=== PATIENT | male | born 1940 | race Caucasian/White ===

== ENCOUNTER → 2016-12-29 | Outpatient (CLI) | payer MEDICARE, OTHER ==
[2015-08-24 11:13] VITALS: BP 145/85
[~2016-12-29] MED LIST: AMLO5TAB2 PO; ATOR20TA58 PO; FOSI40TA PO; MAGN30TA2 PO; METO-269 PO; POTA20TA82 PO; TAMS0.4C97 PO; TRAZ50TA15 PO; WARF1TAB7 PO
== END | disposition home or self-care (01) ==
LOC: PMGWOUND 07:38
PROVIDERS: ATTEND Emergency Medicine Undersea and Hyperbaric Medicine
DX: I87.311 Chronic venous hypertension (idiopathic) with ulcer of right lower extremity (principal); L97.211 Non-pressure chronic ulcer of right calf limited to breakdown of skin; L89.891 Pressure ulcer of other site, stage 1; I48.91 Unspecified atrial fibrillation; F17.210 Nicotine dependence, cigarettes, uncomplicated
CPT/HCPCS: 29581

== ENCOUNTER → 2017-01-01 | Outpatient (CLI) | payer MEDICARE, OTHER ==
[2015-08-24 11:13] VITALS: BP 145/85
== END | disposition home or self-care (01) ==
LOC: PMGWOUND 12:49
PROVIDERS: ATTEND Emergency Medicine Undersea and Hyperbaric Medicine
DX: I87.311 Chronic venous hypertension (idiopathic) with ulcer of right lower extremity (principal); L97.211 Non-pressure chronic ulcer of right calf limited to breakdown of skin; I48.91 Unspecified atrial fibrillation; F17.210 Nicotine dependence, cigarettes, uncomplicated
CPT/HCPCS: 29581

== ENCOUNTER → 2017-01-07 | Outpatient (CLI) | payer MEDICARE, OTHER ==
[2015-08-24 11:13] VITALS: BP 145/85
--- NOTE | 2017-01-07 16:34 | RAD ---
Bilateral lower extremity venous Doppler ultrasound History: Venous insufficiency. Comparison: None. Procedure: Color Doppler, spectral Doppler, and grayscale images are obtained with and without compression in the area of the common femoral vein, superficial femoral vein - femoral vein junction, main femoral vein (superficial femoral vein) and popliteal vein. Veins of the proximal calf are also imaged. Findings: There is normal duplex flow, color flow and compressibility of all visualized vein segments. No evidence of deep venous thrombosis is present. Impression: No evidence of lower extremity deep venous thrombosis.
--- NOTE | 2017-01-07 16:39 | RAD ---
Bilateral lower extremity venous reflux study History: Venous insufficiency. Comparison: None. Technique: Grayscale, color Doppler, and spectral Doppler imaging was performed of the superficial veins of both lower extremities. Findings: The right greater saphenous vein demonstrates greater than 1 second of reflux. At the proximal thigh, reflux time is 1.9 seconds. At the proximal thigh, right greater saphenous vein has diameter of 4.7 mm. The left greater saphenous vein is without significant reflux. No incompetent calf veins are seen. The right lesser saphenous vein at the proximal calf has diameter of 6.7 mm. There is significant reflux with reflux time of 2.7 seconds. Left lesser saphenous vein is without significant reflux. Impression: Reflux is seen involving the right greater saphenous vein and right lesser saphenous vein.
== END | disposition home or self-care (01) ==
LOC: US 15:30
PROVIDERS: ATTEND Specialist
DX: I87.2 Venous insufficiency (chronic) (peripheral) (principal); R60.0 Localized edema
CPT/HCPCS: 93970

== ENCOUNTER → 2017-01-08 | Outpatient (CLI) | payer MEDICARE, OTHER ==
[2015-08-24 11:13] VITALS: BP 145/85
== END | disposition home or self-care (01) ==
LOC: PMGWOUND 10:59
PROVIDERS: ATTEND Emergency Medicine Undersea and Hyperbaric Medicine
DX: I87.311 Chronic venous hypertension (idiopathic) with ulcer of right lower extremity (principal); L97.211 Non-pressure chronic ulcer of right calf limited to breakdown of skin; I48.91 Unspecified atrial fibrillation; F17.210 Nicotine dependence, cigarettes, uncomplicated
CPT/HCPCS: 99214

== ENCOUNTER → 2017-01-15 | Outpatient (CLI) | payer MEDICARE, OTHER ==
[2015-08-24 11:13] VITALS: BP 145/85
== END | disposition home or self-care (01) ==
LOC: PMGWOUND 10:19
PROVIDERS: ATTEND Emergency Medicine Undersea and Hyperbaric Medicine
DX: I87.311 Chronic venous hypertension (idiopathic) with ulcer of right lower extremity (principal); L97.211 Non-pressure chronic ulcer of right calf limited to breakdown of skin; I48.91 Unspecified atrial fibrillation; F17.210 Nicotine dependence, cigarettes, uncomplicated; R60.0 Localized edema
CPT/HCPCS: 99213

== ENCOUNTER → 2018-01-06 | Outpatient (CLI) | payer MEDICARE, OTHER | END | disposition home or self-care (01) | LOC: PMGWOUND 08:21 | DX: I87.311 Chronic venous hypertension (idiopathic) with ulcer of right lower extremity (principal); L97.211 Non-pressure chronic ulcer of right calf limited to breakdown of skin; I48.91 Unspecified atrial fibrillation; F17.210 Nicotine dependence, cigarettes, uncomplicated | CPT/HCPCS: 29581 ==

== ENCOUNTER → 2018-01-08 | Outpatient (CLI) | payer MEDICARE, OTHER | END | disposition home or self-care (01) | LOC: PMGWOUND 12:30 | DX: I87.311 Chronic venous hypertension (idiopathic) with ulcer of right lower extremity (principal); L97.211 Non-pressure chronic ulcer of right calf limited to breakdown of skin; I48.91 Unspecified atrial fibrillation; F17.210 Nicotine dependence, cigarettes, uncomplicated | CPT/HCPCS: 29581 ==

== ENCOUNTER → 2018-01-15 | Outpatient (CLI) | payer MEDICARE, OTHER | END | disposition home or self-care (01) | LOC: PMGWOUND 10:28 | DX: I87.311 Chronic venous hypertension (idiopathic) with ulcer of right lower extremity (principal); L97.212 Non-pressure chronic ulcer of right calf with fat layer exposed; I48.91 Unspecified atrial fibrillation; F17.210 Nicotine dependence, cigarettes, uncomplicated | CPT/HCPCS: 29581; 97597 ==

== ENCOUNTER → 2018-01-22 | Outpatient (CLI) | payer MEDICARE, OTHER | END | disposition home or self-care (01) | LOC: PMGWOUND 07:55 | DX: I87.311 Chronic venous hypertension (idiopathic) with ulcer of right lower extremity (principal); I87.312 Chronic venous hypertension (idiopathic) with ulcer of left lower extremity (principal); L97.211 Non-pressure chronic ulcer of right calf limited to breakdown of skin; L97.821 Non-pressure chronic ulcer of other part of left lower leg limited to breakdown of skin; I48.91 Unspecified atrial fibrillation; F17.210 Nicotine dependence, cigarettes, uncomplicated | CPT/HCPCS: 99214 ==

== ENCOUNTER 2018-09-20 03:48 | Inpatient (IN) | payer MEDICARE, OTHER ==
[2018-09-20] VITALS (27 sets, daily range): BP systolic 72–139; BP diastolic 49–80
[~2018-09-20] VITALS: Ht 185.4 cm; Wt 91.8 kg
[~2018-09-20 03:48] MED LIST changes: +AMLO5TAB10 PO; -AMLO5TAB2 PO; -FOSI40TA PO; +FOSI40TA4 PO; +TRAZ-118 PO; -TRAZ50TA15 PO; +WARF1TAB69 PO; -WARF1TAB7 PO
[2018-09-20] MEDS ORDERED: cefTRIAXone IV Push 1 GM VIAL. IVP ONE ×3 (04:04→05:30)
[2018-09-20] MEDS ORDERED: dilTIAZem IV PUSH 25 MG/5 ML VIAL ONE (04:04)
[2018-09-20] MEDS: IV NORMAL SALINE 1000ML BAG 1,000 ML IV SCH ×4 (04:06→21:32)
[2018-09-20 04:13] LABS: BASO % 0 % (0-3); EOS % 0 % (0-3); HEMOGLOBIN 15.4 g/dL (13.0-17.5); LYMPH # 0.2 x10^3/uL (1.0-4.8); LYMPH % 7 % (24-48); MEAN CORPUSCULAR HEMOGLOBIN 33 pg (25-35); MEAN CORPUSCULAR HGB CONC 35 g/dL (31-37); MEAN CORPUSCULAR VOLUME 94 fL (79-100); MONO # 0.1 x10^3/uL (0.0-1.1); MONO % 2 % (0-9); NEUT % 90 % (31-73); PLATELET COUNT 131 x10^3/uL (140-400); RED BLOOD COUNT 4.67 x10^6/uL (4.30-5.70); RED CELL DISTRIBUTION WIDTH 14.5 % (11.5-14.5); WHITE BLOOD COUNT 3.3 x10^3/uL (4.0-11.0)
[2018-09-20] MEDS: dilTIAZem INJ 125 MG in IV DEXTROSE 5% 100ML 100 ML IV PRN ×3 (04:13→16:26)
[2018-09-20 04:22] LABS: BASE EXCESS ABG -6 mmol/L (-3-3); HCO3 ABG 18 mmol/L (21-28); PCO2 ABG 29 mmHg (35-46); PO2 ABG 83 mmHg (65-108); SAT O2 ABG 96 % (92-99)
--- NOTE | 2018-09-20 04:22 | PHYS DOC ---
Past Medical History Past Medical History: A-Fib, Diverticulosis, High Cholesterol, Hypertension Adult General Chief Complaint Chief Complaint: ALTERED MENTAL STATUS HPI HPI Patient is a 78 year old male who presents with altered mental status. He was last seen normal at approximately 2100 on 09/19/2017 as he went to bed. woke up found him with decreased mental status. She called EMS. EMS found that he was in A. fib with RVR and minimally responsive, he would answer yes no questions. had put him on her oxygen prior to EMS arrival. Per EMS his fingerstick glucose was 120. History is limited from the patient due to his decreased mental status [] Review of Systems Review of Systems Unable to obtain from patient due to his altered mental status All other systems were reviewed and found to be within normal limits, except as documented in this note. Current Medications Current Medications Current Medications Medications (Trade) Dose Ordered Sig/Sowmya Start Time Stop Time Status Last Admin Dose Admin Acetaminophen (Tylenol Supp) 650 mg 1X ONCE 09/20/18 04:30 09/20/18 04:31 DC 09/20/18 04:27 650 MG Albuterol/ Ipratropium (Duoneb) 3 ml 1X ONCE 09/20/18 05:30 09/20/18 05:31 DC 09/20/18 05:37 3 ML Ceftriaxone Sodium (Rocephin) 1 gm 1X ONCE 09/20/18 05:30 09/20/18 05:31 DC 09/20/18 05:23 1 GM Diltiazem HCl (Cardizem Iv Push) 25 mg STK-MED ONCE 09/20/18 04:04 09/20/18 04:06 DC Diltiazem HCl 125 mg/Dextrose 125 ml @ 5 mls/hr CONT PRN 09/20/18 04:00 09/20/18 04:13 5 MLS/HR Sodium Chloride 1,000 ml @ 1,000 mls/hr Q1H 09/20/18 04:00 09/20/18 06:10 09/20/18 04:06 1,000 MLS/HR Allergies Allergies Allergies Coded Allergies Type Severity Reaction Last Updated Verified No Known Drug Allergies 08/24/15 No Physical Exam Physical Exam Constitutional: Well developed, well nourished, moderate to severe distress, ill appearing[] HENT: Normocephalic, atraumatic, bilateral external ears normal, oropharynx moist, no oral exudates, nose normal. [] Eyes: PERRLA, EOMI, conjunctiva normal, no discharge. [] Neck: Normal range of motion, no tenderness, supple, no stridor. [] Cardiovascular:Heart rate is tachycardic with an irregularly irregular rhythm, no murmur [] Lungs & Thorax: Bilateral breath sounds clear to auscultation [] Abdomen: Bowel sounds normal, soft, no tenderness, no masses, no pulsatile masses. [] Skin: Hot, dry, no erythema, no rash. [] Back: No tenderness, no CVA tenderness. [] Extremities: No tenderness, no cyanosis, no clubbing, ROM intact, no edema. [] Neurologic: Alert, unable to assess orientation, GCS10. E4 V1 M5 [] Psychologic: Unable to assess[] Current Patient Data Vital Signs Vital Signs Date Time Temp Pulse Resp B/P (MAP) Pulse Ox O2 Delivery O2 Flow Rate FiO2 09/20/18 04:08 133 137/90 09/20/18 03:49 103.4 30 97 Simple Mask 5.0 103.4 Lab Values Laboratory Tests Test 09/20/18 03:57 09/20/18 04:08 09/20/18 04:09 09/20/18 04:15 White Blood Count 3.3 x10^3/uL (4.0-11.0) L Red Blood Count 4.67 x10^6/uL (4.30-5.70) Hemoglobin 15.4 g/dL (13.0-17.5) Hematocrit 44.0 % (39.0-53.0) Mean Corpuscular Volume 94 fL (79-100) Mean Corpuscular Hemoglobin 33 pg (25-35) Mean Corpuscular Hemoglobin Concent 35 g/dL (31-37) Red Cell Distribution Width 14.5 % (11.5-14.5) Platelet Count 131 x10^3/uL (140-400) L Neutrophils (%) (Auto) 90 % (31-73) H Lymphocytes (%) (Auto) 7 % (24-48) L Monocytes (%) (Auto) 2 % (0-9) Eosinophils (%) (Auto) 0 % (0-3) Basophils (%) (Auto) 0 % (0-3) Neutrophils # (Auto) 3.0 x10^3uL (1.8-7.7) Lymphocytes # (Auto) 0.2 x10^3/uL (1.0-4.8) L Monocytes # (Auto) 0.1 x10^3/uL (0.0-1.1) Eosinophils # (Auto) 0.0 x10^3/uL (0.0-0.7) Basophils # (Auto) 0.0 x10^3/uL (0.0-0.2) Platelet Estimate Pending Prothrombin Time 20.6 SEC (11.7-14.0) H Prothrombin Time INR 1.8 (0.8-1.1) H Sodium Level 135 mmol/L (136-145) L Potassium Level 3.6 mmol/L (3.5-5.1) Chloride Level 99 mmol/L (98-107) Carbon Dioxide Level 22 mmol/L (21-32) Anion Gap 14 (6-14) Blood Urea Nitrogen 24 mg/dL (8-26) Creatinine 0.9 mg/dL (0.7-1.3) Estimated GFR (Cockcroft-Gault) 81.8 BUN/Creatinine Ratio 27 (6-20) H Glucose Level 141 mg/dL (70-99) H Lactic Acid Level 3.5 mmol/L (0.4-2.0) H Calcium Level 8.8 mg/dL (8.5-10.1) Magnesium Level 1.5 mg/dL (1.8-2.4) L Total Bilirubin 2.3 mg/dL (0.2-1.0) H Aspartate Amino Transferase (AST) 71 U/L (15-37) H Alanine Aminotransferase (ALT) 45 U/L (16-63) Alkaline Phosphatase 210 U/L (46-116) H Ammonia 38 mcmol/L (11-34) H Creatine Kinase 52 U/L (39-308) Troponin I Quantitative 0.161 ng/mL (0.000-0.055) LW-Rrv-T-Type Natriuretic Peptide 2703 pg/mL (0-449) H Total Protein 7.0 g/dL (6.4-8.2) Albumin 3.2 g/dL (3.4-5.0) L Albumin/Globulin Ratio 0.8 (1.0-1.7) L Procalcitonin 0.43 ng/mL (0.00-0.10) H Urine Collection Type U cath Urine Color Yellow Urine Clarity Clear Urine pH 6.0 Urine Specific [place] 1.020 Urine Protein >=300 mg/dL (NEG-TRACE) Urine Glucose (UA) Negative mg/dL (NEG) Urine Ketones (Stick) Trace mg/dL (NEG) Urine Blood Large (NEG) Urine Nitrite Positive (NEG) Urine Bilirubin Negative (NEG) Urine Urobilinogen Dipstick 2.0 mg/dL (0.2 mg/dL) Urine Leukocyte Esterase Small (NEG) Urine RBC Occ /HPF (0-2) Urine WBC 5-10 /HPF (0-4) Urine Transitional Epithelial Cells Occ /LPF Urine Bacteria Moderate /HPF (0-FEW) Urine Hyaline Casts Occasional /HPF O2 Saturation 96 % (92-99) Arterial Blood pH 7.41 (7.35-7.45) Arterial Blood pCO2 at Patient Temp 29 mmHg (35-46) L Arterial Blood pO2 at Patient Temp 83 mmHg (65-108) Arterial Blood HCO3 18 mmol/L (21-28) L Arterial Blood Base Excess -6 mmol/L (-3-3) L FiO2 35 Influenza Type A Antigen Negative (NEGATIVE) Influenza Type B Antigen Negative (NEGATIVE) Laboratory Tests 09/20/18 03:57 Laboratory Tests 09/20/18 03:57 EKG EKG EKG shows atrial fibrillation at 150 bpm, an irregularly irregular pattern, left axis deviation, QTC of 435 ms, no old EKG is available for comparison, no ST elevations, nonspecific ST-T wave changes.[] Radiology/Procedures Radiology/Procedures AP chest. HISTORY: Fever, altered mental status AP view was taken of the chest. Heart is enlarged. There is mild vascular congestion. There are no confluent areas of infiltrate. There is no pleural effusion. IMPRESSION: 1. Cardiomegaly. 2. No confluent infiltrates. CT brain without contrast. HISTORY: Altered mental status, fever CT scan of brain was done without contrast. There is motion artifact. There is atrophy. There is no mass or shift of the midline. There is no intracranial hemorrhage. Visualized sinuses are clear. An acute CVA is not identified. IMPRESSION: 1. Atrophy. 2. No intracranial hemorrhage or acute finding noted.[] Course & Med Decision Making Course & Med Decision Making Pertinent Labs and Imaging studies reviewed. (See chart for details) Initial history from is that he has been sick for the past several days with a cough. He's had decreased appetite and not been eating much of anything for the past several days as well. He was last seen normal at 2130 as they went to bed. notes that he smokes 1 to 2 packs of cigarettes a day. ED course and medical decision making: Patient arrived, was placed in bed, in tolerated exam well. Patient was noted to feel warm to the touch and as soon as the temperature was obtained simultaneous sepsis, altered mental status, and A. fib with RVR pathways were initiated. Patient's heart rate didn't improve from the 150s to the 120s with IV Cardizem. Patient's mental status improved during his emergency department stay. Due to the coarse breath sounds breathing treatment was obtained. Patient did not appear to be acutely retaining CO2 and his pH was normal. Findings were discussed with patient and family. Consultation was made with the hospitalist service and patient was admitted in improved condition. Critical care time of 45 minutes for direct bedside care, discussion with consultants as well as family.[] Dragon Disclaimer Dragon Disclaimer This electronic medical record was generated, in whole or in part, using a voice recognition dictation system. Departure Departure Impression: Primary Impression: Sepsis due to urinary tract infection Additional Impressions: Metabolic encephalopathy Atrial fibrillation with rapid ventricular response Disposition: ADMITTED INPATIENT Admitting Physician: Kenny Garcia Condition: CRITICAL Referrals: BRADLEY MEDINA MD (PCP) Date and Time of Reassessment Date: Aug 24, 2015 Time: 05:14 Fluid Challenge Is the fluid challenge complet: No Blood Culture TIme: 04:06 Time Antibiotics Given: 04:08 Vital Signs Vital Signs: Vital Signs Date Time Temp Pulse Resp B/P (MAP) Pulse Ox O2 Delivery O2 Flow Rate FiO2 09/20/18 04:08 133 137/90 09/20/18 03:49 103.4 30 97 Simple Mask 5.0 103.4 Respirations Respiratory Pattern: Hyperpnea Cardiovascular Pulse Rhythm: Irregular Heart: Irreg irreg rhythm w rate Lung Sounds Breath Sounds: Wheezes Capillary Refil Capillary Refill: Lt Hand < 3 seconds Peripheral Pulse Pulse Location: Radial Pulse Strength: Normal (2+) Pulse Assessment Method: NIBP Integumentary Skin: Warm Skin Moisture: Dry Skin Turgor: Normal Skin Color: warm Fingernail Color: WNL Problem Qualifiers ANI GEIGER DO Sep 20, 2018 04:22
[2018-09-20 04:24] LABS: CALCIUM 8.8 mg/dL (8.5-10.1); CREATININE 0.9 mg/dL (0.7-1.3); GFR 81.8; POTASSIUM 3.6 mmol/L (3.5-5.1)
[2018-09-20] MEDS ORDERED: dilTIAZem IV PUSH 25 MG/5 ML VIAL IVP ONE (04:30)
[2018-09-20] MEDS ORDERED: ACETAMINOPHEN 650 MG SUPP.RECT. PR ONE (04:30)
[2018-09-20 04:31] LABS: ALBUMIN 3.2 g/dL (3.4-5.0); ALBUMIN/GLOBULIN RATIO 0.8 (1.0-1.7); MAGNESIUM 1.5 mg/dL (1.8-2.4); TOTAL BILIRUBIN 2.3 mg/dL (0.2-1.0)
[2018-09-20 04:32] LABS: PROTHROMBIN TIME PATIENT 20.6 SEC (11.7-14.0)
[2018-09-20 04:39] LABS: FIO2 ABG 35
[2018-09-20 04:42] LABS: BILIRUBIN,URINE NEGATIVE (NEG); CLARITY,URINE CLEAR; COLOR,URINE YELLOW; NITRITE,URINE POSITIVE (NEG); PROTEIN,URINE >=300 mg/dL (NEG-TRACE)
[2018-09-20 04:46] LABS: INFLUENZA A PATIENT NEGATIVE (NEGATIVE); INFLUENZA B PATIENT NEGATIVE (NEGATIVE)
--- NOTE | 2018-09-20 04:51 | RAD ---
AP chest. HISTORY: Fever, altered mental status AP view was taken of the chest. Heart is enlarged. There is mild vascular congestion. There are no confluent areas of infiltrate. There is no pleural effusion. IMPRESSION: 1. Cardiomegaly. 2. No confluent infiltrates. Electronically signed by: Ishaan Hernandez MD (09/20/2018 4:47 AM) [facility]
[2018-09-20 05:00] LABS: BACTERIA,URINE MODERATE /HPF (0-FEW); RBC,URINE OCC /HPF (0-2)
[2018-09-20 05:01] LABS: HYALINE CASTS, URINE OCCASIONAL /HPF
--- NOTE | 2018-09-20 05:20 | RAD ---
CT brain without contrast. HISTORY: Altered mental status, fever CT scan of brain was done without contrast. There is motion artifact. There is atrophy. There is no mass or shift of the midline. There is no intracranial hemorrhage. Visualized sinuses are clear. An acute CVA is not identified. IMPRESSION: 1. Atrophy. 2. No intracranial hemorrhage or acute finding noted. PQRS Compliance Statement: One or more of the following individualized dose reduction techniques were utilized for this examination: 1. Automated exposure control 2. Adjustment of the mA and/or kV according to patient size 3. Use of iterative reconstruction technique Electronically signed by: Ishaan Hernandez MD (09/20/2018 5:16 AM) [facility]
[2018-09-20] MEDS ORDERED: IPRATRPIUM/ALBUTEROL 0.5/2.5MG 3 ML NEBU. NEB ONE (05:30)
[2018-09-20] MEDS ORDERED: IV NORMAL SALINE 1000ML BAG 1,000 ML IV SCH (05:52)
[2018-09-20] MEDS ORDERED: ONDANSETRON PF 4 MG/2 ML VIAL. IV PRN (06:00)
[2018-09-20] MEDS ORDERED: ACETAMINOPHEN 325 MG TABLET. PO PRN (06:00)
--- NOTE | 2018-09-20 06:30 | NUR ---
Patient is being admitted to room 106 from the ED. Report received from from PREET Balderas. Arrived with 5mg cardizem infusing. Positive sepsis, IVFs infused HAND BOOKBINDER and rocephin given, blood cultures taken. Will continue to monitor.
--- NOTE | 2018-09-20 06:42 | EKG ---
[facility] [address] [place] [address] Test Date: 2018-09-20 Test Time: 03:58:54 Pat Name: BART HERNANDEZ Department: Room: 106 1 Gender: M Residential Treatment Specialist: : [id number] Requested By: ANI GEIGER Order Number: [id number] Reading MD: Pablito Kong Measurements Intervals [place] Rate: 150 P: GA: QRS: -35 QRSD: 88 T: 126 QT: 274 QTc: 435 Interpretive Statements ATRIAL FIBRILLATION RAPID RATE ABNORMAL LEFT AXIS DEVIATION LEFT ANTERIOR FASCICULAR BLOCK LVH WITH REPOLARIZATION ABNORMALITY ABNORMAL ECG RI6.01 No previous ECG available for comparison Electronically Signed On 09-27-2018 10:39:17 COMMUNITY OUTREACH SPECIALIST by Pablito Kong
[2018-09-20] MEDS ORDERED: IV NORMAL SALINE 1000ML BAG 1,000 ML IV ONE ×2 (08:00→11:45)
[2018-09-20] MEDS ORDERED: NOREPINEPHRIN 8MG/250ML PREMIX 250 ML IV PRN (08:45)
[2018-09-20] MEDS ORDERED: METF500T16 PO (08:49)
[2018-09-20] MEDS: IPRATRPIUM/ALBUTEROL 0.5/2.5MG 3 ML NEBU. NEB SCH ×4 (09:18→20:21)
--- NOTE | 2018-09-20 09:25 | NUR ---
Deborah COMMERCIAL DRAFTER for cardiology also notified of decreased urine output concentrated and that patient already had 1000 ml bolus. No orders received for UO
--- NOTE | 2018-09-20 09:25 | NUR ---
Deborah PEREZ for cardiology notified of troponin up to 4.851. Orders received.
[2018-09-20 09:29] LABS: % BANDS 4 % (0-9); % EOS 1 % (0-5); % LYMPHS 5 % (24-48); % SEGS 90 % (35-66); PLT ESTIMATE ADEQUATE (ADEQUATE)
--- NOTE | 2018-09-20 09:30 | NUR ---
Dr. To notified of troponin level elevated to 4.851. Order for Hep gtt received.
[2018-09-20] MEDS ORDERED: HEPARIN for IV BOLUS 10,000 UNIT/10 ML VIAL. IV ONE (09:45)
[2018-09-20] MEDS ORDERED: HEPARIN for IV BOLUS 10,000 UNIT/10 ML VIAL. IV PRN (09:45)
[2018-09-20] MEDS ORDERED: ASPIRIN 325 MG TABLET PO ONE (09:45)
[2018-09-20] MEDS: HEPARIN 25,000UTS/500ML PREMIX 500 ML IV PRN (09:51)
[2018-09-20] MEDS ORDERED: MAGNESIUM SULFATE 2GM 50 ML IV ONE (11:00)
--- NOTE | 2018-09-20 11:00 | PDOC2 ---
BISHNU MARTINEZ SECRETARY ADMINISTRATIVE ASSISTANT 09/20/18 1100: CARDIAC CONSULT DATE OF CONSULT Date of Consult DATE: 09/20/18 TIME: 10:48 REASON FOR CONSULT Reason for Consult: AFIB with RVR Elevated troponin REFERRING PHYSICIAN Referring Physician: SOURCE Source: Chart review, Patient HISTORY OF PRESENT ILLNESS HISTORY OF PRESENT ILLNESS This is a 78 yo male who presented with altered mental status. Was noted to be appropriate last night. Woke up early this am and noted with altered mentation. EMS was called. In AFIB with RVR upon arrival. Troponin elevated at 0.161. UA positive for UTI. Became hypotensive requiring pressor support. Patient's mentation has improved. Denies any recent chest pain, palpitations, dizziness, diaphoresis, PND, or LE edema. Does report remembering feeling short of breath last night. Denies any dyspnea currently. Has a history of chronic AFIB on warfarin therapy. Follows with Dr. Rubin. PAST MEDICAL HISTORY Cardiovascular: AFIB (on warfarin therapy ), HTN, Hyperlipidemia Pulmonary: No pertinent hx CENTRAL NERVOUS SYSTEM: Other (no pertinent hx) GI: Other (diverticulitis ) Heme/Onc: No pertinent hx Hepatobiliary: No pertinent hx Psych: Anxiety, Depression Musculoskeletal: Osteoarthritis Rheumatologic: No pertinent hx Infectious disease: No pertinent hx ENT: No pertinent hx Renal/: Benign prostatic enlarg. Endocrine: No pertinent hx Dermatology: No pertinent hx PAST SURGICAL HISTORY Past Surgical History: Tonsillectomy FAMILY HISTORY Family History: Hypertension SOCIAL HISTORY Smoke: <1 pack per day ALCOHOL: none Drugs: None Lives: with Family CURRENT MEDICATIONS CURRENT MEDICATIONS Current Medications Medications (Trade) Dose Ordered Sig/Sowmya Route PRN Reason Start Time Stop Time Status Last Admin Dose Admin Sodium Chloride 1,000 ml @ 1,000 mls/hr Q1H IV 09/20/18 04:00 09/20/18 06:10 DC 09/20/18 04:06 Diltiazem HCl (Cardizem Iv Push) 10 mg 1X ONCE IVP 09/20/18 04:30 09/20/18 04:31 DC 09/20/18 04:08 Diltiazem HCl 125 mg/Dextrose 125 ml @ 5 mls/hr CONT PRN IV SEE I/O RECORD 09/20/18 04:00 09/20/18 04:13 Ceftriaxone Sodium (Rocephin) 1 gm 1X ONCE IVP 09/20/18 04:30 09/20/18 04:31 DC 09/20/18 04:08 Acetaminophen (Tylenol Supp) 650 mg 1X ONCE IA 09/20/18 04:30 09/20/18 04:31 DC 09/20/18 04:27 Ceftriaxone Sodium (Rocephin) 1 gm 1X ONCE IVP 09/20/18 05:30 09/20/18 05:31 DC 09/20/18 05:23 Albuterol/ Ipratropium (Duoneb) 3 ml 1X ONCE NEB 09/20/18 05:30 09/20/18 05:31 DC 09/20/18 05:37 Sodium Chloride 1,000 ml @ 150 mls/hr Q6H40M IV 09/20/18 05:52 09/21/18 05:51 09/20/18 06:32 Albuterol/ Ipratropium (Duoneb) 3 ml RTQID NEB 09/20/18 08:00 09/21/18 07:59 09/20/18 09:18 Sodium Chloride 1,000 ml @ 1,000 mls/hr 1X ONCE IV 09/20/18 08:00 09/20/18 08:59 DC 09/20/18 08:40 Norepinephrine Bitartrate 250 ml @ 9.375 mls/ hr CONT PRN IV SEE I/O RECORD 09/20/18 08:45 09/20/18 08:51 Heparin Sodium (Porcine) (Heparin Sodium) 3,950 unit 1X ONCE IV 09/20/18 09:45 09/20/18 09:46 DC 09/20/18 09:51 Heparin Sodium/ Dextrose 500 ml @ 20 mls/hr CONT PRN IV SEE I/O RECORD 09/20/18 09:45 09/20/18 09:51 Aspirin (Luci Aspirin) 325 mg 1X ONCE PO 09/20/18 09:45 09/20/18 09:46 DC 09/20/18 10:00 ALLERGIES ALLERGIES: Coded Allergies: No Known Drug Allergies (Unverified , 08/24/15) ROS Review of System 14 point ROS conducted with pertinent positives noted above in HPI. PHYSICAL EXAM General: Alert, Oriented X3, Cooperative, No acute distress HEENT: Atraumatic, Mucous membr. moist/pink Lungs: Clear to auscultation, Normal air movement Heart: Other (IRRR; tele AFIB with controlled rate) Abdomen: Soft, No tenderness Extremities: No edema, Normal pulses Skin: No significant lesion Neuro: Normal speech, Sensation intact Psych/Mental Status: Mental status NL, Mood NL MUSCULOSKELETAL: Osteoarthritic changes both hands VITALS VITALS Vital Signs Date Time Temp Pulse Resp B/P (MAP) Pulse Ox O2 Delivery O2 Flow Rate FiO2 09/20/18 10:15 100 24 93/63 (73) 97 Nasal Cannula 2.0 09/20/18 07:00 99.4 99.4 LABS Lab: Laboratory Tests Test 09/20/18 03:57 09/20/18 04:08 09/20/18 04:09 09/20/18 04:15 White Blood Count 3.3 x10^3/uL (4.0-11.0) Red Blood Count 4.67 x10^6/uL (4.30-5.70) Hemoglobin 15.4 g/dL (13.0-17.5) Hematocrit 44.0 % (39.0-53.0) Mean Corpuscular Volume 94 fL (79-100) Mean Corpuscular Hemoglobin 33 pg (25-35) Mean Corpuscular Hemoglobin Concent 35 g/dL (31-37) Red Cell Distribution Width 14.5 % (11.5-14.5) Platelet Count 131 x10^3/uL (140-400) Neutrophils (%) (Auto) 90 % (31-73) Lymphocytes (%) (Auto) 7 % (24-48) Monocytes (%) (Auto) 2 % (0-9) Eosinophils (%) (Auto) 0 % (0-3) Basophils (%) (Auto) 0 % (0-3) Neutrophils # (Auto) 3.0 x10^3uL (1.8-7.7) Lymphocytes # (Auto) 0.2 x10^3/uL (1.0-4.8) Monocytes # (Auto) 0.1 x10^3/uL (0.0-1.1) Eosinophils # (Auto) 0.0 x10^3/uL (0.0-0.7) Basophils # (Auto) 0.0 x10^3/uL (0.0-0.2) Segmented Neutrophils % 90 % (35-66) Band Neutrophils % 4 % (0-9) Lymphocytes % 5 % (24-48) Eosinophils % 1 % (0-5) Platelet Estimate Adequate (ADEQUATE) Prothrombin Time 20.6 SEC (11.7-14.0) Prothromb Time International Ratio 1.8 (0.8-1.1) Sodium Level 135 mmol/L (136-145) Potassium Level 3.6 mmol/L (3.5-5.1) Chloride Level 99 mmol/L (98-107) Carbon Dioxide Level 22 mmol/L (21-32) Anion Gap 14 (6-14) Blood Urea Nitrogen 24 mg/dL (8-26) Creatinine 0.9 mg/dL (0.7-1.3) Estimated GFR (Cockcroft-Gault) 81.8 BUN/Creatinine Ratio 27 (6-20) Glucose Level 141 mg/dL (70-99) Lactic Acid Level 3.5 mmol/L (0.4-2.0) Calcium Level 8.8 mg/dL (8.5-10.1) Magnesium Level 1.5 mg/dL (1.8-2.4) Total Bilirubin 2.3 mg/dL (0.2-1.0) Aspartate Amino Transf (AST/SGOT) 71 U/L (15-37) Alanine Aminotransferase (ALT/SGPT) 45 U/L (16-63) Alkaline Phosphatase 210 U/L (46-116) Ammonia 38 mcmol/L (11-34) Creatine Kinase 52 U/L (39-308) Troponin I Quantitative 0.161 ng/mL (0.000-0.055) AP-Wfj-Y-Type Natriuretic Peptide 2703 pg/mL (0-449) Total Protein 7.0 g/dL (6.4-8.2) Albumin 3.2 g/dL (3.4-5.0) Albumin/Globulin Ratio 0.8 (1.0-1.7) Procalcitonin 0.43 ng/mL (0.00-0.10) Urine Collection Type U cath Urine Color Yellow Urine Clarity Clear Urine pH 6.0 Urine Specific [place] 1.020 Urine Protein >=300 mg/dL (NEG-TRACE) Urine Glucose (UA) Negative mg/dL (NEG) Urine Ketones (Stick) Trace mg/dL (NEG) Urine Blood Large (NEG) Urine Nitrite Positive (NEG) Urine Bilirubin Negative (NEG) Urine Urobilinogen Dipstick 2.0 mg/dL (0.2 mg/dL) Urine Leukocyte Esterase Small (NEG) Urine RBC Occ /HPF (0-2) Urine WBC 5-10 /HPF (0-4) Urine Transitional Epithelial Cells Occ /LPF Urine Bacteria Moderate /HPF (0-FEW) Urine Hyaline Casts Occasional /HPF O2 Saturation 96 % (92-99) Arterial Blood pH 7.41 (7.35-7.45) Arterial Blood pCO2 at Patient Temp 29 mmHg (35-46) Arterial Blood pO2 at Patient Temp 83 mmHg (65-108) Arterial Blood HCO3 18 mmol/L (21-28) Arterial Blood Base Excess -6 mmol/L (-3-3) FiO2 35 Influenza Type A Antigen Negative (NEGATIVE) Influenza Type B Antigen Negative (NEGATIVE) Test 09/20/18 08:25 Lactic Acid Level 2.7 mmol/L (0.4-2.0) Troponin I Quantitative 4.851 ng/mL (0.000-0.055) STRESS TEST STRESS TEST Conclusion 1. No significant perfusion defects to suggest myocardial ischemia or sca 2. rNormal wall motion and wall thickening 3. Since he is in atrial fib, EF cannot be accurate as measured with an MPI. 4. Scanindicates low risk for future dardiav events DATE: 02/15/16 1042 ASSESSMENT/PLAN ASSESSMENT/PLAN . Metabolic encephalopathy 2. NSTEMI; highest trop 4.8 3. Chronic AFIB; with RVR, POA. on warfarin therapy- INR 1.8 4. UTI; treatment as per PCP 5. Lactic acidosis, ? sepsis 6. Hypertension with present hypotension; requiring pressor support 7. Hypomagnesemia Recommendations ASA start heparin gtt per CV protocol Obtain echo to assess LV systolic function Check lipids, trend troponin Use Dig PRN for rate control given hypotension Replace Mg, monitor lytes Plan for further ischemic workup, in the form of a cardiac catheterization when able to titrate off pressor therapy. R/b/a discussed with patient and is agreeable. Keep NPO p MN. Hold warfarin for now. Resume BB when BP consistently adequate. DELIA MCDONALD MD 09/20/18 1423: CARDIAC CONSULT ASSESSMENT/PLAN ASSESSMENT/PLAN Patient seen and examined. Agree with PATIENT FINANCIAL REP's assessment and plan. Permanent atrial fibrillation rate better controlled Agree with heparin infusion for patient's non-STEMI Plan for cardiac catheterization once off pressors Check 2-D echo to assess LV systolic function Continue current treatment for UTI per IM Thank you for your consultation BISHNU MARTINEZ APRN Sep 20, 2018 11:00 DELIA MCDONALD MD Sep 20, 2018 14:23
[2018-09-20 11:13] LABS: CHOLESTEROL/HDL RATIO 2.3
[2018-09-20] MEDS: ASPIRIN ENTERIC COATED 81 MG TABLET.DR. PO SCH (15:00)
[2018-09-20] MEDS ORDERED: ALBUMIN HUMAN 25% 100 ML IV ONE (15:15)
--- NOTE | 2018-09-20 15:15 | NUR ---
Wound Care Wound care consult for buttock wounds. 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 Cleansed area and applied barrier cream, recommend to reapply at least BID. WC cushion ordered from [facility]. Pt educated on PU prevention, turned to right side with heels floated. No other wounds found on full skin inspection. WC will continue to follow for possible changes.
--- NOTE | 2018-09-20 15:19 | PDOC1 ---
History and Physical Date of Admission Date of Admission 09/20/2017 Identification/Chief Complaint Chief Complaint i got sick Problems: (1) NSTEMI (non-ST elevated myocardial infarction) (2) Sepsis due to urinary tract infection (3) Atrial fibrillation with rapid ventricular response Source Source: Chart review, Patient History of Present Illness History of Present Illness Patient is a 78 year old male who presents with altered mental status. He was last seen normal at approximately 2100 on 09/19/2017 as he went to bed. woke up found him with decreased mental status. She called EMS. EMS found that he was in A. fib with RVR and minimally responsive, he would answer yes no questions. had put him on her oxygen prior to EMS arrival. Per EMS his fingerstick glucose was 120. History is limited from the patient due to his decreased mental status (copied from ER record) Patient with my evaluation is sitting in bed in no apparent distress. The patient's mentation has improved since admission fluid resuscitation and Rocephin administered in the emergency department. The patient denied headache blurred vision prior to his episode he denied chest discomfort no palpitations no chest pressure no sensation of impending doom no nausea vomiting ordered diaphoresis was reported. The patient and was found to have an elevated troponin as well reason why cardiology has been consulted. His atrial fibrillation with rapid ventricular response has been controlled with calcium channel blockers. His blood pressure did come down throughout the evening and is requiring of the present time Levophed and noted to maintain an MEP of greater than 65. Patient has received proper fluid resuscitation he is not exhibiting signs of pulmonary congestion. Patient's blood cultures have been reported positive for gram-negative rods awaiting for organism identification Plan of care has been explained in detail no concerns addressed the best of my abilities Past Medical History Cardiovascular: AFIB (on warfarin therapy ), HTN, Hyperlipidemia Pulmonary: No pertinent hx CENTRAL NERVOUS SYSTEM: Other (no pertinent hx) GI: Other (diverticulitis ) Heme/Onc: No pertinent hx Hepatobiliary: No pertinent hx Psych: Anxiety, Depression Rheumatologic: No pertinent hx Infectious disease: No pertinent hx ENT: No pertinent hx Renal/: Benign prostatic enlarg. Endocrine: No pertinent hx Dermatology: No pertinent hx Past Surgical History Past Surgical History: Tonsillectomy Family History Family History: Hypertension Social History Smoke: <1 pack per day ALCOHOL: none Drugs: None Current Problem List Problem List Problems Medical Problems: (1) Atrial fibrillation with rapid ventricular response Status: Acute (2) Metabolic encephalopathy Status: Acute (3) Sepsis due to urinary tract infection Status: Acute Current Medications Current Medications Current Medications Medications (Trade) Dose Ordered Sig/Sowmya Start Time Stop Time Status Last Admin Dose Admin Acetaminophen (Tylenol Supp) 650 mg 1X ONCE 09/20/18 04:30 09/20/18 04:31 DC 09/20/18 04:27 650 MG Acetaminophen (Tylenol) 650 mg PRN Q4HRS PRN 09/20/18 06:00 09/21/18 05:59 Albuterol/ Ipratropium (Duoneb) 3 ml RTQID 09/20/18 08:00 09/21/18 07:59 09/20/18 13:01 3 ML Aspirin (Luic Aspirin) 325 mg 1X ONCE 09/20/18 09:45 09/20/18 09:46 DC 09/20/18 10:00 325 MG Aspirin (Ecotrin) 81 mg [id number] 09/20/18 15:00 Ceftriaxone Sodium (Rocephin) 1 gm 1X ONCE 09/20/18 05:30 09/20/18 05:31 DC 09/20/18 05:23 1 GM Diltiazem HCl (Cardizem Iv Push) 25 mg STK-MED ONCE 09/20/18 04:04 09/20/18 04:06 DC Diltiazem HCl 125 mg/Dextrose 125 ml @ 5 mls/hr CONT PRN 09/20/18 04:00 09/20/18 04:13 5 MLS/HR Heparin Sodium (Porcine) (Heparin Sodium) 2,350 unit PRN Q6HRS PRN 09/20/18 09:45 Heparin Sodium/ Dextrose 500 ml @ 20 mls/hr CONT PRN 09/20/18 09:45 09/20/18 09:51 20 MLS/HR Info (Anti-Coagulation Monitoring By Pharmacy) 1 each PRN DAILY PRN 09/20/18 11:00 Magnesium Sulfate 50 ml @ 25 mls/hr 1X ONCE 09/20/18 11:00 09/20/18 12:59 DC Norepinephrine Bitartrate 250 ml @ 9.375 mls/ hr CONT PRN 09/20/18 08:45 09/20/18 08:51 9.375 MLS/HR Ondansetron HCl (Zofran) 4 mg PRN Q8HRS PRN 09/20/18 06:00 09/21/18 05:59 Sodium Chloride 1,000 ml @ 1,000 mls/hr 1X ONCE 09/20/18 11:45 09/20/18 12:44 DC 09/20/18 12:17 1,000 MLS/HR Allergies Allergies Allergies Coded Allergies Type Severity Reaction Last Updated Verified No Known Drug Allergies 08/24/15 No ROS Review of System CONSTITUTIONAL: No fever or chills EYES: No recent changes SKIN: No rash or itching CARDIOVASCULAR: No chest pain, syncope, palpitations, or edema RESPIRATORY: No SOB or cough GASTROINTESTINAL: No nausea, vomiting or abdominal pain NEUROLOGICAL: No headaches or weakness ENDOCRINE: No cold or heat intolerance GENITOURINARY: No urgency or frequency of urination MUSCULOSKELETAL: No back pain or joint pain LYMPHATICS: No enlarged lymph nodes PSYCHIATRIC: No anxiety or depression Physical Exam Physical Exam GEN.: No apparent distress. Alert and oriented. HEENT: Head is normocephalic, atraumatic NECK: Supple. LUNGS: Clear to auscultation. Good inspiratory effort HEART: RRR, S1, S2 present. No murmurs gallops or rubs Peripheral pulses intact ABDOMEN: Soft, nontender. Positive bowel sounds. EXTREMITIES: Without any cyanosis. NEUROLOGIC: Normal speech, normal tone PSYCHIATRIC: Normal affect, normal mood. SKIN: No ulcerations Vitals Vitals Vital Signs Date Time Temp Pulse Resp B/P (MAP) Pulse Ox O2 Delivery O2 Flow Rate FiO2 09/20/18 13:01 97 Nasal Cannula 4.0 09/20/18 13:00 92 24 107/68 (81) 09/20/18 07:00 99.4 99.4 Labs Labs Laboratory Tests Test 09/20/18 03:57 09/20/18 04:08 09/20/18 04:09 09/20/18 04:15 White Blood Count 3.3 x10^3/uL (4.0-11.0) Red Blood Count 4.67 x10^6/uL (4.30-5.70) Hemoglobin 15.4 g/dL (13.0-17.5) Hematocrit 44.0 % (39.0-53.0) Mean Corpuscular Volume 94 fL (79-100) Mean Corpuscular Hemoglobin 33 pg (25-35) Mean Corpuscular Hemoglobin Concent 35 g/dL (31-37) Red Cell Distribution Width 14.5 % (11.5-14.5) Platelet Count 131 x10^3/uL (140-400) Neutrophils (%) (Auto) 90 % (31-73) Lymphocytes (%) (Auto) 7 % (24-48) Monocytes (%) (Auto) 2 % (0-9) Eosinophils (%) (Auto) 0 % (0-3) Basophils (%) (Auto) 0 % (0-3) Neutrophils # (Auto) 3.0 x10^3uL (1.8-7.7) Lymphocytes # (Auto) 0.2 x10^3/uL (1.0-4.8) Monocytes # (Auto) 0.1 x10^3/uL (0.0-1.1) Eosinophils # (Auto) 0.0 x10^3/uL (0.0-0.7) Basophils # (Auto) 0.0 x10^3/uL (0.0-0.2) Segmented Neutrophils % 90 % (35-66) Band Neutrophils % 4 % (0-9) Lymphocytes % 5 % (24-48) Eosinophils % 1 % (0-5) Platelet Estimate Adequate (ADEQUATE) Prothrombin Time 20.6 SEC (11.7-14.0) Prothromb Time International Ratio 1.8 (0.8-1.1) Sodium Level 135 mmol/L (136-145) Potassium Level 3.6 mmol/L (3.5-5.1) Chloride Level 99 mmol/L (98-107) Carbon Dioxide Level 22 mmol/L (21-32) Anion Gap 14 (6-14) Blood Urea Nitrogen 24 mg/dL (8-26) Creatinine 0.9 mg/dL (0.7-1.3) Estimated GFR (Cockcroft-Gault) 81.8 BUN/Creatinine Ratio 27 (6-20) Glucose Level 141 mg/dL (70-99) Lactic Acid Level 3.5 mmol/L (0.4-2.0) Calcium Level 8.8 mg/dL (8.5-10.1) Magnesium Level 1.5 mg/dL (1.8-2.4) Total Bilirubin 2.3 mg/dL (0.2-1.0) Aspartate Amino Transf (AST/SGOT) 71 U/L (15-37) Alanine Aminotransferase (ALT/SGPT) 45 U/L (16-63) Alkaline Phosphatase 210 U/L (46-116) Ammonia 38 mcmol/L (11-34) Creatine Kinase 52 U/L (39-308) Troponin I Quantitative 0.161 ng/mL (0.000-0.055) KC-Pui-X-Type Natriuretic Peptide 2703 pg/mL (0-449) Total Protein 7.0 g/dL (6.4-8.2) Albumin 3.2 g/dL (3.4-5.0) Albumin/Globulin Ratio 0.8 (1.0-1.7) Procalcitonin 0.43 ng/mL (0.00-0.10) Urine Collection Type U cath Urine Color Yellow Urine Clarity Clear Urine pH 6.0 Urine Specific [place] 1.020 Urine Protein >=300 mg/dL (NEG-TRACE) Urine Glucose (UA) Negative mg/dL (NEG) Urine Ketones (Stick) Trace mg/dL (NEG) Urine Blood Large (NEG) Urine Nitrite Positive (NEG) Urine Bilirubin Negative (NEG) Urine Urobilinogen Dipstick 2.0 mg/dL (0.2 mg/dL) Urine Leukocyte Esterase Small (NEG) Urine RBC Occ /HPF (0-2) Urine WBC 5-10 /HPF (0-4) Urine Transitional Epithelial Cells Occ /LPF Urine Bacteria Moderate /HPF (0-FEW) Urine Hyaline Casts Occasional /HPF O2 Saturation 96 % (92-99) Arterial Blood pH 7.41 (7.35-7.45) Arterial Blood pCO2 at Patient Temp 29 mmHg (35-46) Arterial Blood pO2 at Patient Temp 83 mmHg (65-108) Arterial Blood HCO3 18 mmol/L (21-28) Arterial Blood Base Excess -6 mmol/L (-3-3) FiO2 35 Influenza Type A Antigen Negative (NEGATIVE) Influenza Type B Antigen Negative (NEGATIVE) Test 09/20/18 07:00 09/20/18 08:25 09/20/18 11:55 Nasal Screen MRSA (PCR) Negative (Negative) Lactic Acid Level 2.7 mmol/L (0.4-2.0) Troponin I Quantitative 4.851 ng/mL (0.000-0.055) 7.185 ng/mL (0.000-0.055) Triglycerides Level 57 mg/dL (0-150) Cholesterol Level 76 mg/dL (0-200) LDL Cholesterol, Calculated 32 mg/dL (0-100) VLDL Cholesterol, Calculated 11 mg/dL (0-40) Non-HDL Cholesterol Calculated 43 mg/dL (0-129) HDL Cholesterol 33 mg/dL (40-60) Cholesterol/HDL Ratio 2.3 Laboratory Tests Test 09/20/18 03:57 09/20/18 04:08 09/20/18 04:09 09/20/18 04:15 White Blood Count 3.3 x10^3/uL (4.0-11.0) Red Blood Count 4.67 x10^6/uL (4.30-5.70) Hemoglobin 15.4 g/dL (13.0-17.5) Hematocrit 44.0 % (39.0-53.0) Mean Corpuscular Volume 94 fL (79-100) Mean Corpuscular Hemoglobin 33 pg (25-35) Mean Corpuscular Hemoglobin Concent 35 g/dL (31-37) Red Cell Distribution Width 14.5 % (11.5-14.5) Platelet Count 131 x10^3/uL (140-400) Neutrophils (%) (Auto) 90 % (31-73) Lymphocytes (%) (Auto) 7 % (24-48) Monocytes (%) (Auto) 2 % (0-9) Eosinophils (%) (Auto) 0 % (0-3) Basophils (%) (Auto) 0 % (0-3) Neutrophils # (Auto) 3.0 x10^3uL (1.8-7.7) Lymphocytes # (Auto) 0.2 x10^3/uL (1.0-4.8) Monocytes # (Auto) 0.1 x10^3/uL (0.0-1.1) Eosinophils # (Auto) 0.0 x10^3/uL (0.0-0.7) Basophils # (Auto) 0.0 x10^3/uL (0.0-0.2) Segmented Neutrophils % 90 % (35-66) Band Neutrophils % 4 % (0-9) Lymphocytes % 5 % (24-48) Eosinophils % 1 % (0-5) Platelet Estimate Adequate (ADEQUATE) Prothrombin Time 20.6 SEC (11.7-14.0) Prothromb Time International Ratio 1.8 (0.8-1.1) Sodium Level 135 mmol/L (136-145) Potassium Level 3.6 mmol/L (3.5-5.1) Chloride Level 99 mmol/L (98-107) Carbon Dioxide Level 22 mmol/L (21-32) Anion Gap 14 (6-14) Blood Urea Nitrogen 24 mg/dL (8-26) Creatinine 0.9 mg/dL (0.7-1.3) Estimated GFR (Cockcroft-Gault) 81.8 BUN/Creatinine Ratio 27 (6-20) Glucose Level 141 mg/dL (70-99) Lactic Acid Level 3.5 mmol/L (0.4-2.0) Calcium Level 8.8 mg/dL (8.5-10.1) Magnesium Level 1.5 mg/dL (1.8-2.4) Total Bilirubin 2.3 mg/dL (0.2-1.0) Aspartate Amino Transf (AST/SGOT) 71 U/L (15-37) Alanine Aminotransferase (ALT/SGPT) 45 U/L (16-63) Alkaline Phosphatase 210 U/L (46-116) Ammonia 38 mcmol/L (11-34) Creatine Kinase 52 U/L (39-308) Troponin I Quantitative 0.161 ng/mL (0.000-0.055) OZ-Xcs-X-Type Natriuretic Peptide 2703 pg/mL (0-449) Total Protein 7.0 g/dL (6.4-8.2) Albumin 3.2 g/dL (3.4-5.0) Albumin/Globulin Ratio 0.8 (1.0-1.7) Procalcitonin 0.43 ng/mL (0.00-0.10) Urine Collection Type U cath Urine Color Yellow Urine Clarity Clear Urine pH 6.0 Urine Specific [place] 1.020 Urine Protein >=300 mg/dL (NEG-TRACE) Urine Glucose (UA) Negative mg/dL (NEG) Urine Ketones (Stick) Trace mg/dL (NEG) Urine Blood Large (NEG) Urine Nitrite Positive (NEG) Urine Bilirubin Negative (NEG) Urine Urobilinogen Dipstick 2.0 mg/dL (0.2 mg/dL) Urine Leukocyte Esterase Small (NEG) Urine RBC Occ /HPF (0-2) Urine WBC 5-10 /HPF (0-4) Urine Transitional Epithelial Cells Occ /LPF Urine Bacteria Moderate /HPF (0-FEW) Urine Hyaline Casts Occasional /HPF O2 Saturation 96 % (92-99) Arterial Blood pH 7.41 (7.35-7.45) Arterial Blood pCO2 at Patient Temp 29 mmHg (35-46) Arterial Blood pO2 at Patient Temp 83 mmHg (65-108) Arterial Blood HCO3 18 mmol/L (21-28) Arterial Blood Base Excess -6 mmol/L (-3-3) FiO2 35 Influenza Type A Antigen Negative (NEGATIVE) Influenza Type B Antigen Negative (NEGATIVE) Test 09/20/18 07:00 09/20/18 08:25 09/20/18 11:55 Nasal Screen MRSA (PCR) Negative (Negative) Lactic Acid Level 2.7 mmol/L (0.4-2.0) Troponin I Quantitative 4.851 ng/mL (0.000-0.055) 7.185 ng/mL (0.000-0.055) Triglycerides Level 57 mg/dL (0-150) Cholesterol Level 76 mg/dL (0-200) LDL Cholesterol, Calculated 32 mg/dL (0-100) VLDL Cholesterol, Calculated 11 mg/dL (0-40) Non-HDL Cholesterol Calculated 43 mg/dL (0-129) HDL Cholesterol 33 mg/dL (40-60) Cholesterol/HDL Ratio 2.3 VTE Prophylaxis Ordered VTE Prophylaxis Devices: Yes VTE Pharmacological Prophylaxi: Yes (heparin) Assessment/Plan Assessment/Plan Altered mental status secondary to sepsis secondary to UTI Atrial fibrillation with rapid ventricular response Non ST segment elevation myocardial infarction Hypomagnesemia History of dyslipidemia Plan Continue with Levaquin and titrate as needed Patient has received aggressive fluid resuscitation in the nexus of 3 L We'll do a one-time dose of albumin Cardiology consultation done and planning to do cardiac catheterization in the next day or so Continue to monitor hemodynamics closely DVT prophylaxis with heparin Patient may have a diet today so no need for GI prophylaxis at this time Resume home MOSES Reynaga MD Sep 20, 2018 15:18
--- NOTE | 2018-09-20 18:15 | NUR ---
Dr. Grimes called to verify he is aware of the troponin elevated up to 7.185. No change in plan of care. Plan for cardiac cath tomorrow if off levophed.
[2018-09-20] MEDS: CEFEPIME HCL IV Push 1 GM VIAL. IVP SCH (21:22)
[2018-09-21] VITALS (25 sets, daily range): BP systolic 112–170; BP diastolic 72–98
[2018-09-21] MEDS ORDERED: traZODone 50 MG TABLET. PO ONE (00:30)
[2018-09-21] MEDS: HEPARIN 25,000UTS/500ML PREMIX 500 ML IV PRN ×2 (04:45→22:17)
[2018-09-21] MEDS: IV NORMAL SALINE 1000ML BAG 1,000 ML IV SCH ×2 (04:48→11:20)
[2018-09-21 05:48] LABS: BASO % 0 % (0-3); EOS % 0 % (0-3); HEMATOCRIT 37.6 % (39.0-53.0); HEMOGLOBIN 12.9 g/dL (13.0-17.5); LYMPH # 0.3 x10^3/uL (1.0-4.8); LYMPH % 3 % (24-48); MEAN CORPUSCULAR HEMOGLOBIN 32 pg (25-35); MEAN CORPUSCULAR HGB CONC 34 g/dL (31-37); MEAN CORPUSCULAR VOLUME 93 fL (79-100); MONO # 0.7 x10^3/uL (0.0-1.1); MONO % 7 % (0-9); NEUT # 10.2 x10^3uL (1.8-7.7); NEUT % 90 % (31-73); PLATELET COUNT 114 x10^3/uL (140-400); RED BLOOD COUNT 4.05 x10^6/uL (4.30-5.70); RED CELL DISTRIBUTION WIDTH 14.8 % (11.5-14.5); WHITE BLOOD COUNT 11.3 x10^3/uL (4.0-11.0)
[2018-09-21 06:18] LABS: ALBUMIN 2.6 g/dL (3.4-5.0); ALBUMIN/GLOBULIN RATIO 0.7 (1.0-1.7); CREATININE 1.1 mg/dL (0.7-1.3); GFR 64.9; POTASSIUM 3.1 mmol/L (3.5-5.1); TOTAL BILIRUBIN 2.2 mg/dL (0.2-1.0); TOTAL PROTEIN 6.2 g/dL (6.4-8.2)
--- NOTE | 2018-09-21 07:00 | NUR ---
Patient restless through the night and not much sleep and states he is unable to get comfortable. About 0500 h patient began complaining of SOA and with sao2<90% and increased to 4L O2. At shift change patient with increased rate and afib/rvr but not sustained and hypertensive. Dr. Grimes notified and orders received. Information passed onto PREET Salas.
--- NOTE | 2018-09-21 07:12 | EKG ---
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
[2018-09-21] MEDS ORDERED: LIDOCAINE 1% PF 2 ML VIAL. ONE (07:49)
[2018-09-21] MEDS ORDERED: IODIXANOL 320 MG/ML 100 ML VIAL. ONE ×2 (07:49→09:56)
[2018-09-21] MEDS: ASPIRIN ENTERIC COATED 81 MG TABLET.DR. PO SCH (07:54)
[2018-09-21] MEDS ORDERED: FUROSEMIDE 40 MG/4 ML VIAL. IVP ONE (08:00)
[2018-09-21] MEDS ORDERED: POTASSIUM CHLORIDE 20 MEQ TABLET.ER. PO ONE ×2 (08:00→10:00)
[2018-09-21] MEDS: POTASSIUM CHLORIDE 20 MEQ TABLET.ER. PO SCH ×3 (08:00→12:00)
--- NOTE | 2018-09-21 08:05 | RAD ---
Portable chest, 09/21/2017: HISTORY: Increasing shortness of breath Comparison is made to yesterday's study. The heart is enlarged. There is calcific plaquing and tortuosity of the thoracic aorta. There are mild to moderate interstitial opacities in the lungs, primarily in the periphery and lung bases. These appear to have worsened slightly since yesterday study. There is mild narrowing of the minor fissure on the right. No consolidating infiltrate is seen. There is no evidence of pleural fluid. IMPRESSION: 1. Cardiomegaly and aortic atherosclerosis. 2. Interstitial opacities in the lungs most likely representing interstitial edema. Atypical pneumonia is less likely. Electronically signed by: Raul Gorman MD (09/21/2018 8:01 AM) [facility]
--- NOTE | 2018-09-21 08:17 | CARD ---
MR#: [id number] Date of Study: 09/20/2018 Ordering Physician: BISHNU MARTINEZ, Referring Physician: IVANNA FOSTER, Tech: Maria Fernanda Rogers APPROVED REPORT EXAM: Two-dimensional and M-mode echocardiogram with Doppler and color Doppler. Other Information Quality : AverageHR: 84bpm INDICATION Non STEMI RISK FACTORS Hypertension Hyperlipidemia Smoking 2D DIMENSIONS RVDd4.5 (2.9-3.5cm)Left Atrium(2D)6.1 (1.6-4.0cm) IVSd1.7 (0.7-1.1cm)Aortic Root(2D)3.8 (2.0-3.7cm) LVDd5.9 (3.9-5.9cm)LVOT Diameter2.3 (1.8-2.4cm) PWd1.4 (0.7-1.1cm)LVDs4.4 (2.5-4.0cm) FS (%) 26.1 %SV86.8 ml LVEF(%)50.4 (>50%) Aortic Valve AoV Peak Hamzah.114.1cm/sAoV VTI18.6cm AO Peak GR.5.2mmHgLVOT VTI 8.25cm AO Mean GR.3mmHg TDI Lateral E' P. V8.37cm/sMedial E' P. V5.99cm/s Tricuspid Valve TR P. [id number] [id number] TR Peak Gr.[id number] LEFT VENTRICLE The left ventricle is normal size. There is moderate concentric left ventricular hypertrophy. The lef t ventricular systolic function is low normal. The Ejection Fraction is 50%. Diastology indeterminent . RIGHT VENTRICLE The right ventricle is normal size. There is normal right ventricular wall thickness. The right ventr icular systolic function is normal. ATRIA The left atrium is moderately dilated. The right atrium is moderately dilated. The interatrial septum is intact with no evidence for an atrial septal defect or patent foramen ovale as noted on 2-D or Do ppler imaging. AORTIC VALVE The aortic valve is thickened but opens well. Doppler and Color Flow revealed no significant aortic r egurgitation. There is no significant aortic valvular stenosis. MITRAL VALVE The mitral valve is thickened but opens well. There is no evidence of mitral valve prolapse. There is no mitral valve stenosis. Doppler and Color-flow revealed mild to moderate mitral regurgitation. TRICUSPID VALVE The tricuspid valve is normal in structure and function. Doppler and Color Flow revealed trace to mil d tricuspid regurgitation. There is no tricuspid valve stenosis. PULMONIC VALVE The pulmonic valve is not well visualized. Doppler and Color Flow revealed trace pulmonic valvular re gurgitation. GREAT VESSELS The aortic root is normal in size. The IVC is dilated and collapses <50% with inspiration. PERICARDIAL EFFUSION There is no evidence of significant pericardial effusion. Critical Notification Critical Value: No <Conclusion> The left ventricular systolic function is low normal. The Ejection Fraction is 50%. The left atrium is moderately dilated. Mild to moderate mitral regurgitation. Trace to mild tricuspid regurgitation. There is no evidence of significant pericardial effusion. Signed by : Jem Grimes, Electronically Approved : 09/21/2018 08:15:35
--- NOTE | 2018-09-21 08:25 | NUR ---
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
[2018-09-21] MEDS ORDERED: fentaNYL PF VIAL 100 MCG/2 ML VIAL ONE (08:40)
[2018-09-21] MEDS ORDERED: HEPARIN for IV BOLUS 10,000 UNIT/10 ML VIAL. ONE (08:40)
[2018-09-21] MEDS ORDERED: NITROGLYCERIN 200 MCG/2 ML SYRINGE FOR CATH/VASC LAB. ONE ×2 (08:40→10:18)
[2018-09-21] MEDS ORDERED: VERAPAMIL 5 MG/2 ML VIAL. ONE (08:40)
[2018-09-21] MEDS ORDERED: MIDAZOLAM HCL/PF 2 MG/2 ML VIAL. ONE (08:40)
[2018-09-21 08:49] LABS: % BANDS 38 % (0-9); % LYMPHS 4 % (24-48); % MONOS 5 % (0-10); % SEGS 53 % (35-66); PLT ESTIMATE DECREASED (ADEQUATE)
[2018-09-21 08:50] LABS: BURR CELLS PRESENT; OVALOCYTES FEW
[2018-09-21 08:51] LABS: POLYCHROMASIA SLIGHT
[2018-09-21] MEDS: traZODone 50 MG TABLET. PO SCH ×2 (09:00→21:56)
[2018-09-21] MEDS ORDERED: IODIXANOL 320 MG/ML 100 ML VIAL. IART ONE (09:15)
[2018-09-21] MEDS ORDERED: fentaNYL PF VIAL 100 MCG/2 ML VIAL IV ONE (09:15)
[2018-09-21] MEDS ORDERED: VERAPAMIL 5 MG/2 ML VIAL. IART ONE (09:15)
[2018-09-21] MEDS ORDERED: MIDAZOLAM HCL/PF 2 MG/2 ML VIAL. IV ONE (09:15)
[2018-09-21] MEDS ORDERED: LIDOCAINE 1% PF 2 ML VIAL. INJ ONE (09:15)
[2018-09-21] MEDS ORDERED: CONTRAST GIVEN. MC PRN (09:15)
[2018-09-21] MEDS ORDERED: NITROGLYCERIN 200 MCG/2 ML SYRINGE FOR CATH/VASC LAB. IART ONE (09:15)
[2018-09-21] MEDS ORDERED: HEPARIN for IV BOLUS 10,000 UNIT/10 ML VIAL. IART ONE (09:15)
[2018-09-21] MEDS ORDERED: BIVALIRUDIN 250 MG VIAL. IV ONE ×2 (09:16→09:30)
[2018-09-21] MEDS: ANTI-COAG MONITOR BY PHARMACY. MC PRN (09:26)
[2018-09-21] MEDS ORDERED: diphenhydrAMINE 50 MG/ML VIAL ONE (09:49)
[2018-09-21] MEDS ORDERED: diphenhydrAMINE 50 MG/ML VIAL IVP ONE (10:15)
--- NOTE | 2018-09-21 10:21 | PDOC ---
MODERATE SEDATION ASSESSMENT RISKS/ALTERNATIVES Risks/Alternatives Risks and alternatives of this type of sedation and procedure discussed with: RISK/ALTERNATIVES: Patient H & P ON CHART H & P H & P on chart and reviewed for co-morbid conditions and appropriate labs. H&P ON CHART: Yes STATUS PREG STATUS ASSESSED: N/A MEDS/ALLERGIES REVIEWED Meds/Allergies Reviewed Medications and Allergies including time and route of recently administered narcotics and sedatives. MEDS/ALLERGIES REVIEWED: Yes ASA RATING ASA RATING: II AIRWAY ASSESSMENT Airway Assessment Airway patency, oral function limitations, presence of caps, crowns, dentures, partials, and ability to extend neck assessed. AIRWAY ASSESSMENT: Yes MALLAMPATI SCORE MALLAMPATI SCORE: II PRE-SEDATION ASSESSMENT PRE-SEDATION ASSESSMENT: Yes DELIA MCDONALD MD Sep 21, 2018 10:21
[2018-09-21] MEDS ORDERED: NITROGLYCERIN SUBLINGUAL 0.4 MG BOTTLE OF 25. SL PRN (10:30)
[2018-09-21] MEDS ORDERED: ACETAMINOPHEN 325 MG TABLET. PO PRN (10:30)
[2018-09-21] MEDS ORDERED: CLOPIDOGREL BISULFATE 75 MG TABLET PO ONE ×2 (10:30→15:15)
--- NOTE | 2018-09-21 10:36 | NUR ---
SS following for discharge planning. SS reviewed pt chart. Pt is from home with spouse and currently on six liters of oxygen. No PT/OT ordered at this time. BPCI letter provided to pt. SS will continue to follow for pending discharge needs.
--- NOTE | 2018-09-21 10:38 | NUR ---
Patient back to room. Right arm restrained d/t patient forgetting about arm restriction and moving arm causing rebleed from cath insertion site. TR band applied in geoscience laboratory technician to right wrist. Bruising present at insertion site under TR band when patient brought back to unit. 1+ Edema present around TR band. Pulse oximetry applied to right thumb. Patient and educated on keeping arm/hand still.
[2018-09-21] MEDS: CEFEPIME HCL IV Push 1 GM VIAL. IVP SCH ×2 (11:07→21:55)
--- NOTE | 2018-09-21 11:16 | PDOC ---
PROGRESS NOTES Chief Complaint Chief Complaint Altered mental status secondary to sepsis secondary to UTI Atrial fibrillation with rapid ventricular response improved Non ST segment elevation myocardial infarction going to [facility] today Hypomagnesemiareplaced altered mentall status seocndary to UTI resolved. History of dyslipidemia Plan Continue with Leva[facility] Cardiology consultation done and planning to do cardiac catheterization today Continue to monitor hemodynamics closely DVT prophylaxis with heparin continue home meds History of Present Illness History of Present Illness Patient tired since he refers not being able to sleep the entire night. No complaints of chest discomfort no urinary symptoms no fever or chills were reported. Detail and discussed with at bedside as well. Vitals Vitals Vital Signs Date Time Temp Pulse Resp B/P (MAP) Pulse Ox O2 Delivery O2 Flow Rate FiO2 09/21/18 10:17 108 09/21/18 10:16 25 93 Nasal Cannula 6.0 09/21/18 08:00 170/89 (116) 09/21/18 07:00 98.5 98.5 Physical Exam General: Alert, Oriented X3, Cooperative, No acute distress Heart: Other (IRRR; tele AFIB with controlled rate) Abdomen: Soft, No tenderness Extremities: No edema, Normal pulses Skin: No significant lesion Labs LABS Laboratory Tests Test 09/20/18 11:55 09/20/18 15:50 09/20/18 22:25 09/21/18 05:25 Troponin I Quantitative 7.185 ng/mL (0.000-0.055) Heparin Anti-Xa Act, Unfractionated 0.29 IU/mL (0.30-0.70) 0.29 IU/mL (0.30-0.70) 0.38 IU/mL (0.30-0.70) White Blood Count 11.3 x10^3/uL (4.0-11.0) Red Blood Count 4.05 x10^6/uL (4.30-5.70) Hemoglobin 12.9 g/dL (13.0-17.5) Hematocrit 37.6 % (39.0-53.0) Mean Corpuscular Volume 93 fL (79-100) Mean Corpuscular Hemoglobin 32 pg (25-35) Mean Corpuscular Hemoglobin Concent 34 g/dL (31-37) Red Cell Distribution Width 14.8 % (11.5-14.5) Platelet Count 114 x10^3/uL (140-400) Neutrophils (%) (Auto) 90 % (31-73) Lymphocytes (%) (Auto) 3 % (24-48) Monocytes (%) (Auto) 7 % (0-9) Eosinophils (%) (Auto) 0 % (0-3) Basophils (%) (Auto) 0 % (0-3) Neutrophils # (Auto) 10.2 x10^3uL (1.8-7.7) Lymphocytes # (Auto) 0.3 x10^3/uL (1.0-4.8) Monocytes # (Auto) 0.7 x10^3/uL (0.0-1.1) Eosinophils # (Auto) 0.0 x10^3/uL (0.0-0.7) Basophils # (Auto) 0.0 x10^3/uL (0.0-0.2) Segmented Neutrophils % 53 % (35-66) Band Neutrophils % 38 % (0-9) Lymphocytes % 4 % (24-48) Monocytes % 5 % (0-10) Platelet Estimate Decreased (ADEQUATE) Polychromasia Slight Ovalocytes Few [place] Cells Present Sodium Level 140 mmol/L (136-145) Potassium Level 3.1 mmol/L (3.5-5.1) Chloride Level 106 mmol/L (98-107) Carbon Dioxide Level 22 mmol/L (21-32) Anion Gap 12 (6-14) Blood Urea Nitrogen 26 mg/dL (8-26) Creatinine 1.1 mg/dL (0.7-1.3) Estimated GFR (Cockcroft-Gault) 64.9 BUN/Creatinine Ratio 24 (6-20) Glucose Level 118 mg/dL (70-99) Calcium Level 8.0 mg/dL (8.5-10.1) Magnesium Level 1.8 mg/dL (1.8-2.4) Total Bilirubin 2.2 mg/dL (0.2-1.0) Aspartate Amino Transf (AST/SGOT) 90 U/L (15-37) Alanine Aminotransferase (ALT/SGPT) 55 U/L (16-63) Alkaline Phosphatase 146 U/L (46-116) Total Protein 6.2 g/dL (6.4-8.2) Albumin 2.6 g/dL (3.4-5.0) Albumin/Globulin Ratio 0.7 (1.0-1.7) Review of Systems Review of Systems Pertinent as per history of present illness otherwise 14 point review of system is negative Assessment and Plan Assessmemt and Plan Problems Medical Problems: (1) Atrial fibrillation with rapid ventricular response Status: Acute (2) Metabolic encephalopathy Status: Acute (3) Sepsis due to urinary tract infection Status: Acute Comment Review of Relevant I have reviewed the following items yolis (where applicable) has been applied. Labs Laboratory Tests Test 09/20/18 03:57 09/20/18 04:08 09/20/18 04:09 09/20/18 04:15 White Blood Count 3.3 x10^3/uL (4.0-11.0) Red Blood Count 4.67 x10^6/uL (4.30-5.70) Hemoglobin 15.4 g/dL (13.0-17.5) Hematocrit 44.0 % (39.0-53.0) Mean Corpuscular Volume 94 fL (79-100) Mean Corpuscular Hemoglobin 33 pg (25-35) Mean Corpuscular Hemoglobin Concent 35 g/dL (31-37) Red Cell Distribution Width 14.5 % (11.5-14.5) Platelet Count 131 x10^3/uL (140-400) Neutrophils (%) (Auto) 90 % (31-73) Lymphocytes (%) (Auto) 7 % (24-48) Monocytes (%) (Auto) 2 % (0-9) Eosinophils (%) (Auto) 0 % (0-3) Basophils (%) (Auto) 0 % (0-3) Neutrophils # (Auto) 3.0 x10^3uL (1.8-7.7) Lymphocytes # (Auto) 0.2 x10^3/uL (1.0-4.8) Monocytes # (Auto) 0.1 x10^3/uL (0.0-1.1) Eosinophils # (Auto) 0.0 x10^3/uL (0.0-0.7) Basophils # (Auto) 0.0 x10^3/uL (0.0-0.2) Segmented Neutrophils % 90 % (35-66) Band Neutrophils % 4 % (0-9) Lymphocytes % 5 % (24-48) Eosinophils % 1 % (0-5) Platelet Estimate Adequate (ADEQUATE) Prothrombin Time 20.6 SEC (11.7-14.0) Prothromb Time International Ratio 1.8 (0.8-1.1) Sodium Level 135 mmol/L (136-145) Potassium Level 3.6 mmol/L (3.5-5.1) Chloride Level 99 mmol/L (98-107) Carbon Dioxide Level 22 mmol/L (21-32) Anion Gap 14 (6-14) Blood Urea Nitrogen 24 mg/dL (8-26) Creatinine 0.9 mg/dL (0.7-1.3) Estimated GFR (Cockcroft-Gault) 81.8 BUN/Creatinine Ratio 27 (6-20) Glucose Level 141 mg/dL (70-99) Lactic Acid Level 3.5 mmol/L (0.4-2.0) Calcium Level 8.8 mg/dL (8.5-10.1) Magnesium Level 1.5 mg/dL (1.8-2.4) Total Bilirubin 2.3 mg/dL (0.2-1.0) Aspartate Amino Transf (AST/SGOT) 71 U/L (15-37) Alanine Aminotransferase (ALT/SGPT) 45 U/L (16-63) Alkaline Phosphatase 210 U/L (46-116) Ammonia 38 mcmol/L (11-34) Creatine Kinase 52 U/L (39-308) Troponin I Quantitative 0.161 ng/mL (0.000-0.055) [id number]-Type Natriuretic Peptide 2703 pg/mL (0-449) Total Protein 7.0 g/dL (6.4-8.2) Albumin 3.2 g/dL (3.4-5.0) Albumin/Globulin Ratio 0.8 (1.0-1.7) Procalcitonin 0.43 ng/mL (0.00-0.10) Urine Collection Type U cath Urine Color Yellow Urine Clarity Clear Urine pH 6.0 Urine Specific [place] 1.020 Urine Protein >=300 mg/dL (NEG-TRACE) Urine Glucose (UA) Negative mg/dL (NEG) Urine Ketones (Stick) Trace mg/dL (NEG) Urine Blood Large (NEG) Urine Nitrite Positive (NEG) Urine Bilirubin Negative (NEG) Urine Urobilinogen Dipstick 2.0 mg/dL (0.2 mg/dL) Urine Leukocyte Esterase Small (NEG) Urine RBC Occ /HPF (0-2) Urine WBC 5-10 /HPF (0-4) Urine Transitional Epithelial Cells Occ /LPF Urine Bacteria Moderate /HPF (0-FEW) Urine Hyaline Casts Occasional /HPF O2 Saturation 96 % (92-99) Arterial Blood pH 7.41 (7.35-7.45) Arterial Blood pCO2 at Patient Temp 29 mmHg (35-46) Arterial Blood pO2 at Patient Temp 83 mmHg (65-108) Arterial Blood HCO3 18 mmol/L (21-28) Arterial Blood Base Excess -6 mmol/L (-3-3) FiO2 35 Influenza Type A Antigen Negative (NEGATIVE) Influenza Type B Antigen Negative (NEGATIVE) Test 09/20/18 07:00 09/20/18 08:25 09/20/18 11:55 09/20/18 15:50 Nasal Screen MRSA (PCR) Negative (Negative) Lactic Acid Level 2.7 mmol/L (0.4-2.0) Troponin I Quantitative 4.851 ng/mL (0.000-0.055) 7.185 ng/mL (0.000-0.055) Triglycerides Level 57 mg/dL (0-150) Cholesterol Level 76 mg/dL (0-200) LDL Cholesterol, Calculated 32 mg/dL (0-100) VLDL Cholesterol, Calculated 11 mg/dL (0-40) Non-HDL Cholesterol Calculated 43 mg/dL (0-129) HDL Cholesterol 33 mg/dL (40-60) Cholesterol/HDL Ratio 2.3 Heparin Anti-Xa Act, Unfractionated 0.29 IU/mL (0.30-0.70) Test 09/20/18 22:25 09/21/18 05:25 Heparin Anti-Xa Act, Unfractionated 0.29 IU/mL (0.30-0.70) 0.38 IU/mL (0.30-0.70) White Blood Count 11.3 x10^3/uL (4.0-11.0) Red Blood Count 4.05 x10^6/uL (4.30-5.70) Hemoglobin 12.9 g/dL (13.0-17.5) Hematocrit 37.6 % (39.0-53.0) Mean Corpuscular Volume 93 fL (79-100) Mean Corpuscular Hemoglobin 32 pg (25-35) Mean Corpuscular Hemoglobin Concent 34 g/dL (31-37) Red Cell Distribution Width 14.8 % (11.5-14.5) Platelet Count 114 x10^3/uL (140-400) Neutrophils (%) (Auto) 90 % (31-73) Lymphocytes (%) (Auto) 3 % (24-48) Monocytes (%) (Auto) 7 % (0-9) Eosinophils (%) (Auto) 0 % (0-3) Basophils (%) (Auto) 0 % (0-3) Neutrophils # (Auto) 10.2 x10^3uL (1.8-7.7) Lymphocytes # (Auto) 0.3 x10^3/uL (1.0-4.8) Monocytes # (Auto) 0.7 x10^3/uL (0.0-1.1) Eosinophils # (Auto) 0.0 x10^3/uL (0.0-0.7) Basophils # (Auto) 0.0 x10^3/uL (0.0-0.2) Segmented Neutrophils % 53 % (35-66) Band Neutrophils % 38 % (0-9) Lymphocytes % 4 % (24-48) Monocytes % 5 % (0-10) Platelet Estimate Decreased (ADEQUATE) Polychromasia Slight Ovalocytes Few [place] Cells Present Sodium Level 140 mmol/L (136-145) Potassium Level 3.1 mmol/L (3.5-5.1) Chloride Level 106 mmol/L (98-107) Carbon Dioxide Level 22 mmol/L (21-32) Anion Gap 12 (6-14) Blood Urea Nitrogen 26 mg/dL (8-26) Creatinine 1.1 mg/dL (0.7-1.3) Estimated GFR (Cockcroft-Gault) 64.9 BUN/Creatinine Ratio 24 (6-20) Glucose Level 118 mg/dL (70-99) Calcium Level 8.0 mg/dL (8.5-10.1) Magnesium Level 1.8 mg/dL (1.8-2.4) Total Bilirubin 2.2 mg/dL (0.2-1.0) Aspartate Amino Transf (AST/SGOT) 90 U/L (15-37) Alanine Aminotransferase (ALT/SGPT) 55 U/L (16-63) Alkaline Phosphatase 146 U/L (46-116) Total Protein 6.2 g/dL (6.4-8.2) Albumin 2.6 g/dL (3.4-5.0) Albumin/Globulin Ratio 0.7 (1.0-1.7) Laboratory Tests Test 09/20/18 11:55 09/20/18 15:50 09/20/18 22:25 09/21/18 05:25 Troponin I Quantitative 7.185 ng/mL (0.000-0.055) Heparin Anti-Xa Act, Unfractionated 0.29 IU/mL (0.30-0.70) 0.29 IU/mL (0.30-0.70) 0.38 IU/mL (0.30-0.70) White Blood Count 11.3 x10^3/uL (4.0-11.0) Red Blood Count 4.05 x10^6/uL (4.30-5.70) Hemoglobin 12.9 g/dL (13.0-17.5) Hematocrit 37.6 % (39.0-53.0) Mean Corpuscular Volume 93 fL (79-100) Mean Corpuscular Hemoglobin 32 pg (25-35) Mean Corpuscular Hemoglobin Concent 34 g/dL (31-37) Red Cell Distribution Width 14.8 % (11.5-14.5) Platelet Count 114 x10^3/uL (140-400) Neutrophils (%) (Auto) 90 % (31-73) Lymphocytes (%) (Auto) 3 % (24-48) Monocytes (%) (Auto) 7 % (0-9) Eosinophils (%) (Auto) 0 % (0-3) Basophils (%) (Auto) 0 % (0-3) Neutrophils # (Auto) 10.2 x10^3uL (1.8-7.7) Lymphocytes # (Auto) 0.3 x10^3/uL (1.0-4.8) Monocytes # (Auto) 0.7 x10^3/uL (0.0-1.1) Eosinophils # (Auto) 0.0 x10^3/uL (0.0-0.7) Basophils # (Auto) 0.0 x10^3/uL (0.0-0.2) Segmented Neutrophils % 53 % (35-66) Band Neutrophils % 38 % (0-9) Lymphocytes % 4 % (24-48) Monocytes % 5 % (0-10) Platelet Estimate Decreased (ADEQUATE) Polychromasia Slight Ovalocytes Few [place] Cells Present Sodium Level 140 mmol/L (136-145) Potassium Level 3.1 mmol/L (3.5-5.1) Chloride Level 106 mmol/L (98-107) Carbon Dioxide Level 22 mmol/L (21-32) Anion Gap 12 (6-14) Blood Urea Nitrogen 26 mg/dL (8-26) Creatinine 1.1 mg/dL (0.7-1.3) Estimated GFR (Cockcroft-Gault) 64.9 BUN/Creatinine Ratio 24 (6-20) Glucose Level 118 mg/dL (70-99) Calcium Level 8.0 mg/dL (8.5-10.1) Magnesium Level 1.8 mg/dL (1.8-2.4) Total Bilirubin 2.2 mg/dL (0.2-1.0) Aspartate Amino Transf (AST/SGOT) 90 U/L (15-37) Alanine Aminotransferase (ALT/SGPT) 55 U/L (16-63) Alkaline Phosphatase 146 U/L (46-116) Total Protein 6.2 g/dL (6.4-8.2) Albumin 2.6 g/dL (3.4-5.0) Albumin/Globulin Ratio 0.7 (1.0-1.7) Microbiology 09/20/18 Blood Culture - Final, Complete Medications Current Medications Sodium Chloride 1,000 ml @ 1,000 mls/hr Q1H IV Last administered on 09/20/18at 15:23; Start 09/20/18 at 04:00; Stop 09/20/18 at 06:10; Status DC Diltiazem HCl (Cardizem Iv Push) 10 mg 1X ONCE IVP Last administered on at 04:08; Start 09/20/18 at 04:30; Stop 09/20/18 at 04:31; Status DC Diltiazem HCl 125 mg/Dextrose 125 ml @ 5 mls/hr CONT PRN IV SEE I/O RECORD Last administered on 09/20/18at 04:13; Start 09/20/18 at 04:00; Stop 09/20/18 at 16: 32; Status DC Ceftriaxone Sodium (Rocephin) 1 gm 1X ONCE IVP Last administered on 09/20/18at 04:08; Start 09/20/18 at 04:30; Stop 09/20/18 at 04:31; Status DC Ceftriaxone Sodium (Rocephin) 1 gm STK-MED ONCE IVP ; Start 09/20/18 at 04:04; Stop 09/20/18 at 04:06; Status DC Diltiazem HCl (Cardizem Iv Push) 25 mg STK-MED ONCE .ROUTE ; Start 09/20/18 at 04 :04; Stop 09/20/18 at 04:06; Status DC Acetaminophen (Tylenol Supp) 650 mg 1X ONCE NM Last administered on 09/20/18at 04:27; Start 09/20/18 at 04:30; Stop 09/20/18 at 04:31; Status DC Ceftriaxone Sodium (Rocephin) 1 gm 1X ONCE IVP Last administered on 09/20/18at 05:23; Start 09/20/18 at 05:30; Stop 09/20/18 at 05:31; Status DC Albuterol/ Ipratropium (Duoneb) 3 ml 1X ONCE NEB Last administered on at 05:37; Start 09/20/18 at 05:30; Stop 09/20/18 at 05:31; Status DC Ondansetron HCl (Zofran) 4 mg PRN Q8HRS PRN IV NAUSEA/VOMITING 1ST CHOICE; Start 09/20/18 at 06:00; Stop 09/21/18 at 05:59; Status DC Sodium Chloride 1,000 ml @ 150 mls/hr Q6H40M IV Last administered on 09/20/18at 06:32; Start 09/20/18 at 05:52; Stop 09/20/18 at 15:10; Status DC Acetaminophen (Tylenol) 650 mg PRN Q4HRS PRN PO FEVER; Start 09/20/18 at 06:00; Stop 09/21/18 at 05:59; Status DC Albuterol/ Ipratropium (Duoneb) 3 ml RTQID NEB Last administered on 09/20/18at 20 :21; Start 09/20/18 at 08:00; Stop 09/21/18 at 07:59; Status DC Sodium Chloride 1,000 ml @ 1,000 mls/hr 1X ONCE IV Last administered on at 08:40; Start 09/20/18 at 08:00; Stop 09/20/18 at 08:59; Status DC Norepinephrine Bitartrate 250 ml @ 9.375 mls/ hr CONT PRN IV SEE I/O RECORD Last administered on 09/20/18at 08:51; Start 09/20/18 at 08:45 Heparin Sodium (Porcine) (Heparin Sodium) 3,950 unit 1X ONCE IV Last administered on 09/20/18at 09:51; Start 09/20/18 at 09:45; Stop 09/20/18 at 09:46; Status DC Heparin Sodium/ Dextrose 500 ml @ 20 mls/hr CONT PRN IV SEE I/O RECORD Last administered on 09/21/18at 04:45; Start 09/20/18 at 09:45 Heparin Sodium (Porcine) (Heparin Sodium) 2,350 unit PRN Q6HRS PRN IV FOR UFH LEVEL LESS THAN 0.2; Start 09/20/18 at 09:45 Aspirin (Luci Aspirin) 325 mg 1X ONCE PO Last administered on 09/20/18at 10:00 ; Start 09/20/18 at 09:45; Stop 09/20/18 at 09:46; Status DC Magnesium Sulfate 50 ml @ 25 mls/hr 1X ONCE IV Last administered on 09/20/18at 15:23; Start 09/20/18 at 11:00; Stop 09/20/18 at 12:59; Status DC Info (Anti-Coagulation Monitoring By Pharmacy) 1 each PRN DAILY PRN MC SEE COMMENTS Last administered on 09/21/18at 09:26; Start 09/20/18 at 11:00 Sodium Chloride 1,000 ml @ 1,000 mls/hr 1X ONCE IV Last administered on at 12:17; Start 09/20/18 at 11:45; Stop 09/20/18 at 12:44; Status DC Aspirin (Ecotrin) 81 mg DAILYWBKFT PO Last administered on 09/21/18at 07:54; Start 09/20/18 at 15:00 Cefepime HCl (Maxipime) 1 gm Q12HR IVP Last administered on 09/21/18at 11:07; Start 09/20/18 at 21:00 Albumin Human 100 ml @ 100 mls/hr 1X ONCE IV Last administered on 09/20/18at 15 :23; Start 09/20/18 at 15:15; Stop 09/20/18 at 16:14; Status DC Sodium Chloride 1,000 ml @ 150 mls/hr Q6H40M IV Last administered on 09/21/18at 04:48; Start 09/20/18 at 22:00 Trazodone HCl (Desyrel) 50 mg DAILY PO ; Start 09/21/18 at 09:00 Trazodone HCl (Desyrel) 50 mg 1X ONCE PO Last administered on 09/21/18at 00:09; Start 09/21/18 at 00:30; Stop 09/21/18 at 00:31; Status DC Furosemide (Lasix) 40 mg 1X ONCE IVP Last administered on 09/21/18at 07:54; Start 09/21/18 at 08:00; Stop 09/21/18 at 08:01; Status DC Potassium Chloride (Klor-Con) 40 meq 1X ONCE PO Last administered on 09/21/18at 07:54; Start 09/21/18 at 08:00; Stop 09/21/18 at 08:01; Status DC Potassium Chloride (Klor-Con) 40 meq 1X ONCE PO ; Start 09/21/18 at 10:00; Stop 09/21/18 at 10:00; Status DC Iodixanol (Visipaque 320) 100 ml STK-MED ONCE .ROUTE ; Start 09/21/18 at 07:49; Stop 09/21/18 at 07:50; Status DC Lidocaine HCl (Xylocaine-Mpf 1% 2ml Vial) 2 ml STK-MED ONCE .ROUTE ; Start at 07:49; Stop 09/21/18 at 07:51; Status DC Heparin Sodium/ Sodium Chloride 1,000 ml @ As Directed STK-MED ONCE .ROUTE ; Start 09/21/18 at 07:49; Stop 09/21/18 at 07:51; Status DC Potassium Chloride (Klor-Con) 40 meq Q2H PO ; Start 09/21/18 at 08:00; Stop at 12:01 Fentanyl Citrate (Fentanyl 2ml Vial) 100 mcg STK-MED ONCE .ROUTE ; Start at 08:40; Stop 09/21/18 at 08:42; Status DC Midazolam HCl (Versed) 2 mg STK-MED ONCE .ROUTE ; Start 09/21/18 at 08:40; Stop 09/21/18 at 08:42; Status DC Heparin Sodium (Porcine) (Heparin Sodium) 10,000 unit STK-MED ONCE .ROUTE ; Start 09/21/18 at 08:40; Stop 09/21/18 at 08:42; Status DC Verapamil HCl (Verapamil) 5 mg STK-MED ONCE .ROUTE ; Start 09/21/18 at 08:40; Stop 09/21/18 at 08:42; Status DC Nitroglycerin (Nitroglycerin) 200 mcg STK-MED ONCE .ROUTE ; Start 09/21/18 at 08: 40; Stop 09/21/18 at 08:42; Status DC Nitroglycerin (Nitroglycerin) 200 mcg 1X ONCE IART Last administered on 10:16; Start 09/21/18 at 09:15; Stop 09/21/18 at 09:16; Status DC Verapamil HCl (Verapamil) 2.5 mg 1X ONCE IART Last administered on 09/21/18 10 :17; Start 09/21/18 at 09:15; Stop 09/21/18 at 09:16; Status DC Heparin Sodium (Porcine) (Heparin Sodium) 2,500 unit 1X ONCE IART Last administered on 09/21/18 10:18; Start 09/21/18 at 09:15; Stop 09/21/18 at 09:16; Status DC Heparin Sodium/ Sodium Chloride (HEPARIN for ARTERIAL LINE FLUSH) 1,000 unit 1X ONCE IART Last administered on 09/21/18 10:17; Start 09/21/18 at 09:15; Stop 09/21/18 at 09:16; Status DC Midazolam HCl (Versed) 2 mg 1X ONCE IV Last administered on 09/21/18 10:16; Start 09/21/18 at 09:15; Stop 09/21/18 at 09:16; Status DC Fentanyl Citrate (Fentanyl 2ml Vial) 100 mcg 1X ONCE IV Last administered on 10:16; Start 09/21/18 at 09:15; Stop 09/21/18 at 09:16; Status DC Iodixanol (Visipaque 320) 100 ml 1X ONCE IART Last administered on 09/21/18at 10 :15; Start 09/21/18 at 09:15; Stop 09/21/18 at 09:16; Status DC Lidocaine HCl (Xylocaine-Mpf 1% 2ml Vial) 2 ml 1X ONCE INJ Last administered on 09/21/18at 10:17; Start 09/21/18 at 09:15; Stop 09/21/18 at 09:16; Status DC Info (CONTRAST GIVEN -- Rx MONITORING) 1 each PRN DAILY PRN MC SEE COMMENTS; Start 09/21/18 at 09:15; Stop 09/23/18 at 09:14 Bivalirudin (Angiomax) 250 mg STK-MED ONCE IV ; Start 09/21/18 at 09:16; Stop 09/21/18 at 09:18; Status DC Heparin Sodium/ Sodium Chloride 500 ml @ As Directed STK-MED ONCE .ROUTE ; Start 09/21/18 at 09:20; Stop 09/21/18 at 09:22; Status DC Bivalirudin (Angiomax) 250 mg 1X ONCE IV Last administered on 09/21/18at 10:16; Start 09/21/18 at 09:30; Stop 09/21/18 at 09:32; Status DC Lactobacillus Rhamnosus (Culturelle) 1 cap BID PO ; Start 09/21/18 at 21:00 Diphenhydramine HCl (Benadryl) 50 mg STK-MED ONCE .ROUTE ; Start 09/21/18 at 09: 49; Stop 09/21/18 at 09:51; Status DC Iodixanol (Visipaque 320) 100 ml STK-MED ONCE .ROUTE ; Start 09/21/18 at 09:56; Stop 09/21/18 at 09:58; Status DC Diphenhydramine HCl (Benadryl) 25 mg 1X ONCE IVP Last administered on at 10:18; Start 09/21/18 at 10:15; Stop 09/21/18 at 10:16; Status DC Nitroglycerin (Nitroglycerin) 200 mcg STK-MED ONCE .ROUTE ; Start 09/21/18 at 10: 18; Stop 09/21/18 at 10:19; Status DC Clopidogrel Bisulfate (Plavix) 75 mg DAILYWBKFT PO ; Start 09/22/18 at 08:00 Acetaminophen (Tylenol) 650 mg PRN Q6HRS PRN PO MILD PAIN / TEMP; Start at 10:30 Nitroglycerin (Nitrostat) 0.4 mg PRN Q5MIN PRN SL CHEST PAIN; Start 09/21/18 at 10:30 Clopidogrel Bisulfate (Plavix) 600 mg 1X ONCE PO ; Start 09/21/18 at 10:30; Stop 09/21/18 at 10:31; Status DC Active Scripts Active Reported Metformin Hcl 500 Mg Tablet 250 Mg PO BIDWMEALS Flomax (Tamsulosin Hcl) 0.4 Mg Cap.er.24h 0.4 Mg PO DAILY Trazodone Hcl 50 Mg Tablet 50 Mg PO DAILY Amlodipine Besylate 5 Mg Tablet 5 Mg PO DAILY Toprol Xl (Metoprolol Succinate) 50 Mg Tab.er.24h 50 Mg PO DAILY Fosinopril Sodium 40 Mg Tablet 40 Mg PO DAILY Warfarin Sodium 1 Mg Tablet 1.75 Mg PO DAILY Atorvastatin Calcium 20 Mg Tablet 20 Mg PO DAILY Vitals/I & O Vital Sign - Last 24 Hours 09/20/18 09/20/18 09/20/18 09/20/18 12:00 12:00 13:00 13:01 Pulse 94 92 Resp 24 24 B/P (MAP) 105/70 (82) 107/68 (81) Pulse Ox 98 99 97 O2 Delivery Nasal Cannula Nasal Cannula Nasal Cannula O2 Flow Rate 2.0 2.0 2.0 4.0 09/20/18 09/20/18 09/20/18 09/20/18 14:00 15:00 16:00 16:00 Temp 97.8 97.8 Pulse 86 82 90 Resp 18 26 20 B/P (MAP) 114/69 (84) 131/79 (96) 137/79 (98) Pulse Ox 98 97 98 O2 Delivery Nasal Cannula Nasal Cannula Nasal Cannula O2 Flow Rate 2.0 2.0 2.0 2.0 09/20/18 09/20/18 09/20/18 09/20/18 17:00 17:05 18:00 19:00 Temp 97.8 97.8 Pulse 100 101 95 Resp 18 28 26 B/P (MAP) 139/73 (95) 119/80 (93) 107/68 (81) Pulse Ox 98 98 98 98 O2 Delivery Nasal Cannula Nasal Cannula Nasal Cannula Nasal Cannula O2 Flow Rate 2.0 4.0 2.0 2.0 09/20/18 09/20/18 09/20/18 09/20/18 20:00 20:00 20:21 21:00 Temp 98.9 98.9 Pulse 97 97 Resp B/P (MAP) 104/72 (83) 104/71 (82) Pulse Ox 98 96 99 O2 Delivery Nasal Cannula Nasal Cannula Nasal Cannula O2 Flow Rate 2.0 2.0 5.0 2.0 09/20/18 09/20/18 09/20/18 09/21/18 22:00 23:00 23:59 00:01 Temp 98.4 98.4 Pulse 110 93 107 Resp B/P (MAP) 110/67 (81) 122/71 (88) 119/78 (92) Pulse Ox 99 95 98 O2 Delivery Nasal Cannula Nasal Cannula Nasal Cannula O2 Flow Rate 2.0 2.0 2.0 2.0 09/21/18 09/21/18 09/21/18 09/21/18 01:00 02:00 03:00 04:00 Pulse 102 102 100 Resp B/P (MAP) 135/72 (93) 112/73 (86) 148/73 (98) Pulse Ox 97 97 96 O2 Delivery Nasal Cannula Nasal Cannula Nasal Cannula O2 Flow Rate 2.0 2.0 2.0 2.0 09/21/18 09/21/18 09/21/18 09/21/18 04:00 05:00 06:00 07:00 Temp 98.5 98.5 Pulse 102 108 128 130 Resp B/P (MAP) 135/72 (93) 152/88 (109) 160/85 (110) 164/86 (112) Pulse Ox 97 97 91 94 O2 Delivery Nasal Cannula Nasal Cannula Nasal Cannula Nasal Cannula O2 Flow Rate 2.0 2.0 4.0 6.0 09/21/18 09/21/18 09/21/18 09/21/18 08:00 08:00 10:10 10:16 Pulse 116 108 Resp B/P (MAP) 170/89 (116) Pulse Ox 95 95 93 O2 Delivery Nasal Cannula NonRebreather Mask Nasal Cannula O2 Flow Rate 6.0 6.0 6.0 09/21/18 10:17 Pulse 108 Intake and Output 09/20/18 09/20/18 09/21/18 15:01 23:01 07:01 Intake Total 1240 ml 1246.43 ml 2477.2 ml Output Total 140 ml 235 ml 430 ml Balance 1100 ml 1011.43 ml 2047.2 ml MOSES MONTOYA MD Sep 21, 2018 11:16
--- NOTE | 2018-09-21 11:33 | CARD ---
MR#: [id number] Date of Study: 09/21/2018 Ordering Physician: DELIA GRIMES, Referring Physician: IVANNA FOSTER Tech: RT Carl (R) APPROVED REPORT Technologist: RT Carl (R) Nurse: Dawn Cote Procedure(s) performed: 1. Left heart catheterization and selective coronary angiography via right t ransradial approach 2. PTCA to the left anterior descending artery INDICATION The indication(s) include : non-STEMI . PROCEDURE NARRATIVE After explaining the risks, benefits and alternative options, informed consent was obtained from pearl ent. Patient was brought to the cardiac Clinical Massage Therapist and right wrist was prepped and draped in the usual fashion after confirming a positive modified Diogo's test. Arterial access was obtained in the righ t radial artery and a 6 Bangladeshi sheath was inserted. 6 Bangladeshi Davey catheter was used to perform gavin ective angiography of the left and right coronary arteries. The following findings were noted. FINDINGS a. The left main coronary artery arose from the left sinus of Valsalva, gave rise to the left anteri or descending and left circumflex arteries and showed 30-40% ostial segment stenosis. b. The left anterior descending artery showed heavily calcified and long 90% stenosis involving the midsegment. c. The left circumflex artery showed heavily calcified 90% stenosis involving the proximal to midseg ment of the large obtuse marginal branch. d. The right coronary artery was a large and dominant vessel arising from the right sinus of Valsalv a that showed 30% stenosis involving the proximal to midsegment. The midsegment showed aneurysmal dil atation. The posterior descending branch showed 60% mid segment stenosis. INTERVENTION The left main coronary artery was engaged with a 6 Bangladeshi XB 3.5 guide catheter and the stenosis in t he midsegment of the left anterior descending artery was crossed with a 0.014 inch Responsive [employer] vignesh dewire. Initial attempts to advance balloon into the midsegment were unsuccessful due to heavy calcif ication. Subsequently, with the help of backup support using a 6 Bangladeshi guide liner inner catheter, a 3.0 x 15 mm trek balloon was advanced across the lesion and inflated at high pressures. Since balloo n did not dilate optimally due to the calcification, a decision was made to dilate this with a noncom pliant balloon. A 3.0 x 15 mm NC Euphora was advanced into the lesion with backup support from the gu marine liner catheter and several inflations were performed, again with suboptimal dilation from heavy c alcific edition. Follow-up angiography did not show any significant change in the lumen size. We deci ded to abandon further attempts with plan for Rotablator atherectomy and stent placement via groin ac cess in 2-3 days. Patient part of the procedure well. Hemostasis in the right wrist was achieved usin g TR band. There were no immediate complications. Conclusion 1. Three-vessel coronary artery disease with significant and heavily calcified lesions involving the left anterior descending and left circumflex arteries as described above 2. PTCA to the left anterior descending artery, suboptimal due to heavy calcification Recommendations Plan for Rotablator atherectomy and stent placement to LAD and LCx in 2-3 days via groin access Signed by : Delia Grimes, Electronically Approved : 09/21/2018 11:31:32
[2018-09-21] MEDS: METOPROLOL TARTRATE 5 MG/5 ML VIAL. IVP PRN ×2 (12:39→17:58)
[2018-09-21] MEDS: PANTOPRAZOLE IV PUSH 40 MG VIAL. IVP SCH (17:16)
[2018-09-21] MEDS ORDERED: METOPROLOL TARTRATE 5 MG/5 ML VIAL. IVP STA (17:50)
[2018-09-21] MEDS: METOPROLOL TART IMMED RELEASE 25 MG TABLET. PO SCH (19:15)
[2018-09-21] MEDS: ATORVASTATIN CALCIUM 20 MG TABLET PO SCH (21:57)
[2018-09-21] MEDS: MIRTAZAPINE 15 MG TAB.RAPDIS PO PRN (22:00)
[2018-09-21] MEDS: LACTOBACILLUS RHAMNOSUS GG 1 CAPSULE. PO SCH (22:02)
[2018-09-22] VITALS (23 sets, daily range): BP systolic 107–154; BP diastolic 61–103
[2018-09-22] MEDS: METOPROLOL TART IMMED RELEASE 25 MG TABLET. PO SCH ×3 (00:17→13:32)
[2018-09-22] MEDS ORDERED: POTASSIUM CHLORIDE 20 MEQ TABLET.ER. PO ONE ×4 (00:30→15:00)
[2018-09-22] MEDS: ANTI-COAG MONITOR BY PHARMACY. MC PRN (08:10)
[2018-09-22] MEDS: LACTOBACILLUS RHAMNOSUS GG 1 CAPSULE. PO SCH ×2 (08:54→21:01)
[2018-09-22] MEDS: ASPIRIN ENTERIC COATED 81 MG TABLET.DR. PO SCH (08:54)
[2018-09-22] MEDS: CLOPIDOGREL BISULFATE 75 MG TABLET PO SCH (08:54)
[2018-09-22 08:55] LABS: BASO % 0 % (0-3); EOS % 0 % (0-3); HEMATOCRIT 36.7 % (39.0-53.0); HEMOGLOBIN 12.9 g/dL (13.0-17.5); LYMPH # 0.6 x10^3/uL (1.0-4.8); LYMPH % 5 % (24-48); MEAN CORPUSCULAR HEMOGLOBIN 33 pg (25-35); MEAN CORPUSCULAR HGB CONC 35 g/dL (31-37); MEAN CORPUSCULAR VOLUME 93 fL (79-100); MONO # 0.8 x10^3/uL (0.0-1.1); MONO % 7 % (0-9); NEUT # 10.7 x10^3uL (1.8-7.7); NEUT % 88 % (31-73); PLATELET COUNT 113 x10^3/uL (140-400); RED BLOOD COUNT 3.94 x10^6/uL (4.30-5.70); WHITE BLOOD COUNT 12.1 x10^3/uL (4.0-11.0)
[2018-09-22] MEDS: TAMSULOSIN 0.4 MG CAP.ER.24H. PO SCH (08:55)
[2018-09-22] MEDS: PANTOPRAZOLE IV PUSH 40 MG VIAL. IVP SCH (08:55)
[2018-09-22] MEDS: CEFEPIME HCL IV Push 1 GM VIAL. IVP SCH ×2 (08:56→20:59)
[2018-09-22] MEDS ORDERED: amLODIPine BESYLATE 5 MG TABLET PO SCH (09:00)
[2018-09-22 09:02] LABS: CALCIUM 8.4 mg/dL (8.5-10.1); GFR 72.5; POTASSIUM 3.5 mmol/L (3.5-5.1)
[2018-09-22 11:18] LABS: MAGNESIUM 1.8 mg/dL (1.8-2.4); POTASSIUM 3.9 mmol/L (3.5-5.1)
--- NOTE | 2018-09-22 11:29 | PDOC ---
CARDIO Progress Notes Date and Time Date of Service 09/22/18 Time of Evaluation 1045 Subjective Subjective: No Chest Pain Vitals Vitals Vital Signs Date Time Temp Pulse Resp B/P (MAP) Pulse Ox O2 Delivery O2 Flow Rate FiO2 09/22/18 08:55 103 159/87 09/22/18 06:00 29 94 Nasal Cannula 4.0 09/22/18 04:00 97.3 97.3 Weight Weight [ ] Input and Output Intake and Output Intake and Output 09/22/18 07:01 Intake Total 1073 ml Output Total 3770 ml Balance -2697 ml Intake Oral 590 ml IV Total 483 ml Output Urine Total 3770 ml Laboratory Labs Laboratory Tests Test 09/21/18 16:35 09/21/18 22:55 09/22/18 04:55 09/22/18 10:45 Heparin Anti-Xa Act, Unfractionated 0.26 IU/mL (0.30-0.70) 0.28 IU/mL (0.30-0.70) 0.46 IU/mL (0.30-0.70) Potassium Level 3.2 mmol/L (3.5-5.1) 3.5 mmol/L (3.5-5.1) 3.9 mmol/L (3.5-5.1) White Blood Count 12.1 x10^3/uL (4.0-11.0) Red Blood Count 3.94 x10^6/uL (4.30-5.70) Hemoglobin 12.9 g/dL (13.0-17.5) Hematocrit 36.7 % (39.0-53.0) Mean Corpuscular Volume 93 fL (79-100) Mean Corpuscular Hemoglobin 33 pg (25-35) Mean Corpuscular Hemoglobin Concent 35 g/dL (31-37) Red Cell Distribution Width 15.0 % (11.5-14.5) Platelet Count 113 x10^3/uL (140-400) Neutrophils (%) (Auto) 88 % (31-73) Lymphocytes (%) (Auto) 5 % (24-48) Monocytes (%) (Auto) 7 % (0-9) Eosinophils (%) (Auto) 0 % (0-3) Basophils (%) (Auto) 0 % (0-3) Neutrophils # (Auto) 10.7 x10^3uL (1.8-7.7) Lymphocytes # (Auto) 0.6 x10^3/uL (1.0-4.8) Monocytes # (Auto) 0.8 x10^3/uL (0.0-1.1) Eosinophils # (Auto) 0.0 x10^3/uL (0.0-0.7) Basophils # (Auto) 0.0 x10^3/uL (0.0-0.2) Sodium Level 138 mmol/L (136-145) Chloride Level 102 mmol/L (98-107) Carbon Dioxide Level 26 mmol/L (21-32) Anion Gap 10 (6-14) Blood Urea Nitrogen 27 mg/dL (8-26) Creatinine 1.0 mg/dL (0.7-1.3) Estimated GFR (Cockcroft-Gault) 72.5 Glucose Level 156 mg/dL (70-99) Calcium Level 8.4 mg/dL (8.5-10.1) Magnesium Level 1.8 mg/dL (1.8-2.4) Microbiology Micro Microbiology 09/20/18 Blood Culture - Final, Complete Physical Exam HEENT: Neck Supple W Full Motion Chest: Symmetric LUNGS: Other (bibasilar crackles ) Heart: S1S2 Abdomen: Soft N/T Extremities: No Edema Neurology: alert, follow commands, confused, other (anxious ) Assessment Assessment 1. NSTEMI 2. 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 Mild acute on chronic diastolic HF; LVEF 50% 3. Chronic AFIB, with intermittent RVR; on metoprolol 25 q 6hrs 4. Metabolic encephalopathy secondary to UTI; treatment as per PCP 5. Lactic acidosis, sepsis, hypotension- off pressor support Recommendations Continue hep gtt Plavix, statin therapy. Give Lasix IV x1 now Replace K Stop Norvasc- start low-dose ACEi Will give dose of IV Dig x1 now for rate control. Plan for rotation arthro atherectomy and stent placement to LAD and LCx later this week. BISHNU MARTINEZ APRN Sep 22, 2018 11:29
[2018-09-22] MEDS: HEPARIN 25,000UTS/500ML PREMIX 500 ML IV PRN (12:58)
--- NOTE | 2018-09-22 14:08 | PDOC ---
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 . History of dyslipidemia Plan We'll consult ID for reassessment of antibiotic therapy Follow neurological status Cardiology consultation done and planning to do cardiac catheterization today Continue to monitor hemodynamics closely DVT prophylaxis with heparin continue home meds History of Present Illness History of Present Illness Patient tired since he refers not being able to sleep the entire night. No complaints of chest discomfort no urinary symptoms no fever or chills were reported. Detail and discussed with at bedside as well. Vitals Vitals Vital Signs Date Time Temp Pulse Resp B/P (MAP) Pulse Ox O2 Delivery O2 Flow Rate FiO2 09/22/18 13:32 110 142/91 09/22/18 13:00 30 97 Nasal Cannula 4.0 09/22/18 12:00 98.3 98.3 Physical Exam General: Alert, Oriented X3, Cooperative, No acute distress Heart: Other (IRRR; tele AFIB with controlled rate) Abdomen: Soft, No tenderness Extremities: No edema, Normal pulses Skin: No significant lesion Labs LABS Laboratory Tests Test 09/21/18 16:35 09/21/18 22:55 09/22/18 04:55 09/22/18 10:45 Heparin Anti-Xa Act, Unfractionated 0.26 IU/mL (0.30-0.70) 0.28 IU/mL (0.30-0.70) 0.46 IU/mL (0.30-0.70) 0.51 IU/mL (0.30-0.70) Potassium Level 3.2 mmol/L (3.5-5.1) 3.5 mmol/L (3.5-5.1) 3.9 mmol/L (3.5-5.1) White Blood Count 12.1 x10^3/uL (4.0-11.0) Red Blood Count 3.94 x10^6/uL (4.30-5.70) Hemoglobin 12.9 g/dL (13.0-17.5) Hematocrit 36.7 % (39.0-53.0) Mean Corpuscular Volume 93 fL (79-100) Mean Corpuscular Hemoglobin 33 pg (25-35) Mean Corpuscular Hemoglobin Concent 35 g/dL (31-37) Red Cell Distribution Width 15.0 % (11.5-14.5) Platelet Count 113 x10^3/uL (140-400) Neutrophils (%) (Auto) 88 % (31-73) Lymphocytes (%) (Auto) 5 % (24-48) Monocytes (%) (Auto) 7 % (0-9) Eosinophils (%) (Auto) 0 % (0-3) Basophils (%) (Auto) 0 % (0-3) Neutrophils # (Auto) 10.7 x10^3uL (1.8-7.7) Lymphocytes # (Auto) 0.6 x10^3/uL (1.0-4.8) Monocytes # (Auto) 0.8 x10^3/uL (0.0-1.1) Eosinophils # (Auto) 0.0 x10^3/uL (0.0-0.7) Basophils # (Auto) 0.0 x10^3/uL (0.0-0.2) Sodium Level 138 mmol/L (136-145) Chloride Level 102 mmol/L (98-107) Carbon Dioxide Level 26 mmol/L (21-32) Anion Gap 10 (6-14) Blood Urea Nitrogen 27 mg/dL (8-26) Creatinine 1.0 mg/dL (0.7-1.3) Estimated GFR (Cockcroft-Gault) 72.5 Glucose Level 156 mg/dL (70-99) Calcium Level 8.4 mg/dL (8.5-10.1) Magnesium Level 1.8 mg/dL (1.8-2.4) Assessment and Plan Assessmemt and Plan Problems Medical Problems: (1) Atrial fibrillation with rapid ventricular response Status: Acute (2) Metabolic encephalopathy Status: Acute (3) Sepsis due to urinary tract infection Status: Acute Comment Review of Relevant I have reviewed the following items yolis (where applicable) has been applied. Labs Laboratory Tests Test 09/20/18 15:50 09/20/18 22:25 09/21/18 05:25 09/21/18 16:35 Heparin Anti-Xa Act, Unfractionated 0.29 IU/mL (0.30-0.70) 0.29 IU/mL (0.30-0.70) 0.38 IU/mL (0.30-0.70) 0.26 IU/mL (0.30-0.70) White Blood Count 11.3 x10^3/uL (4.0-11.0) Red Blood Count 4.05 x10^6/uL (4.30-5.70) Hemoglobin 12.9 g/dL (13.0-17.5) Hematocrit 37.6 % (39.0-53.0) Mean Corpuscular Volume 93 fL (79-100) Mean Corpuscular Hemoglobin 32 pg (25-35) Mean Corpuscular Hemoglobin Concent 34 g/dL (31-37) Red Cell Distribution Width 14.8 % (11.5-14.5) Platelet Count 114 x10^3/uL (140-400) Neutrophils (%) (Auto) 90 % (31-73) Lymphocytes (%) (Auto) 3 % (24-48) Monocytes (%) (Auto) 7 % (0-9) Eosinophils (%) (Auto) 0 % (0-3) Basophils (%) (Auto) 0 % (0-3) Neutrophils # (Auto) 10.2 x10^3uL (1.8-7.7) Lymphocytes # (Auto) 0.3 x10^3/uL (1.0-4.8) Monocytes # (Auto) 0.7 x10^3/uL (0.0-1.1) Eosinophils # (Auto) 0.0 x10^3/uL (0.0-0.7) Basophils # (Auto) 0.0 x10^3/uL (0.0-0.2) Segmented Neutrophils % 53 % (35-66) Band Neutrophils % 38 % (0-9) Lymphocytes % 4 % (24-48) Monocytes % 5 % (0-10) Platelet Estimate Decreased (ADEQUATE) Polychromasia Slight Ovalocytes Few [place] Cells Present Sodium Level 140 mmol/L (136-145) Potassium Level 3.1 mmol/L (3.5-5.1) Chloride Level 106 mmol/L (98-107) Carbon Dioxide Level 22 mmol/L (21-32) Anion Gap 12 (6-14) Blood Urea Nitrogen 26 mg/dL (8-26) Creatinine 1.1 mg/dL (0.7-1.3) Estimated GFR (Cockcroft-Gault) 64.9 BUN/Creatinine Ratio 24 (6-20) Glucose Level 118 mg/dL (70-99) Calcium Level 8.0 mg/dL (8.5-10.1) Magnesium Level 1.8 mg/dL (1.8-2.4) Total Bilirubin 2.2 mg/dL (0.2-1.0) Aspartate Amino Transf (AST/SGOT) 90 U/L (15-37) Alanine Aminotransferase (ALT/SGPT) 55 U/L (16-63) Alkaline Phosphatase 146 U/L (46-116) Total Protein 6.2 g/dL (6.4-8.2) Albumin 2.6 g/dL (3.4-5.0) Albumin/Globulin Ratio 0.7 (1.0-1.7) Test 09/21/18 22:55 09/22/18 04:55 09/22/18 10:45 Heparin Anti-Xa Act, Unfractionated 0.28 IU/mL (0.30-0.70) 0.46 IU/mL (0.30-0.70) 0.51 IU/mL (0.30-0.70) Potassium Level 3.2 mmol/L (3.5-5.1) 3.5 mmol/L (3.5-5.1) 3.9 mmol/L (3.5-5.1) White Blood Count 12.1 x10^3/uL (4.0-11.0) Red Blood Count 3.94 x10^6/uL (4.30-5.70) Hemoglobin 12.9 g/dL (13.0-17.5) Hematocrit 36.7 % (39.0-53.0) Mean Corpuscular Volume 93 fL (79-100) Mean Corpuscular Hemoglobin 33 pg (25-35) Mean Corpuscular Hemoglobin Concent 35 g/dL (31-37) Red Cell Distribution Width 15.0 % (11.5-14.5) Platelet Count 113 x10^3/uL (140-400) Neutrophils (%) (Auto) 88 % (31-73) Lymphocytes (%) (Auto) 5 % (24-48) Monocytes (%) (Auto) 7 % (0-9) Eosinophils (%) (Auto) 0 % (0-3) Basophils (%) (Auto) 0 % (0-3) Neutrophils # (Auto) 10.7 x10^3uL (1.8-7.7) Lymphocytes # (Auto) 0.6 x10^3/uL (1.0-4.8) Monocytes # (Auto) 0.8 x10^3/uL (0.0-1.1) Eosinophils # (Auto) 0.0 x10^3/uL (0.0-0.7) Basophils # (Auto) 0.0 x10^3/uL (0.0-0.2) Sodium Level 138 mmol/L (136-145) Chloride Level 102 mmol/L (98-107) Carbon Dioxide Level 26 mmol/L (21-32) Anion Gap 10 (6-14) Blood Urea Nitrogen 27 mg/dL (8-26) Creatinine 1.0 mg/dL (0.7-1.3) Estimated GFR (Cockcroft-Gault) 72.5 Glucose Level 156 mg/dL (70-99) Calcium Level 8.4 mg/dL (8.5-10.1) Magnesium Level 1.8 mg/dL (1.8-2.4) Laboratory Tests Test 09/21/18 16:35 09/21/18 22:55 09/22/18 04:55 09/22/18 10:45 Heparin Anti-Xa Act, Unfractionated 0.26 IU/mL (0.30-0.70) 0.28 IU/mL (0.30-0.70) 0.46 IU/mL (0.30-0.70) 0.51 IU/mL (0.30-0.70) Potassium Level 3.2 mmol/L (3.5-5.1) 3.5 mmol/L (3.5-5.1) 3.9 mmol/L (3.5-5.1) White Blood Count 12.1 x10^3/uL (4.0-11.0) Red Blood Count 3.94 x10^6/uL (4.30-5.70) Hemoglobin 12.9 g/dL (13.0-17.5) Hematocrit 36.7 % (39.0-53.0) Mean Corpuscular Volume 93 fL (79-100) Mean Corpuscular Hemoglobin 33 pg (25-35) Mean Corpuscular Hemoglobin Concent 35 g/dL (31-37) Red Cell Distribution Width 15.0 % (11.5-14.5) Platelet Count 113 x10^3/uL (140-400) Neutrophils (%) (Auto) 88 % (31-73) Lymphocytes (%) (Auto) 5 % (24-48) Monocytes (%) (Auto) 7 % (0-9) Eosinophils (%) (Auto) 0 % (0-3) Basophils (%) (Auto) 0 % (0-3) Neutrophils # (Auto) 10.7 x10^3uL (1.8-7.7) Lymphocytes # (Auto) 0.6 x10^3/uL (1.0-4.8) Monocytes # (Auto) 0.8 x10^3/uL (0.0-1.1) Eosinophils # (Auto) 0.0 x10^3/uL (0.0-0.7) Basophils # (Auto) 0.0 x10^3/uL (0.0-0.2) Sodium Level 138 mmol/L (136-145) Chloride Level 102 mmol/L (98-107) Carbon Dioxide Level 26 mmol/L (21-32) Anion Gap 10 (6-14) Blood Urea Nitrogen 27 mg/dL (8-26) Creatinine 1.0 mg/dL (0.7-1.3) Estimated GFR (Cockcroft-Gault) 72.5 Glucose Level 156 mg/dL (70-99) Calcium Level 8.4 mg/dL (8.5-10.1) Magnesium Level 1.8 mg/dL (1.8-2.4) Microbiology 09/20/18 Blood Culture - Final, Complete Medications Current Medications Sodium Chloride 1,000 ml @ 1,000 mls/hr Q1H IV Last administered on 09/20/18at 15:23; Start 09/20/18 at 04:00; Stop 09/20/18 at 06:10; Status DC Diltiazem HCl (Cardizem Iv Push) 10 mg 1X ONCE IVP Last administered on at 04:08; Start 09/20/18 at 04:30; Stop 09/20/18 at 04:31; Status DC Diltiazem HCl 125 mg/Dextrose 125 ml @ 5 mls/hr CONT PRN IV SEE I/O RECORD Last administered on 09/20/18at 04:13; Start 09/20/18 at 04:00; Stop 09/20/18 at 16: 32; Status DC Ceftriaxone Sodium (Rocephin) 1 gm 1X ONCE IVP Last administered on 09/20/18at 04:08; Start 09/20/18 at 04:30; Stop 09/20/18 at 04:31; Status DC Ceftriaxone Sodium (Rocephin) 1 gm STK-MED ONCE IVP ; Start 09/20/18 at 04:04; Stop 09/20/18 at 04:06; Status DC Diltiazem HCl (Cardizem Iv Push) 25 mg STK-MED ONCE .ROUTE ; Start 09/20/18 at 04 :04; Stop 09/20/18 at 04:06; Status DC Acetaminophen (Tylenol Supp) 650 mg 1X ONCE [place] Last administered on 09/20/18at 04:27; Start 09/20/18 at 04:30; Stop 09/20/18 at 04:31; Status DC Ceftriaxone Sodium (Rocephin) 1 gm 1X ONCE IVP Last administered on 09/20/18at 05:23; Start 09/20/18 at 05:30; Stop 09/20/18 at 05:31; Status DC Albuterol/ Ipratropium (Duoneb) 3 ml 1X ONCE NEB Last administered on at 05:37; Start 09/20/18 at 05:30; Stop 09/20/18 at 05:31; Status DC Ondansetron HCl (Zofran) 4 mg PRN Q8HRS PRN IV NAUSEA/VOMITING 1ST CHOICE; Start 09/20/18 at 06:00; Stop 09/21/18 at 05:59; Status DC Sodium Chloride 1,000 ml @ 150 mls/hr Q6H40M IV Last administered on 09/20/18at 06:32; Start 09/20/18 at 05:52; Stop 09/20/18 at 15:10; Status DC Acetaminophen (Tylenol) 650 mg PRN Q4HRS PRN PO FEVER; Start 09/20/18 at 06:00; Stop 09/21/18 at 05:59; Status DC Albuterol/ Ipratropium (Duoneb) 3 ml RTQID NEB Last administered on 09/20/18at 20 :21; Start 09/20/18 at 08:00; Stop 09/21/18 at 07:59; Status DC Sodium Chloride 1,000 ml @ 1,000 mls/hr 1X ONCE IV Last administered on at 08:40; Start 09/20/18 at 08:00; Stop 09/20/18 at 08:59; Status DC Norepinephrine Bitartrate 250 ml @ 9.375 mls/ hr CONT PRN IV SEE I/O RECORD Last administered on 09/20/18at 08:51; Start 09/20/18 at 08:45 Heparin Sodium (Porcine) (Heparin Sodium) 3,950 unit 1X ONCE IV Last administered on 09/20/18at 09:51; Start 09/20/18 at 09:45; Stop 09/20/18 at 09:46; Status DC Heparin Sodium/ Dextrose 500 ml @ 20 mls/hr CONT PRN IV SEE I/O RECORD Last administered on 09/22/18at 12:58; Start 09/20/18 at 09:45 Heparin Sodium (Porcine) (Heparin Sodium) 2,350 unit PRN Q6HRS PRN IV FOR UFH LEVEL LESS THAN 0.2; Start 09/20/18 at 09:45 Aspirin (Luci Aspirin) 325 mg 1X ONCE PO Last administered on 09/20/18at 10:00 ; Start 09/20/18 at 09:45; Stop 09/20/18 at 09:46; Status DC Magnesium Sulfate 50 ml @ 25 mls/hr 1X ONCE IV Last administered on 09/20/18at 15:23; Start 09/20/18 at 11:00; Stop 09/20/18 at 12:59; Status DC Info (Anti-Coagulation Monitoring By Pharmacy) 1 each PRN DAILY PRN MC SEE COMMENTS Last administered on 09/22/18at 08:10; Start 09/20/18 at 11:00 Sodium Chloride 1,000 ml @ 1,000 mls/hr 1X ONCE IV Last administered on at 12:17; Start 09/20/18 at 11:45; Stop 09/20/18 at 12:44; Status DC Aspirin (Ecotrin) 81 mg DAILYWBKFT PO Last administered on 09/22/18at 08:54; Start 09/20/18 at 15:00 Cefepime HCl (Maxipime) 1 gm Q12HR IVP Last administered on 09/22/18at 08:56; Start 09/20/18 at 21:00 Albumin Human 100 ml @ 100 mls/hr 1X ONCE IV Last administered on 09/20/18at 15 :23; Start 09/20/18 at 15:15; Stop 09/20/18 at 16:14; Status DC Sodium Chloride 1,000 ml @ 150 mls/hr Q6H40M IV Last administered on 09/21/18at 04:48; Start 09/20/18 at 22:00; Stop 09/21/18 at 15:17; Status DC Trazodone HCl (Desyrel) 50 mg DAILY PO Last administered on 09/21/18at 21:56; Start 09/21/18 at 09:00; Stop 09/21/18 at 23:39; Status DC Trazodone HCl (Desyrel) 50 mg 1X ONCE PO Last administered on 09/21/18at 00:09; Start 09/21/18 at 00:30; Stop 09/21/18 at 00:31; Status DC Furosemide (Lasix) 40 mg 1X ONCE IVP Last administered on 09/21/18at 07:54; Start 09/21/18 at 08:00; Stop 09/21/18 at 08:01; Status DC Potassium Chloride (Klor-Con) 40 meq 1X ONCE PO Last administered on 09/21/18at 07:54; Start 09/21/18 at 08:00; Stop 09/21/18 at 08:01; Status DC Potassium Chloride (Klor-Con) 40 meq 1X ONCE PO ; Start 09/21/18 at 10:00; Stop 09/21/18 at 10:00; Status DC Iodixanol (Visipaque 320) 100 ml STK-MED ONCE .ROUTE ; Start 09/21/18 at 07:49; Stop 09/21/18 at 07:50; Status DC Lidocaine HCl (Xylocaine-Mpf 1% 2ml Vial) 2 ml STK-MED ONCE .ROUTE ; Start at 07:49; Stop 09/21/18 at 07:51; Status DC Heparin Sodium/ Sodium Chloride 1,000 ml @ As Directed STK-MED ONCE .ROUTE ; Start 09/21/18 at 07:49; Stop 09/21/18 at 07:51; Status DC Potassium Chloride (Klor-Con) 40 meq Q2H PO Last administered on 09/21/18at 08:00 ; Start 09/21/18 at 08:00; Stop 09/21/18 at 12:01; Status DC Fentanyl Citrate (Fentanyl 2ml Vial) 100 mcg STK-MED ONCE .ROUTE ; Start at 08:40; Stop 09/21/18 at 08:42; Status DC Midazolam HCl (Versed) 2 mg STK-MED ONCE .ROUTE ; Start 09/21/18 at 08:40; Stop 09/21/18 at 08:42; Status DC Heparin Sodium (Porcine) (Heparin Sodium) 10,000 unit STK-MED ONCE .ROUTE ; Start 09/21/18 at 08:40; Stop 09/21/18 at 08:42; Status DC Verapamil HCl (Verapamil) 5 mg STK-MED ONCE .ROUTE ; Start 09/21/18 at 08:40; Stop 09/21/18 at 08:42; Status DC Nitroglycerin (Nitroglycerin) 200 mcg STK-MED ONCE .ROUTE ; Start 09/21/18 at 08: 40; Stop 09/21/18 at 08:42; Status DC Nitroglycerin (Nitroglycerin) 200 mcg 1X ONCE IART Last administered on at 10:16; Start 09/21/18 at 09:15; Stop 09/21/18 at 09:16; Status DC Verapamil HCl (Verapamil) 2.5 mg 1X ONCE IART Last administered on 09/21/18at 10 :17; Start 09/21/18 at 09:15; Stop 09/21/18 at 09:16; Status DC Heparin Sodium (Porcine) (Heparin Sodium) 2,500 unit 1X ONCE IART Last administered on 09/21/18at 10:18; Start 09/21/18 at 09:15; Stop 09/21/18 at 09:16; Status DC Heparin Sodium/ Sodium Chloride (HEPARIN for ARTERIAL LINE FLUSH) 1,000 unit 1X ONCE IART Last administered on 09/21/18 10:17; Start 09/21/18 at 09:15; Stop 09/21/18 at 09:16; Status DC Midazolam HCl (Versed) 2 mg 1X ONCE IV Last administered on 09/21/18 10:16; Start 09/21/18 at 09:15; Stop 09/21/18 at 09:16; Status DC Fentanyl Citrate (Fentanyl 2ml Vial) 100 mcg 1X ONCE IV Last administered on 10:16; Start 09/21/18 at 09:15; Stop 09/21/18 at 09:16; Status DC Iodixanol (Visipaque 320) 100 ml 1X ONCE IART Last administered on 09/21/18 10 :15; Start 09/21/18 at 09:15; Stop 09/21/18 at 09:16; Status DC Lidocaine HCl (Xylocaine-Mpf 1% 2ml Vial) 2 ml 1X ONCE INJ Last administered on 09/21/18 10:17; Start 09/21/18 at 09:15; Stop 09/21/18 at 09:16; Status DC Info (CONTRAST GIVEN -- Rx MONITORING) 1 each PRN DAILY PRN MC SEE COMMENTS; Start 09/21/18 at 09:15; Stop 09/23/18 at 09:14 Bivalirudin (Angiomax) 250 mg STK-MED ONCE IV ; Start 09/21/18 at 09:16; Stop 09/21/18 at 09:18; Status DC Heparin Sodium/ Sodium Chloride 500 ml @ As Directed STK-MED ONCE .ROUTE ; Start 09/21/18 at 09:20; Stop 09/21/18 at 09:22; Status DC Bivalirudin (Angiomax) 250 mg 1X ONCE IV Last administered on 09/21/18 10:16; Start 09/21/18 at 09:30; Stop 09/21/18 at 09:32; Status DC Lactobacillus Rhamnosus (Culturelle) 1 cap BID PO Last administered on at 08:54; Start 09/21/18 at 21:00 Diphenhydramine HCl (Benadryl) 50 mg STK-MED ONCE .ROUTE ; Start 09/21/18 at 09: 49; Stop 09/21/18 at 09:51; Status DC Iodixanol (Visipaque 320) 100 ml STK-MED ONCE .ROUTE ; Start 09/21/18 at 09:56; Stop 09/21/18 at 09:58; Status DC Diphenhydramine HCl (Benadryl) 25 mg 1X ONCE IVP Last administered on at 10:18; Start 09/21/18 at 10:15; Stop 09/21/18 at 10:16; Status DC Nitroglycerin (Nitroglycerin) 200 mcg STK-MED ONCE .ROUTE ; Start 09/21/18 at 10: 18; Stop 09/21/18 at 10:19; Status DC Clopidogrel Bisulfate (Plavix) 75 mg DAILYWBKFT PO Last administered on at 08:54; Start 09/22/18 at 08:00 Acetaminophen (Tylenol) 650 mg PRN Q6HRS PRN PO MILD PAIN / TEMP Last administered on 09/21/18at 21:56; Start 09/21/18 at 10:30 Nitroglycerin (Nitrostat) 0.4 mg PRN Q5MIN PRN SL CHEST PAIN; Start 09/21/18 at 10:30 Clopidogrel Bisulfate (Plavix) 600 mg 1X ONCE PO ; Start 09/21/18 at 10:30; Stop 09/21/18 at 10:31; Status Cancel Metoprolol Tartrate (Lopressor Vial) 5 mg PRN Q5MIN PRN IVP TACHYCARDIA Last administered on 09/21/18at 17:58; Start 09/21/18 at 12:15 Clopidogrel Bisulfate (Plavix) 600 mg 1X ONCE PO Last administered on at 15:30; Start 09/21/18 at 15:15; Stop 09/21/18 at 15:16; Status DC Pantoprazole Sodium (PROTONIX VIAL for IV PUSH) 40 mg DAILYAC IVP Last administered on 09/22/18at 08:55; Start 09/21/18 at 16:00 Metoprolol Tartrate (Lopressor Vial) 5 mg 1X STAT IVP ; Start 09/21/18 at 17:50 ; Stop 09/21/18 at 17:52; Status DC Metoprolol Tartrate (Lopressor) 25 mg Q6HRS PO Last administered on 09/22/18at 13 :32; Start 09/21/18 at 18:00 Mirtazapine (Remeron Jes-Tab) 15 mg PRN QHS PRN PO INSOMNIA Last administered on 09/21/18at 22:00; Start 09/21/18 at 21:30 Amlodipine Besylate (Norvasc) 5 mg DAILY PO Last administered on 09/22/18at 08:55 ; Start 09/22/18 at 09:00 Atorvastatin Calcium (Lipitor) 20 mg QHS PO Last administered on 09/21/18at 21:57 ; Start 09/21/18 at 22:00 Tamsulosin HCl (Flomax) 0.4 mg DAILY PO Last administered on 09/22/18at 08:55; Start 09/22/18 at 09:00 Trazodone HCl (Desyrel) 50 mg HS PO ; Start 09/22/18 at 21:00 Potassium Chloride (Klor-Con) 40 meq 1X ONCE PO Last administered on 09/22/18at 02:14; Start 09/22/18 at 00:30; Stop 09/22/18 at 00:59; Status DC Potassium Chloride (Klor-Con) 40 meq 1X ONCE PO Last administered on 09/22/18at 04:07; Start 09/22/18 at 02:30; Stop 09/22/18 at 02:31; Status DC Potassium Chloride (Klor-Con) 40 meq 1X ONCE PO Last administered on 09/22/18at 06:08; Start 09/22/18 at 04:30; Stop 09/22/18 at 04:31; Status DC Active Scripts Active Reported Metformin Hcl 500 Mg Tablet 250 Mg PO BIDWMEALS Flomax (Tamsulosin Hcl) 0.4 Mg Cap.er.24h 0.4 Mg PO DAILY Trazodone Hcl 50 Mg Tablet 50 Mg PO DAILY Amlodipine Besylate 5 Mg Tablet 5 Mg PO DAILY Toprol Xl (Metoprolol Succinate) 50 Mg Tab.er.24h 50 Mg PO DAILY Fosinopril Sodium 40 Mg Tablet 40 Mg PO DAILY Warfarin Sodium 1 Mg Tablet 1.75 Mg PO DAILY Atorvastatin Calcium 20 Mg Tablet 20 Mg PO DAILY Vitals/I & O Vital Sign - Last 24 Hours 09/21/18 09/21/18 09/21/18 09/21/18 15:00 16:00 16:00 17:00 Temp 98.6 98.6 Pulse 124 116 126 Resp 30 30 32 B/P (MAP) 153/90 (111) 127/98 (108) 154/98 (116) Pulse Ox 96 94 95 O2 Delivery Nasal Cannula Nasal Cannula Nasal Cannula O2 Flow Rate 4.0 6.0 4.0 4.0 09/21/18 09/21/18 09/21/18 09/21/18 17:58 18:00 19:00 19:15 Pulse 138 111 105 118 Resp 32 26 B/P (MAP) 151/91 151/91 (111) 151/93 (112) 151/93 Pulse Ox 96 100 O2 Delivery Nasal Cannula Nasal Cannula O2 Flow Rate 4.0 4.0 09/21/18 09/21/18 09/21/18 09/21/18 20:00 20:00 21:00 22:00 Temp 100.5 100.5 Pulse 112 113 108 Resp 36 32 32 B/P (MAP) 144/87 (106) 150/97 (114) 163/82 (109) Pulse Ox 95 94 94 O2 Delivery Nasal Cannula Nasal Cannula Nasal Cannula O2 Flow Rate 6.0 4.0 4.0 4.0 09/21/18 09/21/18 09/22/18 09/22/18 23:00 23:59 00:01 00:17 Temp 97.6 97.6 Pulse 110 110 131 Resp 30 32 B/P (MAP) 157/85 (109) 150/97 (114) 157/85 Pulse Ox 93 93 O2 Delivery Nasal Cannula Nasal Cannula O2 Flow Rate 4.0 6.0 4.0 09/22/18 09/22/18 09/22/18 09/22/18 01:00 02:00 04:00 04:00 Temp 97.3 97.3 Pulse 110 107 104 Resp 26 30 26 B/P (MAP) 143/95 (111) 149/101 (117) 122/84 (97) Pulse Ox 93 95 95 O2 Delivery Nasal Cannula Nasal Cannula Nasal Cannula O2 Flow Rate 4.0 4.0 4.0 4.0 09/22/18 09/22/18 09/22/18 09/22/18 05:00 06:00 06:09 07:00 Pulse 119 117 119 118 Resp 29 29 29 B/P (MAP) 127/89 (102) 119/92 (101) 127/89 129/93 (105) Pulse Ox 94 94 94 O2 Delivery Nasal Cannula Nasal Cannula Nasal Cannula O2 Flow Rate 4.0 4.0 4.0 09/22/18 09/22/18 09/22/18 09/22/18 08:00 08:00 08:55 09:00 Temp 98.7 98.7 Pulse 116 103 112 Resp 30 28 B/P (MAP) 119/92 (101) 159/87 135/82 (99) Pulse Ox 94 94 O2 Delivery Nasal Cannula Nasal Cannula O2 Flow Rate 4.0 4.0 4.0 09/22/18 09/22/18 09/22/18 09/22/18 10:00 11:00 12:00 12:00 Temp 98.3 98.3 Pulse 117 116 114 Resp 35 29 30 B/P (MAP) 119/92 (101) 119/92 (101) 107/61 (76) Pulse Ox 94 94 96 O2 Delivery Nasal Cannula Nasal Cannula Nasal Cannula O2 Flow Rate 4.0 4.0 4.0 4.0 09/22/18 09/22/18 13:00 13:32 Pulse 110 110 Resp 30 B/P (MAP) 142/91 (108) 142/91 Pulse Ox 97 O2 Delivery Nasal Cannula O2 Flow Rate 4.0 Intake and Output 09/21/18 09/21/18 09/22/18 15:01 23:01 07:01 Intake Total 200 ml 240 ml 633 ml Output Total 3025 ml 480 ml 320 ml Balance -2825 ml -240 ml 313 ml MOSES MONTOYA MD Sep 22, 2018 14:08
[2018-09-22] MEDS ORDERED: DIGOXIN IV 500 MCG/2 ML AMPUL. IV ONE (15:00)
[2018-09-22] MEDS ORDERED: FUROSEMIDE 40 MG/4 ML VIAL. IVP ONE (15:00)
[2018-09-22] MEDS: ATORVASTATIN CALCIUM 20 MG TABLET PO SCH (21:00)
[2018-09-22] MEDS: METOPRO PO SCH (21:00)
[2018-09-22] MEDS: traZODone 50 MG TABLET. PO SCH (21:00)
[2018-09-22] MEDS: MIRTAZAPINE 15 MG TAB.RAPDIS PO PRN (23:36)
[2018-09-23] VITALS (23 sets, daily range): BP systolic 123–170; BP diastolic 68–102
[2018-09-23] MEDS: HEPARIN 25,000UTS/500ML PREMIX 500 ML IV PRN ×2 (01:18→14:58)
[2018-09-23 04:44] LABS: HEMATOCRIT 33.7 % (39.0-53.0); RED BLOOD COUNT 3.62 x10^6/uL (4.30-5.70); RED CELL DISTRIBUTION WIDTH 14.8 % (11.5-14.5); WHITE BLOOD COUNT 10.1 x10^3/uL (4.0-11.0)
[2018-09-23] MEDS: TAMSULOSIN 0.4 MG CAP.ER.24H. PO SCH (08:50)
[2018-09-23] MEDS: CEFEPIME HCL IV Push 1 GM VIAL. IVP SCH (08:50)
[2018-09-23] MEDS: PANTOPRAZOLE IV PUSH 40 MG VIAL. IVP SCH (08:50)
[2018-09-23] MEDS: LACTOBACILLUS RHAMNOSUS GG 1 CAPSULE. PO SCH ×2 (08:51→21:09)
[2018-09-23] MEDS: ASPIRIN ENTERIC COATED 81 MG TABLET.DR. PO SCH (08:51)
[2018-09-23] MEDS: CLOPIDOGREL BISULFATE 75 MG TABLET PO SCH (08:51)
[2018-09-23] MEDS: METOPRO PO SCH ×2 (08:51→21:09)
[2018-09-23] MEDS: LISINOPRIL 5 MG TABLET. PO SCH (08:52)
--- NOTE | 2018-09-23 11:44 | PDOC ---
Infectious Disease Note Vital Sign Vital Signs Vital Signs Date Time Temp Pulse Resp B/P (MAP) Pulse Ox O2 Delivery O2 Flow Rate FiO2 09/23/18 08:52 88 134/74 09/23/18 07:00 17 94 Nasal Cannula 3.0 09/23/18 04:00 97.5 97.5 Labs Lab Laboratory Tests Test 09/23/18 03:40 White Blood Count 10.1 x10^3/uL (4.0-11.0) Red Blood Count 3.62 x10^6/uL (4.30-5.70) Hemoglobin 12.0 g/dL (13.0-17.5) Hematocrit 33.7 % (39.0-53.0) Mean Corpuscular Volume 93 fL (79-100) Mean Corpuscular Hemoglobin 33 pg (25-35) Mean Corpuscular Hemoglobin Concent 36 g/dL (31-37) Red Cell Distribution Width 14.8 % (11.5-14.5) Platelet Count 112 x10^3/uL (140-400) Heparin Anti-Xa Act, Unfractionated 0.41 IU/mL (0.30-0.70) Magnesium Level 1.7 mg/dL (1.8-2.4) Micro Microbiology 09/20/18 Blood Culture - Final, Complete 09/20/18 Urine Culture - Preliminary, Resulted 09/20/18 Urine Culture Result 1 ([facility]) - Preliminary, Resulted Objective Assessment GNR sepsis POA 09/19 (Leukopenia/Fever/Hypotension) Ecoli UTI - POA 09/20 S/p NSTEMI Encephalopathy - ongoing thinks he is in [facility] diastolic heart failure Plan Plan of Care Repeat Blood cults F/u labs and cults Given ongoing Encephalopathy will d/c Cefepime and restart Rocephin - has little abx exposure D/w [facility] today re Ecoli sens in urine not available. Have not identified blood cult organism D/w previous records reviewed 35 mins CC time Thank you # [id number] NIK CARBAJAL MD Sep 23, 2018 11:44
--- NOTE | 2018-09-23 12:42 | CONS ---
DATE OF CONSULTATION: 09/23/2018 LOCATION: The patient is in room 106, ICU. REQUESTING PHYSICIAN: Dr. Stone. REASON FOR CONSULTATION: E. coli sepsis. HISTORY OF PRESENT ILLNESS: The patient is a pleasant 78-year-old gentleman with a known history of atrial fibrillation, on Coumadin at home. He developed fairly rapid-onset mental status change per his and the did notice that he was having some hematuria. However, she did not think much of it as he had been on Coumadin. He was not complaining of any dysuria or complications passing his urine. He woke up on 09/20/2018, had mental status changed and EMS was called. He was found to be in AFib with RVR upon arrival with an elevated troponin. He did have blood pressures as low as 72/40 and did develop a temperature up to 100.5. Cultures were obtained. He did receive a dose of Rocephin in the Emergency Room. He since has been diagnosed with a non-STEMI. Urine cultures have now returned positive for E. coli. Urinalysis was consistent with urinary tract infection. This was collected on 09/20/2018. Blood cultures from 09/19/2018 have also returned positive for a gram-negative shanon that has not yet been identified. His Rocephin had been discontinued and he had been placed on cefepime starting on 09/20/2018 and I have been consulted today. Currently, the patient is sitting in bed. He is still a little bit confused. He thinks he is in [facility], but he is unable to say where he is. He denies any current fevers or chills. He has no headaches. No shortness of air. He does have a little bit of a cough, but it is nonproductive. He denies any nausea or complications with diarrhea. He has a Yang in place. He denies any chest pain. PAST MEDICAL HISTORY: Positive for atrial fibrillation, hypertension, hyperlipidemia and BPH. PAST SURGICAL HISTORY: Positive for tonsillectomy. REVIEW OF SYSTEMS: Otherwise negative. ALLERGIES: No known drug allergies. SOCIAL HISTORY: He denies alcohol. He denies any pets at home. No recent tobacco. He is . His is currently with him. FAMILY HISTORY: Positive for hypertension. CURRENT MEDICATIONS: Include heparin, aspirin, Lipitor, cefepime 1 gram q.12h., Plavix, digoxin, lactobacillus, metoprolol, Flomax and Desyrel. Other meds are available and have been reviewed in the chart. PHYSICAL EXAMINATION: VITAL SIGNS: T-max had been 100.5, currently 97.5; pulse 88; respirations 17; blood pressure 134/74 and satting 94% on 3 liters. CONSTITUTIONAL: He is cooperative, but he is a little confused. HEENT: Pupils are equal and reactive. He has normal conjunctivae. Oral cavity, pharynx is dry. NECK: Supple. No JVD. LUNGS: Decreased at bases. No wheezes. HEART: S1, S2. No gross murmur. ABDOMEN: Protuberant, soft and nontender. No guarding or rebound. Yang is in place. EXTREMITIES: He has some chronic lower extremity venous stasis changes. SKIN: Otherwise warm to touch, without signs of rash. IV sites are clean, without signs of chronic complications. PSYCHIATRIC: Affect is pleasant. NEUROLOGIC: Again, he is cooperative. He is confused, but he does answer questions. LABORATORY DATA: White count 10.1, hemoglobin 12 and platelets of 112,000. Glucose 156 and creatinine of 1; those were from 09/22/2018. Urine again concerned for urinary tract infection. MRSA screen was negative. Influenza screen was negative. Chest x-ray from 09/21/2018, interstitial opacities in the lungs, most likely representing interstitial edema. IMPRESSION: 1. Gram-negative sepsis, present on admission from 09/19/2018. Also had evidence of leukopenia, fever and hypotension. 2. Escherichia coli urinary tract infection present on admission after Yang was placed, 09/20/2018. 3. Status post non-ST elevation myocardial infarction. 4. Encephalopathy, ongoing. Currently he thinks he is in [facility]. 5. Diastolic heart failure. RECOMMENDATIONS: We will repeat blood cultures x 2. Follow up labs and cultures. Given ongoing encephalopathy, we will discontinue , restart . He has little antibiotic exposure in the past. I did discuss with [facility] with regards to Escherichia coli sensitivity in the urine. It is not yet available and they have not identified the blood culture organism in his blood collected on 09/19/2018. This was discussed with his . Previous records were reviewed. I spent 35 minutes of critical care time. Thank you for allowing me to participate in the patient's care. Should you have any questions, please do not hesitate to contact me. NIK CARBAJAL MD DR: ATUL/kenny JOB#: [id number] / [id number]
--- NOTE | 2018-09-23 12:45 | PDOC ---
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 History of dyslipidemia Plan We'll consult ID for reassessment of antibiotic therapy recommendations greatly appreciated. Follow neurological status Cardiology consultation done and planning to do cardiac catheterization tomorrow Continue to monitor hemodynamics closely DVT prophylaxis with heparin continue home meds History of Present Illness History of Present Illness Patient tired since he refers not being able to sleep the entire night. No complaints of chest discomfort no urinary symptoms no fever or chills were reported. continues to have encephalopathy which is multifactorial given his different active medical conditions ongoing. Detail and discussed with at bedside as well. Vitals Vitals Vital Signs Date Time Temp Pulse Resp B/P (MAP) Pulse Ox O2 Delivery O2 Flow Rate FiO2 09/23/18 08:52 88 134/74 09/23/18 08:00 4.0 09/23/18 07:00 17 94 Nasal Cannula 09/23/18 04:00 97.5 97.5 Physical Exam General: Alert, Oriented X3, Cooperative, No acute distress Heart: Other (IRRR; tele AFIB with controlled rate) Abdomen: Soft, No tenderness Extremities: No edema, Normal pulses Skin: No significant lesion Labs LABS Laboratory Tests Test 09/23/18 03:40 White Blood Count 10.1 x10^3/uL (4.0-11.0) Red Blood Count 3.62 x10^6/uL (4.30-5.70) Hemoglobin 12.0 g/dL (13.0-17.5) Hematocrit 33.7 % (39.0-53.0) Mean Corpuscular Volume 93 fL (79-100) Mean Corpuscular Hemoglobin 33 pg (25-35) Mean Corpuscular Hemoglobin Concent 36 g/dL (31-37) Red Cell Distribution Width 14.8 % (11.5-14.5) Platelet Count 112 x10^3/uL (140-400) Heparin Anti-Xa Act, Unfractionated 0.41 IU/mL (0.30-0.70) Magnesium Level 1.7 mg/dL (1.8-2.4) Assessment and Plan Assessmemt and Plan Problems Medical Problems: (1) Atrial fibrillation with rapid ventricular response Status: Acute (2) Metabolic encephalopathy Status: Acute (3) Sepsis due to urinary tract infection Status: Acute Comment Review of Relevant I have reviewed the following items yolis (where applicable) has been applied. Labs Laboratory Tests Test 09/21/18 16:35 09/21/18 22:55 09/22/18 04:55 09/22/18 10:45 Heparin Anti-Xa Act, Unfractionated 0.26 IU/mL (0.30-0.70) 0.28 IU/mL (0.30-0.70) 0.46 IU/mL (0.30-0.70) 0.51 IU/mL (0.30-0.70) Potassium Level 3.2 mmol/L (3.5-5.1) 3.5 mmol/L (3.5-5.1) 3.9 mmol/L (3.5-5.1) White Blood Count 12.1 x10^3/uL (4.0-11.0) Red Blood Count 3.94 x10^6/uL (4.30-5.70) Hemoglobin 12.9 g/dL (13.0-17.5) Hematocrit 36.7 % (39.0-53.0) Mean Corpuscular Volume 93 fL (79-100) Mean Corpuscular Hemoglobin 33 pg (25-35) Mean Corpuscular Hemoglobin Concent 35 g/dL (31-37) Red Cell Distribution Width 15.0 % (11.5-14.5) Platelet Count 113 x10^3/uL (140-400) Neutrophils (%) (Auto) 88 % (31-73) Lymphocytes (%) (Auto) 5 % (24-48) Monocytes (%) (Auto) 7 % (0-9) Eosinophils (%) (Auto) 0 % (0-3) Basophils (%) (Auto) 0 % (0-3) Neutrophils # (Auto) 10.7 x10^3uL (1.8-7.7) Lymphocytes # (Auto) 0.6 x10^3/uL (1.0-4.8) Monocytes # (Auto) 0.8 x10^3/uL (0.0-1.1) Eosinophils # (Auto) 0.0 x10^3/uL (0.0-0.7) Basophils # (Auto) 0.0 x10^3/uL (0.0-0.2) Sodium Level 138 mmol/L (136-145) Chloride Level 102 mmol/L (98-107) Carbon Dioxide Level 26 mmol/L (21-32) Anion Gap 10 (6-14) Blood Urea Nitrogen 27 mg/dL (8-26) Creatinine 1.0 mg/dL (0.7-1.3) Estimated GFR (Cockcroft-Gault) 72.5 Glucose Level 156 mg/dL (70-99) Calcium Level 8.4 mg/dL (8.5-10.1) Magnesium Level 1.8 mg/dL (1.8-2.4) Test 09/23/18 03:40 White Blood Count 10.1 x10^3/uL (4.0-11.0) Red Blood Count 3.62 x10^6/uL (4.30-5.70) Hemoglobin 12.0 g/dL (13.0-17.5) Hematocrit 33.7 % (39.0-53.0) Mean Corpuscular Volume 93 fL (79-100) Mean Corpuscular Hemoglobin 33 pg (25-35) Mean Corpuscular Hemoglobin Concent 36 g/dL (31-37) Red Cell Distribution Width 14.8 % (11.5-14.5) Platelet Count 112 x10^3/uL (140-400) Heparin Anti-Xa Act, Unfractionated 0.41 IU/mL (0.30-0.70) Magnesium Level 1.7 mg/dL (1.8-2.4) Laboratory Tests Test 09/23/18 03:40 White Blood Count 10.1 x10^3/uL (4.0-11.0) Red Blood Count 3.62 x10^6/uL (4.30-5.70) Hemoglobin 12.0 g/dL (13.0-17.5) Hematocrit 33.7 % (39.0-53.0) Mean Corpuscular Volume 93 fL (79-100) Mean Corpuscular Hemoglobin 33 pg (25-35) Mean Corpuscular Hemoglobin Concent 36 g/dL (31-37) Red Cell Distribution Width 14.8 % (11.5-14.5) Platelet Count 112 x10^3/uL (140-400) Heparin Anti-Xa Act, Unfractionated 0.41 IU/mL (0.30-0.70) Magnesium Level 1.7 mg/dL (1.8-2.4) Microbiology 09/20/18 Blood Culture - Final, Complete 09/20/18 Urine Culture - Preliminary, Resulted 09/20/18 Urine Culture Result 1 (AKHIL) - Preliminary, Resulted Medications Current Medications Sodium Chloride 1,000 ml @ 1,000 mls/hr Q1H IV Last administered on 09/20/18at 15:23; Start 09/20/18 at 04:00; Stop 09/20/18 at 06:10; Status DC Diltiazem HCl (Cardizem Iv Push) 10 mg 1X ONCE IVP Last administered on at 04:08; Start 09/20/18 at 04:30; Stop 09/20/18 at 04:31; Status DC Diltiazem HCl 125 mg/Dextrose 125 ml @ 5 mls/hr CONT PRN IV SEE I/O RECORD Last administered on 09/20/18at 04:13; Start 09/20/18 at 04:00; Stop 09/20/18 at 16: 32; Status DC Ceftriaxone Sodium (Rocephin) 1 gm 1X ONCE IVP Last administered on 09/20/18at 04:08; Start 09/20/18 at 04:30; Stop 09/20/18 at 04:31; Status DC Ceftriaxone Sodium (Rocephin) 1 gm STK-MED ONCE IVP ; Start 09/20/18 at 04:04; Stop 09/20/18 at 04:06; Status DC Diltiazem HCl (Cardizem Iv Push) 25 mg STK-MED ONCE .ROUTE ; Start 09/20/18 at 04 :04; Stop 09/20/18 at 04:06; Status DC Acetaminophen (Tylenol Supp) 650 mg 1X ONCE FL Last administered on 09/20/18at 04:27; Start 09/20/18 at 04:30; Stop 09/20/18 at 04:31; Status DC Ceftriaxone Sodium (Rocephin) 1 gm 1X ONCE IVP Last administered on 09/20/18at 05:23; Start 09/20/18 at 05:30; Stop 09/20/18 at 05:31; Status DC Albuterol/ Ipratropium (Duoneb) 3 ml 1X ONCE NEB Last administered on at 05:37; Start 09/20/18 at 05:30; Stop 09/20/18 at 05:31; Status DC Ondansetron HCl (Zofran) 4 mg PRN Q8HRS PRN IV NAUSEA/VOMITING 1ST CHOICE; Start 09/20/18 at 06:00; Stop 09/21/18 at 05:59; Status DC Sodium Chloride 1,000 ml @ 150 mls/hr Q6H40M IV Last administered on 09/20/18at 06:32; Start 09/20/18 at 05:52; Stop 09/20/18 at 15:10; Status DC Acetaminophen (Tylenol) 650 mg PRN Q4HRS PRN PO FEVER; Start 09/20/18 at 06:00; Stop 09/21/18 at 05:59; Status DC Albuterol/ Ipratropium (Duoneb) 3 ml RTQID NEB Last administered on 09/20/18at 20 :21; Start 09/20/18 at 08:00; Stop 09/21/18 at 07:59; Status DC Sodium Chloride 1,000 ml @ 1,000 mls/hr 1X ONCE IV Last administered on at 08:40; Start 09/20/18 at 08:00; Stop 09/20/18 at 08:59; Status DC Norepinephrine Bitartrate 250 ml @ 9.375 mls/ hr CONT PRN IV SEE I/O RECORD Last administered on 09/20/18at 08:51; Start 09/20/18 at 08:45 Heparin Sodium (Porcine) (Heparin Sodium) 3,950 unit 1X ONCE IV Last administered on 09/20/18at 09:51; Start 09/20/18 at 09:45; Stop 09/20/18 at 09:46; Status DC Heparin Sodium/ Dextrose 500 ml @ 20 mls/hr CONT PRN IV SEE I/O RECORD Last administered on 09/23/18at 01:18; Start 09/20/18 at 09:45 Heparin Sodium (Porcine) (Heparin Sodium) 2,350 unit PRN Q6HRS PRN IV FOR UFH LEVEL LESS THAN 0.2; Start 09/20/18 at 09:45 Aspirin (Luci Aspirin) 325 mg 1X ONCE PO Last administered on 09/20/18at 10:00 ; Start 09/20/18 at 09:45; Stop 09/20/18 at 09:46; Status DC Magnesium Sulfate 50 ml @ 25 mls/hr 1X ONCE IV Last administered on 09/20/18at 15:23; Start 09/20/18 at 11:00; Stop 09/20/18 at 12:59; Status DC Info (Anti-Coagulation Monitoring By Pharmacy) 1 each PRN DAILY PRN MC SEE COMMENTS Last administered on 09/22/18at 08:10; Start 09/20/18 at 11:00 Sodium Chloride 1,000 ml @ 1,000 mls/hr 1X ONCE IV Last administered on 12:17; Start 09/20/18 at 11:45; Stop 09/20/18 at 12:44; Status DC Aspirin (Ecotrin) 81 mg DAILYWBKFT PO Last administered on 09/23/18at 08:51; Start 09/20/18 at 15:00 Cefepime HCl (Maxipime) 1 gm Q12HR IVP Last administered on 09/23/18at 08:50; Start 09/20/18 at 21:00; Stop 09/23/18 at 11:45; Status DC Albumin Human 100 ml @ 100 mls/hr 1X ONCE IV Last administered on 09/20/18at 15 :23; Start 09/20/18 at 15:15; Stop 09/20/18 at 16:14; Status DC Sodium Chloride 1,000 ml @ 150 mls/hr Q6H40M IV Last administered on 09/21/18at 04:48; Start 09/20/18 at 22:00; Stop 09/21/18 at 15:17; Status DC Trazodone HCl (Desyrel) 50 mg DAILY PO Last administered on 09/21/18at 21:56; Start 09/21/18 at 09:00; Stop 09/21/18 at 23:39; Status DC Trazodone HCl (Desyrel) 50 mg 1X ONCE PO Last administered on 09/21/18at 00:09; Start 09/21/18 at 00:30; Stop 09/21/18 at 00:31; Status DC Furosemide (Lasix) 40 mg 1X ONCE IVP Last administered on 09/21/18at 07:54; Start 09/21/18 at 08:00; Stop 09/21/18 at 08:01; Status DC Potassium Chloride (Klor-Con) 40 meq 1X ONCE PO Last administered on 09/21/18at 07:54; Start 09/21/18 at 08:00; Stop 09/21/18 at 08:01; Status DC Potassium Chloride (Klor-Con) 40 meq 1X ONCE PO ; Start 09/21/18 at 10:00; Stop 09/21/18 at 10:00; Status DC Iodixanol (Visipaque 320) 100 ml STK-MED ONCE .ROUTE ; Start 09/21/18 at 07:49; Stop 09/21/18 at 07:50; Status DC Lidocaine HCl (Xylocaine-Mpf 1% 2ml Vial) 2 ml STK-MED ONCE .ROUTE ; Start at 07:49; Stop 09/21/18 at 07:51; Status DC Heparin Sodium/ Sodium Chloride 1,000 ml @ As Directed STK-MED ONCE .ROUTE ; Start 09/21/18 at 07:49; Stop 09/21/18 at 07:51; Status DC Potassium Chloride (Klor-Con) 40 meq Q2H PO Last administered on 09/21/18at 08:00 ; Start 09/21/18 at 08:00; Stop 09/21/18 at 12:01; Status DC Fentanyl Citrate (Fentanyl 2ml Vial) 100 mcg STK-MED ONCE .ROUTE ; Start at 08:40; Stop 09/21/18 at 08:42; Status DC Midazolam HCl (Versed) 2 mg STK-MED ONCE .ROUTE ; Start 09/21/18 at 08:40; Stop 09/21/18 at 08:42; Status DC Heparin Sodium (Porcine) (Heparin Sodium) 10,000 unit STK-MED ONCE .ROUTE ; Start 09/21/18 at 08:40; Stop 09/21/18 at 08:42; Status DC Verapamil HCl (Verapamil) 5 mg STK-MED ONCE .ROUTE ; Start 09/21/18 at 08:40; Stop 09/21/18 at 08:42; Status DC Nitroglycerin (Nitroglycerin) 200 mcg STK-MED ONCE .ROUTE ; Start 09/21/18 at 08: 40; Stop 09/21/18 at 08:42; Status DC Nitroglycerin (Nitroglycerin) 200 mcg 1X ONCE IART Last administered on at 10:16; Start 09/21/18 at 09:15; Stop 09/21/18 at 09:16; Status DC Verapamil HCl (Verapamil) 2.5 mg 1X ONCE IART Last administered on 09/21/18 10 :17; Start 09/21/18 at 09:15; Stop 09/21/18 at 09:16; Status DC Heparin Sodium (Porcine) (Heparin Sodium) 2,500 unit 1X ONCE IART Last administered on 09/21/18 10:18; Start 09/21/18 at 09:15; Stop 09/21/18 at 09:16; Status DC Heparin Sodium/ Sodium Chloride (HEPARIN for ARTERIAL LINE FLUSH) 1,000 unit 1X ONCE IART Last administered on 09/21/18 10:17; Start 09/21/18 at 09:15; Stop 09/21/18 at 09:16; Status DC Midazolam HCl (Versed) 2 mg 1X ONCE IV Last administered on 09/21/18 10:16; Start 09/21/18 at 09:15; Stop 09/21/18 at 09:16; Status DC Fentanyl Citrate (Fentanyl 2ml Vial) 100 mcg 1X ONCE IV Last administered on 10:16; Start 09/21/18 at 09:15; Stop 09/21/18 at 09:16; Status DC Iodixanol (Visipaque 320) 100 ml 1X ONCE IART Last administered on 09/21/18 10 :15; Start 09/21/18 at 09:15; Stop 09/21/18 at 09:16; Status DC Lidocaine HCl (Xylocaine-Mpf 1% 2ml Vial) 2 ml 1X ONCE INJ Last administered on 09/21/18 10:17; Start 09/21/18 at 09:15; Stop 09/21/18 at 09:16; Status DC Info (CONTRAST GIVEN -- Rx MONITORING) 1 each PRN DAILY PRN MC SEE COMMENTS; Start 09/21/18 at 09:15; Stop 09/23/18 at 09:14; Status DC Bivalirudin (Angiomax) 250 mg STK-MED ONCE IV ; Start 09/21/18 at 09:16; Stop 09/21/18 at 09:18; Status DC Heparin Sodium/ Sodium Chloride 500 ml @ As Directed STK-MED ONCE .ROUTE ; Start 09/21/18 at 09:20; Stop 09/21/18 at 09:22; Status DC Bivalirudin (Angiomax) 250 mg 1X ONCE IV Last administered on 09/21/18at 10:16; Start 09/21/18 at 09:30; Stop 09/21/18 at 09:32; Status DC Lactobacillus Rhamnosus (Culturelle) 1 cap BID PO Last administered on at 08:51; Start 09/21/18 at 21:00 Diphenhydramine HCl (Benadryl) 50 mg STK-MED ONCE .ROUTE ; Start 09/21/18 at 09: 49; Stop 09/21/18 at 09:51; Status DC Iodixanol (Visipaque 320) 100 ml STK-MED ONCE .ROUTE ; Start 09/21/18 at 09:56; Stop 09/21/18 at 09:58; Status DC Diphenhydramine HCl (Benadryl) 25 mg 1X ONCE IVP Last administered on at 10:18; Start 09/21/18 at 10:15; Stop 09/21/18 at 10:16; Status DC Nitroglycerin (Nitroglycerin) 200 mcg STK-MED ONCE .ROUTE ; Start 09/21/18 at 10: 18; Stop 09/21/18 at 10:19; Status DC Clopidogrel Bisulfate (Plavix) 75 mg DAILYWBKFT PO Last administered on at 08:51; Start 09/22/18 at 08:00 Acetaminophen (Tylenol) 650 mg PRN Q6HRS PRN PO MILD PAIN / TEMP Last administered on 09/21/18at 21:56; Start 09/21/18 at 10:30 Nitroglycerin (Nitrostat) 0.4 mg PRN Q5MIN PRN SL CHEST PAIN; Start 09/21/18 at 10:30 Clopidogrel Bisulfate (Plavix) 600 mg 1X ONCE PO ; Start 09/21/18 at 10:30; Stop 09/21/18 at 10:31; Status Cancel Metoprolol Tartrate (Lopressor Vial) 5 mg PRN Q5MIN PRN IVP TACHYCARDIA Last administered on 09/21/18at 17:58; Start 09/21/18 at 12:15 Clopidogrel Bisulfate (Plavix) 600 mg 1X ONCE PO Last administered on at 15:30; Start 09/21/18 at 15:15; Stop 09/21/18 at 15:16; Status DC Pantoprazole Sodium (PROTONIX VIAL for IV PUSH) 40 mg DAILYAC IVP Last administered on 09/23/18at 08:50; Start 09/21/18 at 16:00 Metoprolol Tartrate (Lopressor Vial) 5 mg 1X STAT IVP ; Start 09/21/18 at 17:50 ; Stop 09/21/18 at 17:52; Status DC Metoprolol Tartrate (Lopressor) 25 mg Q6HRS PO Last administered on 09/22/18at 13 :32; Start 09/21/18 at 18:00; Stop 09/22/18 at 14:57; Status DC Mirtazapine (Remeron Jes-Tab) 15 mg PRN QHS PRN PO INSOMNIA Last administered on 09/22/18at 23:36; Start 09/21/18 at 21:30 Amlodipine Besylate (Norvasc) 5 mg DAILY PO Last administered on 09/22/18at 08:55 ; Start 09/22/18 at 09:00; Stop 09/22/18 at 14:59; Status DC Atorvastatin Calcium (Lipitor) 20 mg QHS PO Last administered on 09/22/18at 21:00 ; Start 09/21/18 at 22:00 Tamsulosin HCl (Flomax) 0.4 mg DAILY PO Last administered on 09/23/18at 08:50; Start 09/22/18 at 09:00 Trazodone HCl (Desyrel) 50 mg HS PO Last administered on 09/22/18at 21:00; Start 09/22/18 at 21:00 Potassium Chloride (Klor-Con) 40 meq 1X ONCE PO Last administered on 09/22/18at 02:14; Start 09/22/18 at 00:30; Stop 09/22/18 at 00:59; Status DC Potassium Chloride (Klor-Con) 40 meq 1X ONCE PO Last administered on 09/22/18at 04:07; Start 09/22/18 at 02:30; Stop 09/22/18 at 02:31; Status DC Potassium Chloride (Klor-Con) 40 meq 1X ONCE PO Last administered on 09/22/18at 06:08; Start 09/22/18 at 04:30; Stop 09/22/18 at 04:31; Status DC Furosemide (Lasix) 40 mg 1X ONCE IVP Last administered on 09/22/18at 15:25; Start 09/22/18 at 15:00; Stop 09/22/18 at 15:01; Status DC Potassium Chloride (Klor-Con) 40 meq 1X ONCE PO Last administered on 09/22/18at 15:27; Start 09/22/18 at 15:00; Stop 09/22/18 at 15:01; Status DC Metoprolol Tartrate (Lopressor) 50 mg BID PO Last administered on 09/23/18at 08: 51; Start 09/22/18 at 21:00 Digoxin (Lanoxin) 500 mcg 1X ONCE IV Last administered on 09/22/18at 15:27; Start 09/22/18 at 15:00; Stop 09/22/18 at 15:01; Status DC Lisinopril (Prinivil) 5 mg DAILY PO Last administered on 09/23/18at 08:52; Start 09/23/18 at 09:00 Ceftriaxone Sodium (Rocephin) 2 gm Q24H IVP ; Start 09/23/18 at 21:00 Active Scripts Active Reported Metformin Hcl 500 Mg Tablet 250 Mg PO BIDWMEALS Flomax (Tamsulosin Hcl) 0.4 Mg Cap.er.24h 0.4 Mg PO DAILY Trazodone Hcl 50 Mg Tablet 50 Mg PO DAILY Amlodipine Besylate 5 Mg Tablet 5 Mg PO DAILY Toprol Xl (Metoprolol Succinate) 50 Mg Tab.er.24h 50 Mg PO DAILY Fosinopril Sodium 40 Mg Tablet 40 Mg PO DAILY Warfarin Sodium 1 Mg Tablet 1.75 Mg PO DAILY Atorvastatin Calcium 20 Mg Tablet 20 Mg PO DAILY Vitals/I & O Vital Sign - Last 24 Hours 09/22/18 09/22/18 09/22/18 09/22/18 13:00 13:32 14:00 15:00 Pulse 110 110 118 111 Resp 30 28 29 B/P (MAP) 142/91 (108) 142/91 118/91 (100) 154/95 (114) Pulse Ox 97 97 96 O2 Delivery Nasal Cannula Nasal Cannula Nasal Cannula O2 Flow Rate 4.0 4.0 4.0 09/22/18 09/22/18 09/22/18 09/22/18 15:27 16:00 16:00 17:00 Temp 98.0 98.0 Pulse 111 106 104 Resp 30 31 B/P (MAP) 154/95 141/102 (115) 152/98 (116) Pulse Ox 96 96 O2 Delivery Nasal Cannula Nasal Cannula O2 Flow Rate 4.0 4.0 4.0 09/22/18 09/22/18 09/22/18 09/22/18 18:00 19:00 20:00 20:30 Temp 98.6 98.6 Pulse 106 106 104 Resp 32 33 32 B/P (MAP) 147/103 (118) 133/92 (106) 152/92 (112) Pulse Ox 96 96 96 O2 Delivery Nasal Cannula Nasal Cannula Nasal Cannula O2 Flow Rate 4.0 4.0 4.0 4.0 09/22/18 09/22/18 09/22/18 09/22/18 21:00 21:00 22:21 23:00 Temp Pulse 104 104 110 105 Resp 35 31 42 B/P (MAP) 152/92 154/93 (113) 147/83 (104) 144/75 (98) Pulse Ox 96 96 O2 Delivery Nasal Cannula Nasal Cannula Nasal Cannula O2 Flow Rate 3.0 4.0 4.0 09/22/18 09/23/18 09/23/18 09/23/18 23:59 00:20 01:00 02:00 Temp 97.5 97.5 Pulse 108 108 114 Resp 32 26 31 B/P (MAP) 152/90 (110) 147/84 (105) 136/91 (106) Pulse Ox 95 96 O2 Delivery Nasal Cannula NonRebreather Mask Nasal Cannula O2 Flow Rate 4.0 4.0 4.0 09/23/18 09/23/18 09/23/18 09/23/18 03:26 04:00 04:00 05:00 Temp 97.5 97.5 Pulse 102 106 118 Resp 27 22 29 B/P (MAP) 135/95 (108) 146/88 (107) 152/96 (114) Pulse Ox 96 O2 Delivery Room Air Nasal Cannula Nasal Cannula O2 Flow Rate 4.0 4.0 3.0 09/23/18 09/23/18 09/23/18 09/23/18 06:00 07:00 08:00 08:51 Pulse 96 95 92 Resp 23 17 B/P (MAP) 150/93 (112) 123/68 (86) 134/74 Pulse Ox 94 94 O2 Delivery Nasal Cannula Nasal Cannula O2 Flow Rate 3.0 3.0 4.0 09/23/18 08:52 Pulse 88 B/P (MAP) 134/74 Intake and Output 09/22/18 09/22/18 09/23/18 15:01 23:01 07:01 Intake Total 300 ml 701.59 ml 960.7 ml Output Total 310 ml 1715 ml 1440 ml Balance -10 ml -1013.41 ml -479.3 ml MOSES MONTOYA MD Sep 23, 2018 12:44
[2018-09-23] MEDS ORDERED: MAGNESIUM SULFATE 2GM 50 ML IV ONE (13:00)
--- NOTE | 2018-09-23 13:03 | PDOC ---
STEVAN IRAHETA BLENDING MACHINE OPERATOR 09/23/18 1303: CARDIO Progress Notes Date and Time Date of Service 09/23/2018 Time of Evaluation 1215 Subjective Subjective: No Chest Pain, No shortness of breath, No Palpitations Vitals Vitals Vital Signs Date Time Temp Pulse Resp B/P (MAP) Pulse Ox O2 Delivery O2 Flow Rate FiO2 09/23/18 12:00 4.0 09/23/18 12:00 97.8 92 20 147/83 (104) 97 Nasal Cannula 97.8 Weight Weight [ ] Input and Output Intake and Output Intake and Output 09/23/18 07:01 Intake Total 1962.29 ml Output Total 3465 ml Balance -1502.71 ml Intake Oral 1056 ml IV Total 906.29 ml Output Urine Total 3465 ml Laboratory Labs Laboratory Tests Test 09/23/18 03:40 White Blood Count 10.1 x10^3/uL (4.0-11.0) Red Blood Count 3.62 x10^6/uL (4.30-5.70) Hemoglobin 12.0 g/dL (13.0-17.5) Hematocrit 33.7 % (39.0-53.0) Mean Corpuscular Volume 93 fL (79-100) Mean Corpuscular Hemoglobin 33 pg (25-35) Mean Corpuscular Hemoglobin Concent 36 g/dL (31-37) Red Cell Distribution Width 14.8 % (11.5-14.5) Platelet Count 112 x10^3/uL (140-400) Heparin Anti-Xa Act, Unfractionated 0.41 IU/mL (0.30-0.70) Magnesium Level 1.7 mg/dL (1.8-2.4) Microbiology Micro Microbiology 09/20/18 Blood Culture - Final, Complete 09/20/18 Urine Culture - Preliminary, Resulted 09/20/18 Urine Culture Result 1 (AKHIL) - Preliminary, Resulted Physical Exam HEENT: Neck Supple W Full Motion Chest: Symmetric LUNGS: Other (bibasilar crackles ) Heart: S1S2, irregularly irregular (AFIB with PVCs rate controlled) Abdomen: Soft N/T Extremities: No Calf Tenderness Neurology: follow commands, other (periods of confusion and drowsy) Assessment Assessment 1. NSTEMI 2. 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 Mild acute on chronic diastolic HF; LVEF 50%, compensated after lasix 3. Chronic AFIB: rate controlled with frequent PVCs. 4. Metabolic encephalopathy secondary to UTI; treatment as per PCP 5. Lactic acidosis, sepsis/UTI, hypotension- much improved Recommendations 1. Continue hep gtt. Will restart home warfarin post PCI. 2. ASA, Plavix, statin therapy. 3. Good UOP. continue with current BP regimen 4. Replace Mg 5. Plan for rotation arthro atherectomy and stent placement to LAD and LCx possibly tomorrow. DELIA MCDONALD MD 09/23/18 1625: CARDIO Progress Notes Assessment Assessment Patient seen and examined. Agree with BUSINESS PLANNING DIRECTOR's assessment and plan. Patient without any chest pain Permanent atrial fibrillation rate controlled Plan for Rotablator atherectomy/PTCA/stent placement to LAD and LCx tomorrow Risks and benefits were explained and he is agreeable STEVAN IRAHETA APRN Sep 23, 2018 13:03 DELIA MCDONALD MD Sep 23, 2018 16:25
[2018-09-23 14:13] LABS: CALCIUM 8.2 mg/dL (8.5-10.1); CREATININE 0.6 mg/dL (0.7-1.3); GFR 130.6; POTASSIUM 3.6 mmol/L (3.5-5.1)
[2018-09-23] MEDS: ATORVASTATIN CALCIUM 20 MG TABLET PO SCH (21:08)
[2018-09-23] MEDS: traZODone 50 MG TABLET. PO SCH (21:09)
[2018-09-23] MEDS: MIRTAZAPINE 15 MG TAB.RAPDIS PO PRN (21:09)
[2018-09-23] MEDS: cefTRIAXone IV Push 2 GM VIAL. IVP SCH (21:10)
[2018-09-24] VITALS (27 sets, daily range): BP systolic 135–187; BP diastolic 75–100
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
[2018-09-24 05:36] LABS: BASO % 0 % (0-3); EOS # 0.1 x10^3/uL (0.0-0.7); EOS % 1 % (0-3); HEMATOCRIT 33.8 % (39.0-53.0); HEMOGLOBIN 11.6 g/dL (13.0-17.5); LYMPH # 0.9 x10^3/uL (1.0-4.8); LYMPH % 13 % (24-48); MEAN CORPUSCULAR HEMOGLOBIN 32 pg (25-35); MEAN CORPUSCULAR HGB CONC 34 g/dL (31-37); MEAN CORPUSCULAR VOLUME 93 fL (79-100); MONO # 0.6 x10^3/uL (0.0-1.1); MONO % 8 % (0-9); NEUT # 5.7 x10^3uL (1.8-7.7); NEUT % 78 % (31-73); PLATELET COUNT 118 x10^3/uL (140-400); RED BLOOD COUNT 3.63 x10^6/uL (4.30-5.70); RED CELL DISTRIBUTION WIDTH 14.7 % (11.5-14.5); WHITE BLOOD COUNT 7.3 x10^3/uL (4.0-11.0)
[2018-09-24 05:55] LABS: ALBUMIN 2.4 g/dL (3.4-5.0); ALBUMIN/GLOBULIN RATIO 0.6 (1.0-1.7); CALCIUM 8.6 mg/dL (8.5-10.1); CREATININE 0.8 mg/dL (0.7-1.3); GFR 93.7; POTASSIUM 3.2 mmol/L (3.5-5.1); TOTAL BILIRUBIN 1.7 mg/dL (0.2-1.0); TOTAL PROTEIN 6.3 g/dL (6.4-8.2)
--- NOTE | 2018-09-24 06:56 | PDOC ---
Infectious Disease Note Subjective Subjective Doing ok. No SOA. Still confused some but he knows that No F/C/S/N/V/D/Itch Not sleeping Vital Sign Vital Signs Vital Signs Date Time Temp Pulse Resp B/P (MAP) Pulse Ox O2 Delivery O2 Flow Rate FiO2 09/24/18 06:08 85 22 187/77 (113) 97 Nasal Cannula 4.0 09/24/18 04:09 97.8 97.8 Physical Exam PHYSICAL EXAM CONSTITUTIONAL: He is cooperative, but he is a little confused. Looks comfortable HEENT: Pupils are equal and reactive. He has normal conjunctivae. Oral cavity, pharynx is dry. NECK: Supple. No JVD. LUNGS: Decreased at bases. No wheezes. HEART: S1, S2. No gross murmur. ABDOMEN: Protuberant, soft and nontender. No guarding or rebound. : Yang is in place. EXTREMITIES: He has some chronic lower extremity venous stasis changes. SKIN: Otherwise warm to touch, without signs of rash. IV: sites are clean, without signs of chronic complications. PSYCHIATRIC: Affect is pleasant. NEUROLOGIC: Again, he is cooperative. He is confused, but he does answer questions. Labs Lab Laboratory Tests Test 09/23/18 12:15 09/24/18 05:00 Sodium Level 142 mmol/L (136-145) 140 mmol/L (136-145) Potassium Level 3.6 mmol/L (3.5-5.1) 3.2 mmol/L (3.5-5.1) Chloride Level 104 mmol/L (98-107) 102 mmol/L (98-107) Carbon Dioxide Level 24 mmol/L (21-32) 27 mmol/L (21-32) Anion Gap 14 (6-14) 11 (6-14) Blood Urea Nitrogen 23 mg/dL (8-26) 18 mg/dL (8-26) Creatinine 0.6 mg/dL (0.7-1.3) 0.8 mg/dL (0.7-1.3) Estimated GFR (Cockcroft-Gault) 130.6 93.7 Glucose Level 134 mg/dL (70-99) 174 mg/dL (70-99) Calcium Level 8.2 mg/dL (8.5-10.1) 8.6 mg/dL (8.5-10.1) White Blood Count 7.3 x10^3/uL (4.0-11.0) Red Blood Count 3.63 x10^6/uL (4.30-5.70) Hemoglobin 11.6 g/dL (13.0-17.5) Hematocrit 33.8 % (39.0-53.0) Mean Corpuscular Volume 93 fL (79-100) Mean Corpuscular Hemoglobin 32 pg (25-35) Mean Corpuscular Hemoglobin Concent 34 g/dL (31-37) Red Cell Distribution Width 14.7 % (11.5-14.5) Platelet Count 118 x10^3/uL (140-400) Neutrophils (%) (Auto) 78 % (31-73) Lymphocytes (%) (Auto) 13 % (24-48) Monocytes (%) (Auto) 8 % (0-9) Eosinophils (%) (Auto) 1 % (0-3) Basophils (%) (Auto) 0 % (0-3) Neutrophils # (Auto) 5.7 x10^3uL (1.8-7.7) Lymphocytes # (Auto) 0.9 x10^3/uL (1.0-4.8) Monocytes # (Auto) 0.6 x10^3/uL (0.0-1.1) Eosinophils # (Auto) 0.1 x10^3/uL (0.0-0.7) Basophils # (Auto) 0.0 x10^3/uL (0.0-0.2) Heparin Anti-Xa Act, Unfractionated > 1.10 IU/mL (0.30-0.70) BUN/Creatinine Ratio 23 (6-20) Magnesium Level 1.8 mg/dL (1.8-2.4) Total Bilirubin 1.7 mg/dL (0.2-1.0) Aspartate Amino Transf (AST/SGOT) 39 U/L (15-37) Alanine Aminotransferase (ALT/SGPT) 46 U/L (16-63) Alkaline Phosphatase 120 U/L (46-116) Total Protein 6.3 g/dL (6.4-8.2) Albumin 2.4 g/dL (3.4-5.0) Albumin/Globulin Ratio 0.6 (1.0-1.7) Micro 1/6 Blood- BLOOD CULTURE LC Final Final report BLD CULT RESULT 1 Final Escherichia coli ANTIMICROBIAL SUSCEPTIBILITY Final Comment S = Susceptible; I = Intermediate; R = Resistant P = Positive; N = Negative MICS are expressed in micrograms per mL Antibiotic RSLT#1 RSLT#2 RSLT#3 RSLT#4 Amoxicillin/Clavulanic Acid S<=2 Ampicillin S<=2 Cefepime S<=0.12 Ceftriaxone S<=0.25 Cefuroxime S =4 Ciprofloxacin S<=0.25 Ertapenem S<=0.12 Gentamicin S<=1 Imipenem S<=0.25 Levofloxacin S<=0.12 Meropenem S<=0.25 Nitrofurantoin S<=16 Piperacillin/Tazobactam S<=4 Tetracycline S<=1 Tobramycin S<=1 Trimethoprim/Sulfa S<=20 09/20 Urine- URINE CULTURE RES 1 Final Escherichia coli Greater than 100,000 colony forming units per mL Cefazolin <=4 ug/mL Cefazolin with an AKHIL <=16 predicts susceptibility to the oral agents cefaclor, cefdinir, cefpodoxime, cefprozil, cefuroxime, cephalexin, and loracarbef when used for therapy of uncomplicated urinary tract infections due to E. coli, Klebsiella pneumoniae, and Proteus mirabilis. ANTIMICROBIAL SUSCEPTIBILITY Final Comment S = Susceptible; I = Intermediate; R = Resistant P = Positive; N = Negative MICS are expressed in micrograms per mL Antibiotic RSLT#1 RSLT#2 RSLT#3 RSLT#4 Amoxicillin/Clavulanic Acid S<=2 Ampicillin S =4 Cefepime S<=0.12 Ceftriaxone S<=0.25 Cefuroxime S =4 Ciprofloxacin S<=0.25 Ertapenem S<=0.12 Gentamicin S<=1 Imipenem S<=0.25 Levofloxacin S<=0.12 Meropenem S<=0.25 Nitrofurantoin S<=16 Piperacillin/Tazobactam S<=4 Tetracycline S<=1 Tobramycin S<=1 Trimethoprim/Sulfa S<=20 Microbiology 09/20/18 Blood Culture - Final, Complete 09/20/18 Urine Culture - Preliminary, Resulted 09/20/18 Urine Culture Result 1 (AKHIL) - Preliminary, Resulted Objective Assessment Ecoli sepsis POA 1/6 (Leukopenia/Fever/Hypotension) Ecoli UTI - POA 09/20 S/p NSTEMI Encephalopathy - ongoing thinks he is in [facility] - needs sleep diastolic heart failure Plan Plan of Care F/u Repeat Blood cults F/u labs and cults Cont Rocephin - has little abx exposure Needs sleep NIK CARBAJAL MD Sep 24, 2018 06:56
[2018-09-24] MEDS: ASPIRIN ENTERIC COATED 81 MG TABLET.DR. PO SCH (08:00)
[2018-09-24] MEDS: CLOPIDOGREL BISULFATE 75 MG TABLET PO SCH (08:00)
[2018-09-24] MEDS: PANTOPRAZOLE IV PUSH 40 MG VIAL. IVP SCH (08:56)
[2018-09-24] MEDS: METOPRO PO SCH ×2 (09:00→20:29)
[2018-09-24] MEDS: LISINOPRIL 5 MG TABLET. PO SCH (09:00)
[2018-09-24] MEDS: LACTOBACILLUS RHAMNOSUS GG 1 CAPSULE. PO SCH ×2 (09:00→20:29)
[2018-09-24] MEDS: TAMSULOSIN 0.4 MG CAP.ER.24H. PO SCH (09:00)
--- NOTE | 2018-09-24 13:24 | PDOC ---
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 History of dyslipidemia Plan We'll consult ID for reassessment of antibiotic therapy recommendations greatly appreciated. Follow neurological status Cardiology consultation done and planning to do cardiac catheterization tomorrow Continue to monitor hemodynamics closely DVT prophylaxis with heparin continue home meds History of Present Illness History of Present Illness Patient with less confusion currently having Rocephin therapy which seems to have helped with the mental status. He knows he is in [place] and that he is going to have a cardiac catheterization today Vitals Vitals Vital Signs Date Time Temp Pulse Resp B/P (MAP) Pulse Ox O2 Delivery O2 Flow Rate FiO2 09/24/18 13:00 98 25 155/85 (108) 100 Nasal Cannula 4.0 09/24/18 12:00 98.0 98.0 Physical Exam Physical Exam CONSTITUTIONAL: He is cooperative, but he is a little confused. Looks comfortable HEENT: Pupils are equal and reactive. He has normal conjunctivae. Oral cavity, pharynx is dry. NECK: Supple. No JVD. LUNGS: Decreased at bases. No wheezes. HEART: S1, S2. No gross murmur. ABDOMEN: Protuberant, soft and nontender. No guarding or rebound. : Yang is in place. EXTREMITIES: He has some chronic lower extremity venous stasis changes. SKIN: Otherwise warm to touch, without signs of rash. IV: sites are clean, without signs of chronic complications. PSYCHIATRIC: Affect is pleasant. NEUROLOGIC: Again, he is cooperative. He is confused, but he does answer questions. General: Alert, Oriented X3, Cooperative, No acute distress Heart: Other (IRRR; tele AFIB with controlled rate) Abdomen: Soft, No tenderness Extremities: No edema, Normal pulses Skin: No significant lesion Labs LABS Laboratory Tests Test 09/24/18 05:00 White Blood Count 7.3 x10^3/uL (4.0-11.0) Red Blood Count 3.63 x10^6/uL (4.30-5.70) Hemoglobin 11.6 g/dL (13.0-17.5) Hematocrit 33.8 % (39.0-53.0) Mean Corpuscular Volume 93 fL (79-100) Mean Corpuscular Hemoglobin 32 pg (25-35) Mean Corpuscular Hemoglobin Concent 34 g/dL (31-37) Red Cell Distribution Width 14.7 % (11.5-14.5) Platelet Count 118 x10^3/uL (140-400) Neutrophils (%) (Auto) 78 % (31-73) Lymphocytes (%) (Auto) 13 % (24-48) Monocytes (%) (Auto) 8 % (0-9) Eosinophils (%) (Auto) 1 % (0-3) Basophils (%) (Auto) 0 % (0-3) Neutrophils # (Auto) 5.7 x10^3uL (1.8-7.7) Lymphocytes # (Auto) 0.9 x10^3/uL (1.0-4.8) Monocytes # (Auto) 0.6 x10^3/uL (0.0-1.1) Eosinophils # (Auto) 0.1 x10^3/uL (0.0-0.7) Basophils # (Auto) 0.0 x10^3/uL (0.0-0.2) Heparin Anti-Xa Act, Unfractionated > 1.10 IU/mL (0.30-0.70) Sodium Level 140 mmol/L (136-145) Potassium Level 3.2 mmol/L (3.5-5.1) Chloride Level 102 mmol/L (98-107) Carbon Dioxide Level 27 mmol/L (21-32) Anion Gap 11 (6-14) Blood Urea Nitrogen 18 mg/dL (8-26) Creatinine 0.8 mg/dL (0.7-1.3) Estimated GFR (Cockcroft-Gault) 93.7 BUN/Creatinine Ratio 23 (6-20) Glucose Level 174 mg/dL (70-99) Calcium Level 8.6 mg/dL (8.5-10.1) Magnesium Level 1.8 mg/dL (1.8-2.4) Total Bilirubin 1.7 mg/dL (0.2-1.0) Aspartate Amino Transf (AST/SGOT) 39 U/L (15-37) Alanine Aminotransferase (ALT/SGPT) 46 U/L (16-63) Alkaline Phosphatase 120 U/L (46-116) Total Protein 6.3 g/dL (6.4-8.2) Albumin 2.4 g/dL (3.4-5.0) Albumin/Globulin Ratio 0.6 (1.0-1.7) Assessment and Plan Assessmemt and Plan Problems Medical Problems: (1) Atrial fibrillation with rapid ventricular response Status: Acute (2) Metabolic encephalopathy Status: Acute (3) Sepsis due to urinary tract infection Status: Acute Comment Review of Relevant I have reviewed the following items yolis (where applicable) has been applied. Labs Laboratory Tests Test 09/23/18 03:40 09/23/18 12:15 09/24/18 05:00 White Blood Count 10.1 x10^3/uL (4.0-11.0) 7.3 x10^3/uL (4.0-11.0) Red Blood Count 3.62 x10^6/uL (4.30-5.70) 3.63 x10^6/uL (4.30-5.70) Hemoglobin 12.0 g/dL (13.0-17.5) 11.6 g/dL (13.0-17.5) Hematocrit 33.7 % (39.0-53.0) 33.8 % (39.0-53.0) Mean Corpuscular Volume 93 fL (79-100) 93 fL (79-100) Mean Corpuscular Hemoglobin 33 pg (25-35) 32 pg (25-35) Mean Corpuscular Hemoglobin Concent 36 g/dL (31-37) 34 g/dL (31-37) Red Cell Distribution Width 14.8 % (11.5-14.5) 14.7 % (11.5-14.5) Platelet Count 112 x10^3/uL (140-400) 118 x10^3/uL (140-400) Heparin Anti-Xa Act, Unfractionated 0.41 IU/mL (0.30-0.70) > 1.10 IU/mL (0.30-0.70) Magnesium Level 1.7 mg/dL (1.8-2.4) 1.8 mg/dL (1.8-2.4) Sodium Level 142 mmol/L (136-145) 140 mmol/L (136-145) Potassium Level 3.6 mmol/L (3.5-5.1) 3.2 mmol/L (3.5-5.1) Chloride Level 104 mmol/L (98-107) 102 mmol/L (98-107) Carbon Dioxide Level 24 mmol/L (21-32) 27 mmol/L (21-32) Anion Gap 14 (6-14) 11 (6-14) Blood Urea Nitrogen 23 mg/dL (8-26) 18 mg/dL (8-26) Creatinine 0.6 mg/dL (0.7-1.3) 0.8 mg/dL (0.7-1.3) Estimated GFR (Cockcroft-Gault) 130.6 93.7 Glucose Level 134 mg/dL (70-99) 174 mg/dL (70-99) Calcium Level 8.2 mg/dL (8.5-10.1) 8.6 mg/dL (8.5-10.1) Neutrophils (%) (Auto) 78 % (31-73) Lymphocytes (%) (Auto) 13 % (24-48) Monocytes (%) (Auto) 8 % (0-9) Eosinophils (%) (Auto) 1 % (0-3) Basophils (%) (Auto) 0 % (0-3) Neutrophils # (Auto) 5.7 x10^3uL (1.8-7.7) Lymphocytes # (Auto) 0.9 x10^3/uL (1.0-4.8) Monocytes # (Auto) 0.6 x10^3/uL (0.0-1.1) Eosinophils # (Auto) 0.1 x10^3/uL (0.0-0.7) Basophils # (Auto) 0.0 x10^3/uL (0.0-0.2) BUN/Creatinine Ratio 23 (6-20) Total Bilirubin 1.7 mg/dL (0.2-1.0) Aspartate Amino Transf (AST/SGOT) 39 U/L (15-37) Alanine Aminotransferase (ALT/SGPT) 46 U/L (16-63) Alkaline Phosphatase 120 U/L (46-116) Total Protein 6.3 g/dL (6.4-8.2) Albumin 2.4 g/dL (3.4-5.0) Albumin/Globulin Ratio 0.6 (1.0-1.7) Laboratory Tests Test 09/24/18 05:00 White Blood Count 7.3 x10^3/uL (4.0-11.0) Red Blood Count 3.63 x10^6/uL (4.30-5.70) Hemoglobin 11.6 g/dL (13.0-17.5) Hematocrit 33.8 % (39.0-53.0) Mean Corpuscular Volume 93 fL (79-100) Mean Corpuscular Hemoglobin 32 pg (25-35) Mean Corpuscular Hemoglobin Concent 34 g/dL (31-37) Red Cell Distribution Width 14.7 % (11.5-14.5) Platelet Count 118 x10^3/uL (140-400) Neutrophils (%) (Auto) 78 % (31-73) Lymphocytes (%) (Auto) 13 % (24-48) Monocytes (%) (Auto) 8 % (0-9) Eosinophils (%) (Auto) 1 % (0-3) Basophils (%) (Auto) 0 % (0-3) Neutrophils # (Auto) 5.7 x10^3uL (1.8-7.7) Lymphocytes # (Auto) 0.9 x10^3/uL (1.0-4.8) Monocytes # (Auto) 0.6 x10^3/uL (0.0-1.1) Eosinophils # (Auto) 0.1 x10^3/uL (0.0-0.7) Basophils # (Auto) 0.0 x10^3/uL (0.0-0.2) Heparin Anti-Xa Act, Unfractionated > 1.10 IU/mL (0.30-0.70) Sodium Level 140 mmol/L (136-145) Potassium Level 3.2 mmol/L (3.5-5.1) Chloride Level 102 mmol/L (98-107) Carbon Dioxide Level 27 mmol/L (21-32) Anion Gap 11 (6-14) Blood Urea Nitrogen 18 mg/dL (8-26) Creatinine 0.8 mg/dL (0.7-1.3) Estimated GFR (Cockcroft-Gault) 93.7 BUN/Creatinine Ratio 23 (6-20) Glucose Level 174 mg/dL (70-99) Calcium Level 8.6 mg/dL (8.5-10.1) Magnesium Level 1.8 mg/dL (1.8-2.4) Total Bilirubin 1.7 mg/dL (0.2-1.0) Aspartate Amino Transf (AST/SGOT) 39 U/L (15-37) Alanine Aminotransferase (ALT/SGPT) 46 U/L (16-63) Alkaline Phosphatase 120 U/L (46-116) Total Protein 6.3 g/dL (6.4-8.2) Albumin 2.4 g/dL (3.4-5.0) Albumin/Globulin Ratio 0.6 (1.0-1.7) Microbiology 09/23/18 Blood Culture - Preliminary, Resulted NO GROWTH AFTER 1 DAY 09/20/18 Urine Culture - Final, Complete 09/20/18 Urine Culture Result 1 (AKHIL) - Final, Complete 09/20/18 Antimicrobic Susceptibility - Final, Complete Medications Current Medications Sodium Chloride 1,000 ml @ 1,000 mls/hr Q1H IV Last administered on 09/20/18at 15:23; Start 09/20/18 at 04:00; Stop 09/20/18 at 06:10; Status DC Diltiazem HCl (Cardizem Iv Push) 10 mg 1X ONCE IVP Last administered on at 04:08; Start 09/20/18 at 04:30; Stop 09/20/18 at 04:31; Status DC Diltiazem HCl 125 mg/Dextrose 125 ml @ 5 mls/hr CONT PRN IV SEE I/O RECORD Last administered on 09/20/18at 04:13; Start 09/20/18 at 04:00; Stop 09/20/18 at 16: 32; Status DC Ceftriaxone Sodium (Rocephin) 1 gm 1X ONCE IVP Last administered on 09/20/18at 04:08; Start 09/20/18 at 04:30; Stop 09/20/18 at 04:31; Status DC Ceftriaxone Sodium (Rocephin) 1 gm STK-MED ONCE IVP ; Start 09/20/18 at 04:04; Stop 09/20/18 at 04:06; Status DC Diltiazem HCl (Cardizem Iv Push) 25 mg STK-MED ONCE .ROUTE ; Start 09/20/18 at 04 :04; Stop 09/20/18 at 04:06; Status DC Acetaminophen (Tylenol Supp) 650 mg 1X ONCE WA Last administered on 09/20/18at 04:27; Start 09/20/18 at 04:30; Stop 09/20/18 at 04:31; Status DC Ceftriaxone Sodium (Rocephin) 1 gm 1X ONCE IVP Last administered on 09/20/18at 05:23; Start 09/20/18 at 05:30; Stop 09/20/18 at 05:31; Status DC Albuterol/ Ipratropium (Duoneb) 3 ml 1X ONCE NEB Last administered on at 05:37; Start 09/20/18 at 05:30; Stop 09/20/18 at 05:31; Status DC Ondansetron HCl (Zofran) 4 mg PRN Q8HRS PRN IV NAUSEA/VOMITING 1ST CHOICE; Start 09/20/18 at 06:00; Stop 09/21/18 at 05:59; Status DC Sodium Chloride 1,000 ml @ 150 mls/hr Q6H40M IV Last administered on 09/20/18at 06:32; Start 09/20/18 at 05:52; Stop 09/20/18 at 15:10; Status DC Acetaminophen (Tylenol) 650 mg PRN Q4HRS PRN PO FEVER; Start 09/20/18 at 06:00; Stop 09/21/18 at 05:59; Status DC Albuterol/ Ipratropium (Duoneb) 3 ml RTQID NEB Last administered on 09/20/18at 20 :21; Start 09/20/18 at 08:00; Stop 09/21/18 at 07:59; Status DC Sodium Chloride 1,000 ml @ 1,000 mls/hr 1X ONCE IV Last administered on at 08:40; Start 09/20/18 at 08:00; Stop 09/20/18 at 08:59; Status DC Norepinephrine Bitartrate 250 ml @ 9.375 mls/ hr CONT PRN IV SEE I/O RECORD Last administered on 09/20/18at 08:51; Start 09/20/18 at 08:45 Heparin Sodium (Porcine) (Heparin Sodium) 3,950 unit 1X ONCE IV Last administered on 09/20/18 09:51; Start 09/20/18 at 09:45; Stop 09/20/18 at 09:46; Status DC Heparin Sodium/ Dextrose 500 ml @ 20 mls/hr CONT PRN IV SEE I/O RECORD Last administered on 09/23/18at 14:58; Start 09/20/18 at 09:45 Heparin Sodium (Porcine) (Heparin Sodium) 2,350 unit PRN Q6HRS PRN IV FOR UFH LEVEL LESS THAN 0.2; Start 09/20/18 at 09:45 Aspirin (Luci Aspirin) 325 mg 1X ONCE PO Last administered on 09/20/18 10:00 ; Start 09/20/18 at 09:45; Stop 09/20/18 at 09:46; Status DC Magnesium Sulfate 50 ml @ 25 mls/hr 1X ONCE IV Last administered on 09/20/18 15:23; Start 09/20/18 at 11:00; Stop 09/20/18 at 12:59; Status DC Info (Anti-Coagulation Monitoring By Pharmacy) 1 each PRN DAILY PRN MC SEE COMMENTS Last administered on 09/22/18 08:10; Start 09/20/18 at 11:00 Sodium Chloride 1,000 ml @ 1,000 mls/hr 1X ONCE IV Last administered on 12:17; Start 09/20/18 at 11:45; Stop 09/20/18 at 12:44; Status DC Aspirin (Ecotrin) 81 mg DAILYWBKFT PO Last administered on 09/23/18 08:51; Start 09/20/18 at 15:00 Cefepime HCl (Maxipime) 1 gm Q12HR IVP Last administered on 09/23/18 08:50; Start 09/20/18 at 21:00; Stop 09/23/18 at 11:45; Status DC Albumin Human 100 ml @ 100 mls/hr 1X ONCE IV Last administered on 09/20/18 15 :23; Start 09/20/18 at 15:15; Stop 09/20/18 at 16:14; Status DC Sodium Chloride 1,000 ml @ 150 mls/hr Q6H40M IV Last administered on 09/21/18at 04:48; Start 09/20/18 at 22:00; Stop 09/21/18 at 15:17; Status DC Trazodone HCl (Desyrel) 50 mg DAILY PO Last administered on 09/21/18at 21:56; Start 09/21/18 at 09:00; Stop 09/21/18 at 23:39; Status DC Trazodone HCl (Desyrel) 50 mg 1X ONCE PO Last administered on 09/21/18at 00:09; Start 09/21/18 at 00:30; Stop 09/21/18 at 00:31; Status DC Furosemide (Lasix) 40 mg 1X ONCE IVP Last administered on 09/21/18at 07:54; Start 09/21/18 at 08:00; Stop 09/21/18 at 08:01; Status DC Potassium Chloride (Klor-Con) 40 meq 1X ONCE PO Last administered on 09/21/18at 07:54; Start 09/21/18 at 08:00; Stop 09/21/18 at 08:01; Status DC Potassium Chloride (Klor-Con) 40 meq 1X ONCE PO ; Start 09/21/18 at 10:00; Stop 09/21/18 at 10:00; Status DC Iodixanol (Visipaque 320) 100 ml STK-MED ONCE .ROUTE ; Start 09/21/18 at 07:49; Stop 09/21/18 at 07:50; Status DC Lidocaine HCl (Xylocaine-Mpf 1% 2ml Vial) 2 ml STK-MED ONCE .ROUTE ; Start at 07:49; Stop 09/21/18 at 07:51; Status DC Heparin Sodium/ Sodium Chloride 1,000 ml @ As Directed STK-MED ONCE .ROUTE ; Start 09/21/18 at 07:49; Stop 09/21/18 at 07:51; Status DC Potassium Chloride (Klor-Con) 40 meq Q2H PO Last administered on 09/21/18at 08:00 ; Start 09/21/18 at 08:00; Stop 09/21/18 at 12:01; Status DC Fentanyl Citrate (Fentanyl 2ml Vial) 100 mcg STK-MED ONCE .ROUTE ; Start at 08:40; Stop 09/21/18 at 08:42; Status DC Midazolam HCl (Versed) 2 mg STK-MED ONCE .ROUTE ; Start 09/21/18 at 08:40; Stop 09/21/18 at 08:42; Status DC Heparin Sodium (Porcine) (Heparin Sodium) 10,000 unit STK-MED ONCE .ROUTE ; Start 09/21/18 at 08:40; Stop 09/21/18 at 08:42; Status DC Verapamil HCl (Verapamil) 5 mg STK-MED ONCE .ROUTE ; Start 09/21/18 at 08:40; Stop 09/21/18 at 08:42; Status DC Nitroglycerin (Nitroglycerin) 200 mcg STK-MED ONCE .ROUTE ; Start 09/21/18 at 08: 40; Stop 09/21/18 at 08:42; Status DC Nitroglycerin (Nitroglycerin) 200 mcg 1X ONCE IART Last administered on 10:16; Start 09/21/18 at 09:15; Stop 09/21/18 at 09:16; Status DC Verapamil HCl (Verapamil) 2.5 mg 1X ONCE IART Last administered on 09/21/18 10 :17; Start 09/21/18 at 09:15; Stop 09/21/18 at 09:16; Status DC Heparin Sodium (Porcine) (Heparin Sodium) 2,500 unit 1X ONCE IART Last administered on 09/21/18 10:18; Start 09/21/18 at 09:15; Stop 09/21/18 at 09:16; Status DC Heparin Sodium/ Sodium Chloride (HEPARIN for ARTERIAL LINE FLUSH) 1,000 unit 1X ONCE IART Last administered on 09/21/18 10:17; Start 09/21/18 at 09:15; Stop 09/21/18 at 09:16; Status DC Midazolam HCl (Versed) 2 mg 1X ONCE IV Last administered on 09/21/18 10:16; Start 09/21/18 at 09:15; Stop 09/21/18 at 09:16; Status DC Fentanyl Citrate (Fentanyl 2ml Vial) 100 mcg 1X ONCE IV Last administered on 10:16; Start 09/21/18 at 09:15; Stop 09/21/18 at 09:16; Status DC Iodixanol (Visipaque 320) 100 ml 1X ONCE IART Last administered on 09/21/18 10 :15; Start 09/21/18 at 09:15; Stop 09/21/18 at 09:16; Status DC Lidocaine HCl (Xylocaine-Mpf 1% 2ml Vial) 2 ml 1X ONCE INJ Last administered on 09/21/18at 10:17; Start 09/21/18 at 09:15; Stop 09/21/18 at 09:16; Status DC Info (CONTRAST GIVEN -- Rx MONITORING) 1 each PRN DAILY PRN MC SEE COMMENTS; Start 09/21/18 at 09:15; Stop 09/23/18 at 09:14; Status DC Bivalirudin (Angiomax) 250 mg STK-MED ONCE IV ; Start 09/21/18 at 09:16; Stop 09/21/18 at 09:18; Status DC Heparin Sodium/ Sodium Chloride 500 ml @ As Directed STK-MED ONCE .ROUTE ; Start 09/21/18 at 09:20; Stop 09/21/18 at 09:22; Status DC Bivalirudin (Angiomax) 250 mg 1X ONCE IV Last administered on 09/21/18at 10:16; Start 09/21/18 at 09:30; Stop 09/21/18 at 09:32; Status DC Lactobacillus Rhamnosus (Culturelle) 1 cap BID PO Last administered on at 21:09; Start 09/21/18 at 21:00 Diphenhydramine HCl (Benadryl) 50 mg STK-MED ONCE .ROUTE ; Start 09/21/18 at 09: 49; Stop 09/21/18 at 09:51; Status DC Iodixanol (Visipaque 320) 100 ml STK-MED ONCE .ROUTE ; Start 09/21/18 at 09:56; Stop 09/21/18 at 09:58; Status DC Diphenhydramine HCl (Benadryl) 25 mg 1X ONCE IVP Last administered on at 10:18; Start 09/21/18 at 10:15; Stop 09/21/18 at 10:16; Status DC Nitroglycerin (Nitroglycerin) 200 mcg STK-MED ONCE .ROUTE ; Start 09/21/18 at 10: 18; Stop 09/21/18 at 10:19; Status DC Clopidogrel Bisulfate (Plavix) 75 mg DAILYWBKFT PO Last administered on at 08:51; Start 09/22/18 at 08:00 Acetaminophen (Tylenol) 650 mg PRN Q6HRS PRN PO MILD PAIN / TEMP Last administered on 09/21/18at 21:56; Start 09/21/18 at 10:30 Nitroglycerin (Nitrostat) 0.4 mg PRN Q5MIN PRN SL CHEST PAIN; Start 09/21/18 at 10:30 Clopidogrel Bisulfate (Plavix) 600 mg 1X ONCE PO ; Start 09/21/18 at 10:30; Stop 09/21/18 at 10:31; Status Cancel Metoprolol Tartrate (Lopressor Vial) 5 mg PRN Q5MIN PRN IVP TACHYCARDIA Last administered on 09/21/18at 17:58; Start 09/21/18 at 12:15 Clopidogrel Bisulfate (Plavix) 600 mg 1X ONCE PO Last administered on at 15:30; Start 09/21/18 at 15:15; Stop 09/21/18 at 15:16; Status DC Pantoprazole Sodium (PROTONIX VIAL for IV PUSH) 40 mg DAILYAC IVP Last administered on 09/24/18at 08:56; Start 09/21/18 at 16:00 Metoprolol Tartrate (Lopressor Vial) 5 mg 1X STAT IVP ; Start 09/21/18 at 17:50 ; Stop 09/21/18 at 17:52; Status DC Metoprolol Tartrate (Lopressor) 25 mg Q6HRS PO Last administered on 09/22/18at 13 :32; Start 09/21/18 at 18:00; Stop 09/22/18 at 14:57; Status DC Mirtazapine (Remeron Jes-Tab) 15 mg PRN QHS PRN PO INSOMNIA Last administered on 09/23/18 21:09; Start 09/21/18 at 21:30 Amlodipine Besylate (Norvasc) 5 mg DAILY PO Last administered on 09/22/18at 08:55 ; Start 09/22/18 at 09:00; Stop 09/22/18 at 14:59; Status DC Atorvastatin Calcium (Lipitor) 20 mg QHS PO Last administered on 09/23/18at 21: 08; Start 09/21/18 at 22:00 Tamsulosin HCl (Flomax) 0.4 mg DAILY PO Last administered on 1/10/19at 08:50; Start 09/22/18 at 09:00 Trazodone HCl (Desyrel) 50 mg HS PO Last administered on 09/23/18 21:09; Start 09/22/18 at 21:00 Potassium Chloride (Klor-Con) 40 meq 1X ONCE PO Last administered on 09/22/18 02:14; Start 09/22/18 at 00:30; Stop 09/22/18 at 00:59; Status DC Potassium Chloride (Klor-Con) 40 meq 1X ONCE PO Last administered on 09/22/18 04:07; Start 09/22/18 at 02:30; Stop 09/22/18 at 02:31; Status DC Potassium Chloride (Klor-Con) 40 meq 1X ONCE PO Last administered on 09/22/18 06:08; Start 09/22/18 at 04:30; Stop 09/22/18 at 04:31; Status DC Furosemide (Lasix) 40 mg 1X ONCE IVP Last administered on 09/22/18 15:25; Start 09/22/18 at 15:00; Stop 09/22/18 at 15:01; Status DC Potassium Chloride (Klor-Con) 40 meq 1X ONCE PO Last administered on 09/22/18 15:27; Start 09/22/18 at 15:00; Stop 09/22/18 at 15:01; Status DC Metoprolol Tartrate (Lopressor) 50 mg BID PO Last administered on 09/23/18 21: 09; Start 09/22/18 at 21:00 Digoxin (Lanoxin) 500 mcg 1X ONCE IV Last administered on 09/22/18 15:27; Start 09/22/18 at 15:00; Stop 09/22/18 at 15:01; Status DC Lisinopril (Prinivil) 5 mg DAILY PO Last administered on 09/23/18 08:52; Start 09/23/18 at 09:00 Ceftriaxone Sodium (Rocephin) 2 gm Q24H IVP Last administered on 09/23/18 21: 10; Start 09/23/18 at 21:00 Magnesium Sulfate 50 ml @ 25 mls/hr 1X ONCE IV Last administered on 09/23/18 13:40; Start 09/23/18 at 13:00; Stop 09/23/18 at 14:59; Status DC Active Scripts Active Reported Metformin Hcl 500 Mg Tablet 250 Mg PO BIDWMEALS Flomax (Tamsulosin Hcl) 0.4 Mg Cap.er.24h 0.4 Mg PO DAILY Trazodone Hcl 50 Mg Tablet 50 Mg PO DAILY Amlodipine Besylate 5 Mg Tablet 5 Mg PO DAILY Toprol Xl (Metoprolol Succinate) 50 Mg Tab.er.24h 50 Mg PO DAILY Fosinopril Sodium 40 Mg Tablet 40 Mg PO DAILY Warfarin Sodium 1 Mg Tablet 1.75 Mg PO DAILY Atorvastatin Calcium 20 Mg Tablet 20 Mg PO DAILY Vitals/I & O Vital Sign - Last 24 Hours 09/23/18 09/23/18 09/23/18 09/23/18 14:00 15:00 16:00 16:00 Temp 98.0 98.0 Pulse 108 90 88 Resp 26 B/P (MAP) 152/89 (110) 131/82 (98) 140/82 (101) Pulse Ox 100 100 O2 Delivery Nasal Cannula Nasal Cannula O2 Flow Rate 5.0 4.0 5.0 09/23/18 09/23/18 09/23/18 09/23/18 17:00 18:00 19:46 19:48 Temp 98.1 98.1 Pulse 94 91 88 Resp B/P (MAP) 143/88 (106) 137/90 (106) 141/76 (97) Pulse Ox 100 100 100 O2 Delivery Nasal Cannula Nasal Cannula Nasal Cannula O2 Flow Rate 5.0 4.0 4.0 4.0 09/23/18 09/23/18 09/23/18 09/23/18 20:13 21:09 22:20 23:12 Pulse 94 84 99 Resp B/P (MAP) 158/96 (116) 135/75 160/98 (118) 170/102 (124) Pulse Ox 100 100 98 O2 Delivery Nasal Cannula Nasal Cannula O2 Flow Rate 4.0 4.0 4.0 09/23/18 09/24/18 09/24/18 09/24/18 23:38 00:06 02:00 03:11 Temp 97.6 97.6 Pulse 92 86 88 Resp B/P (MAP) 147/86 (106) 137/79 (98) 152/88 (109) Pulse Ox 97 97 100 O2 Delivery Nasal Cannula O2 Flow Rate 4.0 4.0 4.0 4.0 09/24/18 09/24/18 09/24/18 09/24/18 04:09 04:20 05:00 06:08 Temp 97.8 97.8 Pulse 97 96 85 Resp B/P (MAP) 146/83 (104) 158/86 (110) 187/77 (113) Pulse Ox 98 98 97 O2 Delivery Nasal Cannula Nasal Cannula O2 Flow Rate 4.0 4.0 4.0 4.0 09/24/18 09/24/18 09/24/18 09/24/18 07:00 08:00 08:00 09:00 Temp 97.8 97.8 Pulse 106 96 92 Resp B/P (MAP) 159/94 (115) 141/82 (101) 150/82 (104) Pulse Ox 100 100 100 O2 Delivery Nasal Cannula Nasal Cannula Nasal Cannula Nasal Cannula O2 Flow Rate 4.0 4.0 4.0 4.0 09/24/18 09/24/18 09/24/18 09/24/18 10:00 11:00 12:00 12:00 Temp 98.0 98.0 Pulse 92 98 98 Resp B/P (MAP) 147/80 (102) 156/88 (110) 158/100 (119) Pulse Ox 99 99 100 O2 Delivery Nasal Cannula Nasal Cannula Nasal Cannula Nasal Cannula O2 Flow Rate 4.0 4.0 4.0 4.0 09/24/18 13:00 Pulse 98 Resp 25 B/P (MAP) 155/85 (108) Pulse Ox 100 O2 Delivery Nasal Cannula O2 Flow Rate 4.0 Intake and Output 09/23/18 09/23/18 09/24/18 15:01 23:01 07:01 Intake Total 320 ml 940.69 ml 877 ml Output Total 1035 ml 645 ml 1775 ml Balance -715 ml 295.69 ml -898 ml MOSES MONTOYA MD Sep 24, 2018 13:24
[2018-09-24] MEDS ORDERED: LIDOCAINE 1% Multi-Dose 20 ML VIAL. ONE (14:30)
[2018-09-24] MEDS ORDERED: IOHEXOL 300 MG/ML 100ML VIAL. ONE (14:30)
[2018-09-24] MEDS ORDERED: MIDAZOLAM HCL/PF 2 MG/2 ML VIAL. ONE (15:19)
[2018-09-24] MEDS ORDERED: fentaNYL PF VIAL 100 MCG/2 ML VIAL ONE ×2 (15:19→17:06)
[2018-09-24] MEDS ORDERED: HEPARIN for IV BOLUS 10,000 UNIT/10 ML VIAL. ONE (15:25)
[2018-09-24] MEDS ORDERED: NITROGLYCERIN 4 MG/20 ML SYRINGE for CATH LAB. ONE (15:26)
[2018-09-24] MEDS ORDERED: VERAPAMIL 5 MG/2 ML VIAL. ONE (15:26)
[2018-09-24] MEDS ORDERED: BIVALIRUDIN 250 MG VIAL. IV ONE ×3 (15:52→17:06)
[2018-09-24] MEDS ORDERED: fentaNYL PF VIAL 100 MCG/2 ML VIAL IV ONE (16:15)
[2018-09-24] MEDS ORDERED: LIDOCAINE 1% Multi-Dose 20 ML VIAL. INJ ONE (16:15)
[2018-09-24] MEDS ORDERED: IOHEXOL 300 MG/ML 100ML VIAL. IART ONE (16:15)
[2018-09-24] MEDS ORDERED: NITROGLYCERIN 4MG SYRINGE 4 MG, VERAPAMIL 10 MG, HEPARIN SODIUM 4,000 UNIT, VIPERSLIDE ... IART ONE ×5 (16:15)
[2018-09-24] MEDS ORDERED: MIDAZOLAM HCL/PF 2 MG/2 ML VIAL. IV ONE (16:15)
[2018-09-24] MEDS ORDERED: diphenhydrAMINE 50 MG/ML VIAL ONE (16:18)
[2018-09-24] MEDS ORDERED: IODIXANOL 320 MG/ML 100 ML VIAL. ONE (16:37)
[2018-09-24] MEDS ORDERED: diphenhydrAMINE 50 MG/ML VIAL IVP ONE (16:45)
--- NOTE | 2018-09-24 17:45 | NUR ---
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 Patient was alert to person and place but was also confused and forgetful. Vitals signs are stable and groin site is soft, clean, and dry. is at bedside. Will continue to monitor.
--- NOTE | 2018-09-24 18:04 | CARD ---
MR#: [id number] Date of Study: 09/24/2018 Ordering Physician: DELIA GRIMES, Referring Physician: IVANNA FOSTER Tech: RT Augustin (R) APPROVED REPORT Technologist: RT Augustin (R) Nurse: Gemini Calles R.N. Procedure(s) performed: Successful complex Rotablator atherectomy/DESCRIPTIVE CATALOG LIBRARIAN/stents placement to the left an terior descending and left circumflex arteries and the first obtuse marginal branch. Sedation Time: 117 Minutes INDICATION The indication(s) include : 78-year-old male with non-ST elevation myocardial infarction was found to have significant stenoses involving the left anterior descending, left circumflex arteries and the o btuse marginal branch on cardiac catheterization 09/21/18. Attempts to intervene on the left anterior d escending artery were unsuccessful due to heavy calcification. Hence patient presented today for rota tional atherectomy/DESCRIPTIVE CATALOG LIBRARIAN/stents placement to the left anterior descending and left circumflex arteries and also the obtuse marginal branch.. PROCEDURE NARRATIVE After explaining the risks, benefits and alternative options, informed consent was obtained from pearl ent. Patient was brought to the cardiac [facility] [employer] and his right groin was prepped and draped in the us ual fashion. 20 mL of 2% lidocaine was infiltrated into the skin and subcutaneous tissues for local a nesthesia. Arterial access was obtained the right common femoral artery and a 8 Sami sheath was ins erted. A Sami XB 3.5 guide catheter was used to engage the left main coronary artery and selective angiography was performed that confirmed the previously described heavily calcified 90% stenosis invo lving the midsegment of the left anterior descending artery, calcified 90% stenosis involving the pro ximal to midsegment of the left circumflex artery and 90% stenosis involving the proximal segment of the large obtuse marginal branch. The stenosis in the left anterior descending artery was crossed with a 0.014 inch [employer] Pro water vignesh dewire that was exchanged over a quick cross microcatheter to a 0.009 inch floppy Rotablator wire. A 1.5 mm [employer] Rotablator steffanie was then prepped, advanced under fluoroscopy guidance and mu ltiple rotational atherectomy passes were performed within the left anterior descending artery stenos is. This was then dilated with a 3.0 x 15 mm noncompliant euphora balloon following which this was tr eated with a 3.0 x 28 mm MultiLink vision stent. The midportion of this stent was then postdilated wi th a 3.5 x 12 mm noncompliant NC Euphora balloon at high pressure of 24 edison. Follow-up angiography s howed resolution of the stenosis to 0% with JEOVANNY-3 distal flow. Subsequently, the stenoses in the left circumflex artery and obtuse marginal branch were crossed with the [employer]com water guidewire that was then exchanged over a 1.5 x 8 mm balloon to the 0.009 inch Ro tablator wire. Multiple rotational atherectomy passes were then performed within the stent lesions us ing the 1.5 Rotablator steffanie. These were then dilated with the 3.0 x 15 mm noncompliant NC euphora bal loon following which this was successfully treated with a 3.0 x 28 mm MultiLink vision stent. The lef t circumflex artery stent was then postdilated with a 3.5 x 12 mm noncompliant NC euphora balloon at 26 edison. Follow-up angiorrhaphy showed resolution of both these lesions to 0% with JEOVANNY-3 distal flow. Patient tolerated the procedure well. Hemostasis was achieved using Angio-Seal. There were no immedi ate complications. Conclusion Successful complex rotational atherectomy/DESCRIPTIVE CATALOG LIBRARIAN/stents placement to the left anterior descending and le ft circumflex arteries. Recommendations 1. Aspirin 325 mg daily 2. Plavix 75 mg daily for preferably one year 3. Cardiovascular risk factor modification Signed by : Delia Grimes, Electronically Approved : 09/24/2018 18:02:20
--- NOTE | 2018-09-24 18:11 | PDOC ---
MODERATE SEDATION ASSESSMENT RISKS/ALTERNATIVES Risks/Alternatives Risks and alternatives of this type of sedation and procedure discussed with: RISK/ALTERNATIVES: Patient H & P ON CHART H & P H & P on chart and reviewed for co-morbid conditions and appropriate labs. H&P ON CHART: Yes STATUS PREG STATUS ASSESSED: N/A MEDS/ALLERGIES REVIEWED Meds/Allergies Reviewed Medications and Allergies including time and route of recently administered narcotics and sedatives. MEDS/ALLERGIES REVIEWED: Yes ASA RATING ASA RATING: III AIRWAY ASSESSMENT Airway Assessment Airway patency, oral function limitations, presence of caps, crowns, dentures, partials, and ability to extend neck assessed. AIRWAY ASSESSMENT: Yes MALLAMPATI SCORE MALLAMPATI SCORE: II PRE-SEDATION ASSESSMENT PRE-SEDATION ASSESSMENT: Yes DELIA MCDONALD MD Sep 24, 2018 18:11
[2018-09-24] MEDS ORDERED: ACETAMINOPHEN 325 MG TABLET. PO PRN (18:15)
[2018-09-24] MEDS ORDERED: NITROGLYCERIN SUBLINGUAL 0.4 MG BOTTLE OF 25. SL PRN (18:15)
[2018-09-24] MEDS: ATORVASTATIN CALCIUM 20 MG TABLET PO SCH (20:28)
[2018-09-24] MEDS: IV 1/2 NORMAL SALINE 1,000 ML IV SCH (20:37)
[2018-09-24] MEDS: traZODone 50 MG TABLET. PO SCH (21:00)
[2018-09-24] MEDS: cefTRIAXone IV Push 2 GM VIAL. IVP SCH (21:31)
[2018-09-25] VITALS (17 sets, daily range): BP systolic 120–169; BP diastolic 65–90
[2018-09-25] MEDS: METOPRO PO SCH ×2 (07:37→20:25)
[2018-09-25] MEDS: CLOPIDOGREL BISULFATE 75 MG TABLET PO SCH (07:37)
[2018-09-25] MEDS: LISINOPRIL 5 MG TABLET. PO SCH (07:38)
[2018-09-25] MEDS: ASPIRIN ENTERIC COATED 81 MG TABLET.DR. PO SCH (07:38)
[2018-09-25] MEDS: LACTOBACILLUS RHAMNOSUS GG 1 CAPSULE. PO SCH ×2 (07:38→20:25)
[2018-09-25] MEDS: IV 1/2 NORMAL SALINE 1,000 ML IV SCH ×2 (07:39→20:24)
[2018-09-25] MEDS: PANTOPRAZOLE IV PUSH 40 MG VIAL. IVP SCH (07:39)
[2018-09-25] MEDS: TAMSULOSIN 0.4 MG CAP.ER.24H. PO SCH (09:00)
--- NOTE | 2018-09-25 10:10 | PDOC ---
Infectious Disease Note Subjective Subjective Says planning on going home today Dry mouth No fevers last 24 hours Denies pain/chills/N/V/D/SOA ROS ROS per HPI Vital Sign Vital Signs Vital Signs Date Time Temp Pulse Resp B/P (MAP) Pulse Ox O2 Delivery O2 Flow Rate FiO2 09/25/18 09:00 92 26 139/76 (97) 100 Nasal Cannula 2.0 09/25/18 08:00 98.5 98.5 Physical Exam PHYSICAL EXAM GENERAL: Up in the chiar, relaxed appearance HEENT: Pupils are equal and reactive. Normal conjunctivae. Oral cavity, pharynx is dry. NECK: Supple. No JVD. LUNGS: Decreased at bases. No wheezes. HEART: S1, S2. No gross murmur. ABDOMEN: Protuberant, soft and nontender. No guarding or rebound. : Yang is in place. EXTREMITIES: He has some chronic lower extremity venous stasis changes. SKIN: Otherwise warm to touch, without signs of rash. NEUROLOGIC: Alert, cooperative. PIV ok Labs Micro 09/23/18 Blood Culture - Preliminary, Resulted NO GROWTH AFTER 1 DAY Objective Assessment Ecoli sepsis POA 09/19 (Leukopenia/Fever/Hypotension). improving, repeat BC 09/23 NGTD Ecoli UTI - POA 09/20 S/p NSTEMI Encephalopathy Diastolic heart failure Plan Plan of Care F/u labs and cults Cont Rocephin - has little abx exposure Probiotics Supportive care Attending Co-Sign The patient was seen and interviewed as well as examined at the bedside. The chart was reviewed. The case was discussed. Agree with the plan of care. ROSINA CHAPARRO APRN Sep 25, 2018 10:10 MAY TEMPLETON MD Sep 25, 2018 12:41
--- NOTE | 2018-09-25 10:53 | NUR ---
Nursing Note Patient is oriented this morning, able to tolerate sitting up in chair for breakfast for approximately 45 minutes. No complaints of chest pain or shortness of breath. Dr. Grimes here to see patient. He is OK to go home per his standpoint. OK to restart patient's home dose of coumadin.
[2018-09-25 12:27] LABS: PROTHROMBIN TIME PATIENT 23.3 SEC (11.7-14.0)
--- NOTE | 2018-09-25 12:38 | PDOC ---
PROGRESS NOTES Subjective Subjective Denied any chest pain Objective Objective Vital Signs Date Time Temp Pulse Resp B/P (MAP) Pulse Ox O2 Delivery O2 Flow Rate FiO2 09/25/18 09:00 92 26 139/76 (97) 100 Nasal Cannula 2.0 09/25/18 08:00 98.5 98.5 Intake and Output 09/25/18 07:01 Intake Total 620 ml Output Total 2855 ml Balance -2235 ml IV Total 620 ml Output Urine Total 2855 ml Physical Exam Abdomen: Soft, No tenderness, Other (right groin looked good) Heart: Other (IRRR; tele AFIB with controlled rate) Extremities: No edema, Normal pulses General: Alert, Cooperative, No acute distress HEENT: Atraumatic, Mucous membr. moist/pink Lungs: Clear to auscultation Neuro: Normal speech Psych/Mental Status: Mental status NL, Mood NL Skin: No significant lesion Assessment Assessment 1. 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 He is presently stable and chest pain-free. Continue dual antiplatelet therapy 2. Mild acute on chronic diastolic HF; LVEF 50%, well compensated. Replace potassium. 3. Chronic AFIB: rate controlled. Okay to resume Coumadin prior to discharge. 4. Metabolic encephalopathy secondary to UTI; resolved 5. UTI/sepsis: Antibiotics per ID team Follow-up with our office in 1 month Plan Plan of Care Problems Medical Problems: (1) Atrial fibrillation with rapid ventricular response Status: Acute (2) Metabolic encephalopathy Status: Acute (3) Sepsis due to urinary tract infection Status: Acute Comment Review of Relevant I have reviewed the following items yolis (where applicable) has been applied. Labs Laboratory Tests Test 09/25/18 12:04 Prothrombin Time 23.3 SEC (11.7-14.0) Prothromb Time International Ratio 2.1 (0.8-1.1) Microbiology 09/23/18 Blood Culture - Preliminary, Resulted NO GROWTH AFTER 2 DAYS 09/20/18 Urine Culture - Final, Complete 09/20/18 Urine Culture Result 1 (AKHIL) - Final, Complete 09/20/18 Antimicrobic Susceptibility - Final, Complete Medications Current Medications Acetaminophen (Tylenol) 650 mg PRN Q6HRS PRN PO MILD PAIN / TEMP; Start at 18:15; Status UNV Bivalirudin (Angiomax) 250 mg 1X ONCE IV Last administered on 09/24/18at 17:29 ; Start 09/24/18 at 16:15; Stop 09/24/18 at 16:27; Status DC Bivalirudin (Angiomax) 250 mg STK-MED ONCE IV ; Start 09/24/18 at 15:52; Stop at 15:54; Status DC Bivalirudin (Angiomax) 250 mg STK-MED ONCE IV ; Start 09/24/18 at 17:06; Stop at 17:08; Status DC Diphenhydramine HCl (Benadryl) 50 mg 1X ONCE IVP Last administered on at 17:31; Start 09/24/18 at 16:45; Stop 09/24/18 at 16:46; Status DC Diphenhydramine HCl (Benadryl) 50 mg STK-MED ONCE .ROUTE ; Start 09/24/18 at 16: 18; Stop 09/24/18 at 16:20; Status DC Fentanyl Citrate (Fentanyl 2ml Vial) 100 mcg 1X ONCE IV Last administered on at 17:30; Start 09/24/18 at 16:15; Stop 09/24/18 at 16:27; Status DC Fentanyl Citrate (Fentanyl 2ml Vial) 100 mcg STK-MED ONCE .ROUTE ; Start at 15:19; Stop 09/24/18 at 15:21; Status DC Fentanyl Citrate (Fentanyl 2ml Vial) 100 mcg STK-MED ONCE .ROUTE ; Start at 17:06; Stop 09/24/18 at 17:08; Status DC Heparin Sodium (Porcine) (Heparin Sodium) 10,000 unit STK-MED ONCE .ROUTE ; Start 09/24/18 at 15:25; Stop 09/24/18 at 15:28; Status DC Heparin Sodium/ Sodium Chloride 1,000 ml @ As Directed STK-MED ONCE .ROUTE ; Start 09/24/18 at 14:30; Stop 09/24/18 at 14:32; Status DC Heparin Sodium/ Sodium Chloride (HEPARIN for ARTERIAL LINE FLUSH) 1,000 unit 1X ONCE IART Last administered on 09/24/18at 17:29; Start 09/24/18 at 16:15; Stop 09/24/18 at 16:27; Status DC Iodixanol (Visipaque 320) 100 ml STK-MED ONCE .ROUTE ; Start 09/24/18 at 16:37; Stop 09/24/18 at 16:39; Status DC Iohexol (Omnipaque 300 Mg/ml) 100 ml 1X ONCE IART Last administered on at 17:30; Start 09/24/18 at 16:15; Stop 09/24/18 at 16:27; Status DC Iohexol (Omnipaque 300 Mg/ml) 100 ml STK-MED ONCE .ROUTE ; Start 09/24/18 at 14: 30; Stop 09/24/18 at 14:32; Status DC Lidocaine HCl (Lidocaine 1% 20ml Vial) 19 ml 1X ONCE INJ Last administered on 09/24/18at 17:29; Start 09/24/18 at 16:15; Stop 09/24/18 at 16:27; Status DC Lidocaine HCl (Lidocaine 1% 20ml Vial) 20 ml STK-MED ONCE .ROUTE ; Start at 14:30; Stop 09/24/18 at 14:32; Status DC Midazolam HCl (Versed) 2 mg 1X ONCE IV Last administered on 09/24/18at 17:31; Start 09/24/18 at 16:15; Stop 09/24/18 at 16:27; Status DC Midazolam HCl (Versed) 2 mg STK-MED ONCE .ROUTE ; Start 09/24/18 at 15:19; Stop 09/24/18 at 15:21; Status DC Nitroglycerin (Nitrostat) 0.4 mg PRN Q5MIN PRN SL CHEST PAIN; Start 09/24/18 at 18:15; Status UNV Nitroglycerin/ Dextrose (Nitroglycerin) 4 mg STK-MED ONCE .ROUTE ; Start at 15:26; Stop 09/24/18 at 15:28; Status DC Nitroglycerin/ Dextrose 4 mg/ Verapamil HCl 10 mg/Heparin Sodium (Porcine) 4000 unit/ Miscellaneous 20 ml/Sodium Chloride 1,048 ml @ 1,000 mls/hr 1X ONCE IART Last administered on 09/24/18at 16:30; Start 09/24/18 at 16:15; Stop at 17:17; Status DC Sodium Chloride 1,000 ml @ 75 mls/hr [id number] IV Last administered on at 07:39; Start 09/24/18 at 18:30 Verapamil HCl (Verapamil) 5 mg STK-MED ONCE .ROUTE ; Start 09/24/18 at 15:26; Stop 09/24/18 at 15:28; Status DC Warfarin Sodium (Coumadin Per Physician) 1 each PRN DAILY PRN MC SEE COMMENTS; Start 09/25/18 at 11:15 Warfarin Sodium (Coumadin) 1.75 mg DAILY16 PO ; Start 09/25/18 at 16:00; Status UNV Vitals/I & O Vital Sign - Last 24 Hours 09/24/18 09/24/18 09/24/18 09/24/18 13:00 14:00 15:00 16:00 Pulse 98 96 94 Resp B/P (MAP) 155/85 (108) 150/94 (112) 158/87 (110) Pulse Ox 100 100 100 O2 Delivery Nasal Cannula Nasal Cannula Nasal Cannula Nasal Cannula O2 Flow Rate 4.0 4.0 4.0 2.0 09/24/18 09/24/18 09/24/18 09/24/18 16:30 17:30 17:30 17:38 Pulse 89 119 Resp 18 25 Pulse Ox 96 98 O2 Delivery Nasal Cannula Nasal Cannula Nasal Cannula O2 Flow Rate 2.0 2.0 2.0 09/24/18 09/24/18 09/24/18 09/24/18 17:45 18:00 18:00 18:15 Temp 98.5 98.5 Pulse 110 108 110 Resp 24 22 B/P (MAP) 159/81 (107) 147/75 (99) 150/79 (102) Pulse Ox 99 99 99 99 O2 Delivery Nasal Cannula Nasal Cannula Nasal Cannula Nasal Cannula O2 Flow Rate 2.0 2.0 2.0 2.0 09/24/18 09/24/18 09/24/18 09/24/18 18:30 19:00 19:30 20:00 Pulse 110 112 112 Resp B/P (MAP) 149/77 (101) 144/81 (102) 157/88 (111) Pulse Ox 99 99 99 O2 Delivery Nasal Cannula Nasal Cannula Nasal Cannula Nasal Cannula O2 Flow Rate 2.0 2.0 2.0 2.0 09/24/18 09/24/18 09/24/18 09/24/18 20:00 20:29 20:30 21:00 Temp 98.4 98.4 Pulse 106 89 108 96 Resp B/P (MAP) 135/76 (95) 130/74 164/87 (112) 155/92 (113) Pulse Ox 99 99 98 O2 Delivery Nasal Cannula Nasal Cannula Nasal Cannula O2 Flow Rate 2.0 2.0 2.0 09/24/18 09/24/18 09/25/18 09/25/18 22:00 23:21 00:00 00:00 Temp 98.6 98.6 Pulse 90 91 92 Resp B/P (MAP) 146/93 (110) 140/76 (97) 140/77 (98) Pulse Ox 98 98 99 O2 Delivery Nasal Cannula Nasal Cannula Room Air Nasal Cannula O2 Flow Rate 2.0 2.0 2.0 09/25/18 09/25/18 09/25/18 09/25/18 01:00 02:00 03:00 04:00 Temp 98.5 98.5 Pulse 90 94 92 94 Resp B/P (MAP) 152/86 (108) 120/69 (86) 141/90 (107) 162/90 (114) Pulse Ox 98 98 99 99 O2 Delivery Nasal Cannula Nasal Cannula Nasal Cannula Nasal Cannula O2 Flow Rate 2.0 2.0 2.0 2.0 09/25/18 09/25/18 09/25/18 09/25/18 04:00 05:00 06:00 07:00 Pulse 92 92 79 Resp B/P (MAP) 161/76 (104) 153/80 (104) 169/84 (112) Pulse Ox 99 99 100 O2 Delivery Nasal Cannula Nasal Cannula Nasal Cannula Nasal Cannula O2 Flow Rate 2.0 2.0 2.0 2.0 09/25/18 09/25/18 09/25/18 09/25/18 07:37 07:38 08:00 08:00 Temp 98.5 98.5 Pulse 92 93 92 Resp B/P (MAP) 169/84 169/84 150/82 (104) Pulse Ox 100 O2 Delivery Nasal Cannula Nasal Cannula O2 Flow Rate 2.0 2.0 09/25/18 09:00 Pulse 92 Resp 26 B/P (MAP) 139/76 (97) Pulse Ox 100 O2 Delivery Nasal Cannula O2 Flow Rate 2.0 Intake and Output 09/24/18 09/24/18 09/25/18 15:01 23:01 07:01 Intake Total 620 ml Output Total 1180 ml 900 ml 775 ml Balance -1180 ml -900 ml -155 ml DELIA MCDONALD MD Sep 25, 2018 12:38
--- NOTE | 2018-09-25 14:21 | NUR ---
Nursing Note Spoke with pharmacist regarding patient's home coumadin dose. Dr. Grimes wanted home dose of coumain resumed. Patient's home med list shows Coumadin 1.75 mg PO daily. Pharmacist states that this is not a possible dose to take by breaking up the current dosage of pills listed by patient's pharmacy. She has checked patient's pharmacy records and states that he takes Coumadin 1.25 mg PO daily.
--- NOTE | 2018-09-25 14:40 | NUR ---
Nursing Note Discussed patient's home coumadin dosage with patient's , Yue. The dosage is Coumadin 1.75 mg PO 5 days per week (Thursday-Thursday). She states that the pharmacy has to split two different dosages to make the 1.75 mg dose and that the patient does not take it any on Thursday or Thursday. Called pharmacy, and notified Nancy, who will correct the order to reflect patient's normal home dosage and schedule.
--- NOTE | 2018-09-25 15:19 | RAD ---
CT abdomen and pelvis with oral contrast 09/25/2018. Reason for exam: Sepsis. CT images were obtained through the abdomen and pelvis following oral contrast ministration. No IV contrast was given. Exposure: One or more of the following individualized dose reduction techniques were utilized for this examination: 1. Automated exposure control 2. Adjustment of the mA and/or kV according to patient size 3. Use of iterative reconstruction technique. Comparison is made with an exam of 03/06/2015. FINDINGS: There are now moderate-sized pleural effusions bilaterally with adjacent atelectasis. The liver and spleen are homogeneous in density and normal in configuration. Evaluation is limited by noncontrast technique. A gallstone is again seen in the gallbladder. The kidneys show no apparent mass or obstruction. There is suggestion of delayed contrast enhancement of the kidneys with mild contrast excretion. The adrenal glands are not enlarged. The pancreas appears normal. No retroperitoneal or mesenteric adenopathy is seen. The abdominal aorta is dilated, showing AP diameter of about 3.7 cm and mediolateral dimension of about 4.5 cm. Images through the pelvis show no apparent abnormality of the distal ureters. The bladder was not well-distended, but appears to have a thickened wall. No bladder mass is seen. There is no apparent pelvic or inguinal adenopathy. There is mild presacral edema. There is enlargement of the right psoas muscle with probable hemorrhage in the muscle. No pelvic mass or localized fluid collection is seen. There is some diverticulosis of the sigmoid colon without clearcut diverticulitis. IMPRESSION: There is evidence of hemorrhage into the right psoas muscle. There are bilateral pleural effusions and adjacent atelectasis. There is suggestion of delayed contrast enhancement of the kidneys. Correlation with timing of the last procedure using contrast is recommended. If the last administration with several hours ago to days ago, this could indicate acute renal failure. There may be some bladder wall thickening such as from cystitis. Electronically signed by: Pablito Melendez Jr., MD (09/25/2018 3:15 PM) [facility] [place]
[2018-09-25] MEDS ORDERED: WARFARIN 2.5 MG TABLET. PO SCH (16:00)
[2018-09-25] MEDS: cefTRIAXone IV Push 2 GM VIAL. IVP SCH (20:23)
[2018-09-25] MEDS: ATORVASTATIN CALCIUM 20 MG TABLET PO SCH (20:25)
[2018-09-25] MEDS: traZODone 50 MG TABLET. PO SCH (20:25)
--- NOTE | 2018-09-25 21:39 | PDOC ---
PROGRESS NOTES Chief Complaint Chief Complaint Altered mental status secondary to sepsis secondary to UTI Gram negative rods bacteremia Atrial fibrillation with rapid ventricular response improved Non ST segment elevation myocardial infarction going to manager cardiac cath today Hypomagnesemia replaced altered mental status secondary to UTI seems to have a recurrence of his episode plus the ICU stay may also contribute since patient has not been able to sleep well over the last 3 nights. History of dyslipidemia Plan [facility] eval for ecoli uti --> recc ct a/p today Follow neurological status - resolved Cardiology consultation done and s/p catheterization Continue to monitor hemodynamics closely DVT prophylaxis with heparin continue home meds History of Present Illness History of Present Illness Patient with less confusion currently having Rocephin therapy which seems to have helped with the mental status. He knows he is in [place] and that he is going to have a cardiac catheterization today Vitals Vitals Vital Signs Date Time Temp Pulse Resp B/P (MAP) Pulse Ox O2 Delivery O2 Flow Rate FiO2 09/25/18 20:25 92 149/77 09/25/18 19:30 97.7 26 97 Nasal Cannula 2.0 97.7 Physical Exam Physical Exam GENERAL: Up in the chiar, relaxed appearance HEENT: Pupils are equal and reactive. Normal conjunctivae. Oral cavity, pharynx is dry. NECK: Supple. No JVD. LUNGS: Decreased at bases. No wheezes. HEART: S1, S2. No gross murmur. ABDOMEN: Protuberant, soft and nontender. No guarding or rebound. : Yang is in place. EXTREMITIES: He has some chronic lower extremity venous stasis changes. SKIN: Otherwise warm to touch, without signs of rash. NEUROLOGIC: Alert, cooperative. PIV ok General: Alert, Cooperative, No acute distress Heart: Other (IRRR; tele AFIB with controlled rate) Abdomen: Soft, No tenderness, Other (right groin looked good) Extremities: No edema, Normal pulses Skin: No significant lesion Labs LABS Laboratory Tests Test 09/25/18 12:04 Prothrombin Time 23.3 SEC (11.7-14.0) Prothromb Time International Ratio 2.1 (0.8-1.1) Assessment and Plan Assessmemt and Plan Problems Medical Problems: (1) Atrial fibrillation with rapid ventricular response Status: Acute (2) Metabolic encephalopathy Status: Acute (3) Sepsis due to urinary tract infection Status: Acute Comment Review of Relevant I have reviewed the following items yolis (where applicable) has been applied. Labs Laboratory Tests Test 09/24/18 05:00 09/25/18 12:04 White Blood Count 7.3 x10^3/uL (4.0-11.0) Red Blood Count 3.63 x10^6/uL (4.30-5.70) Hemoglobin 11.6 g/dL (13.0-17.5) Hematocrit 33.8 % (39.0-53.0) Mean Corpuscular Volume 93 fL (79-100) Mean Corpuscular Hemoglobin 32 pg (25-35) Mean Corpuscular Hemoglobin Concent 34 g/dL (31-37) Red Cell Distribution Width 14.7 % (11.5-14.5) Platelet Count 118 x10^3/uL (140-400) Neutrophils (%) (Auto) 78 % (31-73) Lymphocytes (%) (Auto) 13 % (24-48) Monocytes (%) (Auto) 8 % (0-9) Eosinophils (%) (Auto) 1 % (0-3) Basophils (%) (Auto) 0 % (0-3) Neutrophils # (Auto) 5.7 x10^3uL (1.8-7.7) Lymphocytes # (Auto) 0.9 x10^3/uL (1.0-4.8) Monocytes # (Auto) 0.6 x10^3/uL (0.0-1.1) Eosinophils # (Auto) 0.1 x10^3/uL (0.0-0.7) Basophils # (Auto) 0.0 x10^3/uL (0.0-0.2) Heparin Anti-Xa Act, Unfractionated > 1.10 IU/mL (0.30-0.70) Sodium Level 140 mmol/L (136-145) Potassium Level 3.2 mmol/L (3.5-5.1) Chloride Level 102 mmol/L (98-107) Carbon Dioxide Level 27 mmol/L (21-32) Anion Gap 11 (6-14) Blood Urea Nitrogen 18 mg/dL (8-26) Creatinine 0.8 mg/dL (0.7-1.3) Estimated GFR (Cockcroft-Gault) 93.7 BUN/Creatinine Ratio 23 (6-20) Glucose Level 174 mg/dL (70-99) Calcium Level 8.6 mg/dL (8.5-10.1) Magnesium Level 1.8 mg/dL (1.8-2.4) Total Bilirubin 1.7 mg/dL (0.2-1.0) Aspartate Amino Transf (AST/SGOT) 39 U/L (15-37) Alanine Aminotransferase (ALT/SGPT) 46 U/L (16-63) Alkaline Phosphatase 120 U/L (46-116) Total Protein 6.3 g/dL (6.4-8.2) Albumin 2.4 g/dL (3.4-5.0) Albumin/Globulin Ratio 0.6 (1.0-1.7) Prothrombin Time 23.3 SEC (11.7-14.0) Prothromb Time International Ratio 2.1 (0.8-1.1) Laboratory Tests Test 09/25/18 12:04 Prothrombin Time 23.3 SEC (11.7-14.0) Prothromb Time International Ratio 2.1 (0.8-1.1) Microbiology 09/23/18 Blood Culture - Preliminary, Resulted NO GROWTH AFTER 2 DAYS 09/20/18 Urine Culture - Final, Complete 09/20/18 Urine Culture Result 1 (AKHIL) - Final, Complete 09/20/18 Antimicrobic Susceptibility - Final, Complete Medications Current Medications Sodium Chloride 1,000 ml @ 1,000 mls/hr Q1H IV Last administered on 09/20/18at 15:23; Start 09/20/18 at 04:00; Stop 09/20/18 at 06:10; Status DC Diltiazem HCl (Cardizem Iv Push) 10 mg 1X ONCE IVP Last administered on at 04:08; Start 09/20/18 at 04:30; Stop 09/20/18 at 04:31; Status DC Diltiazem HCl 125 mg/Dextrose 125 ml @ 5 mls/hr CONT PRN IV SEE I/O RECORD Last administered on 09/20/18at 04:13; Start 09/20/18 at 04:00; Stop 09/20/18 at 16: 32; Status DC Ceftriaxone Sodium (Rocephin) 1 gm 1X ONCE IVP Last administered on 09/20/18at 04:08; Start 09/20/18 at 04:30; Stop 09/20/18 at 04:31; Status DC Ceftriaxone Sodium (Rocephin) 1 gm STK-MED ONCE IVP ; Start 09/20/18 at 04:04; Stop 09/20/18 at 04:06; Status DC Diltiazem HCl (Cardizem Iv Push) 25 mg STK-MED ONCE .ROUTE ; Start 09/20/18 at 04 :04; Stop 09/20/18 at 04:06; Status DC Acetaminophen (Tylenol Supp) 650 mg 1X ONCE IN Last administered on 09/20/18at 04:27; Start 09/20/18 at 04:30; Stop 09/20/18 at 04:31; Status DC Ceftriaxone Sodium (Rocephin) 1 gm 1X ONCE IVP Last administered on 09/20/18at 05:23; Start 09/20/18 at 05:30; Stop 09/20/18 at 05:31; Status DC Albuterol/ Ipratropium (Duoneb) 3 ml 1X ONCE NEB Last administered on at 05:37; Start 09/20/18 at 05:30; Stop 09/20/18 at 05:31; Status DC Ondansetron HCl (Zofran) 4 mg PRN Q8HRS PRN IV NAUSEA/VOMITING 1ST CHOICE; Start 09/20/18 at 06:00; Stop 09/21/18 at 05:59; Status DC Sodium Chloride 1,000 ml @ 150 mls/hr Q6H40M IV Last administered on 09/20/18at 06:32; Start 09/20/18 at 05:52; Stop 09/20/18 at 15:10; Status DC Acetaminophen (Tylenol) 650 mg PRN Q4HRS PRN PO FEVER; Start 09/20/18 at 06:00; Stop 09/21/18 at 05:59; Status DC Albuterol/ Ipratropium (Duoneb) 3 ml RTQID NEB Last administered on 09/20/18at 20 :21; Start 09/20/18 at 08:00; Stop 09/21/18 at 07:59; Status DC Sodium Chloride 1,000 ml @ 1,000 mls/hr 1X ONCE IV Last administered on at 08:40; Start 09/20/18 at 08:00; Stop 09/20/18 at 08:59; Status DC Norepinephrine Bitartrate 250 ml @ 9.375 mls/ hr CONT PRN IV SEE I/O RECORD Last administered on 09/20/18at 08:51; Start 09/20/18 at 08:45 Heparin Sodium (Porcine) (Heparin Sodium) 3,950 unit 1X ONCE IV Last administered on 09/20/18at 09:51; Start 09/20/18 at 09:45; Stop 09/20/18 at 09:46; Status DC Heparin Sodium/ Dextrose 500 ml @ 20 mls/hr CONT PRN IV SEE I/O RECORD Last administered on 09/23/18at 14:58; Start 09/20/18 at 09:45; Stop 09/25/18 at 08:01 ; Status DC Heparin Sodium (Porcine) (Heparin Sodium) 2,350 unit PRN Q6HRS PRN IV FOR UFH LEVEL LESS THAN 0.2; Start 09/20/18 at 09:45; Stop 09/25/18 at 08:01; Status DC Aspirin (Luci Aspirin) 325 mg 1X ONCE PO Last administered on 09/20/18at 10:00 ; Start 09/20/18 at 09:45; Stop 09/20/18 at 09:46; Status DC Magnesium Sulfate 50 ml @ 25 mls/hr 1X ONCE IV Last administered on 09/20/18at 15:23; Start 09/20/18 at 11:00; Stop 09/20/18 at 12:59; Status DC Info (Anti-Coagulation Monitoring By Pharmacy) 1 each PRN DAILY PRN MC SEE COMMENTS Last administered on 09/22/18at 08:10; Start 09/20/18 at 11:00 Sodium Chloride 1,000 ml @ 1,000 mls/hr 1X ONCE IV Last administered on at 12:17; Start 09/20/18 at 11:45; Stop 09/20/18 at 12:44; Status DC Aspirin (Ecotrin) 81 mg DAILYWBKFT PO Last administered on 09/25/18at 07:38; Start 09/20/18 at 15:00 Cefepime HCl (Maxipime) 1 gm Q12HR IVP Last administered on 09/23/18at 08:50; Start 09/20/18 at 21:00; Stop 09/23/18 at 11:45; Status DC Albumin Human 100 ml @ 100 mls/hr 1X ONCE IV Last administered on 09/20/18at 15 :23; Start 09/20/18 at 15:15; Stop 09/20/18 at 16:14; Status DC Sodium Chloride 1,000 ml @ 150 mls/hr Q6H40M IV Last administered on 09/21/18at 04:48; Start 09/20/18 at 22:00; Stop 09/21/18 at 15:17; Status DC Trazodone HCl (Desyrel) 50 mg DAILY PO Last administered on 09/21/18at 21:56; Start 09/21/18 at 09:00; Stop 09/21/18 at 23:39; Status DC Trazodone HCl (Desyrel) 50 mg 1X ONCE PO Last administered on 09/21/18at 00:09; Start 09/21/18 at 00:30; Stop 09/21/18 at 00:31; Status DC Furosemide (Lasix) 40 mg 1X ONCE IVP Last administered on 09/21/18at 07:54; Start 09/21/18 at 08:00; Stop 09/21/18 at 08:01; Status DC Potassium Chloride (Klor-Con) 40 meq 1X ONCE PO Last administered on 09/21/18at 07:54; Start 09/21/18 at 08:00; Stop 09/21/18 at 08:01; Status DC Potassium Chloride (Klor-Con) 40 meq 1X ONCE PO ; Start 09/21/18 at 10:00; Stop 09/21/18 at 10:00; Status DC Iodixanol (Visipaque 320) 100 ml STK-MED ONCE .ROUTE ; Start 09/21/18 at 07:49; Stop 09/21/18 at 07:50; Status DC Lidocaine HCl (Xylocaine-Mpf 1% 2ml Vial) 2 ml STK-MED ONCE .ROUTE ; Start at 07:49; Stop 09/21/18 at 07:51; Status DC Heparin Sodium/ Sodium Chloride 1,000 ml @ As Directed STK-MED ONCE .ROUTE ; Start 09/21/18 at 07:49; Stop 09/21/18 at 07:51; Status DC Potassium Chloride (Klor-Con) 40 meq Q2H PO Last administered on 09/21/18at 08:00 ; Start 09/21/18 at 08:00; Stop 09/21/18 at 12:01; Status DC Fentanyl Citrate (Fentanyl 2ml Vial) 100 mcg STK-MED ONCE .ROUTE ; Start at 08:40; Stop 09/21/18 at 08:42; Status DC Midazolam HCl (Versed) 2 mg STK-MED ONCE .ROUTE ; Start 09/21/18 at 08:40; Stop 09/21/18 at 08:42; Status DC Heparin Sodium (Porcine) (Heparin Sodium) 10,000 unit STK-MED ONCE .ROUTE ; Start 09/21/18 at 08:40; Stop 09/21/18 at 08:42; Status DC Verapamil HCl (Verapamil) 5 mg STK-MED ONCE .ROUTE ; Start 09/21/18 at 08:40; Stop 09/21/18 at 08:42; Status DC Nitroglycerin (Nitroglycerin) 200 mcg STK-MED ONCE .ROUTE ; Start 09/21/18 at 08: 40; Stop 09/21/18 at 08:42; Status DC Nitroglycerin (Nitroglycerin) 200 mcg 1X ONCE IART Last administered on 10:16; Start 09/21/18 at 09:15; Stop 09/21/18 at 09:16; Status DC Verapamil HCl (Verapamil) 2.5 mg 1X ONCE IART Last administered on 09/21/18 10 :17; Start 09/21/18 at 09:15; Stop 09/21/18 at 09:16; Status DC Heparin Sodium (Porcine) (Heparin Sodium) 2,500 unit 1X ONCE IART Last administered on 09/21/18at 10:18; Start 09/21/18 at 09:15; Stop 09/21/18 at 09:16; Status DC Heparin Sodium/ Sodium Chloride (HEPARIN for ARTERIAL LINE FLUSH) 1,000 unit 1X ONCE IART Last administered on 09/21/18 10:17; Start 09/21/18 at 09:15; Stop 09/21/18 at 09:16; Status DC Midazolam HCl (Versed) 2 mg 1X ONCE IV Last administered on 09/21/18 10:16; Start 09/21/18 at 09:15; Stop 09/21/18 at 09:16; Status DC Fentanyl Citrate (Fentanyl 2ml Vial) 100 mcg 1X ONCE IV Last administered on at 10:16; Start 09/21/18 at 09:15; Stop 09/21/18 at 09:16; Status DC Iodixanol (Visipaque 320) 100 ml 1X ONCE IART Last administered on 09/21/18at 10 :15; Start 09/21/18 at 09:15; Stop 09/21/18 at 09:16; Status DC Lidocaine HCl (Xylocaine-Mpf 1% 2ml Vial) 2 ml 1X ONCE INJ Last administered on 09/21/18at 10:17; Start 09/21/18 at 09:15; Stop 09/21/18 at 09:16; Status DC Info (CONTRAST GIVEN -- Rx MONITORING) 1 each PRN DAILY PRN MC SEE COMMENTS; Start 09/21/18 at 09:15; Stop 09/23/18 at 09:14; Status DC Bivalirudin (Angiomax) 250 mg STK-MED ONCE IV ; Start 09/21/18 at 09:16; Stop 09/21/18 at 09:18; Status DC Heparin Sodium/ Sodium Chloride 500 ml @ As Directed STK-MED ONCE .ROUTE ; Start 09/21/18 at 09:20; Stop 09/21/18 at 09:22; Status DC Bivalirudin (Angiomax) 250 mg 1X ONCE IV Last administered on 09/21/18at 10:16; Start 09/21/18 at 09:30; Stop 09/21/18 at 09:32; Status DC Lactobacillus Rhamnosus (Culturelle) 1 cap BID PO Last administered on at 20:25; Start 09/21/18 at 21:00 Diphenhydramine HCl (Benadryl) 50 mg STK-MED ONCE .ROUTE ; Start 09/21/18 at 09: 49; Stop 09/21/18 at 09:51; Status DC Iodixanol (Visipaque 320) 100 ml STK-MED ONCE .ROUTE ; Start 09/21/18 at 09:56; Stop 09/21/18 at 09:58; Status DC Diphenhydramine HCl (Benadryl) 25 mg 1X ONCE IVP Last administered on at 10:18; Start 09/21/18 at 10:15; Stop 09/21/18 at 10:16; Status DC Nitroglycerin (Nitroglycerin) 200 mcg STK-MED ONCE .ROUTE ; Start 09/21/18 at 10: 18; Stop 09/21/18 at 10:19; Status DC Clopidogrel Bisulfate (Plavix) 75 mg DAILYWBKFT PO Last administered on at 07:37; Start 09/22/18 at 08:00 Acetaminophen (Tylenol) 650 mg PRN Q6HRS PRN PO MILD PAIN / TEMP Last administered on 09/21/18at 21:56; Start 09/21/18 at 10:30 Nitroglycerin (Nitrostat) 0.4 mg PRN Q5MIN PRN SL CHEST PAIN; Start 09/21/18 at 10:30 Clopidogrel Bisulfate (Plavix) 600 mg 1X ONCE PO ; Start 09/21/18 at 10:30; Stop 09/21/18 at 10:31; Status Cancel Metoprolol Tartrate (Lopressor Vial) 5 mg PRN Q5MIN PRN IVP TACHYCARDIA Last administered on 09/21/18at 17:58; Start 09/21/18 at 12:15 Clopidogrel Bisulfate (Plavix) 600 mg 1X ONCE PO Last administered on at 15:30; Start 09/21/18 at 15:15; Stop 09/21/18 at 15:16; Status DC Pantoprazole Sodium (PROTONIX VIAL for IV PUSH) 40 mg DAILYAC IVP Last administered on 09/25/18at 07:39; Start 09/21/18 at 16:00 Metoprolol Tartrate (Lopressor Vial) 5 mg 1X STAT IVP ; Start 09/21/18 at 17:50 ; Stop 09/21/18 at 17:52; Status DC Metoprolol Tartrate (Lopressor) 25 mg Q6HRS PO Last administered on 09/22/18at 13 :32; Start 09/21/18 at 18:00; Stop 09/22/18 at 14:57; Status DC Mirtazapine (Remeron Jes-Tab) 15 mg PRN QHS PRN PO INSOMNIA Last administered on 09/23/18at 21:09; Start 09/21/18 at 21:30 Amlodipine Besylate (Norvasc) 5 mg DAILY PO Last administered on 09/22/18 08:55 ; Start 09/22/18 at 09:00; Stop 09/22/18 at 14:59; Status DC Atorvastatin Calcium (Lipitor) 20 mg QHS PO Last administered on 09/25/18at 20: 25; Start 09/21/18 at 22:00 Tamsulosin HCl (Flomax) 0.4 mg DAILY PO Last administered on 09/25/18 09:00; Start 09/22/18 at 09:00 Trazodone HCl (Desyrel) 50 mg HS PO Last administered on 09/25/18 20:25; Start 09/22/18 at 21:00 Potassium Chloride (Klor-Con) 40 meq 1X ONCE PO Last administered on 09/22/18 02:14; Start 09/22/18 at 00:30; Stop 09/22/18 at 00:59; Status DC Potassium Chloride (Klor-Con) 40 meq 1X ONCE PO Last administered on 09/22/18 04:07; Start 09/22/18 at 02:30; Stop 09/22/18 at 02:31; Status DC Potassium Chloride (Klor-Con) 40 meq 1X ONCE PO Last administered on 09/22/18 06:08; Start 09/22/18 at 04:30; Stop 09/22/18 at 04:31; Status DC Furosemide (Lasix) 40 mg 1X ONCE IVP Last administered on 09/22/18 15:25; Start 09/22/18 at 15:00; Stop 09/22/18 at 15:01; Status DC Potassium Chloride (Klor-Con) 40 meq 1X ONCE PO Last administered on 09/22/18 15:27; Start 09/22/18 at 15:00; Stop 09/22/18 at 15:01; Status DC Metoprolol Tartrate (Lopressor) 50 mg BID PO Last administered on 09/25/18 20: 25; Start 09/22/18 at 21:00 Digoxin (Lanoxin) 500 mcg 1X ONCE IV Last administered on 09/22/18 15:27; Start 09/22/18 at 15:00; Stop 09/22/18 at 15:01; Status DC Lisinopril (Prinivil) 5 mg DAILY PO Last administered on 1/12/19at 07:38; Start 09/23/18 at 09:00 Ceftriaxone Sodium (Rocephin) 2 gm Q24H IVP Last administered on 09/25/18at 20: 23; Start 09/23/18 at 21:00 Magnesium Sulfate 50 ml @ 25 mls/hr 1X ONCE IV Last administered on 09/23/18at 13:40; Start 09/23/18 at 13:00; Stop 09/23/18 at 14:59; Status DC Iohexol (Omnipaque 300 Mg/ml) 100 ml STK-MED ONCE .ROUTE ; Start 09/24/18 at 14: 30; Stop 09/24/18 at 14:32; Status DC Lidocaine HCl (Lidocaine 1% 20ml Vial) 20 ml STK-MED ONCE .ROUTE ; Start at 14:30; Stop 09/24/18 at 14:32; Status DC Heparin Sodium/ Sodium Chloride 1,000 ml @ As Directed STK-MED ONCE .ROUTE ; Start 09/24/18 at 14:30; Stop 09/24/18 at 14:32; Status DC Fentanyl Citrate (Fentanyl 2ml Vial) 100 mcg STK-MED ONCE .ROUTE ; Start at 15:19; Stop 09/24/18 at 15:21; Status DC Midazolam HCl (Versed) 2 mg STK-MED ONCE .ROUTE ; Start 09/24/18 at 15:19; Stop 09/24/18 at 15:21; Status DC Heparin Sodium (Porcine) (Heparin Sodium) 10,000 unit STK-MED ONCE .ROUTE ; Start 09/24/18 at 15:25; Stop 09/24/18 at 15:28; Status DC Verapamil HCl (Verapamil) 5 mg STK-MED ONCE .ROUTE ; Start 09/24/18 at 15:26; Stop 09/24/18 at 15:28; Status DC Nitroglycerin/ Dextrose (Nitroglycerin) 4 mg STK-MED ONCE .ROUTE ; Start at 15:26; Stop 09/24/18 at 15:28; Status DC Bivalirudin (Angiomax) 250 mg STK-MED ONCE IV ; Start 09/24/18 at 15:52; Stop at 15:54; Status DC Heparin Sodium/ Sodium Chloride (HEPARIN for ARTERIAL LINE FLUSH) 1,000 unit 1X ONCE IART Last administered on 09/24/18at 17:29; Start 09/24/18 at 16:15; Stop 09/24/18 at 16:27; Status DC Midazolam HCl (Versed) 2 mg 1X ONCE IV Last administered on 09/24/18at 17:31; Start 09/24/18 at 16:15; Stop 09/24/18 at 16:27; Status DC Fentanyl Citrate (Fentanyl 2ml Vial) 100 mcg 1X ONCE IV Last administered on at 17:30; Start 09/24/18 at 16:15; Stop 09/24/18 at 16:27; Status DC Iohexol (Omnipaque 300 Mg/ml) 100 ml 1X ONCE IART Last administered on at 17:30; Start 09/24/18 at 16:15; Stop 09/24/18 at 16:27; Status DC Bivalirudin (Angiomax) 250 mg 1X ONCE IV Last administered on 09/24/18at 17:29 ; Start 09/24/18 at 16:15; Stop 09/24/18 at 16:27; Status DC Nitroglycerin/ Dextrose 4 mg/ Verapamil HCl 10 mg/Heparin Sodium (Porcine) 4000 unit/ Miscellaneous 20 ml/Sodium Chloride 1,048 ml @ 1,000 mls/hr 1X ONCE IART Last administered on 09/24/18at 16:30; Start 09/24/18 at 16:15; Stop at 17:17; Status DC Lidocaine HCl (Lidocaine 1% 20ml Vial) 19 ml 1X ONCE INJ Last administered on 09/24/18at 17:29; Start 09/24/18 at 16:15; Stop 09/24/18 at 16:27; Status DC Diphenhydramine HCl (Benadryl) 50 mg STK-MED ONCE .ROUTE ; Start 09/24/18 at 16: 18; Stop 09/24/18 at 16:20; Status DC Iodixanol (Visipaque 320) 100 ml STK-MED ONCE .ROUTE ; Start 09/24/18 at 16:37; Stop 09/24/18 at 16:39; Status DC Diphenhydramine HCl (Benadryl) 50 mg 1X ONCE IVP Last administered on at 17:31; Start 09/24/18 at 16:45; Stop 09/24/18 at 16:46; Status DC Fentanyl Citrate (Fentanyl 2ml Vial) 100 mcg STK-MED ONCE .ROUTE ; Start at 17:06; Stop 09/24/18 at 17:08; Status DC Bivalirudin (Angiomax) 250 mg STK-MED ONCE IV ; Start 09/24/18 at 17:06; Stop at 17:08; Status DC Sodium Chloride 1,000 ml @ 75 mls/hr [id number] IV Last administered on at 20:24; Start 09/24/18 at 18:30 Acetaminophen (Tylenol) 650 mg PRN Q6HRS PRN PO MILD PAIN / TEMP; Start at 18:15; Status UNV Nitroglycerin (Nitrostat) 0.4 mg PRN Q5MIN PRN SL CHEST PAIN; Start 09/24/18 at 18:15; Status UNV Warfarin Sodium (Coumadin) 1.25 mg DAILY16 PO ; Start 09/25/18 at 16:00; Stop at 16:00; Status DC Warfarin Sodium (Coumadin Per Physician) 1 each PRN DAILY PRN MC SEE COMMENTS; Start 09/25/18 at 11:15 Warfarin Sodium (Coumadin) 1.25 mg QM-F PO ; Start 09/27/18 at 16:00 Warfarin Sodium (Coumadin) 0.5 mg QM-F PO ; Start 09/27/18 at 16:00 Active Scripts Active Reported Metformin Hcl 500 Mg Tablet 250 Mg PO BIDWMEALS Flomax (Tamsulosin Hcl) 0.4 Mg Cap.er.24h 0.4 Mg PO DAILY Trazodone Hcl 50 Mg Tablet 50 Mg PO DAILY Amlodipine Besylate 5 Mg Tablet 5 Mg PO DAILY Toprol Xl (Metoprolol Succinate) 50 Mg Tab.er.24h 50 Mg PO DAILY Fosinopril Sodium 40 Mg Tablet 40 Mg PO DAILY Warfarin Sodium 1 Mg Tablet 1.75 Mg PO DAILY Atorvastatin Calcium 20 Mg Tablet 20 Mg PO DAILY Vitals/I & O Vital Sign - Last 24 Hours 09/24/18 09/24/18 09/25/18 09/25/18 22:00 23:21 00:00 00:00 Temp 98.6 98.6 Pulse 90 91 92 Resp 20 20 22 B/P (MAP) 146/93 (110) 140/76 (97) 140/77 (98) Pulse Ox 98 98 99 O2 Delivery Nasal Cannula Nasal Cannula Room Air Nasal Cannula O2 Flow Rate 2.0 2.0 2.0 09/25/18 09/25/18 09/25/18 09/25/18 01:00 02:00 03:00 04:00 Temp 98.5 98.5 Pulse 90 94 92 94 Resp 20 25 22 B/P (MAP) 152/86 (108) 120/69 (86) 141/90 (107) 162/90 (114) Pulse Ox 98 98 99 99 O2 Delivery Nasal Cannula Nasal Cannula Nasal Cannula Nasal Cannula O2 Flow Rate 2.0 2.0 2.0 2.0 09/25/18 09/25/18 09/25/18 09/25/18 04:00 05:00 06:00 07:00 Pulse 92 92 79 Resp 21 B/P (MAP) 161/76 (104) 153/80 (104) 169/84 (112) Pulse Ox 99 99 100 O2 Delivery Nasal Cannula Nasal Cannula Nasal Cannula Nasal Cannula O2 Flow Rate 2.0 2.0 2.0 2.0 09/25/18 09/25/18 09/25/18 09/25/18 07:37 07:38 08:00 08:00 Temp 98.5 98.5 Pulse 92 93 92 Resp B/P (MAP) 169/84 169/84 150/82 (104) Pulse Ox 100 O2 Delivery Nasal Cannula Nasal Cannula O2 Flow Rate 2.0 2.0 09/25/18 09/25/18 09/25/18 09/25/18 09:00 10:00 11:00 12:00 Pulse 92 80 80 82 Resp 19 28 B/P (MAP) 139/76 (97) 160/85 (110) 167/83 (111) 140/86 (104) Pulse Ox 100 99 100 100 O2 Delivery Nasal Cannula Nasal Cannula Nasal Cannula Nasal Cannula O2 Flow Rate 2.0 2.0 2.0 2.0 09/25/18 09/25/18 09/25/18 09/25/18 12:00 13:00 16:00 17:56 Temp 97.9 97.9 Pulse 80 93 Resp 26 15 B/P (MAP) 136/77 (96) 131/65 (87) Pulse Ox 100 96 O2 Delivery Nasal Cannula Nasal Cannula Nasal Cannula Nasal Cannula O2 Flow Rate 2.0 2.0 2.0 3.0 09/25/18 09/25/18 09/25/18 19:25 19:30 20:25 Temp 97.7 97.7 Pulse 92 92 Resp 26 B/P (MAP) 149/77 (101) 149/77 Pulse Ox 97 O2 Delivery Nasal Cannula Nasal Cannula O2 Flow Rate 2.0 2.0 Intake and Output 09/24/18 09/24/18 09/25/18 15:01 23:01 07:01 Intake Total 620 ml Output Total 1180 ml 900 ml 775 ml Balance -1180 ml -900 ml -155 ml DEON VAZQUEZ MD Sep 25, 2018 21:39
[2018-09-26 03:30] VITALS: BP 149/82
[2018-09-26 07:00] VITALS: BP 117/74
--- NOTE | 2018-09-26 08:45 | PDOC ---
Infectious Disease Note Subjective Subjective Tired Denies pain/SOA/N/V/D No fevers last 48 hours ROS ROS per HPI Vital Sign Vital Signs Vital Signs Date Time Temp Pulse Resp B/P (MAP) Pulse Ox O2 Delivery O2 Flow Rate FiO2 09/26/18 07:00 97.9 93 18 117/74 (88) 95 Room Air 97.9 09/25/18 23:00 2.0 Physical Exam PHYSICAL EXAM GENERAL: Up in the chair, asleep HEENT: Pupils are equal and reactive. Normal conjunctivae. Oral cavity, pharynx is dry. NECK: Supple. No JVD. LUNGS: Decreased at bases. No wheezes. HEART: S1, S2. No gross murmur. ABDOMEN: Protuberant, soft and nontender. No guarding or rebound. : Yang EXTREMITIES: He has some chronic lower extremity venous stasis changes. SKIN: Otherwise warm to touch, without signs of rash. NEUROLOGIC: Arouses to name, responds to simple questions appropriately and follows commands PIV Labs Lab Laboratory Tests Test 09/25/18 12:04 Prothrombin Time 23.3 SEC (11.7-14.0) Prothromb Time International Ratio 2.1 (0.8-1.1) CT A/P There is evidence of hemorrhage into the right psoas muscle. There are bilateral pleural effusions and adjacent atelectasis. There is suggestion of delayed contrast enhancement of the kidneys. Correlation with timing of the last procedure using contrast is recommended. If the last administration with several hours ago to days ago, this could indicate acute renal failure. There may be some bladder wall thickening such as from cystitis. Micro 09/23/18 Blood Culture - Preliminary, Resulted NO GROWTH AFTER 1 DAY Objective Assessment Ecoli sepsis POA 09/19 (Leukopenia/Fever/Hypotension). improving, repeat BC 09/23 NGTD Ecoli UTI - POA 09/20 S/p NSTEMI Encephalopathy Diastolic heart failure Hemorrhage into the right psoas muscle seen on CT Bilateral pleural effusions and adjacent atelectasis. A-fib, warfarin scheduled Q M-F Plan Plan of Care Cont Rocephin - has little abx exposure Probiotics Supportive care CBC Cardiology to be notified of CT findings, - D/w RN D/w pharmacy Attending Co-Sign The patient was seen and interviewed as well as examined at the bedside. The chart was reviewed. The case was discussed. Agree with the plan of care. ROSINA CHAPARRO APRN Sep 26, 2018 08:45 MAY TEMPLETON MD Sep 26, 2018 15:43
[2018-09-26] MEDS: CLOPIDOGREL BISULFATE 75 MG TABLET PO SCH (08:51)
[2018-09-26] MEDS: IV 1/2 NORMAL SALINE 1,000 ML IV SCH ×2 (08:51→23:09)
[2018-09-26] MEDS: ASPIRIN ENTERIC COATED 81 MG TABLET.DR. PO SCH (08:51)
[2018-09-26] MEDS: LACTOBACILLUS RHAMNOSUS GG 1 CAPSULE. PO SCH ×2 (08:52→21:01)
[2018-09-26] MEDS: METOPRO PO SCH ×2 (08:52→21:04)
[2018-09-26] MEDS: LISINOPRIL 5 MG TABLET. PO SCH (08:52)
[2018-09-26] MEDS: TAMSULOSIN 0.4 MG CAP.ER.24H. PO SCH (08:52)
[2018-09-26] MEDS: PANTOPRAZOLE IV PUSH 40 MG VIAL. IVP SCH (08:52)
[2018-09-26 09:16] LABS: HEMATOCRIT 34.2 % (39.0-53.0); RED BLOOD COUNT 3.72 x10^6/uL (4.30-5.70); RED CELL DISTRIBUTION WIDTH 14.7 % (11.5-14.5); WHITE BLOOD COUNT 12.6 x10^3/uL (4.0-11.0)
--- NOTE | 2018-09-26 11:04 | PDOC ---
PROGRESS NOTES Subjective Subjective Patient denied any chest pain. Objective Objective Vital Signs Date Time Temp Pulse Resp B/P (MAP) Pulse Ox O2 Delivery O2 Flow Rate FiO2 09/26/18 08:52 93 117/74 09/26/18 08:00 Nasal Cannula 2.0 09/26/18 07:00 97.9 18 95 97.9 Intake and Output 09/26/18 07:01 Intake Total 400 ml Output Total 1250 ml Balance -850 ml Intake Oral 400 ml Output Urine Total 1250 ml Physical Exam Abdomen: Soft, No tenderness, Other (right groin looked good) Heart: Other (IRRR; tele AFIB with controlled rate) Extremities: No edema, Normal pulses General: Alert, Cooperative, No acute distress HEENT: Atraumatic, Mucous membr. moist/pink Lungs: Clear to auscultation Neuro: Normal speech Psych/Mental Status: Mental status NL, Mood NL Skin: No significant lesion Assessment Assessment 1. 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 He is presently stable and chest pain-free. Continue dual antiplatelet therapy 2. Mild acute on chronic diastolic HF; LVEF 50%, well compensated. Replace potassium. 3. Chronic AFIB: rate controlled. Continue warfarin 4. Metabolic encephalopathy secondary to UTI; resolved 5. UTI/sepsis: Antibiotics per ID team Follow-up with our office in 1 month Plan Plan of Care Problems Medical Problems: (1) Atrial fibrillation with rapid ventricular response Status: Acute (2) Metabolic encephalopathy Status: Acute (3) Sepsis due to urinary tract infection Status: Acute Comment Review of Relevant I have reviewed the following items yolis (where applicable) has been applied. Labs Laboratory Tests Test 09/25/18 12:04 09/26/18 09:00 Prothrombin Time 23.3 SEC (11.7-14.0) Prothromb Time International Ratio 2.1 (0.8-1.1) White Blood Count 12.6 x10^3/uL (4.0-11.0) Red Blood Count 3.72 x10^6/uL (4.30-5.70) Hemoglobin 12.0 g/dL (13.0-17.5) Hematocrit 34.2 % (39.0-53.0) Mean Corpuscular Volume 92 fL (79-100) Mean Corpuscular Hemoglobin 32 pg (25-35) Mean Corpuscular Hemoglobin Concent 35 g/dL (31-37) Red Cell Distribution Width 14.7 % (11.5-14.5) Platelet Count 194 x10^3/uL (140-400) Microbiology 09/23/18 Blood Culture - Preliminary, Resulted NO GROWTH AFTER 2 DAYS 09/20/18 Urine Culture - Final, Complete 09/20/18 Urine Culture Result 1 (AK[facility]IL) - Final, Complete 09/20/18 Antimicrobic Susceptibility - Final, Complete Medications Current Medications Warfarin Sodium (Coumadin Per Physician) 1 each PRN DAILY PRN MC SEE COMMENTS; Start 09/25/18 at 11:15 Warfarin Sodium (Coumadin) 0.5 mg QM-F PO ; Start 09/27/18 at 16:00 Warfarin Sodium (Coumadin) 1.25 mg DAILY16 PO ; Start 09/25/18 at 16:00; Stop at 16:00; Status DC Warfarin Sodium (Coumadin) 1.25 mg QM-F PO ; Start 09/27/18 at 16:00 Vitals/I & O Vital Sign - Last 24 Hours 09/25/18 09/25/18 09/25/18 09/25/18 12:00 12:00 13:00 16:00 Pulse 82 80 Resp 28 26 B/P (MAP) 140/86 (104) 136/77 (96) Pulse Ox 100 100 O2 Delivery Nasal Cannula Nasal Cannula Nasal Cannula Nasal Cannula O2 Flow Rate 2.0 2.0 2.0 2.0 09/25/18 09/25/18 09/25/18 09/25/18 17:56 19:25 19:30 20:25 Temp 97.9 97.7 97.9 97.7 Pulse 93 92 92 Resp 15 26 B/P (MAP) 131/65 (87) 149/77 (101) 149/77 Pulse Ox 96 97 O2 Delivery Nasal Cannula Nasal Cannula Nasal Cannula O2 Flow Rate 3.0 2.0 2.0 09/25/18 09/26/18 09/26/18 09/26/18 23:00 03:30 07:00 08:00 Temp 97.9 97.7 97.9 97.9 97.7 97.9 Pulse 82 86 93 Resp 24 21 18 B/P (MAP) 159/84 (109) 149/82 (104) 117/74 (88) Pulse Ox 98 96 95 O2 Delivery Nasal Cannula Room Air Room Air Nasal Cannula O2 Flow Rate 2.0 2.0 09/26/18 09/26/18 08:52 08:52 Pulse 93 93 B/P (MAP) 117/74 117/74 Intake and Output 09/25/18 09/25/18 09/26/18 15:01 23:01 07:01 Intake Total 200 ml 200 ml Output Total 450 ml 350 ml 450 ml Balance -250 ml -350 ml -250 ml DELIA MCDONALD MD Sep 26, 2018 11:04
[2018-09-26 11:06] VITALS: BP 138/73
--- NOTE | 2018-09-26 14:08 | PDOC ---
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 History of dyslipidemia Plan [facility] eval for ecoli uti --> recc ct a/p 09/26/18--> psoas muscle hemmorhage noted, ? if p fell during AMS episode. HH stable today. Will HOLD OFF on resuming Coumadin tomm (cards aware), may need to establish that hemmorhage is stable priro to resuming Coumadin. Family and pt made aware. Follow neurological status - RESOLVED Cardiology consultation done and s/p catheterization Continue to monitor hemodynamics closely continue home meds History of Present Illness History of Present Illness Patient with less confusion currently having Rocephin therapy which seems to have helped with the mental status. He knows he is in [place] and that he is going to have a cardiac catheterization today Vitals Vitals Vital Signs Date Time Temp Pulse Resp B/P (MAP) Pulse Ox O2 Delivery O2 Flow Rate FiO2 09/26/18 11:06 97.4 72 20 138/73 (94) 97 Room Air 97.4 09/26/18 08:00 2.0 Physical Exam Physical Exam GENERAL: Up in the chair, asleep HEENT: Pupils are equal and reactive. Normal conjunctivae. Oral cavity, pharynx is dry. NECK: Supple. No JVD. LUNGS: Decreased at bases. No wheezes. HEART: S1, S2. No gross murmur. ABDOMEN: Protuberant, soft and nontender. No guarding or rebound. : Yang EXTREMITIES: He has some chronic lower extremity venous stasis changes. SKIN: Otherwise warm to touch, without signs of rash. NEUROLOGIC: Arouses to name, responds to simple questions appropriately and follows commands PIV General: Alert, Cooperative, No acute distress Heart: Other (IRRR; tele AFIB with controlled rate) Abdomen: Soft, No tenderness, Other (right groin looked good) Extremities: No edema, Normal pulses Skin: No significant lesion Labs LABS Laboratory Tests Test 09/26/18 09:00 White Blood Count 12.6 x10^3/uL (4.0-11.0) Red Blood Count 3.72 x10^6/uL (4.30-5.70) Hemoglobin 12.0 g/dL (13.0-17.5) Hematocrit 34.2 % (39.0-53.0) Mean Corpuscular Volume 92 fL (79-100) Mean Corpuscular Hemoglobin 32 pg (25-35) Mean Corpuscular Hemoglobin Concent 35 g/dL (31-37) Red Cell Distribution Width 14.7 % (11.5-14.5) Platelet Count 194 x10^3/uL (140-400) Assessment and Plan Assessmemt and Plan Problems Medical Problems: (1) Atrial fibrillation with rapid ventricular response Status: Acute (2) Metabolic encephalopathy Status: Acute (3) Sepsis due to urinary tract infection Status: Acute Comment Review of Relevant I have reviewed the following items yolis (where applicable) has been applied. Labs Laboratory Tests Test 09/25/18 12:04 09/26/18 09:00 Prothrombin Time 23.3 SEC (11.7-14.0) Prothromb Time International Ratio 2.1 (0.8-1.1) White Blood Count 12.6 x10^3/uL (4.0-11.0) Red Blood Count 3.72 x10^6/uL (4.30-5.70) Hemoglobin 12.0 g/dL (13.0-17.5) Hematocrit 34.2 % (39.0-53.0) Mean Corpuscular Volume 92 fL (79-100) Mean Corpuscular Hemoglobin 32 pg (25-35) Mean Corpuscular Hemoglobin Concent 35 g/dL (31-37) Red Cell Distribution Width 14.7 % (11.5-14.5) Platelet Count 194 x10^3/uL (140-400) Laboratory Tests Test 09/26/18 09:00 White Blood Count 12.6 x10^3/uL (4.0-11.0) Red Blood Count 3.72 x10^6/uL (4.30-5.70) Hemoglobin 12.0 g/dL (13.0-17.5) Hematocrit 34.2 % (39.0-53.0) Mean Corpuscular Volume 92 fL (79-100) Mean Corpuscular Hemoglobin 32 pg (25-35) Mean Corpuscular Hemoglobin Concent 35 g/dL (31-37) Red Cell Distribution Width 14.7 % (11.5-14.5) Platelet Count 194 x10^3/uL (140-400) Microbiology 09/23/18 Blood Culture - Preliminary, Resulted NO GROWTH AFTER 3 DAYS 09/20/18 Urine Culture - Final, Complete 09/20/18 Urine Culture Result 1 (AKHIL) - Final, Complete 09/20/18 Antimicrobic Susceptibility - Final, Complete Medications Current Medications Sodium Chloride 1,000 ml @ 1,000 mls/hr Q1H IV Last administered on 09/20/18at 15:23; Start 09/20/18 at 04:00; Stop 09/20/18 at 06:10; Status DC Diltiazem HCl (Cardizem Iv Push) 10 mg 1X ONCE IVP Last administered on at 04:08; Start 09/20/18 at 04:30; Stop 09/20/18 at 04:31; Status DC Diltiazem HCl 125 mg/Dextrose 125 ml @ 5 mls/hr CONT PRN IV SEE I/O RECORD Last administered on 09/20/18at 04:13; Start 09/20/18 at 04:00; Stop 09/20/18 at 16: 32; Status DC Ceftriaxone Sodium (Rocephin) 1 gm 1X ONCE IVP Last administered on 09/20/18at 04:08; Start 09/20/18 at 04:30; Stop 09/20/18 at 04:31; Status DC Ceftriaxone Sodium (Rocephin) 1 gm STK-MED ONCE IVP ; Start 09/20/18 at 04:04; Stop 09/20/18 at 04:06; Status DC Diltiazem HCl (Cardizem Iv Push) 25 mg STK-MED ONCE .ROUTE ; Start 09/20/18 at 04 :04; Stop 09/20/18 at 04:06; Status DC Acetaminophen (Tylenol Supp) 650 mg 1X ONCE PA Last administered on 09/20/18at 04:27; Start 09/20/18 at 04:30; Stop 09/20/18 at 04:31; Status DC Ceftriaxone Sodium (Rocephin) 1 gm 1X ONCE IVP Last administered on 09/20/18at 05:23; Start 09/20/18 at 05:30; Stop 09/20/18 at 05:31; Status DC Albuterol/ Ipratropium (Duoneb) 3 ml 1X ONCE NEB Last administered on at 05:37; Start 09/20/18 at 05:30; Stop 09/20/18 at 05:31; Status DC Ondansetron HCl (Zofran) 4 mg PRN Q8HRS PRN IV NAUSEA/VOMITING 1ST CHOICE; Start 09/20/18 at 06:00; Stop 09/21/18 at 05:59; Status DC Sodium Chloride 1,000 ml @ 150 mls/hr Q6H40M IV Last administered on 09/20/18at 06:32; Start 09/20/18 at 05:52; Stop 09/20/18 at 15:10; Status DC Acetaminophen (Tylenol) 650 mg PRN Q4HRS PRN PO FEVER; Start 09/20/18 at 06:00; Stop 09/21/18 at 05:59; Status DC Albuterol/ Ipratropium (Duoneb) 3 ml RTQID NEB Last administered on 09/20/18at 20 :21; Start 09/20/18 at 08:00; Stop 09/21/18 at 07:59; Status DC Sodium Chloride 1,000 ml @ 1,000 mls/hr 1X ONCE IV Last administered on at 08:40; Start 09/20/18 at 08:00; Stop 09/20/18 at 08:59; Status DC Norepinephrine Bitartrate 250 ml @ 9.375 mls/ hr CONT PRN IV SEE I/O RECORD Last administered on 09/20/18at 08:51; Start 09/20/18 at 08:45 Heparin Sodium (Porcine) (Heparin Sodium) 3,950 unit 1X ONCE IV Last administered on 09/20/18at 09:51; Start 09/20/18 at 09:45; Stop 09/20/18 at 09:46; Status DC Heparin Sodium/ Dextrose 500 ml @ 20 mls/hr CONT PRN IV SEE I/O RECORD Last administered on 09/23/18at 14:58; Start 09/20/18 at 09:45; Stop 09/25/18 at 08:01 ; Status DC Heparin Sodium (Porcine) (Heparin Sodium) 2,350 unit PRN Q6HRS PRN IV FOR UFH LEVEL LESS THAN 0.2; Start 09/20/18 at 09:45; Stop 09/25/18 at 08:01; Status DC Aspirin (Luci Aspirin) 325 mg 1X ONCE PO Last administered on 09/20/18at 10:00 ; Start 09/20/18 at 09:45; Stop 09/20/18 at 09:46; Status DC Magnesium Sulfate 50 ml @ 25 mls/hr 1X ONCE IV Last administered on 09/20/18at 15:23; Start 09/20/18 at 11:00; Stop 09/20/18 at 12:59; Status DC Info (Anti-Coagulation Monitoring By Pharmacy) 1 each PRN DAILY PRN MC SEE COMMENTS Last administered on 09/22/18at 08:10; Start 09/20/18 at 11:00 Sodium Chloride 1,000 ml @ 1,000 mls/hr 1X ONCE IV Last administered on at 12:17; Start 09/20/18 at 11:45; Stop 09/20/18 at 12:44; Status DC Aspirin (Ecotrin) 81 mg DAILYWBKFT PO Last administered on 09/26/18at 08:51; Start 09/20/18 at 15:00 Cefepime HCl (Maxipime) 1 gm Q12HR IVP Last administered on 09/23/18at 08:50; Start 09/20/18 at 21:00; Stop 09/23/18 at 11:45; Status DC Albumin Human 100 ml @ 100 mls/hr 1X ONCE IV Last administered on 09/20/18at 15 :23; Start 09/20/18 at 15:15; Stop 09/20/18 at 16:14; Status DC Sodium Chloride 1,000 ml @ 150 mls/hr Q6H40M IV Last administered on 09/21/18at 04:48; Start 09/20/18 at 22:00; Stop 09/21/18 at 15:17; Status DC Trazodone HCl (Desyrel) 50 mg DAILY PO Last administered on 09/21/18at 21:56; Start 09/21/18 at 09:00; Stop 09/21/18 at 23:39; Status DC Trazodone HCl (Desyrel) 50 mg 1X ONCE PO Last administered on 09/21/18at 00:09; Start 09/21/18 at 00:30; Stop 09/21/18 at 00:31; Status DC Furosemide (Lasix) 40 mg 1X ONCE IVP Last administered on 09/21/18at 07:54; Start 09/21/18 at 08:00; Stop 09/21/18 at 08:01; Status DC Potassium Chloride (Klor-Con) 40 meq 1X ONCE PO Last administered on 09/21/18at 07:54; Start 09/21/18 at 08:00; Stop 09/21/18 at 08:01; Status DC Potassium Chloride (Klor-Con) 40 meq 1X ONCE PO ; Start 09/21/18 at 10:00; Stop 09/21/18 at 10:00; Status DC Iodixanol (Visipaque 320) 100 ml STK-MED ONCE .ROUTE ; Start 09/21/18 at 07:49; Stop 09/21/18 at 07:50; Status DC Lidocaine HCl (Xylocaine-Mpf 1% 2ml Vial) 2 ml STK-MED ONCE .ROUTE ; Start at 07:49; Stop 09/21/18 at 07:51; Status DC Heparin Sodium/ Sodium Chloride 1,000 ml @ As Directed STK-MED ONCE .ROUTE ; Start 09/21/18 at 07:49; Stop 09/21/18 at 07:51; Status DC Potassium Chloride (Klor-Con) 40 meq Q2H PO Last administered on 09/21/18at 08:00 ; Start 09/21/18 at 08:00; Stop 09/21/18 at 12:01; Status DC Fentanyl Citrate (Fentanyl 2ml Vial) 100 mcg STK-MED ONCE .ROUTE ; Start at 08:40; Stop 09/21/18 at 08:42; Status DC Midazolam HCl (Versed) 2 mg STK-MED ONCE .ROUTE ; Start 09/21/18 at 08:40; Stop 09/21/18 at 08:42; Status DC Heparin Sodium (Porcine) (Heparin Sodium) 10,000 unit STK-MED ONCE .ROUTE ; Start 09/21/18 at 08:40; Stop 09/21/18 at 08:42; Status DC Verapamil HCl (Verapamil) 5 mg STK-MED ONCE .ROUTE ; Start 09/21/18 at 08:40; Stop 09/21/18 at 08:42; Status DC Nitroglycerin (Nitroglycerin) 200 mcg STK-MED ONCE .ROUTE ; Start 09/21/18 at 08: 40; Stop 09/21/18 at 08:42; Status DC Nitroglycerin (Nitroglycerin) 200 mcg 1X ONCE IART Last administered on at 10:16; Start 09/21/18 at 09:15; Stop 09/21/18 at 09:16; Status DC Verapamil HCl (Verapamil) 2.5 mg 1X ONCE IART Last administered on 09/21/18 10 :17; Start 09/21/18 at 09:15; Stop 09/21/18 at 09:16; Status DC Heparin Sodium (Porcine) (Heparin Sodium) 2,500 unit 1X ONCE IART Last administered on 09/21/18 10:18; Start 09/21/18 at 09:15; Stop 09/21/18 at 09:16; Status DC Heparin Sodium/ Sodium Chloride (HEPARIN for ARTERIAL LINE FLUSH) 1,000 unit 1X ONCE IART Last administered on 09/21/18 10:17; Start 09/21/18 at 09:15; Stop 09/21/18 at 09:16; Status DC Midazolam HCl (Versed) 2 mg 1X ONCE IV Last administered on 09/21/18 10:16; Start 09/21/18 at 09:15; Stop 09/21/18 at 09:16; Status DC Fentanyl Citrate (Fentanyl 2ml Vial) 100 mcg 1X ONCE IV Last administered on 10:16; Start 09/21/18 at 09:15; Stop 09/21/18 at 09:16; Status DC Iodixanol (Visipaque 320) 100 ml 1X ONCE IART Last administered on 09/21/18 10 :15; Start 09/21/18 at 09:15; Stop 09/21/18 at 09:16; Status DC Lidocaine HCl (Xylocaine-Mpf 1% 2ml Vial) 2 ml 1X ONCE INJ Last administered on 09/21/18 10:17; Start 09/21/18 at 09:15; Stop 09/21/18 at 09:16; Status DC Info (CONTRAST GIVEN -- Rx MONITORING) 1 each PRN DAILY PRN MC SEE COMMENTS; Start 09/21/18 at 09:15; Stop 09/23/18 at 09:14; Status DC Bivalirudin (Angiomax) 250 mg STK-MED ONCE IV ; Start 09/21/18 at 09:16; Stop 09/21/18 at 09:18; Status DC Heparin Sodium/ Sodium Chloride 500 ml @ As Directed STK-MED ONCE .ROUTE ; Start 09/21/18 at 09:20; Stop 09/21/18 at 09:22; Status DC Bivalirudin (Angiomax) 250 mg 1X ONCE IV Last administered on 09/21/18at 10:16; Start 09/21/18 at 09:30; Stop 09/21/18 at 09:32; Status DC Lactobacillus Rhamnosus (Culturelle) 1 cap BID PO Last administered on at 08:52; Start 09/21/18 at 21:00 Diphenhydramine HCl (Benadryl) 50 mg STK-MED ONCE .ROUTE ; Start 09/21/18 at 09: 49; Stop 09/21/18 at 09:51; Status DC Iodixanol (Visipaque 320) 100 ml STK-MED ONCE .ROUTE ; Start 09/21/18 at 09:56; Stop 09/21/18 at 09:58; Status DC Diphenhydramine HCl (Benadryl) 25 mg 1X ONCE IVP Last administered on at 10:18; Start 09/21/18 at 10:15; Stop 09/21/18 at 10:16; Status DC Nitroglycerin (Nitroglycerin) 200 mcg STK-MED ONCE .ROUTE ; Start 09/21/18 at 10: 18; Stop 09/21/18 at 10:19; Status DC Clopidogrel Bisulfate (Plavix) 75 mg DAILYWBKFT PO Last administered on at 08:51; Start 09/22/18 at 08:00 Acetaminophen (Tylenol) 650 mg PRN Q6HRS PRN PO MILD PAIN / TEMP Last administered on 09/21/18at 21:56; Start 09/21/18 at 10:30 Nitroglycerin (Nitrostat) 0.4 mg PRN Q5MIN PRN SL CHEST PAIN; Start 09/21/18 at 10:30 Clopidogrel Bisulfate (Plavix) 600 mg 1X ONCE PO ; Start 09/21/18 at 10:30; Stop 09/21/18 at 10:31; Status Cancel Metoprolol Tartrate (Lopressor Vial) 5 mg PRN Q5MIN PRN IVP TACHYCARDIA Last administered on 09/21/18at 17:58; Start 09/21/18 at 12:15 Clopidogrel Bisulfate (Plavix) 600 mg 1X ONCE PO Last administered on at 15:30; Start 09/21/18 at 15:15; Stop 09/21/18 at 15:16; Status DC Pantoprazole Sodium (PROTONIX VIAL for IV PUSH) 40 mg DAILYAC IVP Last administered on 09/26/18 08:52; Start 09/21/18 at 16:00 Metoprolol Tartrate (Lopressor Vial) 5 mg 1X STAT IVP ; Start 09/21/18 at 17:50 ; Stop 09/21/18 at 17:52; Status DC Metoprolol Tartrate (Lopressor) 25 mg Q6HRS PO Last administered on 09/22/18 13 :32; Start 09/21/18 at 18:00; Stop 09/22/18 at 14:57; Status DC Mirtazapine (Remeron Jes-Tab) 15 mg PRN QHS PRN PO INSOMNIA Last administered on 09/23/18 21:09; Start 09/21/18 at 21:30 Amlodipine Besylate (Norvasc) 5 mg DAILY PO Last administered on 09/22/18 08:55 ; Start 09/22/18 at 09:00; Stop 09/22/18 at 14:59; Status DC Atorvastatin Calcium (Lipitor) 20 mg QHS PO Last administered on 09/25/18 20: 25; Start 09/21/18 at 22:00 Tamsulosin HCl (Flomax) 0.4 mg DAILY PO Last administered on 09/26/18 08:52; Start 09/22/18 at 09:00 Trazodone HCl (Desyrel) 50 mg HS PO Last administered on 09/25/18 20:25; Start 09/22/18 at 21:00 Potassium Chloride (Klor-Con) 40 meq 1X ONCE PO Last administered on 09/22/18at 02:14; Start 09/22/18 at 00:30; Stop 09/22/18 at 00:59; Status DC Potassium Chloride (Klor-Con) 40 meq 1X ONCE PO Last administered on 09/22/18at 04:07; Start 09/22/18 at 02:30; Stop 09/22/18 at 02:31; Status DC Potassium Chloride (Klor-Con) 40 meq 1X ONCE PO Last administered on 09/22/18at 06:08; Start 09/22/18 at 04:30; Stop 09/22/18 at 04:31; Status DC Furosemide (Lasix) 40 mg 1X ONCE IVP Last administered on 09/22/18at 15:25; Start 09/22/18 at 15:00; Stop 09/22/18 at 15:01; Status DC Potassium Chloride (Klor-Con) 40 meq 1X ONCE PO Last administered on 09/22/18at 15:27; Start 09/22/18 at 15:00; Stop 09/22/18 at 15:01; Status DC Metoprolol Tartrate (Lopressor) 50 mg BID PO Last administered on 09/26/18at 08: 52; Start 09/22/18 at 21:00 Digoxin (Lanoxin) 500 mcg 1X ONCE IV Last administered on 09/22/18at 15:27; Start 09/22/18 at 15:00; Stop 09/22/18 at 15:01; Status DC Lisinopril (Prinivil) 5 mg DAILY PO Last administered on 09/26/18at 08:52; Start 09/23/18 at 09:00 Ceftriaxone Sodium (Rocephin) 2 gm Q24H IVP Last administered on 09/25/18at 20: 23; Start 09/23/18 at 21:00 Magnesium Sulfate 50 ml @ 25 mls/hr 1X ONCE IV Last administered on 09/23/18at 13:40; Start 09/23/18 at 13:00; Stop 09/23/18 at 14:59; Status DC Iohexol (Omnipaque 300 Mg/ml) 100 ml STK-MED ONCE .ROUTE ; Start 09/24/18 at 14: 30; Stop 09/24/18 at 14:32; Status DC Lidocaine HCl (Lidocaine 1% 20ml Vial) 20 ml STK-MED ONCE .ROUTE ; Start at 14:30; Stop 09/24/18 at 14:32; Status DC Heparin Sodium/ Sodium Chloride 1,000 ml @ As Directed STK-MED ONCE .ROUTE ; Start 09/24/18 at 14:30; Stop 09/24/18 at 14:32; Status DC Fentanyl Citrate (Fentanyl 2ml Vial) 100 mcg STK-MED ONCE .ROUTE ; Start at 15:19; Stop 09/24/18 at 15:21; Status DC Midazolam HCl (Versed) 2 mg STK-MED ONCE .ROUTE ; Start 09/24/18 at 15:19; Stop 09/24/18 at 15:21; Status DC Heparin Sodium (Porcine) (Heparin Sodium) 10,000 unit STK-MED ONCE .ROUTE ; Start 09/24/18 at 15:25; Stop 09/24/18 at 15:28; Status DC Verapamil HCl (Verapamil) 5 mg STK-MED ONCE .ROUTE ; Start 09/24/18 at 15:26; Stop 09/24/18 at 15:28; Status DC Nitroglycerin/ Dextrose (Nitroglycerin) 4 mg STK-MED ONCE .ROUTE ; Start at 15:26; Stop 09/24/18 at 15:28; Status DC Bivalirudin (Angiomax) 250 mg STK-MED ONCE IV ; Start 09/24/18 at 15:52; Stop at 15:54; Status DC Heparin Sodium/ Sodium Chloride (HEPARIN for ARTERIAL LINE FLUSH) 1,000 unit 1X ONCE IART Last administered on 09/24/18at 17:29; Start 09/24/18 at 16:15; Stop 09/24/18 at 16:27; Status DC Midazolam HCl (Versed) 2 mg 1X ONCE IV Last administered on 09/24/18at 17:31; Start 09/24/18 at 16:15; Stop 09/24/18 at 16:27; Status DC Fentanyl Citrate (Fentanyl 2ml Vial) 100 mcg 1X ONCE IV Last administered on at 17:30; Start 09/24/18 at 16:15; Stop 09/24/18 at 16:27; Status DC Iohexol (Omnipaque 300 Mg/ml) 100 ml 1X ONCE IART Last administered on at 17:30; Start 09/24/18 at 16:15; Stop 09/24/18 at 16:27; Status DC Bivalirudin (Angiomax) 250 mg 1X ONCE IV Last administered on 09/24/18at 17:29 ; Start 09/24/18 at 16:15; Stop 09/24/18 at 16:27; Status DC Nitroglycerin/ Dextrose 4 mg/ Verapamil HCl 10 mg/Heparin Sodium (Porcine) 4000 unit/ Miscellaneous 20 ml/Sodium Chloride 1,048 ml @ 1,000 mls/hr 1X ONCE IART Last administered on 09/24/18at 16:30; Start 09/24/18 at 16:15; Stop at 17:17; Status DC Lidocaine HCl (Lidocaine 1% 20ml Vial) 19 ml 1X ONCE INJ Last administered on 09/24/18at 17:29; Start 09/24/18 at 16:15; Stop 09/24/18 at 16:27; Status DC Diphenhydramine HCl (Benadryl) 50 mg STK-MED ONCE .ROUTE ; Start 09/24/18 at 16: 18; Stop 09/24/18 at 16:20; Status DC Iodixanol (Visipaque 320) 100 ml STK-MED ONCE .ROUTE ; Start 09/24/18 at 16:37; Stop 09/24/18 at 16:39; Status DC Diphenhydramine HCl (Benadryl) 50 mg 1X ONCE IVP Last administered on at 17:31; Start 09/24/18 at 16:45; Stop 09/24/18 at 16:46; Status DC Fentanyl Citrate (Fentanyl 2ml Vial) 100 mcg STK-MED ONCE .ROUTE ; Start at 17:06; Stop 09/24/18 at 17:08; Status DC Bivalirudin (Angiomax) 250 mg STK-MED ONCE IV ; Start 09/24/18 at 17:06; Stop at 17:08; Status DC Sodium Chloride 1,000 ml @ 75 mls/hr [id number] IV Last administered on at 08:51; Start 09/24/18 at 18:30 Acetaminophen (Tylenol) 650 mg PRN Q6HRS PRN PO MILD PAIN / TEMP; Start at 18:15; Status UNV Nitroglycerin (Nitrostat) 0.4 mg PRN Q5MIN PRN SL CHEST PAIN; Start 09/24/18 at 18:15; Status UNV Warfarin Sodium (Coumadin) 1.25 mg DAILY16 PO ; Start 09/25/18 at 16:00; Stop at 16:00; Status DC Warfarin Sodium (Coumadin Per Physician) 1 each PRN DAILY PRN MC SEE COMMENTS; Start 09/25/18 at 11:15 Warfarin Sodium (Coumadin) 1.25 mg QM-F PO ; Start 09/27/18 at 16:00 Warfarin Sodium (Coumadin) 0.5 mg QM-F PO ; Start 09/27/18 at 16:00 Active Scripts Active Reported Metformin Hcl 500 Mg Tablet 250 Mg PO BIDWMEALS Flomax (Tamsulosin Hcl) 0.4 Mg Cap.er.24h 0.4 Mg PO DAILY Trazodone Hcl 50 Mg Tablet 50 Mg PO DAILY Amlodipine Besylate 5 Mg Tablet 5 Mg PO DAILY Toprol Xl (Metoprolol Succinate) 50 Mg Tab.er.24h 50 Mg PO DAILY Fosinopril Sodium 40 Mg Tablet 40 Mg PO DAILY Warfarin Sodium 1 Mg Tablet 1.75 Mg PO DAILY Atorvastatin Calcium 20 Mg Tablet 20 Mg PO DAILY Vitals/I & O Vital Sign - Last 24 Hours 09/25/18 09/25/18 09/25/18 09/25/18 16:00 17:56 19:25 19:30 Temp 97.9 97.7 97.9 97.7 Pulse 93 92 Resp 15 26 B/P (MAP) 131/65 (87) 149/77 (101) Pulse Ox 96 97 O2 Delivery Nasal Cannula Nasal Cannula Nasal Cannula Nasal Cannula O2 Flow Rate 2.0 3.0 2.0 2.0 09/25/18 09/25/18 09/26/18 09/26/18 20:25 23:00 03:30 07:00 Temp 97.9 97.7 97.9 97.9 97.7 97.9 Pulse 92 82 86 93 Resp 24 21 18 B/P (MAP) 149/77 159/84 (109) 149/82 (104) 117/74 (88) Pulse Ox 98 96 95 O2 Delivery Nasal Cannula Room Air Room Air O2 Flow Rate 2.0 1/13/09/26/18 09/26/18 09/26/18 08:00 08:52 08:52 11:06 Temp 97.4 97.4 Pulse 93 93 72 Resp 20 B/P (MAP) 117/74 117/74 138/73 (94) Pulse Ox 97 O2 Delivery Nasal Cannula Room Air O2 Flow Rate 2.0 Intake and Output 09/25/18 09/25/18 09/26/18 15:01 23:01 07:01 Intake Total 200 ml 200 ml Output Total 450 ml 350 ml 450 ml Balance -250 ml -350 ml -250 ml DEON VAZQUEZ MD Sep 26, 2018 14:08
[2018-09-26 14:34] LABS: ALBUMIN 2.6 g/dL (3.4-5.0); ALBUMIN/GLOBULIN RATIO 0.8 (1.0-1.7); CALCIUM 8.4 mg/dL (8.5-10.1); CREATININE 0.8 mg/dL (0.7-1.3); GFR 93.7; POTASSIUM 3.3 mmol/L (3.5-5.1); TOTAL BILIRUBIN 1.6 mg/dL (0.2-1.0); TOTAL PROTEIN 5.9 g/dL (6.4-8.2)
[2018-09-26 15:00] VITALS: BP 145/81
[2018-09-26 19:16] VITALS: BP 135/73
[2018-09-26] MEDS: cefTRIAXone IV Push 2 GM VIAL. IVP SCH (20:58)
[2018-09-26] MEDS: ATORVASTATIN CALCIUM 20 MG TABLET PO SCH (20:59)
[2018-09-26] MEDS: traZODone 50 MG TABLET. PO SCH (21:01)
[2018-09-26 23:10] VITALS: BP 144/80
[2018-09-27 03:05] VITALS: BP 152/73
[2018-09-27 07:15] VITALS: BP 159/86
[2018-09-27] MEDS: CLOPIDOGREL BISULFATE 75 MG TABLET PO SCH (07:42)
[2018-09-27] MEDS: LISINOPRIL 5 MG TABLET. PO SCH (07:42)
[2018-09-27] MEDS: PANTOPRAZOLE IV PUSH 40 MG VIAL. IVP SCH (07:42)
[2018-09-27] MEDS: METOPRO PO SCH ×2 (07:43→21:26)
[2018-09-27] MEDS: TAMSULOSIN 0.4 MG CAP.ER.24H. PO SCH (07:43)
[2018-09-27] MEDS: LACTOBACILLUS RHAMNOSUS GG 1 CAPSULE. PO SCH ×2 (07:43→21:26)
[2018-09-27] MEDS: ASPIRIN ENTERIC COATED 81 MG TABLET.DR. PO SCH (07:43)
[2018-09-27] MEDS: IV 1/2 NORMAL SALINE 1,000 ML IV SCH (07:44)
--- NOTE | 2018-09-27 08:49 | PDOC ---
Infectious Disease Note Subjective Subjective feeling good Denies pain/SOA/N/V/D No fevers last 48 hours ROS ROS no n/v/d/ Vital Sign Vital Signs Vital Signs Date Time Temp Pulse Resp B/P (MAP) Pulse Ox O2 Delivery O2 Flow Rate FiO2 09/27/18 08:00 Room Air 2.0 09/27/18 07:43 77 159/86 09/27/18 07:15 97.4 20 98 97.4 Physical Exam PHYSICAL EXAM GENERAL: Up in the chair, asleep HEENT: Pupils are equal and reactive. Normal conjunctivae. Oral cavity, pharynx is dry. NECK: Supple. No JVD. LUNGS: Decreased at bases. No wheezes. HEART: S1, S2. No gross murmur. ABDOMEN: Protuberant, soft and nontender. No guarding or rebound. : Yang EXTREMITIES: He has some chronic lower extremity venous stasis changes. SKIN: Otherwise warm to touch, without signs of rash. NEUROLOGIC: Arouses to name, responds to simple questions appropriately and follows commands PIV Labs Lab Laboratory Tests Test 09/26/18 09:00 09/27/18 05:00 White Blood Count 12.6 x10^3/uL (4.0-11.0) Red Blood Count 3.72 x10^6/uL (4.30-5.70) Hemoglobin 12.0 g/dL (13.0-17.5) Hematocrit 34.2 % (39.0-53.0) Mean Corpuscular Volume 92 fL (79-100) Mean Corpuscular Hemoglobin 32 pg (25-35) Mean Corpuscular Hemoglobin Concent 35 g/dL (31-37) Red Cell Distribution Width 14.7 % (11.5-14.5) Platelet Count 194 x10^3/uL (140-400) Sodium Level 141 mmol/L (136-145) Potassium Level 3.3 mmol/L (3.5-5.1) Chloride Level 104 mmol/L (98-107) Carbon Dioxide Level 26 mmol/L (21-32) Anion Gap 11 (6-14) Blood Urea Nitrogen 16 mg/dL (8-26) Creatinine 0.8 mg/dL (0.7-1.3) Estimated GFR (Cockcroft-Gault) 93.7 BUN/Creatinine Ratio 20 (6-20) Glucose Level 133 mg/dL (70-99) Calcium Level 8.4 mg/dL (8.5-10.1) Total Bilirubin 1.6 mg/dL (0.2-1.0) Aspartate Amino Transf (AST/SGOT) 76 U/L (15-37) Alanine Aminotransferase (ALT/SGPT) 54 U/L (16-63) Alkaline Phosphatase 112 U/L (46-116) Total Protein 5.9 g/dL (6.4-8.2) Albumin 2.6 g/dL (3.4-5.0) Albumin/Globulin Ratio 0.8 (1.0-1.7) Prothrombin Time 20.0 SEC (11.7-14.0) Prothromb Time International Ratio 1.7 (0.8-1.1) Micro Microbiology 09/23/18 Blood Culture - Preliminary, Resulted NO GROWTH AFTER 3 DAYS 09/20/18 Urine Culture - Final, Complete 09/20/18 Urine Culture Result 1 ([facility]) - Final, Complete 09/20/18 Antimicrobic Susceptibility - Final, Complete Objective Assessment Ecoli sepsis POA 09/19 (Leukopenia/Fever/Hypotension). improving, repeat BC 09/23 NGTD Ecoli UTI - POA 09/20 S/p NSTEMI Encephalopathy Diastolic heart failure Hemorrhage into the right psoas muscle seen on CT Bilateral pleural effusions and adjacent atelectasis. A-fib, warfarin scheduled Q M-F Plan Plan of Care Cont Rocephin - Probiotics Supportive care [facility] Cardiology to be notified of CT findings, - D/w RN D/w pharmacy MAY TEMPLETON MD Sep 27, 2018 08:48
[2018-09-27 10:07] LABS: BASO % 0 % (0-3); EOS # 0.2 x10^3/uL (0.0-0.7); EOS % 2 % (0-3); HEMATOCRIT 32.9 % (39.0-53.0); HEMOGLOBIN 11.7 g/dL (13.0-17.5); LYMPH # 1.1 x10^3/uL (1.0-4.8); LYMPH % 11 % (24-48); MEAN CORPUSCULAR HEMOGLOBIN 33 pg (25-35); MEAN CORPUSCULAR HGB CONC 36 g/dL (31-37); MEAN CORPUSCULAR VOLUME 94 fL (79-100); MONO # 0.7 x10^3/uL (0.0-1.1); MONO % 7 % (0-9); NEUT # 8.3 x10^3uL (1.8-7.7); NEUT % 80 % (31-73); PLATELET COUNT 209 x10^3/uL (140-400); RED BLOOD COUNT 3.51 x10^6/uL (4.30-5.70); RED CELL DISTRIBUTION WIDTH 14.6 % (11.5-14.5); WHITE BLOOD COUNT 10.4 x10^3/uL (4.0-11.0)
[2018-09-27 10:08] LABS: CALCIUM 8.3 mg/dL (8.5-10.1); CREATININE 0.8 mg/dL (0.7-1.3); GFR 93.7; POTASSIUM 3.6 mmol/L (3.5-5.1)
[2018-09-27 11:00] VITALS: BP 141/72
--- NOTE | 2018-09-27 11:05 | NUR ---
SS following up with discharge planning. SS met with pt and spoke with pt's spouse via phone to discuss discharge planning and assisted unit. Rehabilitation options discussed. Pt and pt's spouse requested referral be sent to [facility], ; fax [phone]. SS phoned and faxed referral. SS will await acceptance decision and will proceed accordingly with discharge planning. Pt's RN notified.
--- NOTE | 2018-09-27 14:22 | PDOC ---
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 History of dyslipidemia psoas muscle hemmorhage noted Plan fu with id, still on recephin, last bcx 09/23 neg. before bcx, ucx all + ecoli still on asa, plavix, hb stable, warfarin held. persistent afib. INR daily Follow neurological status - RESOLVED Cardiology consultation done and s/p catheterization Continue to monitor hemodynamics closely continue home meds sw fu , need rehab. will repeat abd ct before dc and then consider coumarin. History of Present Illness History of Present Illness feels good, hb stable, ct on sat showed psoas hemarrhage, no flank pain last bcx neg , 09/23. before bcx and ucx + e coli got cath and PCI at [facility], LEFT CIRCIMFLEX 09/24 LOW po intake Vitals Vitals Vital Signs Date Time Temp Pulse Resp B/P (MAP) Pulse Ox O2 Delivery O2 Flow Rate FiO2 09/27/18 11:00 97.6 69 24 141/72 (95) 96 Room Air 97.6 09/27/18 08:00 2.0 Physical Exam Physical Exam GENERAL: Up in the chair, asleep HEENT: Pupils are equal and reactive. Normal conjunctivae. Oral cavity, pharynx is dry. NECK: Supple. No JVD. LUNGS: Decreased at bases. No wheezes. HEART: S1, S2. No gross murmur. ABDOMEN: Protuberant, soft and nontender. No guarding or rebound. : Yang EXTREMITIES: He has some chronic lower extremity venous stasis changes. SKIN: Otherwise warm to touch, without signs of rash. NEUROLOGIC: Arouses to name, responds to simple questions appropriately and follows commands PIV General: Alert, Cooperative, No acute distress Heart: Other (IRRR; tele AFIB with controlled rate) Abdomen: Soft, No tenderness, Other (right groin looked good) Extremities: No edema, Normal pulses Skin: No significant lesion Labs LABS Laboratory Tests Test 09/27/18 05:00 White Blood Count 10.4 x10^3/uL (4.0-11.0) Red Blood Count 3.51 x10^6/uL (4.30-5.70) Hemoglobin 11.7 g/dL (13.0-17.5) Hematocrit 32.9 % (39.0-53.0) Mean Corpuscular Volume 94 fL (79-100) Mean Corpuscular Hemoglobin 33 pg (25-35) Mean Corpuscular Hemoglobin Concent 36 g/dL (31-37) Red Cell Distribution Width 14.6 % (11.5-14.5) Platelet Count 209 x10^3/uL (140-400) Neutrophils (%) (Auto) 80 % (31-73) Lymphocytes (%) (Auto) 11 % (24-48) Monocytes (%) (Auto) 7 % (0-9) Eosinophils (%) (Auto) 2 % (0-3) Basophils (%) (Auto) 0 % (0-3) Neutrophils # (Auto) 8.3 x10^3uL (1.8-7.7) Lymphocytes # (Auto) 1.1 x10^3/uL (1.0-4.8) Monocytes # (Auto) 0.7 x10^3/uL (0.0-1.1) Eosinophils # (Auto) 0.2 x10^3/uL (0.0-0.7) Basophils # (Auto) 0.0 x10^3/uL (0.0-0.2) Prothrombin Time 20.0 SEC (11.7-14.0) Prothromb Time International Ratio 1.7 (0.8-1.1) Sodium Level 143 mmol/L (136-145) Potassium Level 3.6 mmol/L (3.5-5.1) Chloride Level 106 mmol/L (98-107) Carbon Dioxide Level 30 mmol/L (21-32) Anion Gap 7 (6-14) Blood Urea Nitrogen 14 mg/dL (8-26) Creatinine 0.8 mg/dL (0.7-1.3) Estimated GFR (Cockcroft-Gault) 93.7 Glucose Level 97 mg/dL (70-99) Calcium Level 8.3 mg/dL (8.5-10.1) Assessment and Plan Assessmemt and Plan Problems Medical Problems: (1) Atrial fibrillation with rapid ventricular response Status: Acute (2) Metabolic encephalopathy Status: Acute (3) Sepsis due to urinary tract infection Status: Acute Comment Review of Relevant I have reviewed the following items yolis (where applicable) has been applied. Labs Laboratory Tests Test 09/26/18 09:00 09/27/18 05:00 White Blood Count 12.6 x10^3/uL (4.0-11.0) 10.4 x10^3/uL (4.0-11.0) Red Blood Count 3.72 x10^6/uL (4.30-5.70) 3.51 x10^6/uL (4.30-5.70) Hemoglobin 12.0 g/dL (13.0-17.5) 11.7 g/dL (13.0-17.5) Hematocrit 34.2 % (39.0-53.0) 32.9 % (39.0-53.0) Mean Corpuscular Volume 92 fL (79-100) 94 fL (79-100) Mean Corpuscular Hemoglobin 32 pg (25-35) 33 pg (25-35) Mean Corpuscular Hemoglobin Concent 35 g/dL (31-37) 36 g/dL (31-37) Red Cell Distribution Width 14.7 % (11.5-14.5) 14.6 % (11.5-14.5) Platelet Count 194 x10^3/uL (140-400) 209 x10^3/uL (140-400) Sodium Level 141 mmol/L (136-145) 143 mmol/L (136-145) Potassium Level 3.3 mmol/L (3.5-5.1) 3.6 mmol/L (3.5-5.1) Chloride Level 104 mmol/L (98-107) 106 mmol/L (98-107) Carbon Dioxide Level 26 mmol/L (21-32) 30 mmol/L (21-32) Anion Gap 11 (6-14) 7 (6-14) Blood Urea Nitrogen 16 mg/dL (8-26) 14 mg/dL (8-26) Creatinine 0.8 mg/dL (0.7-1.3) 0.8 mg/dL (0.7-1.3) Estimated GFR (Cockcroft-Gault) 93.7 93.7 BUN/Creatinine Ratio 20 (6-20) Glucose Level 133 mg/dL (70-99) 97 mg/dL (70-99) Calcium Level 8.4 mg/dL (8.5-10.1) 8.3 mg/dL (8.5-10.1) Total Bilirubin 1.6 mg/dL (0.2-1.0) Aspartate Amino Transf (AST/SGOT) 76 U/L (15-37) Alanine Aminotransferase (ALT/SGPT) 54 U/L (16-63) Alkaline Phosphatase 112 U/L (46-116) Total Protein 5.9 g/dL (6.4-8.2) Albumin 2.6 g/dL (3.4-5.0) Albumin/Globulin Ratio 0.8 (1.0-1.7) Neutrophils (%) (Auto) 80 % (31-73) Lymphocytes (%) (Auto) 11 % (24-48) Monocytes (%) (Auto) 7 % (0-9) Eosinophils (%) (Auto) 2 % (0-3) Basophils (%) (Auto) 0 % (0-3) Neutrophils # (Auto) 8.3 x10^3uL (1.8-7.7) Lymphocytes # (Auto) 1.1 x10^3/uL (1.0-4.8) Monocytes # (Auto) 0.7 x10^3/uL (0.0-1.1) Eosinophils # (Auto) 0.2 x10^3/uL (0.0-0.7) Basophils # (Auto) 0.0 x10^3/uL (0.0-0.2) Prothrombin Time 20.0 SEC (11.7-14.0) Prothromb Time International Ratio 1.7 (0.8-1.1) Laboratory Tests Test 09/27/18 05:00 White Blood Count 10.4 x10^3/uL (4.0-11.0) Red Blood Count 3.51 x10^6/uL (4.30-5.70) Hemoglobin 11.7 g/dL (13.0-17.5) Hematocrit 32.9 % (39.0-53.0) Mean Corpuscular Volume 94 fL (79-100) Mean Corpuscular Hemoglobin 33 pg (25-35) Mean Corpuscular Hemoglobin Concent 36 g/dL (31-37) Red Cell Distribution Width 14.6 % (11.5-14.5) Platelet Count 209 x10^3/uL (140-400) Neutrophils (%) (Auto) 80 % (31-73) Lymphocytes (%) (Auto) 11 % (24-48) Monocytes (%) (Auto) 7 % (0-9) Eosinophils (%) (Auto) 2 % (0-3) Basophils (%) (Auto) 0 % (0-3) Neutrophils # (Auto) 8.3 x10^3uL (1.8-7.7) Lymphocytes # (Auto) 1.1 x10^3/uL (1.0-4.8) Monocytes # (Auto) 0.7 x10^3/uL (0.0-1.1) Eosinophils # (Auto) 0.2 x10^3/uL (0.0-0.7) Basophils # (Auto) 0.0 x10^3/uL (0.0-0.2) Prothrombin Time 20.0 SEC (11.7-14.0) Prothromb Time International Ratio 1.7 (0.8-1.1) Sodium Level 143 mmol/L (136-145) Potassium Level 3.6 mmol/L (3.5-5.1) Chloride Level 106 mmol/L (98-107) Carbon Dioxide Level 30 mmol/L (21-32) Anion Gap 7 (6-14) Blood Urea Nitrogen 14 mg/dL (8-26) Creatinine 0.8 mg/dL (0.7-1.3) Estimated GFR (Cockcroft-Gault) 93.7 Glucose Level 97 mg/dL (70-99) Calcium Level 8.3 mg/dL (8.5-10.1) Microbiology 09/23/18 Blood Culture - Preliminary, Resulted NO GROWTH AFTER 4 DAYS 09/20/18 Urine Culture - Final, Complete 09/20/18 Urine Culture Result 1 (AKHIL) - Final, Complete 09/20/18 Antimicrobic Susceptibility - Final, Complete Medications Current Medications Sodium Chloride 1,000 ml @ 1,000 mls/hr Q1H IV Last administered on 09/20/18at 15:23; Start 09/20/18 at 04:00; Stop 09/20/18 at 06:10; Status DC Diltiazem HCl (Cardizem Iv Push) 10 mg 1X ONCE IVP Last administered on at 04:08; Start 09/20/18 at 04:30; Stop 09/20/18 at 04:31; Status DC Diltiazem HCl 125 mg/Dextrose 125 ml @ 5 mls/hr CONT PRN IV SEE I/O RECORD Last administered on 09/20/18at 04:13; Start 09/20/18 at 04:00; Stop 09/20/18 at 16: 32; Status DC Ceftriaxone Sodium (Rocephin) 1 gm 1X ONCE IVP Last administered on 09/20/18at 04:08; Start 09/20/18 at 04:30; Stop 09/20/18 at 04:31; Status DC Ceftriaxone Sodium (Rocephin) 1 gm STK-MED ONCE IVP ; Start 09/20/18 at 04:04; Stop 09/20/18 at 04:06; Status DC Diltiazem HCl (Cardizem Iv Push) 25 mg STK-MED ONCE .ROUTE ; Start 09/20/18 at 04 :04; Stop 09/20/18 at 04:06; Status DC Acetaminophen (Tylenol Supp) 650 mg 1X ONCE [place] Last administered on 09/20/18at 04:27; Start 09/20/18 at 04:30; Stop 09/20/18 at 04:31; Status DC Ceftriaxone Sodium (Rocephin) 1 gm 1X ONCE IVP Last administered on 09/20/18at 05:23; Start 09/20/18 at 05:30; Stop 09/20/18 at 05:31; Status DC Albuterol/ Ipratropium (Duoneb) 3 ml 1X ONCE NEB Last administered on at 05:37; Start 09/20/18 at 05:30; Stop 09/20/18 at 05:31; Status DC Ondansetron HCl (Zofran) 4 mg PRN Q8HRS PRN IV NAUSEA/VOMITING 1ST CHOICE; Start 09/20/18 at 06:00; Stop 09/21/18 at 05:59; Status DC Sodium Chloride 1,000 ml @ 150 mls/hr Q6H40M IV Last administered on 09/20/18at 06:32; Start 09/20/18 at 05:52; Stop 09/20/18 at 15:10; Status DC Acetaminophen (Tylenol) 650 mg PRN Q4HRS PRN PO FEVER; Start 09/20/18 at 06:00; Stop 09/21/18 at 05:59; Status DC Albuterol/ Ipratropium (Duoneb) 3 ml RTQID NEB Last administered on 09/20/18at 20 :21; Start 09/20/18 at 08:00; Stop 09/21/18 at 07:59; Status DC Sodium Chloride 1,000 ml @ 1,000 mls/hr 1X ONCE IV Last administered on at 08:40; Start 09/20/18 at 08:00; Stop 09/20/18 at 08:59; Status DC Norepinephrine Bitartrate 250 ml @ 9.375 mls/ hr CONT PRN IV SEE I/O RECORD Last administered on 09/20/18at 08:51; Start 09/20/18 at 08:45 Heparin Sodium (Porcine) (Heparin Sodium) 3,950 unit 1X ONCE IV Last administered on 09/20/18at 09:51; Start 09/20/18 at 09:45; Stop 09/20/18 at 09:46; Status DC Heparin Sodium/ Dextrose 500 ml @ 20 mls/hr CONT PRN IV SEE I/O RECORD Last administered on 09/23/18at 14:58; Start 09/20/18 at 09:45; Stop 09/25/18 at 08:01 ; Status DC Heparin Sodium (Porcine) (Heparin Sodium) 2,350 unit PRN Q6HRS PRN IV FOR UFH LEVEL LESS THAN 0.2; Start 09/20/18 at 09:45; Stop 09/25/18 at 08:01; Status DC Aspirin (Luci Aspirin) 325 mg 1X ONCE PO Last administered on 09/20/18at 10:00 ; Start 09/20/18 at 09:45; Stop 09/20/18 at 09:46; Status DC Magnesium Sulfate 50 ml @ 25 mls/hr 1X ONCE IV Last administered on 09/20/18at 15:23; Start 09/20/18 at 11:00; Stop 09/20/18 at 12:59; Status DC Info (Anti-Coagulation Monitoring By Pharmacy) 1 each PRN DAILY PRN MC SEE COMMENTS Last administered on 09/22/18at 08:10; Start 09/20/18 at 11:00; Stop 09/27 at 10:43; Status DC Sodium Chloride 1,000 ml @ 1,000 mls/hr 1X ONCE IV Last administered on at 12:17; Start 09/20/18 at 11:45; Stop 09/20/18 at 12:44; Status DC Aspirin (Ecotrin) 81 mg DAILYWBKFT PO Last administered on 09/27/18at 07:43; Start 09/20/18 at 15:00 Cefepime HCl (Maxipime) 1 gm Q12HR IVP Last administered on 09/23/18at 08:50; Start 09/20/18 at 21:00; Stop 09/23/18 at 11:45; Status DC Albumin Human 100 ml @ 100 mls/hr 1X ONCE IV Last administered on 09/20/18at 15 :23; Start 09/20/18 at 15:15; Stop 09/20/18 at 16:14; Status DC Sodium Chloride 1,000 ml @ 150 mls/hr Q6H40M IV Last administered on 09/21/18at 04:48; Start 09/20/18 at 22:00; Stop 09/21/18 at 15:17; Status DC Trazodone HCl (Desyrel) 50 mg DAILY PO Last administered on 09/21/18at 21:56; Start 09/21/18 at 09:00; Stop 09/21/18 at 23:39; Status DC Trazodone HCl (Desyrel) 50 mg 1X ONCE PO Last administered on 09/21/18at 00:09; Start 09/21/18 at 00:30; Stop 09/21/18 at 00:31; Status DC Furosemide (Lasix) 40 mg 1X ONCE IVP Last administered on 09/21/18at 07:54; Start 09/21/18 at 08:00; Stop 09/21/18 at 08:01; Status DC Potassium Chloride (Klor-Con) 40 meq 1X ONCE PO Last administered on 09/21/18at 07:54; Start 09/21/18 at 08:00; Stop 09/21/18 at 08:01; Status DC Potassium Chloride (Klor-Con) 40 meq 1X ONCE PO ; Start 09/21/18 at 10:00; Stop 09/21/18 at 10:00; Status DC Iodixanol (Visipaque 320) 100 ml STK-MED ONCE .ROUTE ; Start 09/21/18 at 07:49; Stop 09/21/18 at 07:50; Status DC Lidocaine HCl (Xylocaine-Mpf 1% 2ml Vial) 2 ml STK-MED ONCE .ROUTE ; Start at 07:49; Stop 09/21/18 at 07:51; Status DC Heparin Sodium/ Sodium Chloride 1,000 ml @ As Directed STK-MED ONCE .ROUTE ; Start 09/21/18 at 07:49; Stop 09/21/18 at 07:51; Status DC Potassium Chloride (Klor-Con) 40 meq Q2H PO Last administered on 09/21/18at 08:00 ; Start 09/21/18 at 08:00; Stop 09/21/18 at 12:01; Status DC Fentanyl Citrate (Fentanyl 2ml Vial) 100 mcg STK-MED ONCE .ROUTE ; Start at 08:40; Stop 09/21/18 at 08:42; Status DC Midazolam HCl (Versed) 2 mg STK-MED ONCE .ROUTE ; Start 09/21/18 at 08:40; Stop 09/21/18 at 08:42; Status DC Heparin Sodium (Porcine) (Heparin Sodium) 10,000 unit STK-MED ONCE .ROUTE ; Start 09/21/18 at 08:40; Stop 09/21/18 at 08:42; Status DC Verapamil HCl (Verapamil) 5 mg STK-MED ONCE .ROUTE ; Start 09/21/18 at 08:40; Stop 09/21/18 at 08:42; Status DC Nitroglycerin (Nitroglycerin) 200 mcg STK-MED ONCE .ROUTE ; Start 09/21/18 at 08: 40; Stop 09/21/18 at 08:42; Status DC Nitroglycerin (Nitroglycerin) 200 mcg 1X ONCE IART Last administered on at 10:16; Start 09/21/18 at 09:15; Stop 09/21/18 at 09:16; Status DC Verapamil HCl (Verapamil) 2.5 mg 1X ONCE IART Last administered on 09/21/18at 10 :17; Start 09/21/18 at 09:15; Stop 09/21/18 at 09:16; Status DC Heparin Sodium (Porcine) (Heparin Sodium) 2,500 unit 1X ONCE IART Last administered on 09/21/18 10:18; Start 09/21/18 at 09:15; Stop 09/21/18 at 09:16; Status DC Heparin Sodium/ Sodium Chloride (HEPARIN for ARTERIAL LINE FLUSH) 1,000 unit 1X ONCE IART Last administered on 09/21/18at 10:17; Start 09/21/18 at 09:15; Stop 09/21/18 at 09:16; Status DC Midazolam HCl (Versed) 2 mg 1X ONCE IV Last administered on 09/21/18 10:16; Start 09/21/18 at 09:15; Stop 09/21/18 at 09:16; Status DC Fentanyl Citrate (Fentanyl 2ml Vial) 100 mcg 1X ONCE IV Last administered on 10:16; Start 09/21/18 at 09:15; Stop 09/21/18 at 09:16; Status DC Iodixanol (Visipaque 320) 100 ml 1X ONCE IART Last administered on 09/21/18 10 :15; Start 09/21/18 at 09:15; Stop 09/21/18 at 09:16; Status DC Lidocaine HCl (Xylocaine-Mpf 1% 2ml Vial) 2 ml 1X ONCE INJ Last administered on 09/21/18 10:17; Start 09/21/18 at 09:15; Stop 09/21/18 at 09:16; Status DC Info (CONTRAST GIVEN -- Rx MONITORING) 1 each PRN DAILY PRN MC SEE COMMENTS; Start 09/21/18 at 09:15; Stop 09/23/18 at 09:14; Status DC Bivalirudin (Angiomax) 250 mg STK-MED ONCE IV ; Start 09/21/18 at 09:16; Stop 09/21/18 at 09:18; Status DC Heparin Sodium/ Sodium Chloride 500 ml @ As Directed STK-MED ONCE .ROUTE ; Start 09/21/18 at 09:20; Stop 09/21/18 at 09:22; Status DC Bivalirudin (Angiomax) 250 mg 1X ONCE IV Last administered on 09/21/18at 10:16; Start 09/21/18 at 09:30; Stop 09/21/18 at 09:32; Status DC Lactobacillus Rhamnosus (Culturelle) 1 cap BID PO Last administered on at 07:43; Start 09/21/18 at 21:00 Diphenhydramine HCl (Benadryl) 50 mg STK-MED ONCE .ROUTE ; Start 09/21/18 at 09: 49; Stop 09/21/18 at 09:51; Status DC Iodixanol (Visipaque 320) 100 ml STK-MED ONCE .ROUTE ; Start 09/21/18 at 09:56; Stop 09/21/18 at 09:58; Status DC Diphenhydramine HCl (Benadryl) 25 mg 1X ONCE IVP Last administered on at 10:18; Start 09/21/18 at 10:15; Stop 09/21/18 at 10:16; Status DC Nitroglycerin (Nitroglycerin) 200 mcg STK-MED ONCE .ROUTE ; Start 09/21/18 at 10: 18; Stop 09/21/18 at 10:19; Status DC Clopidogrel Bisulfate (Plavix) 75 mg DAILYWBKFT PO Last administered on at 07:42; Start 09/22/18 at 08:00 Acetaminophen (Tylenol) 650 mg PRN Q6HRS PRN PO MILD PAIN / TEMP Last administered on 09/21/18at 21:56; Start 09/21/18 at 10:30 Nitroglycerin (Nitrostat) 0.4 mg PRN Q5MIN PRN SL CHEST PAIN; Start 09/21/18 at 10:30 Clopidogrel Bisulfate (Plavix) 600 mg 1X ONCE PO ; Start 09/21/18 at 10:30; Stop 09/21/18 at 10:31; Status Cancel Metoprolol Tartrate (Lopressor Vial) 5 mg PRN Q5MIN PRN IVP TACHYCARDIA Last administered on 09/21/18at 17:58; Start 09/21/18 at 12:15 Clopidogrel Bisulfate (Plavix) 600 mg 1X ONCE PO Last administered on at 15:30; Start 09/21/18 at 15:15; Stop 09/21/18 at 15:16; Status DC Pantoprazole Sodium (PROTONIX VIAL for IV PUSH) 40 mg DAILYAC IVP Last administered on 09/27/18 07:42; Start 09/21/18 at 16:00 Metoprolol Tartrate (Lopressor Vial) 5 mg 1X STAT IVP ; Start 09/21/18 at 17:50 ; Stop 09/21/18 at 17:52; Status DC Metoprolol Tartrate (Lopressor) 25 mg Q6HRS PO Last administered on 09/22/18at 13 :32; Start 09/21/18 at 18:00; Stop 09/22/18 at 14:57; Status DC Mirtazapine (Remeron Jes-Tab) 15 mg PRN QHS PRN PO INSOMNIA Last administered on 09/23/18 21:09; Start 09/21/18 at 21:30 Amlodipine Besylate (Norvasc) 5 mg DAILY PO Last administered on 09/22/18at 08:55 ; Start 09/22/18 at 09:00; Stop 09/22/18 at 14:59; Status DC Atorvastatin Calcium (Lipitor) 20 mg QHS PO Last administered on 09/26/18at 20: 59; Start 09/21/18 at 22:00 Tamsulosin HCl (Flomax) 0.4 mg DAILY PO Last administered on 09/27/18 07:43; Start 09/22/18 at 09:00 Trazodone HCl (Desyrel) 50 mg HS PO Last administered on 09/26/18at 21:01; Start 09/22/18 at 21:00 Potassium Chloride (Klor-Con) 40 meq 1X ONCE PO Last administered on 09/22/18at 02:14; Start 09/22/18 at 00:30; Stop 09/22/18 at 00:59; Status DC Potassium Chloride (Klor-Con) 40 meq 1X ONCE PO Last administered on 09/22/18at 04:07; Start 09/22/18 at 02:30; Stop 09/22/18 at 02:31; Status DC Potassium Chloride (Klor-Con) 40 meq 1X ONCE PO Last administered on 09/22/18at 06:08; Start 09/22/18 at 04:30; Stop 09/22/18 at 04:31; Status DC Furosemide (Lasix) 40 mg 1X ONCE IVP Last administered on 09/22/18at 15:25; Start 09/22/18 at 15:00; Stop 09/22/18 at 15:01; Status DC Potassium Chloride (Klor-Con) 40 meq 1X ONCE PO Last administered on 09/22/18at 15:27; Start 09/22/18 at 15:00; Stop 09/22/18 at 15:01; Status DC Metoprolol Tartrate (Lopressor) 50 mg BID PO Last administered on 09/27/18at 07: 43; Start 09/22/18 at 21:00 Digoxin (Lanoxin) 500 mcg 1X ONCE IV Last administered on 09/22/18at 15:27; Start 09/22/18 at 15:00; Stop 09/22/18 at 15:01; Status DC Lisinopril (Prinivil) 5 mg DAILY PO Last administered on 09/27/18at 07:42; Start 09/23/18 at 09:00 Ceftriaxone Sodium (Rocephin) 2 gm Q24H IVP Last administered on 09/26/18at 20: 58; Start 09/23/18 at 21:00 Magnesium Sulfate 50 ml @ 25 mls/hr 1X ONCE IV Last administered on 09/23/18at 13:40; Start 09/23/18 at 13:00; Stop 09/23/18 at 14:59; Status DC Iohexol (Omnipaque 300 Mg/ml) 100 ml STK-MED ONCE .ROUTE ; Start 09/24/18 at 14: 30; Stop 09/24/18 at 14:32; Status DC Lidocaine HCl (Lidocaine 1% 20ml Vial) 20 ml STK-MED ONCE .ROUTE ; Start at 14:30; Stop 09/24/18 at 14:32; Status DC Heparin Sodium/ Sodium Chloride 1,000 ml @ As Directed STK-MED ONCE .ROUTE ; Start 09/24/18 at 14:30; Stop 09/24/18 at 14:32; Status DC Fentanyl Citrate (Fentanyl 2ml Vial) 100 mcg STK-MED ONCE .ROUTE ; Start at 15:19; Stop 09/24/18 at 15:21; Status DC Midazolam HCl (Versed) 2 mg STK-MED ONCE .ROUTE ; Start 09/24/18 at 15:19; Stop 09/24/18 at 15:21; Status DC Heparin Sodium (Porcine) (Heparin Sodium) 10,000 unit STK-MED ONCE .ROUTE ; Start 09/24/18 at 15:25; Stop 09/24/18 at 15:28; Status DC Verapamil HCl (Verapamil) 5 mg STK-MED ONCE .ROUTE ; Start 09/24/18 at 15:26; Stop 09/24/18 at 15:28; Status DC Nitroglycerin/ Dextrose (Nitroglycerin) 4 mg STK-MED ONCE .ROUTE ; Start at 15:26; Stop 09/24/18 at 15:28; Status DC Bivalirudin (Angiomax) 250 mg STK-MED ONCE IV ; Start 09/24/18 at 15:52; Stop at 15:54; Status DC Heparin Sodium/ Sodium Chloride (HEPARIN for ARTERIAL LINE FLUSH) 1,000 unit 1X ONCE IART Last administered on 09/24/18at 17:29; Start 09/24/18 at 16:15; Stop 09/24/18 at 16:27; Status DC Midazolam HCl (Versed) 2 mg 1X ONCE IV Last administered on 09/24/18at 17:31; Start 09/24/18 at 16:15; Stop 09/24/18 at 16:27; Status DC Fentanyl Citrate (Fentanyl 2ml Vial) 100 mcg 1X ONCE IV Last administered on at 17:30; Start 09/24/18 at 16:15; Stop 09/24/18 at 16:27; Status DC Iohexol (Omnipaque 300 Mg/ml) 100 ml 1X ONCE IART Last administered on at 17:30; Start 09/24/18 at 16:15; Stop 09/24/18 at 16:27; Status DC Bivalirudin (Angiomax) 250 mg 1X ONCE IV Last administered on 09/24/18at 17:29 ; Start 09/24/18 at 16:15; Stop 09/24/18 at 16:27; Status DC Nitroglycerin/ Dextrose 4 mg/ Verapamil HCl 10 mg/Heparin Sodium (Porcine) 4000 unit/ Miscellaneous 20 ml/Sodium Chloride 1,048 ml @ 1,000 mls/hr 1X ONCE IART Last administered on 09/24/18at 16:30; Start 09/24/18 at 16:15; Stop at 17:17; Status DC Lidocaine HCl (Lidocaine 1% 20ml Vial) 19 ml 1X ONCE INJ Last administered on 09/24/18at 17:29; Start 09/24/18 at 16:15; Stop 09/24/18 at 16:27; Status DC Diphenhydramine HCl (Benadryl) 50 mg STK-MED ONCE .ROUTE ; Start 09/24/18 at 16: 18; Stop 09/24/18 at 16:20; Status DC Iodixanol (Visipaque 320) 100 ml STK-MED ONCE .ROUTE ; Start 09/24/18 at 16:37; Stop 09/24/18 at 16:39; Status DC Diphenhydramine HCl (Benadryl) 50 mg 1X ONCE IVP Last administered on at 17:31; Start 09/24/18 at 16:45; Stop 09/24/18 at 16:46; Status DC Fentanyl Citrate (Fentanyl 2ml Vial) 100 mcg STK-MED ONCE .ROUTE ; Start at 17:06; Stop 09/24/18 at 17:08; Status DC Bivalirudin (Angiomax) 250 mg STK-MED ONCE IV ; Start 09/24/18 at 17:06; Stop at 17:08; Status DC Sodium Chloride 1,000 ml @ 75 mls/hr [id number] IV Last administered on at 07:44; Start 09/24/18 at 18:30 Acetaminophen (Tylenol) 650 mg PRN Q6HRS PRN PO MILD PAIN / TEMP; Start at 18:15; Status UNV Nitroglycerin (Nitrostat) 0.4 mg PRN Q5MIN PRN SL CHEST PAIN; Start 09/24/18 at 18:15; Status UNV Warfarin Sodium (Coumadin) 1.25 mg DAILY16 PO ; Start 09/25/18 at 16:00; Stop at 16:00; Status DC Warfarin Sodium (Coumadin Per Physician) 1 each PRN DAILY PRN MC SEE COMMENTS; Start 09/25/18 at 11:15 Warfarin Sodium (Coumadin) 1.25 mg QM-F PO ; Start 09/27/18 at 16:00; Stop 09/27 at 16:00; Status DC Warfarin Sodium (Coumadin) 0.5 mg QM-F PO ; Start 09/27/18 at 16:00; Stop at 16:00; Status DC Active Scripts Active Reported Metformin Hcl 500 Mg Tablet 250 Mg PO BIDWMEALS Flomax (Tamsulosin Hcl) 0.4 Mg Cap.er.24h 0.4 Mg PO DAILY Trazodone Hcl 50 Mg Tablet 50 Mg PO DAILY Amlodipine Besylate 5 Mg Tablet 5 Mg PO DAILY Toprol Xl (Metoprolol Succinate) 50 Mg Tab.er.24h 50 Mg PO DAILY Fosinopril Sodium 40 Mg Tablet 40 Mg PO DAILY Warfarin Sodium 1 Mg Tablet 1.75 Mg PO DAILY Atorvastatin Calcium 20 Mg Tablet 20 Mg PO DAILY Vitals/I & O Vital Sign - Last 24 Hours 09/26/18 09/26/18 09/26/18 09/26/18 15:00 19:15 19:16 21:04 Temp 97.2 97.8 97.2 97.8 Pulse 77 86 86 Resp 20 B/P (MAP) 145/81 (102) 135/73 (93) 135/73 Pulse Ox 98 95 O2 Delivery Room Air Room Air Room Air 09/26/18 09/27/18 09/27/18 09/27/18 23:10 03:05 07:15 07:42 Temp 97.8 97.6 97.4 97.8 97.6 97.4 Pulse 80 90 83 77 Resp 20 20 20 B/P (MAP) 144/80 (101) 152/73 (99) 159/86 (110) 159/86 Pulse Ox 96 96 98 O2 Delivery Room Air Room Air Room Air 09/27/18 09/27/18 09/27/18 07:43 08:00 11:00 Temp 97.6 97.6 Pulse 77 69 Resp 24 B/P (MAP) 159/86 141/72 (95) Pulse Ox 96 O2 Delivery Room Air Room Air O2 Flow Rate 2.0 Intake and Output 09/26/18 09/26/18 09/27/18 15:01 23:01 07:01 Intake Total 160 ml 530 ml 1150 ml Output Total 400 ml 900 ml Balance 160 ml 130 ml 250 ml SOLIS SOTOMAYOR MD Sep 27, 2018 14:22
[2018-09-27 15:00] VITALS: BP 150/48
--- NOTE | 2018-09-27 15:21 | NUR ---
SS following up with discharge planning. SS received notification that pt has been accepted at [facility].
[2018-09-27] MEDS ORDERED: WARFARIN 0.5 MG TABLET. PO SCH (16:00)
[2018-09-27] MEDS ORDERED: WARFARIN 2.5 MG TABLET. PO SCH (16:00)
[2018-09-27 19:59] VITALS: BP 145/77
[2018-09-27] MEDS: ATORVASTATIN CALCIUM 20 MG TABLET PO SCH (21:26)
[2018-09-27] MEDS: traZODone 50 MG TABLET. PO SCH (21:26)
[2018-09-27] MEDS: cefTRIAXone IV Push 2 GM VIAL. IVP SCH (21:27)
[2018-09-28 02:48] VITALS: BP 151/74
[2018-09-28 05:00] LABS: BASO % 0 % (0-3); EOS # 0.2 x10^3/uL (0.0-0.7); EOS % 2 % (0-3); HEMATOCRIT 32.3 % (39.0-53.0); HEMOGLOBIN 11.3 g/dL (13.0-17.5); LYMPH % 10 % (24-48); MEAN CORPUSCULAR HEMOGLOBIN 33 pg (25-35); MEAN CORPUSCULAR HGB CONC 35 g/dL (31-37); MEAN CORPUSCULAR VOLUME 93 fL (79-100); MONO # 0.8 x10^3/uL (0.0-1.1); MONO % 8 % (0-9); NEUT # 7.7 x10^3uL (1.8-7.7); NEUT % 79 % (31-73); PLATELET COUNT 252 x10^3/uL (140-400); RED BLOOD COUNT 3.46 x10^6/uL (4.30-5.70); RED CELL DISTRIBUTION WIDTH 14.8 % (11.5-14.5); WHITE BLOOD COUNT 9.8 x10^3/uL (4.0-11.0)
[2018-09-28 05:01] LABS: CALCIUM 8.2 mg/dL (8.5-10.1); CREATININE 0.8 mg/dL (0.7-1.3); GFR 93.7
[2018-09-28 05:27] LABS: POTASSIUM 2.9 mmol/L (3.5-5.1)
[2018-09-28] MEDS: POTASSIUM CHLORIDE 20 MEQ TABLET.ER. PO SCH ×2 (06:32→09:11)
[2018-09-28 07:00] VITALS: BP 150/90
--- NOTE | 2018-09-28 08:49 | PDOC ---
Infectious Disease Note Subjective Subjective feeling good Denies pain/SOA/N/V/D No fevers Vital Sign Vital Signs Vital Signs Date Time Temp Pulse Resp B/P (MAP) Pulse Ox O2 Delivery O2 Flow Rate FiO2 09/28/18 07:00 97.7 80 16 150/90 (110) 95 Room Air 97.7 09/27/18 08:00 2.0 Physical Exam PHYSICAL EXAM GENERAL: Up in the chair, asleep HEENT: Pupils are equal and reactive. Normal conjunctivae. Oral cavity, pharynx is dry. NECK: Supple. No JVD. LUNGS: Decreased at bases. No wheezes. HEART: S1, S2. No gross murmur. ABDOMEN: Protuberant, soft and nontender. No guarding or rebound. : Yang EXTREMITIES: He has some chronic lower extremity venous stasis changes. SKIN: Otherwise warm to touch, without signs of rash. NEUROLOGIC: Arouses to name, responds to simple questions appropriately and follows commands PIV Labs Lab Laboratory Tests Test 09/28/18 03:50 White Blood Count 9.8 x10^3/uL (4.0-11.0) Red Blood Count 3.46 x10^6/uL (4.30-5.70) Hemoglobin 11.3 g/dL (13.0-17.5) Hematocrit 32.3 % (39.0-53.0) Mean Corpuscular Volume 93 fL (79-100) Mean Corpuscular Hemoglobin 33 pg (25-35) Mean Corpuscular Hemoglobin Concent 35 g/dL (31-37) Red Cell Distribution Width 14.8 % (11.5-14.5) Platelet Count 252 x10^3/uL (140-400) Neutrophils (%) (Auto) 79 % (31-73) Lymphocytes (%) (Auto) 10 % (24-48) Monocytes (%) (Auto) 8 % (0-9) Eosinophils (%) (Auto) 2 % (0-3) Basophils (%) (Auto) 0 % (0-3) Neutrophils # (Auto) 7.7 x10^3uL (1.8-7.7) Lymphocytes # (Auto) 1.0 x10^3/uL (1.0-4.8) Monocytes # (Auto) 0.8 x10^3/uL (0.0-1.1) Eosinophils # (Auto) 0.2 x10^3/uL (0.0-0.7) Basophils # (Auto) 0.0 x10^3/uL (0.0-0.2) Sodium Level 143 mmol/L (136-145) Potassium Level 2.9 mmol/L (3.5-5.1) Chloride Level 106 mmol/L (98-107) Carbon Dioxide Level 29 mmol/L (21-32) Anion Gap 8 (6-14) Blood Urea Nitrogen 14 mg/dL (8-26) Creatinine 0.8 mg/dL (0.7-1.3) Estimated GFR (Cockcroft-Gault) 93.7 Glucose Level 104 mg/dL (70-99) Calcium Level 8.2 mg/dL (8.5-10.1) Magnesium Level 1.6 mg/dL (1.8-2.4) Objective Assessment Ecoli sepsis POA 09/19 (Leukopenia/Fever/Hypotension). improving, repeat BC 09/23 NGTD Ecoli UTI - POA 09/20 S/p NSTEMI Encephalopathy Diastolic heart failure Hemorrhage into the right psoas muscle seen on CT Bilateral pleural effusions and adjacent atelectasis. A-fib, warfarin scheduled Q M-F Plan Plan of Care Cont Rocephin - ,, can be changed to po vantin Probiotics Supportive care [facility]iology to be notified of CT findings, - D/w RN D/w pharmacy MAY TEMPLETON MD Sep 28, 2018 08:49
[2018-09-28] MEDS: ASPIRIN ENTERIC COATED 81 MG TABLET.DR. PO SCH (09:08)
[2018-09-28] MEDS: LACTOBACILLUS RHAMNOSUS GG 1 CAPSULE. PO SCH ×2 (09:10→20:33)
[2018-09-28] MEDS: LISINOPRIL 5 MG TABLET. PO SCH (09:10)
[2018-09-28] MEDS: CLOPIDOGREL BISULFATE 75 MG TABLET PO SCH (09:10)
[2018-09-28] MEDS: TAMSULOSIN 0.4 MG CAP.ER.24H. PO SCH (09:10)
[2018-09-28] MEDS: METOPRO PO SCH ×2 (09:11→20:33)
[2018-09-28] MEDS: CEFDINIR 300 MG CAPSULE PO SCH ×2 (09:26→20:33)
[2018-09-28 11:15] VITALS: BP 135/67
[2018-09-28] MEDS ORDERED: MAGNESIUM SULFATE 2GM 50 ML IV ONE (13:00)
--- NOTE | 2018-09-28 14:35 | PDOC ---
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 History of dyslipidemia psoas muscle hemmorhage noted Plan fu with id, dced recephin, on po abx, last bcx 09/23 neg. before bcx, ucx all + ecoli still on asa, plavix, hb stable, warfarin held. persistent afib. INR daily Follow neurological status - RESOLVED Cardiology consultation done and s/p catheterization Continue to monitor hemodynamics closely continue home meds sw fu , need rehab. will repeat abd ct before dc and then consider coumarin tmr. replete K, mag, RECheck labs tmr. History of Present Illness History of Present Illness feels good, hb stable, ct on sat showed psoas hemarrhage, no flank pain last bcx neg , 09/23. before bcx and ucx + e coli got cath and PCI at [facility], LEFT CIRCIMFLEX 09/24 LOW po intake Vitals Vitals Vital Signs Date Time Temp Pulse Resp B/P (MAP) Pulse Ox O2 Delivery O2 Flow Rate FiO2 09/28/18 11:15 97.7 70 24 135/67 (89) 97 Room Air 97.7 09/27/18 08:00 2.0 Physical Exam Physical Exam GENERAL: Up in the chair, asleep HEENT: Pupils are equal and reactive. Normal conjunctivae. Oral cavity, pharynx is dry. NECK: Supple. No JVD. LUNGS: Decreased at bases. No wheezes. HEART: S1, S2. No gross murmur. ABDOMEN: Protuberant, soft and nontender. No guarding or rebound. : Yang EXTREMITIES: He has some chronic lower extremity venous stasis changes. SKIN: Otherwise warm to touch, without signs of rash. NEUROLOGIC: Arouses to name, responds to simple questions appropriately and follows commands PIV General: Alert, Cooperative, No acute distress Heart: Other (IRRR; tele AFIB with controlled rate) Abdomen: Soft, No tenderness, Other (right groin looked good) Extremities: No edema, Normal pulses Skin: No significant lesion Labs LABS Laboratory Tests Test 09/28/18 03:50 White Blood Count 9.8 x10^3/uL (4.0-11.0) Red Blood Count 3.46 x10^6/uL (4.30-5.70) Hemoglobin 11.3 g/dL (13.0-17.5) Hematocrit 32.3 % (39.0-53.0) Mean Corpuscular Volume 93 fL (79-100) Mean Corpuscular Hemoglobin 33 pg (25-35) Mean Corpuscular Hemoglobin Concent 35 g/dL (31-37) Red Cell Distribution Width 14.8 % (11.5-14.5) Platelet Count 252 x10^3/uL (140-400) Neutrophils (%) (Auto) 79 % (31-73) Lymphocytes (%) (Auto) 10 % (24-48) Monocytes (%) (Auto) 8 % (0-9) Eosinophils (%) (Auto) 2 % (0-3) Basophils (%) (Auto) 0 % (0-3) Neutrophils # (Auto) 7.7 x10^3uL (1.8-7.7) Lymphocytes # (Auto) 1.0 x10^3/uL (1.0-4.8) Monocytes # (Auto) 0.8 x10^3/uL (0.0-1.1) Eosinophils # (Auto) 0.2 x10^3/uL (0.0-0.7) Basophils # (Auto) 0.0 x10^3/uL (0.0-0.2) Sodium Level 143 mmol/L (136-145) Potassium Level 2.9 mmol/L (3.5-5.1) Chloride Level 106 mmol/L (98-107) Carbon Dioxide Level 29 mmol/L (21-32) Anion Gap 8 (6-14) Blood Urea Nitrogen 14 mg/dL (8-26) Creatinine 0.8 mg/dL (0.7-1.3) Estimated GFR (Cockcroft-Gault) 93.7 Glucose Level 104 mg/dL (70-99) Calcium Level 8.2 mg/dL (8.5-10.1) Magnesium Level 1.6 mg/dL (1.8-2.4) Assessment and Plan Assessmemt and Plan Problems Medical Problems: (1) Atrial fibrillation with rapid ventricular response Status: Acute (2) Metabolic encephalopathy Status: Acute (3) Sepsis due to urinary tract infection Status: Acute Comment Review of Relevant I have reviewed the following items yolis (where applicable) has been applied. Labs Laboratory Tests Test 09/27/18 05:00 09/28/18 03:50 White Blood Count 10.4 x10^3/uL (4.0-11.0) 9.8 x10^3/uL (4.0-11.0) Red Blood Count 3.51 x10^6/uL (4.30-5.70) 3.46 x10^6/uL (4.30-5.70) Hemoglobin 11.7 g/dL (13.0-17.5) 11.3 g/dL (13.0-17.5) Hematocrit 32.9 % (39.0-53.0) 32.3 % (39.0-53.0) Mean Corpuscular Volume 94 fL (79-100) 93 fL (79-100) Mean Corpuscular Hemoglobin 33 pg (25-35) 33 pg (25-35) Mean Corpuscular Hemoglobin Concent 36 g/dL (31-37) 35 g/dL (31-37) Red Cell Distribution Width 14.6 % (11.5-14.5) 14.8 % (11.5-14.5) Platelet Count 209 x10^3/uL (140-400) 252 x10^3/uL (140-400) Neutrophils (%) (Auto) 80 % (31-73) 79 % (31-73) Lymphocytes (%) (Auto) 11 % (24-48) 10 % (24-48) Monocytes (%) (Auto) 7 % (0-9) 8 % (0-9) Eosinophils (%) (Auto) 2 % (0-3) 2 % (0-3) Basophils (%) (Auto) 0 % (0-3) 0 % (0-3) Neutrophils # (Auto) 8.3 x10^3uL (1.8-7.7) 7.7 x10^3uL (1.8-7.7) Lymphocytes # (Auto) 1.1 x10^3/uL (1.0-4.8) 1.0 x10^3/uL (1.0-4.8) Monocytes # (Auto) 0.7 x10^3/uL (0.0-1.1) 0.8 x10^3/uL (0.0-1.1) Eosinophils # (Auto) 0.2 x10^3/uL (0.0-0.7) 0.2 x10^3/uL (0.0-0.7) Basophils # (Auto) 0.0 x10^3/uL (0.0-0.2) 0.0 x10^3/uL (0.0-0.2) Prothrombin Time 20.0 SEC (11.7-14.0) Prothromb Time International Ratio 1.7 (0.8-1.1) Sodium Level 143 mmol/L (136-145) 143 mmol/L (136-145) Potassium Level 3.6 mmol/L (3.5-5.1) 2.9 mmol/L (3.5-5.1) Chloride Level 106 mmol/L (98-107) 106 mmol/L (98-107) Carbon Dioxide Level 30 mmol/L (21-32) 29 mmol/L (21-32) Anion Gap 7 (6-14) 8 (6-14) Blood Urea Nitrogen 14 mg/dL (8-26) 14 mg/dL (8-26) Creatinine 0.8 mg/dL (0.7-1.3) 0.8 mg/dL (0.7-1.3) Estimated GFR (Cockcroft-Gault) 93.7 93.7 Glucose Level 97 mg/dL (70-99) 104 mg/dL (70-99) Calcium Level 8.3 mg/dL (8.5-10.1) 8.2 mg/dL (8.5-10.1) Magnesium Level 1.6 mg/dL (1.8-2.4) Laboratory Tests Test 09/28/18 03:50 White Blood Count 9.8 x10^3/uL (4.0-11.0) Red Blood Count 3.46 x10^6/uL (4.30-5.70) Hemoglobin 11.3 g/dL (13.0-17.5) Hematocrit 32.3 % (39.0-53.0) Mean Corpuscular Volume 93 fL (79-100) Mean Corpuscular Hemoglobin 33 pg (25-35) Mean Corpuscular Hemoglobin Concent 35 g/dL (31-37) Red Cell Distribution Width 14.8 % (11.5-14.5) Platelet Count 252 x10^3/uL (140-400) Neutrophils (%) (Auto) 79 % (31-73) Lymphocytes (%) (Auto) 10 % (24-48) Monocytes (%) (Auto) 8 % (0-9) Eosinophils (%) (Auto) 2 % (0-3) Basophils (%) (Auto) 0 % (0-3) Neutrophils # (Auto) 7.7 x10^3uL (1.8-7.7) Lymphocytes # (Auto) 1.0 x10^3/uL (1.0-4.8) Monocytes # (Auto) 0.8 x10^3/uL (0.0-1.1) Eosinophils # (Auto) 0.2 x10^3/uL (0.0-0.7) Basophils # (Auto) 0.0 x10^3/uL (0.0-0.2) Sodium Level 143 mmol/L (136-145) Potassium Level 2.9 mmol/L (3.5-5.1) Chloride Level 106 mmol/L (98-107) Carbon Dioxide Level 29 mmol/L (21-32) Anion Gap 8 (6-14) Blood Urea Nitrogen 14 mg/dL (8-26) Creatinine 0.8 mg/dL (0.7-1.3) Estimated GFR (Cockcroft-Gault) 93.7 Glucose Level 104 mg/dL (70-99) Calcium Level 8.2 mg/dL (8.5-10.1) Magnesium Level 1.6 mg/dL (1.8-2.4) Microbiology 09/23/18 Blood Culture - Final, Complete NO GROWTH AFTER 5 DAYS 09/20/18 Urine Culture - Final, Complete 09/20/18 Urine Culture Result 1 (AKHIL) - Final, Complete 09/20/18 Antimicrobic Susceptibility - Final, Complete Medications Current Medications Sodium Chloride 1,000 ml @ 1,000 mls/hr Q1H IV Last administered on 09/20/18at 15:23; Start 09/20/18 at 04:00; Stop 09/20/18 at 06:10; Status DC Diltiazem HCl (Cardizem Iv Push) 10 mg 1X ONCE IVP Last administered on at 04:08; Start 09/20/18 at 04:30; Stop 09/20/18 at 04:31; Status DC Diltiazem HCl 125 mg/Dextrose 125 ml @ 5 mls/hr CONT PRN IV SEE I/O RECORD Last administered on 09/20/18at 04:13; Start 09/20/18 at 04:00; Stop 09/20/18 at 16: 32; Status DC Ceftriaxone Sodium (Rocephin) 1 gm 1X ONCE IVP Last administered on 09/20/18at 04:08; Start 09/20/18 at 04:30; Stop 09/20/18 at 04:31; Status DC Ceftriaxone Sodium (Rocephin) 1 gm STK-MED ONCE IVP ; Start 09/20/18 at 04:04; Stop 09/20/18 at 04:06; Status DC Diltiazem HCl (Cardizem Iv Push) 25 mg STK-MED ONCE .ROUTE ; Start 09/20/18 at 04 :04; Stop 09/20/18 at 04:06; Status DC Acetaminophen (Tylenol Supp) 650 mg 1X ONCE NH Last administered on 09/20/18at 04:27; Start 09/20/18 at 04:30; Stop 09/20/18 at 04:31; Status DC Ceftriaxone Sodium (Rocephin) 1 gm 1X ONCE IVP Last administered on 09/20/18at 05:23; Start 09/20/18 at 05:30; Stop 09/20/18 at 05:31; Status DC Albuterol/ Ipratropium (Duoneb) 3 ml 1X ONCE NEB Last administered on at 05:37; Start 09/20/18 at 05:30; Stop 09/20/18 at 05:31; Status DC Ondansetron HCl (Zofran) 4 mg PRN Q8HRS PRN IV NAUSEA/VOMITING 1ST CHOICE; Start 09/20/18 at 06:00; Stop 09/21/18 at 05:59; Status DC Sodium Chloride 1,000 ml @ 150 mls/hr Q6H40M IV Last administered on 09/20/18at 06:32; Start 09/20/18 at 05:52; Stop 09/20/18 at 15:10; Status DC Acetaminophen (Tylenol) 650 mg PRN Q4HRS PRN PO FEVER; Start 09/20/18 at 06:00; Stop 09/21/18 at 05:59; Status DC Albuterol/ Ipratropium (Duoneb) 3 ml RTQID NEB Last administered on 09/20/18at 20 :21; Start 09/20/18 at 08:00; Stop 09/21/18 at 07:59; Status DC Sodium Chloride 1,000 ml @ 1,000 mls/hr 1X ONCE IV Last administered on at 08:40; Start 09/20/18 at 08:00; Stop 09/20/18 at 08:59; Status DC Norepinephrine Bitartrate 250 ml @ 9.375 mls/ hr CONT PRN IV SEE I/O RECORD Last administered on 09/20/18at 08:51; Start 09/20/18 at 08:45; Stop 09/27/18 at 14 :20; Status DC Heparin Sodium (Porcine) (Heparin Sodium) 3,950 unit 1X ONCE IV Last administered on 09/20/18at 09:51; Start 09/20/18 at 09:45; Stop 09/20/18 at 09:46; Status DC Heparin Sodium/ Dextrose 500 ml @ 20 mls/hr CONT PRN IV SEE I/O RECORD Last administered on 09/23/18at 14:58; Start 09/20/18 at 09:45; Stop 09/25/18 at 08:01 ; Status DC Heparin Sodium (Porcine) (Heparin Sodium) 2,350 unit PRN Q6HRS PRN IV FOR UFH LEVEL LESS THAN 0.2; Start 09/20/18 at 09:45; Stop 09/25/18 at 08:01; Status DC Aspirin (Luci Aspirin) 325 mg 1X ONCE PO Last administered on 09/20/18at 10:00 ; Start 09/20/18 at 09:45; Stop 09/20/18 at 09:46; Status DC Magnesium Sulfate 50 ml @ 25 mls/hr 1X ONCE IV Last administered on 09/20/18at 15:23; Start 09/20/18 at 11:00; Stop 09/20/18 at 12:59; Status DC Info (Anti-Coagulation Monitoring By Pharmacy) 1 each PRN DAILY PRN MC SEE COMMENTS Last administered on 09/22/18at 08:10; Start 09/20/18 at 11:00; Stop 09/27 at 10:43; Status DC Sodium Chloride 1,000 ml @ 1,000 mls/hr 1X ONCE IV Last administered on at 12:17; Start 09/20/18 at 11:45; Stop 09/20/18 at 12:44; Status DC Aspirin (Ecotrin) 81 mg DAILYWBKFT PO Last administered on 09/28/18at 09:08; Start 09/20/18 at 15:00 Cefepime HCl (Maxipime) 1 gm Q12HR IVP Last administered on 09/23/18at 08:50; Start 09/20/18 at 21:00; Stop 09/23/18 at 11:45; Status DC Albumin Human 100 ml @ 100 mls/hr 1X ONCE IV Last administered on 09/20/18at 15 :23; Start 09/20/18 at 15:15; Stop 09/20/18 at 16:14; Status DC Sodium Chloride 1,000 ml @ 150 mls/hr Q6H40M IV Last administered on 09/21/18at 04:48; Start 09/20/18 at 22:00; Stop 09/21/18 at 15:17; Status DC Trazodone HCl (Desyrel) 50 mg DAILY PO Last administered on 09/21/18at 21:56; Start 09/21/18 at 09:00; Stop 09/21/18 at 23:39; Status DC Trazodone HCl (Desyrel) 50 mg 1X ONCE PO Last administered on 09/21/18at 00:09; Start 09/21/18 at 00:30; Stop 09/21/18 at 00:31; Status DC Furosemide (Lasix) 40 mg 1X ONCE IVP Last administered on 09/21/18at 07:54; Start 09/21/18 at 08:00; Stop 09/21/18 at 08:01; Status DC Potassium Chloride (Klor-Con) 40 meq 1X ONCE PO Last administered on 09/21/18at 07:54; Start 09/21/18 at 08:00; Stop 09/21/18 at 08:01; Status DC Potassium Chloride (Klor-Con) 40 meq 1X ONCE PO ; Start 09/21/18 at 10:00; Stop 09/21/18 at 10:00; Status DC Iodixanol (Visipaque 320) 100 ml STK-MED ONCE .ROUTE ; Start 09/21/18 at 07:49; Stop 09/21/18 at 07:50; Status DC Lidocaine HCl (Xylocaine-Mpf 1% 2ml Vial) 2 ml STK-MED ONCE .ROUTE ; Start at 07:49; Stop 09/21/18 at 07:51; Status DC Heparin Sodium/ Sodium Chloride 1,000 ml @ As Directed STK-MED ONCE .ROUTE ; Start 09/21/18 at 07:49; Stop 09/21/18 at 07:51; Status DC Potassium Chloride (Klor-Con) 40 meq Q2H PO Last administered on 09/21/18at 08:00 ; Start 09/21/18 at 08:00; Stop 09/21/18 at 12:01; Status DC Fentanyl Citrate (Fentanyl 2ml Vial) 100 mcg STK-MED ONCE .ROUTE ; Start at 08:40; Stop 09/21/18 at 08:42; Status DC Midazolam HCl (Versed) 2 mg STK-MED ONCE .ROUTE ; Start 09/21/18 at 08:40; Stop 09/21/18 at 08:42; Status DC Heparin Sodium (Porcine) (Heparin Sodium) 10,000 unit STK-MED ONCE .ROUTE ; Start 09/21/18 at 08:40; Stop 09/21/18 at 08:42; Status DC Verapamil HCl (Verapamil) 5 mg STK-MED ONCE .ROUTE ; Start 09/21/18 at 08:40; Stop 09/21/18 at 08:42; Status DC Nitroglycerin (Nitroglycerin) 200 mcg STK-MED ONCE .ROUTE ; Start 09/21/18 at 08: 40; Stop 09/21/18 at 08:42; Status DC Nitroglycerin (Nitroglycerin) 200 mcg 1X ONCE IART Last administered on at 10:16; Start 09/21/18 at 09:15; Stop 09/21/18 at 09:16; Status DC Verapamil HCl (Verapamil) 2.5 mg 1X ONCE IART Last administered on 09/21/18 10 :17; Start 09/21/18 at 09:15; Stop 09/21/18 at 09:16; Status DC Heparin Sodium (Porcine) (Heparin Sodium) 2,500 unit 1X ONCE IART Last administered on 09/21/18at 10:18; Start 09/21/18 at 09:15; Stop 09/21/18 at 09:16; Status DC Heparin Sodium/ Sodium Chloride (HEPARIN for ARTERIAL LINE FLUSH) 1,000 unit 1X ONCE IART Last administered on 09/21/18 10:17; Start 09/21/18 at 09:15; Stop 09/21/18 at 09:16; Status DC Midazolam HCl (Versed) 2 mg 1X ONCE IV Last administered on 09/21/18 10:16; Start 09/21/18 at 09:15; Stop 09/21/18 at 09:16; Status DC Fentanyl Citrate (Fentanyl 2ml Vial) 100 mcg 1X ONCE IV Last administered on 10:16; Start 09/21/18 at 09:15; Stop 09/21/18 at 09:16; Status DC Iodixanol (Visipaque 320) 100 ml 1X ONCE IART Last administered on 09/21/18 10 :15; Start 09/21/18 at 09:15; Stop 09/21/18 at 09:16; Status DC Lidocaine HCl (Xylocaine-Mpf 1% 2ml Vial) 2 ml 1X ONCE INJ Last administered on 09/21/18 10:17; Start 09/21/18 at 09:15; Stop 09/21/18 at 09:16; Status DC Info (CONTRAST GIVEN -- Rx MONITORING) 1 each PRN DAILY PRN MC SEE COMMENTS; Start 09/21/18 at 09:15; Stop 09/23/18 at 09:14; Status DC Bivalirudin (Angiomax) 250 mg STK-MED ONCE IV ; Start 09/21/18 at 09:16; Stop 09/21/18 at 09:18; Status DC Heparin Sodium/ Sodium Chloride 500 ml @ As Directed STK-MED ONCE .ROUTE ; Start 09/21/18 at 09:20; Stop 09/21/18 at 09:22; Status DC Bivalirudin (Angiomax) 250 mg 1X ONCE IV Last administered on 09/21/18at 10:16; Start 09/21/18 at 09:30; Stop 09/21/18 at 09:32; Status DC Lactobacillus Rhamnosus (Culturelle) 1 cap BID PO Last administered on at 09:10; Start 09/21/18 at 21:00 Diphenhydramine HCl (Benadryl) 50 mg STK-MED ONCE .ROUTE ; Start 09/21/18 at 09: 49; Stop 09/21/18 at 09:51; Status DC Iodixanol (Visipaque 320) 100 ml STK-MED ONCE .ROUTE ; Start 09/21/18 at 09:56; Stop 09/21/18 at 09:58; Status DC Diphenhydramine HCl (Benadryl) 25 mg 1X ONCE IVP Last administered on at 10:18; Start 09/21/18 at 10:15; Stop 09/21/18 at 10:16; Status DC Nitroglycerin (Nitroglycerin) 200 mcg STK-MED ONCE .ROUTE ; Start 09/21/18 at 10: 18; Stop 09/21/18 at 10:19; Status DC Clopidogrel Bisulfate (Plavix) 75 mg DAILYWBKFT PO Last administered on at 09:10; Start 09/22/18 at 08:00 Acetaminophen (Tylenol) 650 mg PRN Q6HRS PRN PO MILD PAIN / TEMP Last administered on 09/21/18at 21:56; Start 09/21/18 at 10:30 Nitroglycerin (Nitrostat) 0.4 mg PRN Q5MIN PRN SL CHEST PAIN; Start 09/21/18 at 10:30 Clopidogrel Bisulfate (Plavix) 600 mg 1X ONCE PO ; Start 09/21/18 at 10:30; Stop 09/21/18 at 10:31; Status Cancel Metoprolol Tartrate (Lopressor Vial) 5 mg PRN Q5MIN PRN IVP TACHYCARDIA Last administered on 09/21/18at 17:58; Start 09/21/18 at 12:15 Clopidogrel Bisulfate (Plavix) 600 mg 1X ONCE PO Last administered on at 15:30; Start 09/21/18 at 15:15; Stop 09/21/18 at 15:16; Status DC Pantoprazole Sodium (PROTONIX VIAL for IV PUSH) 40 mg DAILYAC IVP Last administered on 09/27/18at 07:42; Start 09/21/18 at 16:00; Stop 09/27/18 at 14:20 ; Status DC Metoprolol Tartrate (Lopressor Vial) 5 mg 1X STAT IVP ; Start 09/21/18 at 17:50 ; Stop 09/21/18 at 17:52; Status DC Metoprolol Tartrate (Lopressor) 25 mg Q6HRS PO Last administered on 09/22/18at 13 :32; Start 09/21/18 at 18:00; Stop 09/22/18 at 14:57; Status DC Mirtazapine (Remeron Jes-Tab) 15 mg PRN QHS PRN PO INSOMNIA Last administered on 09/23/18at 21:09; Start 09/21/18 at 21:30 Amlodipine Besylate (Norvasc) 5 mg DAILY PO Last administered on 09/22/18at 08:55 ; Start 09/22/18 at 09:00; Stop 09/22/18 at 14:59; Status DC Atorvastatin Calcium (Lipitor) 20 mg QHS PO Last administered on 09/27/18at 21: 26; Start 09/21/18 at 22:00 Tamsulosin HCl (Flomax) 0.4 mg DAILY PO Last administered on 09/28/18at 09:10; Start 09/22/18 at 09:00 Trazodone HCl (Desyrel) 50 mg HS PO Last administered on 09/27/18at 21:26; Start 09/22/18 at 21:00 Potassium Chloride (Klor-Con) 40 meq 1X ONCE PO Last administered on 09/22/18at 02:14; Start 09/22/18 at 00:30; Stop 09/22/18 at 00:59; Status DC Potassium Chloride (Klor-Con) 40 meq 1X ONCE PO Last administered on 09/22/18at 04:07; Start 09/22/18 at 02:30; Stop 09/22/18 at 02:31; Status DC Potassium Chloride (Klor-Con) 40 meq 1X ONCE PO Last administered on 09/22/18at 06:08; Start 09/22/18 at 04:30; Stop 09/22/18 at 04:31; Status DC Furosemide (Lasix) 40 mg 1X ONCE IVP Last administered on 09/22/18at 15:25; Start 09/22/18 at 15:00; Stop 09/22/18 at 15:01; Status DC Potassium Chloride (Klor-Con) 40 meq 1X ONCE PO Last administered on 09/22/18at 15:27; Start 09/22/18 at 15:00; Stop 09/22/18 at 15:01; Status DC Metoprolol Tartrate (Lopressor) 50 mg BID PO Last administered on 09/28/18at 09: 11; Start 09/22/18 at 21:00 Digoxin (Lanoxin) 500 mcg 1X ONCE IV Last administered on 09/22/18at 15:27; Start 09/22/18 at 15:00; Stop 09/22/18 at 15:01; Status DC Lisinopril (Prinivil) 5 mg DAILY PO Last administered on 09/28/18at 09:10; Start 09/23/18 at 09:00 Ceftriaxone Sodium (Rocephin) 2 gm Q24H IVP Last administered on 09/27/18at 21: 27; Start 09/23/18 at 21:00; Stop 09/28/18 at 08:51; Status DC Magnesium Sulfate 50 ml @ 25 mls/hr 1X ONCE IV Last administered on 09/23/18at 13:40; Start 09/23/18 at 13:00; Stop 09/23/18 at 14:59; Status DC Iohexol (Omnipaque 300 Mg/ml) 100 ml STK-MED ONCE .ROUTE ; Start 09/24/18 at 14: 30; Stop 09/24/18 at 14:32; Status DC Lidocaine HCl (Lidocaine 1% 20ml Vial) 20 ml STK-MED ONCE .ROUTE ; Start at 14:30; Stop 09/24/18 at 14:32; Status DC Heparin Sodium/ Sodium Chloride 1,000 ml @ As Directed STK-MED ONCE .ROUTE ; Start 09/24/18 at 14:30; Stop 09/24/18 at 14:32; Status DC Fentanyl Citrate (Fentanyl 2ml Vial) 100 mcg STK-MED ONCE .ROUTE ; Start at 15:19; Stop 09/24/18 at 15:21; Status DC Midazolam HCl (Versed) 2 mg STK-MED ONCE .ROUTE ; Start 09/24/18 at 15:19; Stop 09/24/18 at 15:21; Status DC Heparin Sodium (Porcine) (Heparin Sodium) 10,000 unit STK-MED ONCE .ROUTE ; Start 09/24/18 at 15:25; Stop 09/24/18 at 15:28; Status DC Verapamil HCl (Verapamil) 5 mg STK-MED ONCE .ROUTE ; Start 09/24/18 at 15:26; Stop 09/24/18 at 15:28; Status DC Nitroglycerin/ Dextrose (Nitroglycerin) 4 mg STK-MED ONCE .ROUTE ; Start at 15:26; Stop 09/24/18 at 15:28; Status DC Bivalirudin (Angiomax) 250 mg STK-MED ONCE IV ; Start 09/24/18 at 15:52; Stop at 15:54; Status DC Heparin Sodium/ Sodium Chloride (HEPARIN for ARTERIAL LINE FLUSH) 1,000 unit 1X ONCE IART Last administered on 09/24/18at 17:29; Start 09/24/18 at 16:15; Stop 09/24/18 at 16:27; Status DC Midazolam HCl (Versed) 2 mg 1X ONCE IV Last administered on 09/24/18at 17:31; Start 09/24/18 at 16:15; Stop 09/24/18 at 16:27; Status DC Fentanyl Citrate (Fentanyl 2ml Vial) 100 mcg 1X ONCE IV Last administered on at 17:30; Start 09/24/18 at 16:15; Stop 09/24/18 at 16:27; Status DC Iohexol (Omnipaque 300 Mg/ml) 100 ml 1X ONCE IART Last administered on at 17:30; Start 09/24/18 at 16:15; Stop 09/24/18 at 16:27; Status DC Bivalirudin (Angiomax) 250 mg 1X ONCE IV Last administered on 09/24/18at 17:29 ; Start 09/24/18 at 16:15; Stop 09/24/18 at 16:27; Status DC Nitroglycerin/ Dextrose 4 mg/ Verapamil HCl 10 mg/Heparin Sodium (Porcine) 4000 unit/ Miscellaneous 20 ml/Sodium Chloride 1,048 ml @ 1,000 mls/hr 1X ONCE IART Last administered on 09/24/18at 16:30; Start 09/24/18 at 16:15; Stop at 17:17; Status DC Lidocaine HCl (Lidocaine 1% 20ml Vial) 19 ml 1X ONCE INJ Last administered on 09/24/18at 17:29; Start 09/24/18 at 16:15; Stop 09/24/18 at 16:27; Status DC Diphenhydramine HCl (Benadryl) 50 mg STK-MED ONCE .ROUTE ; Start 09/24/18 at 16: 18; Stop 09/24/18 at 16:20; Status DC Iodixanol (Visipaque 320) 100 ml STK-MED ONCE .ROUTE ; Start 09/24/18 at 16:37; Stop 09/24/18 at 16:39; Status DC Diphenhydramine HCl (Benadryl) 50 mg 1X ONCE IVP Last administered on at 17:31; Start 09/24/18 at 16:45; Stop 09/24/18 at 16:46; Status DC Fentanyl Citrate (Fentanyl 2ml Vial) 100 mcg STK-MED ONCE .ROUTE ; Start at 17:06; Stop 09/24/18 at 17:08; Status DC Bivalirudin (Angiomax) 250 mg STK-MED ONCE IV ; Start 09/24/18 at 17:06; Stop at 17:08; Status DC Sodium Chloride 1,000 ml @ 75 mls/hr [id number] IV Last administered on at 07:44; Start 09/24/18 at 18:30; Stop 09/27/18 at 14:20; Status DC Acetaminophen (Tylenol) 650 mg PRN Q6HRS PRN PO MILD PAIN / TEMP; Start at 18:15; Status UNV Nitroglycerin (Nitrostat) 0.4 mg PRN Q5MIN PRN SL CHEST PAIN; Start 09/24/18 at 18:15; Status UNV Warfarin Sodium (Coumadin) 1.25 mg DAILY16 PO ; Start 09/25/18 at 16:00; Stop at 16:00; Status DC Warfarin Sodium (Coumadin Per Physician) 1 each PRN DAILY PRN MC SEE COMMENTS Last administered on 09/28/18at 14:25; Start 09/25/18 at 11:15 Warfarin Sodium (Coumadin) 1.25 mg QM-F PO ; Start 09/27/18 at 16:00; Stop 09/27 at 16:00; Status DC Warfarin Sodium (Coumadin) 0.5 mg QM-F PO ; Start 09/27/18 at 16:00; Stop at 16:00; Status DC Potassium Chloride (Klor-Con) 40 meq BIDACBL PO Last administered on 09/28/18at 09:11; Start 09/28/18 at 07:30 Cefdinir (Omnicef) 300 mg BID PO Last administered on 09/28/18at 09:26; Start at 09:30 Magnesium Sulfate 50 ml @ 25 mls/hr 1X ONCE IV Last administered on 09/28/18at 13:35; Start 09/28/18 at 13:00; Stop 09/28/18 at 14:59 Active Scripts Active Reported Metformin Hcl 500 Mg Tablet 250 Mg PO BIDWMEALS Flomax (Tamsulosin Hcl) 0.4 Mg Cap.er.24h 0.4 Mg PO DAILY Trazodone Hcl 50 Mg Tablet 50 Mg PO DAILY Amlodipine Besylate 5 Mg Tablet 5 Mg PO DAILY Toprol Xl (Metoprolol Succinate) 50 Mg Tab.er.24h 50 Mg PO DAILY Fosinopril Sodium 40 Mg Tablet 40 Mg PO DAILY Warfarin Sodium 1 Mg Tablet 1.75 Mg PO DAILY Atorvastatin Calcium 20 Mg Tablet 20 Mg PO DAILY Vitals/I & O Vital Sign - Last 24 Hours 09/27/18 09/27/18 09/27/18 09/27/18 15:00 19:59 20:23 21:26 Temp 97.9 97.9 97.9 97.9 Pulse 82 77 77 Resp 16 16 B/P (MAP) 150/48 (82) 145/77 (99) 145/77 Pulse Ox 97 97 O2 Delivery Room Air Room Air Room Air 09/28/18 09/28/18 09/28/18 09/28/18 02:48 07:00 09:10 09:11 Temp 97.5 97.7 97.5 97.7 Pulse 76 80 80 80 Resp 16 16 B/P (MAP) 151/74 (99) 150/90 (110) 150/90 150/90 Pulse Ox 96 95 O2 Delivery Room Air Room Air 09/28/18 11:15 Temp 97.7 97.7 Pulse 70 Resp 24 B/P (MAP) 135/67 (89) Pulse Ox 97 O2 Delivery Room Air Intake and Output 09/27/18 09/27/18 09/28/18 15:01 23:01 07:01 Intake Total 620 ml 200 ml 300 ml Output Total 700 ml 950 ml Balance -80 ml 200 ml -650 ml SOLIS SOTOMAYOR MD Sep 28, 2018 14:35
[2018-09-28 15:20] VITALS: BP 119/71
--- NOTE | 2018-09-28 19:18 | PDOC ---
Provider Note Provider Note 09/28/2018 1400 Pt not seen in room. Noted with right psoas hemorrhage per CT on 09/25 post [facility]. Hgb has been stable. VSS. No notable pain per staff. His is S/P PCI with stents to LAD/LCx with NSTEMI and will continue DAPT. Will hold home coumadin for now and will obtain follow up imaging as an outpt and reevaluate when to restart coumadin used primarily for stroke prevention for AFIB. Will see tomorrow. STEVAN IRAHETA [employer] Sep 28, 2018 19:18
[2018-09-28 19:29] VITALS: BP 143/72
[2018-09-28] MEDS: ATORVASTATIN CALCIUM 20 MG TABLET PO SCH (20:33)
[2018-09-28] MEDS: traZODone 50 MG TABLET. PO SCH (20:33)
[2018-09-28 22:50] VITALS: BP 139/76
[2018-09-29 02:33] VITALS: BP 150/83
[2018-09-29 05:23] LABS: BASO # 0.1 x10^3/uL (0.0-0.2); BASO % 1 % (0-3); EOS # 0.2 x10^3/uL (0.0-0.7); EOS % 2 % (0-3); HEMATOCRIT 33.5 % (39.0-53.0); HEMOGLOBIN 11.6 g/dL (13.0-17.5); LYMPH % 11 % (24-48); MEAN CORPUSCULAR HEMOGLOBIN 33 pg (25-35); MEAN CORPUSCULAR HGB CONC 35 g/dL (31-37); MEAN CORPUSCULAR VOLUME 95 fL (79-100); MONO # 0.8 x10^3/uL (0.0-1.1); MONO % 9 % (0-9); NEUT % 78 % (31-73); PLATELET COUNT 269 x10^3/uL (140-400); RED BLOOD COUNT 3.55 x10^6/uL (4.30-5.70); RED CELL DISTRIBUTION WIDTH 15.2 % (11.5-14.5)
[2018-09-29 05:40] LABS: PROTHROMBIN TIME PATIENT 17.6 SEC (11.7-14.0)
[2018-09-29 05:51] LABS: CALCIUM 8.7 mg/dL (8.5-10.1); CREATININE 0.8 mg/dL (0.7-1.3); GFR 93.7; MAGNESIUM 1.9 mg/dL (1.8-2.4); POTASSIUM 3.5 mmol/L (3.5-5.1)
[2018-09-29 07:00] VITALS: BP 144/75
--- NOTE | 2018-09-29 08:22 | PDOC ---
Infectious Disease Note Subjective Subjective feeling good Denies pain/SOA/N/V/D No fevers Vital Sign Vital Signs Vital Signs Date Time Temp Pulse Resp B/P (MAP) Pulse Ox O2 Delivery O2 Flow Rate FiO2 09/29/18 07:00 97.3 77 18 144/75 (98) 98 Room Air 97.3 Physical Exam PHYSICAL EXAM GENERAL: Up in the chair, asleep HEENT: Pupils are equal and reactive. Normal conjunctivae. Oral cavity, pharynx is dry. NECK: Supple. No JVD. LUNGS: Decreased at bases. No wheezes. HEART: S1, S2. No gross murmur. ABDOMEN: Protuberant, soft and nontender. No guarding or rebound. : Yang EXTREMITIES: He has some chronic lower extremity venous stasis changes. SKIN: Otherwise warm to touch, without signs of rash. NEUROLOGIC: Arouses to name, responds to simple questions appropriately and follows commands PIV Labs Lab Laboratory Tests Test 09/29/18 03:40 09/29/18 03:45 White Blood Count 9.0 x10^3/uL (4.0-11.0) Red Blood Count 3.55 x10^6/uL (4.30-5.70) Hemoglobin 11.6 g/dL (13.0-17.5) Hematocrit 33.5 % (39.0-53.0) Mean Corpuscular Volume 95 fL (79-100) Mean Corpuscular Hemoglobin 33 pg (25-35) Mean Corpuscular Hemoglobin Concent 35 g/dL (31-37) Red Cell Distribution Width 15.2 % (11.5-14.5) Platelet Count 269 x10^3/uL (140-400) Neutrophils (%) (Auto) 78 % (31-73) Lymphocytes (%) (Auto) 11 % (24-48) Monocytes (%) (Auto) 9 % (0-9) Eosinophils (%) (Auto) 2 % (0-3) Basophils (%) (Auto) 1 % (0-3) Neutrophils # (Auto) 7.0 x10^3uL (1.8-7.7) Lymphocytes # (Auto) 1.0 x10^3/uL (1.0-4.8) Monocytes # (Auto) 0.8 x10^3/uL (0.0-1.1) Eosinophils # (Auto) 0.2 x10^3/uL (0.0-0.7) Basophils # (Auto) 0.1 x10^3/uL (0.0-0.2) Prothrombin Time 17.6 SEC (11.7-14.0) Prothromb Time International Ratio 1.5 (0.8-1.1) Sodium Level 143 mmol/L (136-145) Potassium Level 3.5 mmol/L (3.5-5.1) Chloride Level 107 mmol/L (98-107) Carbon Dioxide Level 28 mmol/L (21-32) Anion Gap 8 (6-14) Blood Urea Nitrogen 15 mg/dL (8-26) Creatinine 0.8 mg/dL (0.7-1.3) Estimated GFR (Cockcroft-Gault) 93.7 Glucose Level 108 mg/dL (70-99) Calcium Level 8.7 mg/dL (8.5-10.1) Magnesium Level 1.9 mg/dL (1.8-2.4) Objective Assessment Ecoli sepsis POA 09/19 (Leukopenia/Fever/Hypotension). improving, repeat BC 09/23 NGTD Ecoli UTI - POA 09/20 S/p NSTEMI Encephalopathy Diastolic heart failure Hemorrhage into the right psoas muscle seen on CT Bilateral pleural effusions and adjacent atelectasis. A-fib, warfarin scheduled Q M-F Plan Plan of Care po vantin for 7 days Probiotics Supportive care CBC Cardiology to be notified of CT findings, - D/w RN D/w pharmacy MAY TEMPLETON MD Sep 29, 2018 08:22
[2018-09-29] MEDS: ASPIRIN ENTERIC COATED 81 MG TABLET.DR. PO SCH (08:59)
[2018-09-29] MEDS: TAMSULOSIN 0.4 MG CAP.ER.24H. PO SCH (08:59)
[2018-09-29] MEDS: CLOPIDOGREL BISULFATE 75 MG TABLET PO SCH (08:59)
[2018-09-29] MEDS: LACTOBACILLUS RHAMNOSUS GG 1 CAPSULE. PO SCH (08:59)
[2018-09-29] MEDS: CEFDINIR 300 MG CAPSULE PO SCH (08:59)
[2018-09-29] MEDS: LISINOPRIL 5 MG TABLET. PO SCH (09:00)
[2018-09-29] MEDS: METOPRO PO SCH (09:03)
--- NOTE | 2018-09-29 10:56 | PDOC ---
STEVAN IRAHETA MOLD INJECTOR 09/29/18 1056: CARDIO Progress Notes Date and Time Date of Service 09/29/2018 Time of Evaluation 1030 Subjective Subjective: No Chest Pain, No shortness of breath, No Palpitations Vitals Vitals Vital Signs Date Time Temp Pulse Resp B/P (MAP) Pulse Ox O2 Delivery O2 Flow Rate FiO2 09/29/18 09:03 75 152/80 09/29/18 07:00 97.3 18 98 Room Air 97.3 Weight Weight [ ] Input and Output Intake and Output Intake and Output 09/29/18 07:01 Intake Total 1360 ml Output Total 300 ml Balance 1060 ml Intake Oral 1360 ml Output Urine Total 300 ml # Voids 6 Laboratory Labs Laboratory Tests Test 09/29/18 03:40 09/29/18 03:45 White Blood Count 9.0 x10^3/uL (4.0-11.0) Red Blood Count 3.55 x10^6/uL (4.30-5.70) Hemoglobin 11.6 g/dL (13.0-17.5) Hematocrit 33.5 % (39.0-53.0) Mean Corpuscular Volume 95 fL (79-100) Mean Corpuscular Hemoglobin 33 pg (25-35) Mean Corpuscular Hemoglobin Concent 35 g/dL (31-37) Red Cell Distribution Width 15.2 % (11.5-14.5) Platelet Count 269 x10^3/uL (140-400) Neutrophils (%) (Auto) 78 % (31-73) Lymphocytes (%) (Auto) 11 % (24-48) Monocytes (%) (Auto) 9 % (0-9) Eosinophils (%) (Auto) 2 % (0-3) Basophils (%) (Auto) 1 % (0-3) Neutrophils # (Auto) 7.0 x10^3uL (1.8-7.7) Lymphocytes # (Auto) 1.0 x10^3/uL (1.0-4.8) Monocytes # (Auto) 0.8 x10^3/uL (0.0-1.1) Eosinophils # (Auto) 0.2 x10^3/uL (0.0-0.7) Basophils # (Auto) 0.1 x10^3/uL (0.0-0.2) Prothrombin Time 17.6 SEC (11.7-14.0) Prothromb Time International Ratio 1.5 (0.8-1.1) Sodium Level 143 mmol/L (136-145) Potassium Level 3.5 mmol/L (3.5-5.1) Chloride Level 107 mmol/L (98-107) Carbon Dioxide Level 28 mmol/L (21-32) Anion Gap 8 (6-14) Blood Urea Nitrogen 15 mg/dL (8-26) Creatinine 0.8 mg/dL (0.7-1.3) Estimated GFR (Cockcroft-Gault) 93.7 Glucose Level 108 mg/dL (70-99) Calcium Level 8.7 mg/dL (8.5-10.1) Magnesium Level 1.9 mg/dL (1.8-2.4) Microbiology Micro Microbiology 09/23/18 Blood Culture - Final, Complete NO GROWTH AFTER 5 DAYS 09/20/18 Urine Culture - Final, Complete 09/20/18 Urine Culture Result 1 (AKHIL) - Final, Complete 09/20/18 Antimicrobic Susceptibility - Final, Complete Physical Exam HEENT: Neck Supple W Full Motion Chest: Symmetric LUNGS: Other (bibasilar crackles ) Heart: S1S2, irregularly irregular (AFIB with PVCs rate controlled) Abdomen: Soft N/T, Other (no bruising or hematoma around abdomen and ) Extremities: No Calf Tenderness Neurology: alert, follow commands, other (periods of confusion ) Other Exams Right groin arteriotomy site intact, no swelling or hematoma. Assessment Assessment 1. NSTEMI: S/P atherectomy/HAND TOUCH UP PAINTER/stents placement LAD/LCx 2. CAD: 3VD, see above. Stable 3. Mild acute on chronic diastolic HF; LVEF 50%, compensated 4. Chronic AFIB: rate controlled with PVCs. K and Mg on goal 5. Metabolic encephalopathy secondary to UTI; treatment as per PCP 6. Sepsis/UTI, hypotension- resolved 7. Right Psoas Hemorrhage post LHC: noted via CT in 09/25/2018. Stable. VSS, Hgb stable. No discomfort Recommendations 1. Continue to hold warfarin for now and will reeval further use as an outpt. Continue with ASA and plavix. 2. Continue secondary prevention. ASA for stroke prevention for now. 3. Follow up imaging in regards to his psoas as an outpt prior to his cardiology follow up. Discussed with primary dough mixer helper 4. Ok to DC to SNU. DELIA MCDONALD MD 09/29/182037: CARDIO Progress Notes Assessment Assessment Patient seen and examined. Agree with PICKED EDGE SEWING MACHINE OPERATOR's assessment and plan s/p PCI/stents to LAD/LCX, chest pain free Perm atrial fibrillation rate controlled Continue current medical regimen We will readdress AC issue as outpatient STEVAN IRAHETA APRN Sep 29, 2018 10:56 DELIA MCDONALD MD Sep 29, 2018 20:38
[2018-09-29 11:00] VITALS: BP 131/66
[2018-09-29] MEDS ORDERED: CLOP75TA PO (11:40)
[2018-09-29] MEDS ORDERED: CEFD300C PO ×2 (11:40→13:26)
[2018-09-29] MEDS ORDERED: ASPI-612 PO (11:40)
[2018-09-29] MEDS ORDERED: LISI10TA2 PO (11:40)
--- NOTE | 2018-09-29 11:42 | DISCH ---
DISCHARGE DISCHARGE INFORMATION: DISCHARGE DATE: Sep 29, 2018 FINAL DIAGNOSIS Problems Medical Problems: (1) Atrial fibrillation with rapid ventricular response Status: Acute (2) Metabolic encephalopathy Status: Acute (3) Sepsis due to urinary tract infection Status: Acute CONDITION ON DISCHARGE: Stable CODE STATUS: Code Status: Full NURSING HOME: SNF STAY <30 DAYS: Yes POST DISCHARGE ORDERS: ACTIVITY ORDERS: Avoid exertion WEIGHT BEARING STATUS: As tolerated DIET AFTER DISCHARGE: Cardiac FOLLOW-UP: PHYSICIAN FOLLOW-UP: pile driving superintendent in 2 weeks, repeat abd ct in 2 weeks TREATMENT/EQUIPMENT ORDERS: Physical Therapy For: Evalulation/Treatment Occupational Therapy For: Evaluation/Treatment DISCHARGE MEDICATIONS: Home Meds Active Scripts Aspirin (ASPIRIN EC) 81 Mg Tablet.dr, 81 MG PO DAILYWBKFT for mi for 30 Days, # 30 TAB.SR Prov:SOLIS SOTOMAYOR MD 09/29/18 Lisinopril (LISINOPRIL) 10 Mg Tablet, 10 MG PO DAILY for mi for 30 Days, #30 TAB Prov:SOLIS SOTOMAYOR MD 09/29/18 Clopidogrel Bisulfate (CLOPIDOGREL) 75 Mg Tablet, 75 MG PO DAILYWBKFT for mi for 30 Days, #30 TAB Prov:SOLIS SOTOMAYOR MD 09/29/18 Cefdinir (CEFDINIR) 300 Mg Capsule, 300 MG PO BID for infection for 6 Days, #12 CAP Prov:SOLIS SOTOMAYOR MD 09/29/18 Reported Medications Metformin Hcl (METFORMIN HCL) 500 Mg Tablet, 250 MG PO BIDWMEALS for ANTI- DIABETIC, TAB 0 Refills 09/20/18 Tamsulosin Hcl (FLOMAX) 0.4 Mg Cap.er.24h, 0.4 MG PO DAILY, TAB 08/23/15 Trazodone Hcl (TRAZODONE HCL) 50 Mg Tablet, 50 MG PO DAILY, TAB 08/23/15 Metoprolol Succinate (TOPROL XL) 50 Mg Tab.er.24h, 50 MG PO DAILY for FOR HYPERTENSION, #30 TAB 0 Refills 03/25/14 Atorvastatin Calcium (ATORVASTATIN CALCIUM) 20 Mg Tablet, 20 MG PO DAILY for FOR CHOLESTEROL, #30 TAB 0 Refills 03/25/14 Discontinued Reported Medications Amlodipine Besylate (AMLODIPINE BESYLATE) 5 Mg Tablet, 5 MG PO DAILY, TAB 08/23/15 Fosinopril Sodium (FOSINOPRIL SODIUM) 40 Mg Tablet, 40 MG PO DAILY 03/25/14 Warfarin Sodium (WARFARIN SODIUM) 1 Mg Tablet, 1.75 MG PO DAILY, TAB 03/25/14 SOLIS SOTOMAYOR MD Sep 29, 2018 11:42
--- NOTE | 2018-09-29 11:46 | NUR ---
SS following up with discharge planning. Discharge orders received for [facility]. SS phoned and faxed discharge orders to [facility], ; fax [phone]. Pt will discharge today and go to [facility] at 1300 via [facility] transport, . Pt choice and rights forms signed by pt and placed in chart. Pt, pt's RN, and pt's spouse notified.
[2018-09-29] MEDS ORDERED: CEFP200T PO (12:56)
--- NOTE | 2018-09-29 13:00 | NUR ---
Verified with Dr. Fabian Montaño patient is to go to [facility] with omnicef 300mg BID for 7 more days.
--- NOTE | 2018-09-29 14:01 | PDOC3 ---
Discharge Summary [facility] Date of Admission: Sep 20, 2018 Discharge Date: Sep 29, 2018 Admitting Diagnosis Altered mental status secondary to sepsis secondary to UTI ecoli Gram negative rods bacteremia echoli Atrial fibrillation with rapid ventricular response improved Non ST segment elevation myocardial infarction s/p PCI Hypomagnesemia replaced altered mental status secondary to UTI seems to have a recurrence of his episode plus the ICU stay may also contribute since patient has not been able to sleep well over the last 3 nights. History of dyslipidemia psoas muscle hemmorhage noted Final Diagnosis CONSULTS card id Brief Hospital Course Mr. Sharma is a 78 old M, came for AMS, was found UTI, bacteremia with both ecoli. repeated bcx neg. pt was also found high trop, did cath , got stents. pt has been stable, chronic afib, ct abd showed rt psoas muscule hemarrhage, coumadin held, on asa, plavix. hb stable. talked to card, ok to hold warfarin , repeat ct as outpt. ID in the note said jaleesatin , but start po abx 2 ds ago with cefdinir. i told nurse to call dr. Montaño to make sure. either one should be ok tho. dc time 35min. GENERAL: Up in the chair, HEENT: Pupils are equal and reactive. Normal conjunctivae. Oral cavity, pharynx is dry. NECK: Supple. No JVD. LUNGS: Decreased at bases. No wheezes. HEART: S1, S2. No gross murmur. ABDOMEN: Protuberant, soft and nontender. No guarding or rebound. : Yang EXTREMITIES: He has some chronic lower extremity venous stasis changes. SKIN: Otherwise warm to touch, without signs of rash. NEUROLOGIC: Arouses to name, responds to simple questions appropriately and follows commands Disposition rehab CONDITION AT DISCHARGE: Improved Scheduled Aspirin (Aspirin Ec), 81 MG PO DAILYWBKFT Atorvastatin Calcium (Atorvastatin Calcium), 20 MG PO DAILY, (Reported) Cefdinir (Cefdinir), 1 CAP PO BID, (Reported) Clopidogrel Bisulfate (Clopidogrel), 75 MG PO DAILYWBKFT Lisinopril (Lisinopril), 10 MG PO DAILY Metformin Hcl (Metformin Hcl), 250 MG PO BIDWMEALS, (Reported) Metoprolol Succinate (Toprol Xl), 50 MG PO DAILY, (Reported) Tamsulosin Hcl (Flomax), 0.4 MG PO DAILY, (Reported) Trazodone Hcl (Trazodone Hcl), 50 MG PO DAILY, (Reported) Discontinued Medications Amlodipine Besylate (Amlodipine Besylate), 5 MG PO DAILY, (Reported) Fosinopril Sodium (Fosinopril Sodium), 40 MG PO DAILY, (Reported) Warfarin Sodium (Warfarin Sodium), 1.75 MG PO DAILY, (Reported) SOLIS SOTOMAYOR MD Sep 29, 2018 14:01
[2018-09-30] MEDS ORDERED: LISINOPRIL 10 MG TABLET PO SCH (09:00)
== END 2018-09-29 14:00 | DRG 853 ==
LOC: ER 03:48 → 1 WEST ICU 05:35 → 2 NORTH 09-25 17:45
PROVIDERS: ADMIT Family Medicine; ATTEND Family Medicine
PROC: 4A023N7 Measurement of Cardiac Sampling and Pressure, Left Heart, Percutaneous Approach (ICD-10-PCS; principal; 2018-09-21)
PROC: 02703ZZ Dilation of Coronary Artery, One Artery, Percutaneous Approach (ICD-10-PCS; 2018-09-21)
PROC: B2111ZZ Fluoroscopy of Multiple Coronary Arteries using Low Osmolar Contrast (ICD-10-PCS; 2018-09-21)
PROC: 02713EZ Dilation of Coronary Artery, Two Arteries with Two Intraluminal Devices, Percutaneous Approach (ICD-10-PCS; 2018-09-24)
PROC: 02C13ZZ Extirpation of Matter from Coronary Artery, Two Arteries, Percutaneous Approach (ICD-10-PCS; 2018-09-24)
PROC: B2111ZZ Fluoroscopy of Multiple Coronary Arteries using Low Osmolar Contrast (ICD-10-PCS; 2018-09-24)
DX: A41.51 Sepsis due to Escherichia coli [E. coli] (principal); I21.4 Non-ST elevation (NSTEMI) myocardial infarction; G93.41 Metabolic encephalopathy; I50.33 Acute on chronic diastolic (congestive) heart failure; E87.2 Acidosis; J98.11 Atelectasis; N39.0 Urinary tract infection, site not specified; E78.00 Pure hypercholesterolemia, unspecified; E78.5 Hyperlipidemia, unspecified; E83.42 Hypomagnesemia; F17.210 Nicotine dependence, cigarettes, uncomplicated; I11.0 Hypertensive heart disease with heart failure; I25.10 Atherosclerotic heart disease of native coronary artery without angina pectoris; I48.2 Chronic atrial fibrillation; I49.3 Ventricular premature depolarization; N40.0 Benign prostatic hyperplasia without lower urinary tract symptoms; F32.9 Major depressive disorder, single episode, unspecified; F41.9 Anxiety disorder, unspecified; M19.90 Unspecified osteoarthritis, unspecified site; I95.9 Hypotension, unspecified; K57.90 Diverticulosis of intestine, part unspecified, without perforation or abscess without bleeding; Z79.01 Long term (current) use of anticoagulants; Z82.49 Family history of ischemic heart disease and other diseases of the circulatory system; Z98.61 Coronary angioplasty status
CPT/HCPCS: 36415; 36600; 51702; 70450; 71045; 74176; 80048; 80053; 80061; 81001; 82140; 82550; 82805; 83605; 83735; 83880; 84132; 84145; 84484; 85007; 85025; 85027; 85520; 85610; 87040; 87086; 87186; 87205; 87641; 87804; 92920; 92933; 92934; 93005; 93306; 93454; 94640; 94760; 96374; 96375; 99152; 99153; C1724; C1725; C1760; C1769; C1876; C1887; C1892; C9113; G0269; J0583; J0692; J0696; J1160; J1200; J1644; J1940; J2250; J3010; J3475; J3490; J7030; J7620; P9046; Q9967; 97110; 97116; 99285-25; C1771; G0378

== ENCOUNTER 2021-11-21 07:28 | Inpatient (IN) | payer MEDICARE ==
[~2021-11-21] VITALS: Ht 177.8 cm; Wt 89.8 kg
[~2021-11-21 07:28] MED LIST changes: +ACET325T21 PO; +ALPR0.5T PO; +ALPR0.5T6 PO; +AMLO-186 PO; -AMLO5TAB10 PO; +APIX5TAB PO; +ASPI-886 PO; +CEFD300C PO; +CEFP200T PO; +CEFU250T59 PO; +CHOL5000 PO; +CLOP75TA PO; -FOSI40TA4 PO; +FOSI40TA52 PO; +FURO40TA4 PO; +HYDR-2765 PO; +LISI-130 PO; +LISI10TA16 PO; +METF500T16 PO; +NYST15PO2 TP; +PANT40TA77 PO; +POTA10TA12 PO; +POTA20TA4 PO; -POTA20TA82 PO; +PSYL3.4P PO; +SENN-209 PO
--- NOTE | 2021-11-21 07:50 | PHYS DOC ---
Past Medical History Past Medical History: A-Fib, Diverticulosis, High Cholesterol, Hypertension Additional Past Medical Histor: PROLAPSED RECTUM Past Surgical History: Other Additional Past Surgical Histo: MASS REMOVED FROM COLON, NON CANCEROUS Smoking Status: Former Smoker Alcohol Use: None Drug Use: None General Adult EDM: Chief Complaint: DYSPNEA/RESPIRATORY DISTRESS HPI: HPI: Patient is a 81 year old male who was brought here by EMS from home due to trouble breathing and rapid heart rate. Patient stated this morning at 5 AM, he was doing okay, he was watching TV when suddenly he becomes shaky and having trouble breathing. EMS were called, his oxygen saturation was 65% on room air, he is not on oxygen. Patient was placed on a nonrebreather, brought in here for evaluation. Patient denies any headache, no neck pain, no chest pain. Patient does have a history of CHF and history of atrial fibrillation. Review of Systems: Review of Systems: Constitutional: Denies fever or chills. [] Eyes: Denies change in visual acuity. [] HENT: Denies nasal congestion or sore throat. [] Respiratory: Denies cough, positive shortness of air. Cardiovascular: Denies chest pain or edema. Positive for palpitation GI: Denies abdominal pain, nausea, vomiting, bloody stools or diarrhea. [] : Denies dysuria. [] Musculoskeletal: Denies back pain or joint pain. [] Integument: Denies rash. [] Neurologic: Denies headache, focal weakness or sensory changes. [] Endocrine: Denies polyuria or polydipsia. [] Lymphatic: Denies swollen glands. [] Psychiatric: Denies depression or anxiety. [] Heart Score: C/O Chest Pain: N/A Risk Factors: Risk Factors: DM, Current or recent (<one month) smoker, HTN, HLP, family history of CAD, obesity. Risk Scores: Score 0 - 3: 2.5% MACE over next 6 weeks - Discharge Home Score 4 - 6: 20.3% MACE over next 6 weeks - Admit for Clinical Observation Score 7 - 10: 72.7% MACE over next 6 weeks - Early Invasive Strategies Allergies: Allergies: Allergies Coded Allergies Type Severity Reaction Last Updated Verified No Known Drug Allergies 10/23/21 No Physical Exam: PE: Constitutional: Well developed, well nourished, moderate acute distress, non- toxic appearance. [] HENT: Normocephalic, atraumatic, bilateral external ears normal, oropharynx moist, no oral exudates, nose normal. [] Eyes: PERRLA, EOMI, conjunctiva normal, no discharge. [] Neck: Normal range of motion, no tenderness, supple, no stridor. [] Cardiovascular: Tachycardia with irregular rhythm, no murmur [] Lungs & Thorax: Bilateral breath sounds with rales to auscultation [] Abdomen: Bowel sounds normal, soft, no tenderness, no masses, no pulsatile masses. [] Skin: Warm, dry, no erythema, no rash. [] Back: No tenderness, no CVA tenderness. [] Extremities: No tenderness, no cyanosis, no clubbing, ROM intact, no edema. [] Neurologic: Alert and oriented X 3, normal motor function, normal sensory function, no focal deficits noted. [] Psychologic: Affect normal, judgement normal, mood normal. [] Current Patient Data: Labs: Laboratory Tests Test 11/21/21 07:33 11/21/21 07:40 O2 Saturation 99 % Arterial Blood pH 7.44 Arterial Blood pCO2 at Patient Temp 29 mmHg Arterial Blood pO2 at Patient Temp 284 mmHg Arterial Blood HCO3 19 mmol/L Arterial Blood Base Excess -4 mmol/L FiO2 100% nrb mask White Blood Count 5.3 x10^3/uL Red Blood Count 3.88 x10^6/uL Hemoglobin 11.1 g/dL Hematocrit 35.1 % Mean Corpuscular Volume 90 fL Mean Corpuscular Hemoglobin 29 pg Mean Corpuscular Hemoglobin Concent 32 g/dL Red Cell Distribution Width 14.7 % Platelet Count 192 x10^3/uL Neutrophils (%) (Auto) 95 % Lymphocytes (%) (Auto) 3 % Monocytes (%) (Auto) 1 % Eosinophils (%) (Auto) 1 % Basophils (%) (Auto) 1 % Neutrophils # (Auto) 5.0 x10^3/uL Lymphocytes # (Auto) 0.1 x10^3/uL Monocytes # (Auto) 0.0 x10^3/uL Eosinophils # (Auto) 0.0 x10^3/uL Basophils # (Auto) 0.0 x10^3/uL Sodium Level 140 mmol/L Potassium Level 4.3 mmol/L Chloride Level 103 mmol/L Carbon Dioxide Level 21 mmol/L Anion Gap 16 Blood Urea Nitrogen 27 mg/dL Creatinine 1.2 mg/dL Estimated GFR (Cockcroft-Gault) 58.3 BUN/Creatinine Ratio 23 Glucose Level 152 mg/dL Calcium Level 8.8 mg/dL Magnesium Level 1.7 mg/dL Total Bilirubin 0.6 mg/dL Aspartate Amino Transf (AST/SGOT) 18 U/L Alanine Aminotransferase (ALT/SGPT) 11 U/L Alkaline Phosphatase 100 U/L Troponin I High Sensitivity 60 ng/L FY-Gcf-F-Type Natriuretic Peptide 2827 pg/mL Total Protein 7.3 g/dL Albumin 2.8 g/dL Albumin/Globulin Ratio 0.6 Influenza Type A Antigen Negative Influenza Type B Antigen Negative SARS-CoV-2 Antigen (Rapid) Negative Current Medications Medications (Trade) Dose Ordered Sig/Sowmya Route PRN Reason Start Time Stop Time Status Last Admin Dose Admin Diltiazem HCl (Cardizem Iv Push) 20 mg 1X ONCE IVP 11/21/21 08:00 11/21/21 08:01 DC 11/21/21 08:00 Diltiazem HCl 125 mg/Sodium Chloride 125 ml @ 5 mls/hr 1X ONCE IV 11/21/21 08:00 11/22/21 08:59 Acetaminophen (Tylenol) 1,000 mg 1X ONCE PO 11/21/21 08:00 11/21/21 08:01 DC 11/21/21 08:00 Magnesium Sulfate 50 ml @ 25 mls/hr 1X ONCE IV 11/21/21 08:30 11/21/21 10:29 EKG: EKG: [][address] [id number] EKG REPORT Signed PATIENT: BART HERNANDEZ ACCOUNT: [id number] : 1940 LOCATION: ER AGE: 81 SEX: M EXAM PROCEDURE: 12 Lead EKG STATUS: PRE ER ORD. PHYSICIAN: LUZ MEI DO REASON: [address] [address] Test Date: 2021-11-21 Test Time: 07:41:34 Pat Name: BART HERNANDEZ Department: Room: Gender: M Molecular Biologist: : 1940 Requested By: LUZ MIE Order Number: [id number] Reading MD: Delia Mcdonald Measurements Intervals [place] Rate: 141 P: AK: QRS: -24 QRSD: 88 T: 126 QT: 290 QTc: 446 Interpretive Statements PROBABLE ATRIAL FIBRILLATION WITH RVR LEFTWARD AXIS LVH WITH REPOLARIZATION ABNORMALITY ABNORMAL ECG Electronically Signed On 11-21-2021 8:21:09 PROTOHISTORIAN by Delia Mcdonald DICTATED and SIGNED BY: DELIA MCDONALD MD DATE: 11/21/21 [id number] Radiology/Procedures: Radiology/Procedures: [][facility] [address] [place] [address] IMAGING REPORT Signed PATIENT: BART HERNANDEZ ACCOUNT: [id number] : 1940 LOCATION: ER AGE: 81 SEX: M EXAM STATUS: PRE ER ORD. PHYSICIAN: LUZ MEI DO REASON: SHORT OF BREATH PROCEDURE: CHEST AP ONLY XR CHEST 1V Clinical Indication: Reason: SHORT OF BREATH / Spl. Instructions: / History: Comparison: AP chest September 21, 2018. Findings: Atherosclerotic and tortuous thoracic aorta. There is stable cardiac enlargement. Lungs are clear. There is no pneumothorax. No pleural effusion is appreciated. No acute bone abnormality. There are multiple old right rib fractures. IMPRESSION: 1. Stable cardiomegaly. 2. Lungs are clear. Electronically signed by: Mark Downey MD (11/21/2021 8:25 AM) [id number] DICTATED and SIGNED BY: MARK DOWNEY MD DATE: 11/21/21 [id number] Course & Med Decision Making: Course & Med Decision Making Pertinent Labs and Imaging studies reviewed. (See chart for details) Patient is an 81-year-old male who was brought here by EMS from home due to trouble breathing and rapid heart rate. Patient was found to be in A. fib with RVR, patient was given Cardizem in ER here, his heart rate slowed down, he was still in A. fib, patient was initially put on nonrebreather, he was doing better, now he tolerate nasal cannulae. Patient will be admitted to hospital for further evaluation and treatment. Discussed with hospitalist on-call Dr. Enciso who agreed to admit the patient Jessica Disclaimer: Jessica Disclaimer: This electronic medical record was generated, in whole or in part, using a voice recognition dictation system. Departure Departure Impression: Primary Impression: Atrial fibrillation with RVR Additional Impressions: CHF exacerbation Person under investigation for COVID-19 Disposition: ADMITTED INPATIENT Admitting Physician: VIK (DR. ENCISO) Condition: IMPROVED Referrals: BRADLEY MEDINA MD (PCP) LUZ MEI DO Nov 21, 2021 07:50
--- NOTE | 2021-11-21 07:56 | EKG ---
[facility] [address] [place] [address] Test Date: 2021-11-21 Test Time: 07:41:34 Pat Name: BART HERNANDEZ Department: Room: Gender: M Data Reviewer: : 1940 Requested By: LUZ MEI Order Number: [id number] Reading MD: Jem Grimes Measurements Intervals [place] Rate: 141 P: IN: QRS: -24 QRSD: 88 T: 126 QT: 290 QTc: 446 Interpretive Statements PROBABLE ATRIAL FIBRILLATION WITH RVR LEFTWARD AXIS LVH WITH REPOLARIZATION ABNORMALITY ABNORMAL ECG Electronically Signed On 11-21-2021 8:21:09 CIGARETTE PACKER by Jem Grimes
[2021-11-21] MEDS ORDERED: ACETAMINOPHEN 500 MG TABLET PO ONE (08:00)
[2021-11-21 08:01] LABS: BASO % 1 % (0-3); EOS % 1 % (0-3); HEMATOCRIT 35.1 % (39.0-53.0); HEMOGLOBIN 11.1 g/dL (13.0-17.5); LYMPH # 0.1 x10^3/uL (1.0-4.8); LYMPH % 3 % (24-48); MEAN CORPUSCULAR HEMOGLOBIN 29 pg (25-35); MEAN CORPUSCULAR HGB CONC 32 g/dL (31-37); MEAN CORPUSCULAR VOLUME 90 fL (79-100); MONO % 1 % (0-9); NEUT % 95 % (31-73); PLATELET COUNT 192 x10^3/uL (140-400); RED BLOOD COUNT 3.88 x10^6/uL (4.30-5.70); RED CELL DISTRIBUTION WIDTH 14.7 % (11.5-14.5); WHITE BLOOD COUNT 5.3 x10^3/uL (4.0-11.0)
[2021-11-21 08:05] LABS: CALCIUM 8.8 mg/dL (8.5-10.1); CREATININE 1.2 mg/dL (0.7-1.3); GFR 58.3; POTASSIUM 4.3 mmol/L (3.5-5.1)
[2021-11-21 08:10] LABS: BASE EXCESS ABG -4 mmol/L (-3-3); HCO3 ABG 19 mmol/L (21-28); PCO2 ABG 29 mmHg (35-46); PO2 ABG 284 mmHg (65-108); SAT O2 ABG 99 % (92-99)
[2021-11-21 08:10] LABS: ALBUMIN 2.8 g/dL (3.4-5.0); ALBUMIN/GLOBULIN RATIO 0.6 (1.0-1.7); MAGNESIUM 1.7 mg/dL (1.8-2.4); TOTAL BILIRUBIN 0.6 mg/dL (0.2-1.0); TOTAL PROTEIN 7.3 g/dL (6.4-8.2)
[2021-11-21 08:11] LABS: FIO2 ABG 100% NRB MASK
[2021-11-21 08:17] LABS: INFLUENZA A PATIENT NEGATIVE (NEGATIVE); INFLUENZA B PATIENT NEGATIVE (NEGATIVE)
--- NOTE | 2021-11-21 08:27 | RAD ---
XR CHEST 1V Clinical Indication: Reason: SHORT OF BREATH / Spl. Instructions: / History: Comparison: AP chest September 21, 2018. Findings: Atherosclerotic and tortuous thoracic aorta. There is stable cardiac enlargement. Lungs are clear. Th ere is no pneumothorax. No pleural effusion is appreciated. No acute bone abnormality. There are mult iple old right rib fractures. IMPRESSION: 1. Stable cardiomegaly. 2. Lungs are clear. Electronically signed by: Mark Downey MD (11/21/2021 8:25 AM) [id number]
[2021-11-21] MEDS ORDERED: MAGNESIUM SULFATE 2GM 50 ML IV ONE (08:30)
[2021-11-21 10:40] VITALS: BP 103/51
--- NOTE | 2021-11-21 11:23 | HP ---
DATE OF SERVICE: 11/21/2021 ADMIT DATE: 11/21/2021 CHIEF COMPLAINT: Respiratory distress, shakiness, palpitations. HISTORY OF PRESENT ILLNESS: The patient is a pleasant 81-year-old male who got up at 5:00 this morning to watch TV. He suddenly became shaky and short of breath. He had palpitations. EMS was called. He was in atrial fibrillation with RVR. He was brought to the ER. I discussed the case with the ER physician. We are admitting the patient with consultation to Cardiology. PAST MEDICAL HISTORY: Chronic CHF, AFib, hypertension, hyperlipidemia, prolapsed rectum, colonic mass that was resected that was noncancerous, previous tobacco abuse. ALLERGIES: None. FAMILY HISTORY: Coronary artery disease. SOCIAL HISTORY: He is retired. Does not drink, smoke or take drugs. He is . His is here. MEDICATIONS: Reviewed, please refer to the MRAD. REVIEW OF SYSTEMS: GENERAL: He complains of weakness. SKIN: No bruising, hair changes or rashes. EYES: No blurred, double or loss of vision. NOSE AND THROAT: No history of nosebleeds, hoarseness or sore throat. HEART: No history of palpitations, chest pain or shortness of breath on exertion. LUNGS: He complains of shortness of breath. GASTROINTESTINAL: Denies changes in appetite, nausea, vomiting, diarrhea or constipation. GENITOURINARY: No history of frequency, urgency, hesitancy or nocturia. NEUROLOGIC: He complains of weakness. PSYCHIATRIC: No history of panic, anxiety or depression. ENDOCRINE: No history of heat or cold intolerance, polyuria or polydipsia. EXTREMITIES: Denies muscle weakness, joint pain, pain on walking or stiffness. PHYSICAL EXAMINATION: VITALS: Within normal limits and are stable.. GENERAL: He is very weak. HEENT: Normal cephalic atraumatic, external auditory canals are patent. Eyes: Extraocular muscles are intact, pupils are equally round and reactive to light and accommodation. MUSCULOSKELETAL: Well developed, well nourished, good range of motion. ENDOCRINE: No thyromegaly was palpated. LYMPHATICS: No cervical chain or axillary nodes were noted. HEMATOPOIETIC: No bruising. NECK: Supple, no JVD, no thyromegaly was noted. LUNGS: Clear to auscultation in all lung miranda without rhonchi or wheezing. HEART: RRR, S1, S2 present. Peripheral pulses intact, no obvious murmurs were noted. ABDOMEN: Soft, nontender. Positive bowel sounds, no organomegaly, normal bowel sounds. EXTREMITIES: Without any cyanosis, clubbing, or edema. Pedal pulses intact, Homans sign is negative.. NEUROLOGIC: He is very weak. PSYCHIATRIC: He is very weak. SKIN: No ulcerations or rashes, good skin turgor, no jaundice. VASCULAR: Good capillary refill, neurovascular bundle appears to be intact.. LABORATORY DATA: EKG shows AFib with RVR. His current rate now is at 72 beats per minute. White count 5, hemoglobin 11, platelets 192. Electrolytes normal other than a BUN of 27 and a slightly high anion gap of 16. Lactic acid is 5.5, magnesium is little low at 1.7. BNP high at 2827. Troponin normal at 60. COVID testing is negative. Chest x-ray shows stable cardiomegaly and the lungs are clear. ASSESSMENT AND PLAN: Atrial fibrillation with rapid ventricular response, chronic heart failure, anemia, lactic acidosis, azotemia. The patient has been admitted. We will consult Cardiology. Cardiac monitoring, serial enzymes, serial EKGs, echocardiogram. Home meds. Deep venous thrombosis prophylaxis. Full code. Negative chronotropic agents per Cardiology. We are currently giving him IV Cardizem. Replace his magnesium. Check a rapid flu. Blood cultures. MATEO/ELIDA DR: MATEO/kenny TID: [id number]
[2021-11-21] MEDS: ACETAMINOPHEN 325 MG TABLET. PO PRN ×3 (13:35→22:09)
--- NOTE | 2021-11-21 13:56 | PDOC2 ---
CARDIAC CONSULT DATE OF CONSULT Date of Consult DATE: 11/21/21 TIME: 13:54 CURRENT MEDICATIONS CURRENT MEDICATIONS Current Medications Medications (Trade) Dose Ordered Sig/Sowmya Route PRN Reason Start Time Stop Time Status Last Admin Dose Admin Diltiazem HCl (Cardizem Iv Push) 20 mg 1X ONCE IVP 11/21/21 08:00 11/21/21 08:01 DC 11/21/21 08:00 Acetaminophen (Tylenol) 1,000 mg 1X ONCE PO 11/21/21 08:00 11/21/21 08:01 DC 11/21/21 08:00 Magnesium Sulfate 50 ml @ 25 mls/hr 1X ONCE IV 11/21/21 08:30 11/21/21 10:29 DC 11/21/21 08:30 Acetaminophen (Tylenol) 650 mg PRN Q6HRS PRN PO MILD PAIN / TEMP > 100.3'F 11/21/21 13:30 11/21/21 13:35 ALLERGIES ALLERGIES: Coded Allergies: No Known Drug Allergies (Unverified , 11/21/21) VITALS/I&O VITALS/I&O: Vital Signs Date Time Temp Pulse Resp B/P (MAP) Pulse Ox O2 Delivery O2 Flow Rate FiO2 11/21/21 10:40 98.2 99 22 103/51 (68) 92 Nasal Cannula 4.0 98.2 LABS Lab: Laboratory Tests Test 11/21/21 07:33 11/21/21 07:40 11/21/21 11:05 O2 Saturation 99 % (92-99) Arterial Blood pH 7.44 (7.35-7.45) Arterial Blood pCO2 at Patient Temp 29 mmHg (35-46) L Arterial Blood pO2 at Patient Temp 284 mmHg (65-108) H Arterial Blood HCO3 19 mmol/L (21-28) L Arterial Blood Base Excess -4 mmol/L (-3-3) L FiO2 100% nrb mask White Blood Count 5.3 x10^3/uL (4.0-11.0) Red Blood Count 3.88 x10^6/uL (4.30-5.70) L Hemoglobin 11.1 g/dL (13.0-17.5) L Hematocrit 35.1 % (39.0-53.0) L Mean Corpuscular Volume 90 fL (79-100) Mean Corpuscular Hemoglobin 29 pg (25-35) Mean Corpuscular Hemoglobin Concent 32 g/dL (31-37) Red Cell Distribution Width 14.7 % (11.5-14.5) H Platelet Count 192 x10^3/uL (140-400) Neutrophils (%) (Auto) 95 % (31-73) H Lymphocytes (%) (Auto) 3 % (24-48) L Monocytes (%) (Auto) 1 % (0-9) Eosinophils (%) (Auto) 1 % (0-3) Basophils (%) (Auto) 1 % (0-3) Neutrophils # (Auto) 5.0 x10^3/uL (1.8-7.7) Lymphocytes # (Auto) 0.1 x10^3/uL (1.0-4.8) L Monocytes # (Auto) 0.0 x10^3/uL (0.0-1.1) Eosinophils # (Auto) 0.0 x10^3/uL (0.0-0.7) Basophils # (Auto) 0.0 x10^3/uL (0.0-0.2) Sodium Level 140 mmol/L (136-145) Potassium Level 4.3 mmol/L (3.5-5.1) Chloride Level 103 mmol/L (98-107) Carbon Dioxide Level 21 mmol/L (21-32) Anion Gap 16 (6-14) H Blood Urea Nitrogen 27 mg/dL (8-26) H Creatinine 1.2 mg/dL (0.7-1.3) Estimated GFR (Cockcroft-Gault) 58.3 BUN/Creatinine Ratio 23 (6-20) H Glucose Level 152 mg/dL (70-99) H Lactic Acid Level 5.5 mmol/L (0.4-2.0) *H 2.0 mmol/L (0.4-2.0) Calcium Level 8.8 mg/dL (8.5-10.1) Magnesium Level 1.7 mg/dL (1.8-2.4) L Total Bilirubin 0.6 mg/dL (0.2-1.0) Aspartate Amino Transferase (AST) 18 U/L (15-37) Alanine Aminotransferase (ALT) 11 U/L (16-63) L Alkaline Phosphatase 100 U/L (46-116) Troponin I High Sensitivity 60 ng/L (4-75) [id number]-[id number]-Type Natriuretic Peptide 2827 pg/mL (0-449) H Total Protein 7.3 g/dL (6.4-8.2) Albumin 2.8 g/dL (3.4-5.0) L Albumin/Globulin Ratio 0.6 (1.0-1.7) L Influenza Type A Antigen Negative (NEGATIVE) Influenza Type B Antigen Negative (NEGATIVE) SARS-CoV-2 Antigen (Rapid) Negative (NEGATIVE) Laboratory Tests 11/21/21 07:40 Laboratory Tests 11/21/21 07:40 STEVAN IRAHETA APRN Nov 21, 2021 13:56
--- NOTE | 2021-11-21 14:34 | PDOC2 ---
STEVAN IRAHETA CORE CLEANER 11/21/21 1434: CARDIAC CONSULT DATE OF CONSULT Date of Consult DATE: 11/21/21 TIME: 14:31 REASON FOR CONSULT Reason for Consult: CHF, AFIB REFERRING PHYSICIAN Referring Physician: Desmond SOURCE Source: Chart review, Patient HISTORY OF PRESENT ILLNESS HISTORY OF PRESENT ILLNESS This is a pleasant 81 yo male admitted for complains of fast heart rate and SOA. Reports that this started this morning. EMS came to his house and noted his O2 sat was at 65% on RA. No chest pain but has episodes of palpitations. No significnat leg swelling and denies any coughing and no fever or chills. He is a poor historian. He follows with Dr. Rubin at . He is known for AFIB and unclear about his medications and presently in AFIB. Present;his SOA is better with supplemental O2. No nausea or vomiting dysgeusia or anosmia. Reports he is vaccinated for covid-19. PAST MEDICAL HISTORY Past Medical History Cardiovascular: AFIB (on warfarin therapy ), HTN, Hyperlipidemia, CAD Pulmonary: No pertinent hx CENTRAL NERVOUS SYSTEM: Other (no pertinent hx) GI: Other (diverticulitis ) Heme/Onc: No pertinent hx Hepatobiliary: No pertinent hx Psych: Anxiety, Depression Musculoskeletal: Osteoarthritis Rheumatologic: No pertinent hx Infectious disease: No pertinent hx ENT: No pertinent hx Renal/: Benign prostatic enlarg. Endocrine: No pertinent hx Dermatology: No pertinent hx PAST SURGICAL HISTORY Past Surgical History Tonsillectomy FAMILY HISTORY Family History: Hypertension SOCIAL HISTORY Smoke: Quit ALCOHOL: none Drugs: None Lives: with Family CURRENT MEDICATIONS CURRENT MEDICATIONS Current Medications Medications (Trade) Dose Ordered Sig/Sowmya Route PRN Reason Start Time Stop Time Status Last Admin Dose Admin Diltiazem HCl (Cardizem Iv Push) 20 mg 1X ONCE IVP 11/21/21 08:00 11/21/21 08:01 DC 11/21/21 08:00 Acetaminophen (Tylenol) 1,000 mg 1X ONCE PO 11/21/21 08:00 11/21/21 08:01 DC 11/21/21 08:00 Magnesium Sulfate 50 ml @ 25 mls/hr 1X ONCE IV 11/21/21 08:30 11/21/21 10:29 DC 11/21/21 08:30 Acetaminophen (Tylenol) 650 mg PRN Q6HRS PRN PO MILD PAIN / TEMP > 100.3'F 11/21/21 13:30 11/21/21 13:35 ALLERGIES ALLERGIES: Coded Allergies: No Known Drug Allergies (Unverified , 11/21/21) ROS Review of System limited poor historian PHYSICAL EXAM General: Alert, Oriented X3, Cooperative, mild distress HEENT: Atraumatic, Mucous membr. moist/pink Lungs: Other (Diminished) Heart: Other (AFIB) Abdomen: Soft Extremities: No cyanosis, Other (1+ RLE pitting edema and 2+ LLE pitting edema) Skin: Other (righ calf surgical wound) Neuro: Normal speech, Sensation intact Psych/Mental Status: Mental status NL, Mood NL MUSCULOSKELETAL: Osteoarthritic changes both hands VITALS/I&O VITALS/I&O: Vital Signs Date Time Temp Pulse Resp B/P (MAP) Pulse Ox O2 Delivery O2 Flow Rate FiO2 11/21/21 10:40 98.2 99 22 103/51 (68) 92 Nasal Cannula 4.0 98.2 LABS Lab: Laboratory Tests Test 11/21/21 07:33 11/21/21 07:40 11/21/21 11:05 O2 Saturation 99 % (92-99) Arterial Blood pH 7.44 (7.35-7.45) Arterial Blood pCO2 at Patient Temp 29 mmHg (35-46) L Arterial Blood pO2 at Patient Temp 284 mmHg (65-108) H Arterial Blood HCO3 19 mmol/L (21-28) L Arterial Blood Base Excess -4 mmol/L (-3-3) L FiO2 100% nrb mask White Blood Count 5.3 x10^3/uL (4.0-11.0) Red Blood Count 3.88 x10^6/uL (4.30-5.70) L Hemoglobin 11.1 g/dL (13.0-17.5) L Hematocrit 35.1 % (39.0-53.0) L Mean Corpuscular Volume 90 fL (79-100) Mean Corpuscular Hemoglobin 29 pg (25-35) Mean Corpuscular Hemoglobin Concent 32 g/dL (31-37) Red Cell Distribution Width 14.7 % (11.5-14.5) H Platelet Count 192 x10^3/uL (140-400) Neutrophils (%) (Auto) 95 % (31-73) H Lymphocytes (%) (Auto) 3 % (24-48) L Monocytes (%) (Auto) 1 % (0-9) Eosinophils (%) (Auto) 1 % (0-3) Basophils (%) (Auto) 1 % (0-3) Neutrophils # (Auto) 5.0 x10^3/uL (1.8-7.7) Lymphocytes # (Auto) 0.1 x10^3/uL (1.0-4.8) L Monocytes # (Auto) 0.0 x10^3/uL (0.0-1.1) Eosinophils # (Auto) 0.0 x10^3/uL (0.0-0.7) Basophils # (Auto) 0.0 x10^3/uL (0.0-0.2) Sodium Level 140 mmol/L (136-145) Potassium Level 4.3 mmol/L (3.5-5.1) Chloride Level 103 mmol/L (98-107) Carbon Dioxide Level 21 mmol/L (21-32) Anion Gap 16 (6-14) H Blood Urea Nitrogen 27 mg/dL (8-26) H Creatinine 1.2 mg/dL (0.7-1.3) Estimated GFR (Cockcroft-Gault) 58.3 BUN/Creatinine Ratio 23 (6-20) H Glucose Level 152 mg/dL (70-99) H Lactic Acid Level 5.5 mmol/L (0.4-2.0) *H 2.0 mmol/L (0.4-2.0) Calcium Level 8.8 mg/dL (8.5-10.1) Magnesium Level 1.7 mg/dL (1.8-2.4) L Total Bilirubin 0.6 mg/dL (0.2-1.0) Aspartate Amino Transferase (AST) 18 U/L (15-37) Alanine Aminotransferase (ALT) 11 U/L (16-63) L Alkaline Phosphatase 100 U/L (46-116) Troponin I High Sensitivity 60 ng/L (4-75) WR-Hmu-I-Type Natriuretic Peptide 2827 pg/mL (0-449) H Total Protein 7.3 g/dL (6.4-8.2) Albumin 2.8 g/dL (3.4-5.0) L Albumin/Globulin Ratio 0.6 (1.0-1.7) L Influenza Type A Antigen Negative (NEGATIVE) Influenza Type B Antigen Negative (NEGATIVE) SARS-CoV-2 Antigen (Rapid) Negative (NEGATIVE) Laboratory Tests 11/21/21 07:40 Laboratory Tests 11/21/21 07:40 ASSESSMENT/PLAN ASSESSMENT/PLAN 1. AFIB RVR: chronic vs paroxysmal 2. Acute on chronic diastolic CHF: possibly precipitated by RVR 3. HTN: controlled 4. HLP 5. S/P: I & D to RLE due to injury from mechanical fall with compartment issue 10/23/2021 6. Possible COPD with past hx of tobaccoism 7. Lactic acidosis: possibly from work of breathing. 8. PUI 9. CAD: 2019 stent to LAD/LCx, clinically stable. Recommendations 1. Cardizem bolus received in ED drip not started due to BP. Rate now controlled restart eliquis and metoprolol 2. Lasix received in ED. Resume home PO lasix 3. Secondary prevention measures 4. Supportive care. Follow with DELIA Campos MD 11/21/21 1551: CARDIAC CONSULT ASSESSMENT/PLAN ASSESSMENT/PLAN Patient seen and examined. Agree with TRIBAL JUDGE's assessment plan. Atrial fibrillation rate better controlled. Continue metoprolol for rate control and Eliquis for stroke prophylaxis. Acute on chronic diastolic heart failure better compensated with diuretics. CAD status clinically stable. Thank you for your consultation. STEVAN IRAHETA APRN Nov 21, 2021 14:34 DELIA MCDONALD MD Nov 21, 2021 15:51
[2021-11-21] MEDS ORDERED: ANTI-COAG MONITOR BY PHARMACY. MC PRN (15:00)
[2021-11-21 15:12] VITALS: BP 121/56
[2021-11-21 20:30] VITALS: BP 129/58
[2021-11-21] MEDS: APIXABAN 5 MG TABLET. PO SCH (21:10)
[2021-11-21 22:34] VITALS: BP 121/59
[2021-11-22 02:44] VITALS: BP 142/63
[2021-11-22 05:27] LABS: BILIRUBIN,URINE NEGATIVE (NEG); CLARITY,URINE CLOUDY; COLOR,URINE YELLOW; NITRITE,URINE NEGATIVE (NEG); PROTEIN,URINE 100 mg/dL (NEG-TRACE)
[2021-11-22 05:28] LABS: UROBILINOGEN,URINE 0.2 mg/dL (0.2 mg/dL)
[2021-11-22 05:31] LABS: BACTERIA,URINE MANY /HPF (0-FEW); WBC,URINE TNTC /HPF (0-4)
[2021-11-22 07:00] VITALS: BP 141/66
[2021-11-22] MEDS: ASPIRIN ENTERIC COATED 81 MG TABLET.DR. PO SCH ×2 (07:33→08:13)
[2021-11-22] MEDS: ATORVASTATIN CALCIUM 20 MG TABLET PO SCH ×2 (07:33→20:09)
[2021-11-22] MEDS: APIXABAN 5 MG TABLET. PO SCH ×2 (08:13→20:09)
[2021-11-22] MEDS: METOPROLOL SUCC 24HR ER 50 MG TAB.ER.24H. PO SCH (08:13)
[2021-11-22] MEDS: FUROSEMIDE 40 MG TABLET. PO SCH (08:14)
[2021-11-22] MEDS: ACETAMINOPHEN 325 MG TABLET. PO PRN ×3 (08:14→20:10)
--- NOTE | 2021-11-22 09:53 | PDOC ---
[employer] PROGRESS NOTE Date of Service DOS: DATE: 11/22/21 TIME: 09:53 Chief Complaint Chief Complaint A. fib with RVR Acute on chronic systolic heart failure Anemia Lactic acidosis History of the following; Chronic CHF, AFib, hypertension, hyperlipidemia, prolapsed rectum, colonic mass that was resected that was noncancerous, previous tobacco abuse. History of Present Illness History of Present Illness 11/22/2021 Patient seen and examined He is breathing a little better today but still very weak Complains of a headache Discussed with RN Chart reviewed Discussed with special education case manager Vitals/I&O Vitals/I&O: Vital Signs Date Time Temp Pulse Resp B/P (MAP) Pulse Ox O2 Delivery O2 Flow Rate FiO2 11/22/21 08:13 101 141/66 11/22/21 07:00 98.0 20 98 Nasal Cannula 4.0 98.0 I & O 11/21/21 11/21/21 11/22/21 15:00 23:00 07:00 Intake Total 300 ml Output Total 50 ml 425 ml Balance -50 ml -125 ml Physical Exam General: Alert, Oriented X3, Cooperative, mild distress Heart: Other (AFIB) Lungs: Clear Abdomen: Soft Extremities: No cyanosis, Other (1+ RLE pitting edema and 2+ LLE pitting edema) Skin: Other (righ calf surgical wound) Labs Labs: Laboratory Tests Test 11/21/21 11:05 11/22/21 05:00 Lactic Acid Level 2.0 mmol/L (0.4-2.0) Urine Collection Type Unknown Urine Color Yellow Urine Clarity Cloudy Urine pH 6.0 (<5.0-8.0) Urine Specific [place] 1.025 (1.000-1.030) Urine Protein 100 mg/dL (NEG-TRACE) Urine Glucose (UA) Negative mg/dL (NEG) Urine Ketones (Stick) Negative mg/dL (NEG) Urine Blood Moderate (NEG) Urine Nitrite Negative (NEG) Urine Bilirubin Negative (NEG) Urine Urobilinogen Dipstick 0.2 mg/dL (0.2 mg/dL) Urine Leukocyte Esterase Small (NEG) Urine RBC 6-10 /HPF (0-2) Urine WBC Tntc /HPF (0-4) Urine Squamous Epithelial Cells None /LPF Urine Renal Epithelial Cells Occ /LPF Urine Bacteria Many /HPF (0-FEW) Urine Mucus Mod /LPF Assessment and Plan Assessmemt and Plan Problems Medical Problems: (1) Atrial fibrillation with RVR Status: Acute (2) CHF exacerbation Status: Acute (3) Person under investigation for COVID-19 Status: Acut A. fib with RVR Acute on chronic systolic heart failure Anemia Lactic acidosis History of the following; Chronic CHF, AFib, hypertension, hyperlipidemia, possible COPD history of tobacco, history of right arm injury with incision and drainage last year, prolapsed rectum, colonic mass that was resected that was noncancerous, previous tobacco abuse. Plan Metoprolol and Eliquis Lasix Trend labs Home meds DVT prophylaxis Full code PT OT Encourage p.o. intake Appreciate subspecialist input He will likely need snf (he was at [facility] before going home recently) Per cardiology recommendations please see the following and we certainly agree and appreciate their input; ASSESSMENT/PLAN 1. AFIB RVR: chronic vs paroxysmal 2. Acute on chronic diastolic CHF: possibly precipitated by RVR 3. HTN: controlled 4. HLP 5. S/P: I & D to RLE due to injury from mechanical fall with compartment issue 10/23/2021 6. Possible COPD with past hx of tobaccoism 7. Lactic acidosis: possibly from work of breathing. 8. PUI 9. CAD: 2019 stent to LAD/LCx, clinically stable. Recommendations 1. Cardizem bolus received in ED drip not started due to BP. Rate now controlled restart eliquis and metoprolol 2. Lasix received in ED. Resume home PO lasix 3. Secondary prevention measures 4. Supportive care. Follow with Dr. Rubin Comment Review of Relevant I have reviewed the following items yolis (where applicable) has been applied. Medications: Current Medications Medications (Trade) Dose Ordered Sig/Sowmya Route PRN Reason Start Time Stop Time Status Last Admin Dose Admin Acetaminophen (Tylenol) 650 mg PRN Q6HRS PRN PO MILD PAIN / TEMP > 100.3'F 11/21/21 13:30 11/22/21 08:14 Apixaban (Eliquis) 5 mg BID PO 11/21/21 21:00 11/22/21 08:13 Furosemide (Lasix) 40 mg DAILY PO 11/22/21 09:00 11/22/21 08:14 Metoprolol Succinate (Toprol Xl) 50 mg DAILY PO 11/22/21 09:00 11/22/21 08:13 Aspirin (Ecotrin) 81 mg [id number] PO 11/22/21 08:00 11/22/21 08:13 Justifications for Admission Other Justification AMANDA WALKER III DO Nov 22, 2021 09:53
[2021-11-22 11:00] VITALS: BP 142/67
--- NOTE | 2021-11-22 12:40 | PDOC ---
STEVAN IRAHETA PRODUCTION CONSULTANT 11/22/21 1240: CARDIO Progress Notes Date and Time Date of Service 11/22/2021 Time of Evaluation 1230 Subjective Subjective: No Chest Pain, No shortness of breath, No Palpitations Vitals Vitals Vital Signs Date Time Temp Pulse Resp B/P (MAP) Pulse Ox O2 Delivery O2 Flow Rate FiO2 11/22/21 11:00 97.7 95 24 142/67 (92) 97 Room Air 97.7 11/22/21 08:00 4.0 Weight Weight [ ] Input and Output Intake and Output Intake and Output 11/22/21 07:00 Intake Total 300 ml Output Total 475 ml Balance -175 ml Intake Oral 300 ml Output Urine Total 475 ml # Voids 1 Laboratory Labs Laboratory Tests Test 11/22/21 05:00 Urine Collection Type Unknown Urine Color Yellow Urine Clarity Cloudy Urine pH 6.0 (<5.0-8.0) Urine Specific [place] 1.025 (1.000-1.030) Urine Protein 100 mg/dL (NEG-TRACE) Urine Glucose (UA) Negative mg/dL (NEG) Urine Ketones (Stick) Negative mg/dL (NEG) Urine Blood Moderate (NEG) Urine Nitrite Negative (NEG) Urine Bilirubin Negative (NEG) Urine Urobilinogen Dipstick 0.2 mg/dL (0.2 mg/dL) Urine Leukocyte Esterase Small (NEG) Urine RBC 6-10 /HPF (0-2) Urine WBC Tntc /HPF (0-4) Urine Squamous Epithelial Cells None /LPF Urine Renal Epithelial Cells Occ /LPF Urine Bacteria Many /HPF (0-FEW) Urine Mucus Mod /LPF Physical Exam HEENT: Neck Supple W Full Motion Chest: Symmetric LUNGS: Other (diminished) Heart: irregularly irregular (AFIB) Abdomen: Soft N/T Extremities: No Edema, No Calf Tenderness Neurology: alert, oriented, follow commands Assessment Assessment 1. AFIB RVR: chronic vs paroxysmal 2. Acute on chronic diastolic CHF: possibly precipitated by RVR 3. HTN: controlled 4. HLP 5. S/P: I & D to RLE due to injury from mechanical fall with compartment issue 10/23/2021 6. Possible COPD with past hx of tobaccoism 7. Lactic acidosis: possibly from work of breathing. 8. PUI 9. CAD: 2019 stent to LAD/LCx, clinically stable. Recommendations 1. Continue eliquis and metoprolol 2. Lasix received in ED. Resume home PO lasix 3. Secondary prevention measures 4. Supportive care. Follow with Dr. Caryn Hicksfation of Admission Dx: Justifications for Admission: Justification of Admission Dx: No DELIA MCDONALD MD 11/23/21 0920: CARDIO Progress Notes Assessment Assessment Patient seen and examined 11/22/21. Agree with GORE CUTTER's assessment plan. Atrial fibrillation rate better controlled. Continue metoprolol for rate control and Eliquis for stroke prophylaxis. Acute on chronic diastolic heart failure better compensated with diuretics. CAD status clinically stable. STEVAN IRAHETA APRN Nov 22, 2021 12:40 DELIA MCDONALD MD Nov 23, 2021 09:20
[2021-11-22 15:00] VITALS: BP 150/67
[2021-11-22] MEDS ORDERED: traZODone 50 MG TABLET. PO PRN (18:30)
[2021-11-22 19:28] VITALS: BP 155/82
[2021-11-22 22:18] VITALS: BP 159/75
[2021-11-23 02:00] VITALS: BP 152/77
[2021-11-23 04:23] LABS: BASO % 0 % (0-3); EOS # 0.1 x10^3/uL (0.0-0.7); EOS % 1 % (0-3); HEMATOCRIT 29.5 % (39.0-53.0); HEMOGLOBIN 9.5 g/dL (13.0-17.5); LYMPH # 0.5 x10^3/uL (1.0-4.8); LYMPH % 4 % (24-48); MEAN CORPUSCULAR HEMOGLOBIN 28 pg (25-35); MEAN CORPUSCULAR HGB CONC 32 g/dL (31-37); MEAN CORPUSCULAR VOLUME 87 fL (79-100); MONO # 0.9 x10^3/uL (0.0-1.1); MONO % 7 % (0-9); NEUT % 88 % (31-73); PLATELET COUNT 164 x10^3/uL (140-400); RED BLOOD COUNT 3.38 x10^6/uL (4.30-5.70); WHITE BLOOD COUNT 12.5 x10^3/uL (4.0-11.0)
[2021-11-23 05:11] LABS: CALCIUM 8.6 mg/dL (8.5-10.1); CREATININE 1.2 mg/dL (0.7-1.3); GFR 58.3; POTASSIUM 3.7 mmol/L (3.5-5.1)
[2021-11-23 07:00] VITALS: BP 163/79
[2021-11-23] MEDS: FUROSEMIDE 40 MG TABLET. PO SCH (08:22)
[2021-11-23] MEDS: APIXABAN 5 MG TABLET. PO SCH ×2 (08:22→19:58)
[2021-11-23] MEDS: METOPROLOL SUCC 24HR ER 50 MG TAB.ER.24H. PO SCH (08:22)
[2021-11-23] MEDS: ASPIRIN ENTERIC COATED 81 MG TABLET.DR. PO SCH (08:23)
[2021-11-23 10:52] VITALS: BP 161/78
--- NOTE | 2021-11-23 12:45 | PDOC ---
[employer] PROGRESS NOTE Date of Service DOS: DATE: 11/23/21 TIME: 12:43 Chief Complaint Chief Complaint A. fib with RVR Acute on chronic systolic heart failure Anemia Lactic acidosis History of the following; Chronic CHF, AFib, hypertension, hyperlipidemia, prolapsed rectum, colonic mass that was resected that was noncancerous, previous tobacco abuse. BPH, urinary retneiosn has jennings hx right leg injury, and compartment syndrome and extensive surgery with Dr. giles for limb salvage, still has wound History of Present Illness History of Present Illness 11/23/2021 urine culture has grown gram pos cocci, will start abx, overtreat, could contribute still has jennings, try to remove, BPH may be better HR stil up at times, may need higher dose of b-eduardo at DC Patient seen and examined He is breathing a little better today but still very weak e Discussed with RN Chart reviewed Discussed with caser in Vitals/I&O Vitals/I&O: Vital Signs Date Time Temp Pulse Resp B/P (MAP) Pulse Ox O2 Delivery O2 Flow Rate FiO2 11/23/21 10:52 97.2 78 19 161/78 (105) 98 Room Air 97.2 11/23/21 08:00 4.0 I & O 11/22/21 11/22/21 11/23/21 15:00 23:00 07:00 Intake Total 700 ml 0 ml 100 ml Output Total 950 ml Balance 700 ml 0 ml -850 ml Physical Exam General: Alert, Oriented X3, Cooperative, mild distress Heart: Other (AFIB) Lungs: Clear Abdomen: Soft Extremities: No cyanosis, Other (1+ RLE pitting edema and 2+ LLE pitting edema) Skin: Other (righ calf surgical wound) Labs Labs: Laboratory Tests Test 11/23/21 04:00 White Blood Count 12.5 x10^3/uL (4.0-11.0) Red Blood Count 3.38 x10^6/uL (4.30-5.70) Hemoglobin 9.5 g/dL (13.0-17.5) Hematocrit 29.5 % (39.0-53.0) Mean Corpuscular Volume 87 fL (79-100) Mean Corpuscular Hemoglobin 28 pg (25-35) Mean Corpuscular Hemoglobin Concent 32 g/dL (31-37) Red Cell Distribution Width 15.0 % (11.5-14.5) Platelet Count 164 x10^3/uL (140-400) Neutrophils (%) (Auto) 88 % (31-73) Lymphocytes (%) (Auto) 4 % (24-48) Monocytes (%) (Auto) 7 % (0-9) Eosinophils (%) (Auto) 1 % (0-3) Basophils (%) (Auto) 0 % (0-3) Neutrophils # (Auto) 11.0 x10^3/uL (1.8-7.7) Lymphocytes # (Auto) 0.5 x10^3/uL (1.0-4.8) Monocytes # (Auto) 0.9 x10^3/uL (0.0-1.1) Eosinophils # (Auto) 0.1 x10^3/uL (0.0-0.7) Basophils # (Auto) 0.0 x10^3/uL (0.0-0.2) Sodium Level 140 mmol/L (136-145) Potassium Level 3.7 mmol/L (3.5-5.1) Chloride Level 104 mmol/L (98-107) Carbon Dioxide Level 29 mmol/L (21-32) Anion Gap 7 (6-14) Blood Urea Nitrogen 37 mg/dL (8-26) Creatinine 1.2 mg/dL (0.7-1.3) Estimated GFR (Cockcroft-Gault) 58.3 Glucose Level 88 mg/dL (70-99) Calcium Level 8.6 mg/dL (8.5-10.1) Assessment and Plan Assessmemt and Plan Problems Medical Problems: (1) Atrial fibrillation with RVR Status: Acute (2) CHF exacerbation Status: Acute (3) Person under investigation for COVID-19 Status: Acute Comment Review of Relevant I have reviewed the following items yolis (where applicable) has been applied. Medications: Current Medications Medications (Trade) Dose Ordered Sig/Sowmya Route PRN Reason Start Time Stop Time Status Last Admin Dose Admin Trazodone HCl (Desyrel) 50 mg PRN QHS PRN PO INSOMNIA 11/22/21 18:30 11/22/21 23:20 Ceftriaxone Sodium (Rocephin) 1 gm Q24H IVP 11/23/21 13:00 11/23/21 12:41 Justifications for Admission Other Justification TJ MAYS MD Nov 23, 2021 12:45
[2021-11-23] MEDS ORDERED: cefTRIAXone IV Push 1 GM VIAL. IVP SCH (13:00)
--- NOTE | 2021-11-23 13:40 | PDOC ---
PROGRESS NOTES Date of Service DATE: 11/23/21 TIME: 13:38 Subjective Subjective Patient seen and examined Objective Objective Vital Signs Date Time Temp Pulse Resp B/P (MAP) Pulse Ox O2 Delivery O2 Flow Rate FiO2 11/23/21 10:52 97.2 78 19 161/78 (105) 98 Room Air 97.2 11/23/21 08:00 4.0 Intake and Output 11/23/21 07:00 Intake Total 800 ml Output Total 950 ml Balance -150 ml Intake Oral 800 ml Output Urine Total 950 ml Physical Exam Abdomen: Normal bowel sounds Heart: Other (Irregular rhythm) General: mild distress Lungs: Other (Mildly decreased breath sounds) Assessment Assessment Problems Medical Problems: (1) Atrial fibrillation with RVR Status: Acute (2) CHF exacerbation Status: Acute (3) Person under investigation for COVID-19 Status: Acute 1. AFIB RVR: Mildly improved rate. On metoprolol and Eliquis. 2. Acute on chronic diastolic CHF: possibly precipitated by RVR. Mildly improved. 3. HTN: controlled 4. HLP 5. S/P: I & D to RLE due to injury from mechanical fall with compartment issue 10/23/2021 6. Possible COPD with past hx of tobaccoism 7. Lactic acidosis: possibly from work of breathing. 8. PUI 9. CAD: 2019 stent to LAD/LCx, clinically stable. Comment Review of Relevant I have reviewed the following items yolis (where applicable) has been applied. Labs Laboratory Tests Test 11/22/21 05:00 11/23/21 04:00 Urine Collection Type Unknown Urine Color Yellow Urine Clarity Cloudy Urine pH 6.0 (<5.0-8.0) Urine Specific [place] 1.025 (1.000-1.030) Urine Protein 100 mg/dL (NEG-TRACE) Urine Glucose (UA) Negative mg/dL (NEG) Urine Ketones (Stick) Negative mg/dL (NEG) Urine Blood Moderate (NEG) Urine Nitrite Negative (NEG) Urine Bilirubin Negative (NEG) Urine Urobilinogen Dipstick 0.2 mg/dL (0.2 mg/dL) Urine Leukocyte Esterase Small (NEG) Urine RBC 6-10 /HPF (0-2) Urine WBC Tntc /HPF (0-4) Urine Squamous Epithelial Cells None /LPF Urine Renal Epithelial Cells Occ /LPF Urine Bacteria Many /HPF (0-FEW) Urine Mucus Mod /LPF White Blood Count 12.5 x10^3/uL (4.0-11.0) Red Blood Count 3.38 x10^6/uL (4.30-5.70) Hemoglobin 9.5 g/dL (13.0-17.5) Hematocrit 29.5 % (39.0-53.0) Mean Corpuscular Volume 87 fL (79-100) Mean Corpuscular Hemoglobin 28 pg (25-35) Mean Corpuscular Hemoglobin Concent 32 g/dL (31-37) Red Cell Distribution Width 15.0 % (11.5-14.5) Platelet Count 164 x10^3/uL (140-400) Neutrophils (%) (Auto) 88 % (31-73) Lymphocytes (%) (Auto) 4 % (24-48) Monocytes (%) (Auto) 7 % (0-9) Eosinophils (%) (Auto) 1 % (0-3) Basophils (%) (Auto) 0 % (0-3) Neutrophils # (Auto) 11.0 x10^3/uL (1.8-7.7) Lymphocytes # (Auto) 0.5 x10^3/uL (1.0-4.8) Monocytes # (Auto) 0.9 x10^3/uL (0.0-1.1) Eosinophils # (Auto) 0.1 x10^3/uL (0.0-0.7) Basophils # (Auto) 0.0 x10^3/uL (0.0-0.2) Sodium Level 140 mmol/L (136-145) Potassium Level 3.7 mmol/L (3.5-5.1) Chloride Level 104 mmol/L (98-107) Carbon Dioxide Level 29 mmol/L (21-32) Anion Gap 7 (6-14) Blood Urea Nitrogen 37 mg/dL (8-26) Creatinine 1.2 mg/dL (0.7-1.3) Estimated GFR (Cockcroft-Gault) 58.3 Glucose Level 88 mg/dL (70-99) Calcium Level 8.6 mg/dL (8.5-10.1) Laboratory Tests Test 11/23/21 04:00 White Blood Count 12.5 x10^3/uL (4.0-11.0) Red Blood Count 3.38 x10^6/uL (4.30-5.70) Hemoglobin 9.5 g/dL (13.0-17.5) Hematocrit 29.5 % (39.0-53.0) Mean Corpuscular Volume 87 fL (79-100) Mean Corpuscular Hemoglobin 28 pg (25-35) Mean Corpuscular Hemoglobin Concent 32 g/dL (31-37) Red Cell Distribution Width 15.0 % (11.5-14.5) Platelet Count 164 x10^3/uL (140-400) Neutrophils (%) (Auto) 88 % (31-73) Lymphocytes (%) (Auto) 4 % (24-48) Monocytes (%) (Auto) 7 % (0-9) Eosinophils (%) (Auto) 1 % (0-3) Basophils (%) (Auto) 0 % (0-3) Neutrophils # (Auto) 11.0 x10^3/uL (1.8-7.7) Lymphocytes # (Auto) 0.5 x10^3/uL (1.0-4.8) Monocytes # (Auto) 0.9 x10^3/uL (0.0-1.1) Eosinophils # (Auto) 0.1 x10^3/uL (0.0-0.7) Basophils # (Auto) 0.0 x10^3/uL (0.0-0.2) Sodium Level 140 mmol/L (136-145) Potassium Level 3.7 mmol/L (3.5-5.1) Chloride Level 104 mmol/L (98-107) Carbon Dioxide Level 29 mmol/L (21-32) Anion Gap 7 (6-14) Blood Urea Nitrogen 37 mg/dL (8-26) Creatinine 1.2 mg/dL (0.7-1.3) Estimated GFR (Cockcroft-Gault) 58.3 Glucose Level 88 mg/dL (70-99) Calcium Level 8.6 mg/dL (8.5-10.1) Microbiology 11/22/21 Urine Culture - Preliminary, Resulted Enterobacter Cloacae Complex Medications Current Medications Diltiazem HCl (Cardizem Iv Push) 20 mg 1X ONCE IVP Last administered on 11/21/21at 08:00; Start 11/21/21 at 08:00; Stop 11/21/21 at 08:01; Status DC Diltiazem HCl 125 mg/Sodium Chloride 125 ml @ 5 mls/hr 1X ONCE IV ; Start 11/21/21 at 08:00; Stop 11/21/21 at 13:26; Status DC Acetaminophen (Tylenol) 1,000 mg 1X ONCE PO Last administered on 11/21/21at 08:00; Start 11/21/21 at 08:00; Stop 11/21/21 at 08:01; Status DC Magnesium Sulfate 50 ml @ 25 mls/hr 1X ONCE IV Last administered on 11/21/21at 08:30; Start 11/21/21 at 08:30; Stop 11/21/21 at 10:29; Status DC Acetaminophen (Tylenol) 650 mg PRN Q6HRS PRN PO MILD PAIN / TEMP > 100.3'F Last administered on 11/22/21at 20:10; Start 11/21/21 at 13:30 Apixaban (Eliquis) 5 mg BID PO Last administered on 11/23/21at 08:22; Start 11/21/21 at 21:00 Atorvastatin Calcium (Lipitor) 20 mg QHS PO Last administered on 11/22/21at 20:09; Start 11/22/21 at 09:00 Furosemide (Lasix) 40 mg DAILY PO Last administered on 11/23/21 08:22; Start 11/22/21 at 09:00 Metoprolol Succinate (Toprol Xl) 50 mg DAILY PO Last administered on 11/23/21 08:22; Start 11/22/21 at 09:00 Info (Anti-Coagulation Monitoring By Pharmacy) 1 each PRN DAILY PRN MC PER PROTOCOL Last administered on 11/22/21at 11:32; Start 11/21/21 at 15:00 Aspirin (Ecotrin) 81 mg DAILYWBKFT PO Last administered on 11/23/21at 08:23; St art 11/22/21 at 08:00 Trazodone HCl (Desyrel) 50 mg PRN QHS PRN PO INSOMNIA Last administered on 11/22/21 23:20; Start 11/22/21 at 18:30 Ceftriaxone Sodium (Rocephin) 1 gm Q24H IVP Last administered on 11/23/21at 12:41; Start 11/23/21 at 13:00 Lactobacillus Rhamnosus (Culturelle) 1 cap BID PO ; Start 11/23/21 at 21:00 Active Scripts Active Alprazolam 0.5 Mg Tablet 0.25 Mg PO PRN BID PRN 14 Days Hydrocodone-Apap 7.5-325 (Hydrocodone Bit/Acetaminophen) 1 Tab Tablet 1 Tab PO PRN Q6HRS PRN 14 Days Metamucil Fiber Singles Packet (Psyllium Husk/Aspartame) 3.4 Gm Powd.pack 1 Pkt PO DAILY 30 Days Vitamin D3 (Vitamin D) 125 Mcg Capsule 5,000 Unit PO DAILY 30 Days Nyamyc (Nystatin) 15 Gm Powder 1 Taylor TP BID 14 Days Aspirin Ec (Aspirin) 81 Mg Tablet.dr 81 Mg PO DAILYWBKFT 30 Days Reported Acetaminophen 325 Mg Tablet 650 Mg PO PRN Q4-6HRS PRN Flomax (Tamsulosin Hcl) 0.4 Mg Cap.er.24h 1 Cap PO DAILY Eliquis (Apixaban) 5 Mg Tablet 5 Mg PO BID Furosemide 40 Mg Tablet 1 Tab PO DAILY Klor-Con 10 (Potassium Chloride) 10 Meq Tablet.er 1 Tab PO TID 30 Days Lisinopril 40 Mg Tablet 1 Tab PO DAILY Toprol Xl (Metoprolol Succinate) 50 Mg Tab.er.24h 50 Mg PO DAILY Atorvastatin Calcium 20 Mg Tablet 20 Mg PO DAILY Vitals/I & O Vital Sign - Last 24 Hours 11/22/21 11/22/21 11/22/21 11/22/21 15:00 19:28 20:00 22:18 Temp 97.7 98.3 97.8 97.7 98.3 97.8 Pulse 115 80 84 Resp 22 18 B/P (MAP) 150/67 (94) 155/82 (106) 159/75 (103) Pulse Ox 97 98 96 O2 Delivery Room Air Room Air Room Air Room Air 11/23/21 11/23/21 11/23/21 11/23/21 02:00 07:00 08:00 08:22 Temp 97.7 97.8 97.7 97.8 Pulse 84 93 93 Resp 18 19 B/P (MAP) 152/77 (102) 163/79 (107) 163/79 Pulse Ox 98 98 O2 Delivery Room Air Room Air Room Air O2 Flow Rate 4.0 11/23/21 10:52 Temp 97.2 97.2 Pulse 78 Resp 19 B/P (MAP) 161/78 (105) Pulse Ox 98 O2 Delivery Room Air Intake and Output 11/22/21 11/22/21 11/23/21 15:00 23:00 07:00 Intake Total 700 ml 0 ml 100 ml Output Total 950 ml Balance 700 ml 0 ml -850 ml Justifications for Admission Other Justification Nutrition Consultation Dietary Evaluation: Recommendations by RD: Dietary education by RD, Increase Calorie Intake, Protein supplementation Comments: cardiac magic cup bid maulik bid mvi Expected Outcomes/Goals: to meet >75%est nutr needs improved wound status Interpretation of weight loss: >5% in 1 month Malnutrition Findings: Food and Nutrition Intake (Sev: <50% est energy req 5days Weight Status: Appropriate RASHAD RICARDO MD Nov 23, 2021 13:40
[2021-11-23 14:39] VITALS: BP 155/70
[2021-11-23] MEDS: ACETAMINOPHEN 325 MG TABLET. PO PRN ×2 (17:30→19:58)
[2021-11-23 19:44] VITALS: BP 160/116
[2021-11-23] MEDS: CEFEPIME HCL IV Push 1 GM VIAL. IVP SCH (19:58)
[2021-11-23] MEDS: LACTOBACILLUS RHAMNOSUS GG 1 CAPSULE. PO SCH (19:58)
[2021-11-23] MEDS: ATORVASTATIN CALCIUM 20 MG TABLET PO SCH (19:58)
[2021-11-23 23:14] VITALS: BP 169/90
[2021-11-24 03:44] VITALS: BP 199/98
[2021-11-24 06:07] LABS: CALCIUM 8.5 mg/dL (8.5-10.1); CREATININE 0.9 mg/dL (0.7-1.3); GFR 81.2; POTASSIUM 3.2 mmol/L (3.5-5.1)
[2021-11-24 06:09] LABS: BASO % 0 % (0-3); EOS # 0.1 x10^3/uL (0.0-0.7); EOS % 1 % (0-3); HEMATOCRIT 31.7 % (39.0-53.0); LYMPH # 0.5 x10^3/uL (1.0-4.8); LYMPH % 6 % (24-48); MEAN CORPUSCULAR HEMOGLOBIN 28 pg (25-35); MEAN CORPUSCULAR HGB CONC 32 g/dL (31-37); MEAN CORPUSCULAR VOLUME 89 fL (79-100); MONO # 0.7 x10^3/uL (0.0-1.1); MONO % 8 % (0-9); NEUT % 85 % (31-73); PLATELET COUNT 179 x10^3/uL (140-400); RED BLOOD COUNT 3.58 x10^6/uL (4.30-5.70); WHITE BLOOD COUNT 8.3 x10^3/uL (4.0-11.0)
[2021-11-24 06:38] VITALS: BP 179/91
[2021-11-24] MEDS: LACTOBACILLUS RHAMNOSUS GG 1 CAPSULE. PO SCH ×2 (08:14→20:37)
[2021-11-24] MEDS: CEFEPIME HCL IV Push 1 GM VIAL. IVP SCH ×2 (08:14→20:38)
[2021-11-24] MEDS: METOPROLOL SUCC 24HR ER 50 MG TAB.ER.24H. PO SCH (08:15)
[2021-11-24] MEDS: FUROSEMIDE 40 MG TABLET. PO SCH (08:15)
[2021-11-24] MEDS: ASPIRIN ENTERIC COATED 81 MG TABLET.DR. PO SCH (08:15)
[2021-11-24] MEDS: APIXABAN 5 MG TABLET. PO SCH ×2 (09:00→20:37)
[2021-11-24] MEDS ORDERED: POTASSIUM CHLORIDE 20 MEQ TABLET.ER. PO ONE (10:00)
[2021-11-24] MEDS ORDERED: ALPRAZolam 0.5 MG TABLET PO PRN (10:00)
--- NOTE | 2021-11-24 10:03 | PDOC ---
[facility] PROGRESS NOTE Date of Service DOS: DATE: 11/24/21 TIME: 10:01 Chief Complaint Chief Complaint A. fib with RVR Acute on chronic systolic heart failure Anemia Lactic acidosis History of the following; Chronic CHF, AFib, hypertension, hyperlipidemia, prolapsed rectum, colonic mass that was resected that was noncancerous, previous tobacco abuse. BPH, urinary retneiosn has jennings hx right leg injury, and compartment syndrome and extensive surgery with Dr. giles for limb salvage, still has wound History of Present Illness History of Present Illness 11/24, abx chanfed to cefepime yesterday, resistant UTI, discussed with pharmacy flomax start, try to remove jennings HR up, increase b-eduardo anxiety high, xanax PRN, I had to discuss plan with him x2, he wants to DC home, long discussion 11/23/2021 urine culture has grown gram pos cocci, will start abx, overtreat, could contribute still has jennings, try to remove, BPH may be better HR stil up at times, may need higher dose of b-eduardo at DC Patient seen and examined He is breathing a little better today but still very weak e Discussed with RN Chart reviewed Discussed with case manager specialist Vitals/I&O Vitals/I&O: Vital Signs Date Time Temp Pulse Resp B/P (MAP) Pulse Ox O2 Delivery O2 Flow Rate FiO2 11/24/21 08:15 98 179/91 11/24/21 06:38 97.6 18 98 Room Air 97.6 11/23/21 08:00 4.0 I & O 11/23/21 11/23/21 11/24/21 15:00 23:00 07:00 Intake Total 100 ml 100 ml 0 ml Output Total 1000 ml Balance 100 ml 100 ml -1000 ml Physical Exam General: mild distress Heart: Other (Irregular rhythm) Lungs: Clear Abdomen: Normal bowel sounds Extremities: No cyanosis, Other (1+ RLE pitting edema and 2+ LLE pitting edema) Skin: Other (righ calf surgical wound) Labs Labs: Laboratory Tests Test 11/24/21 05:20 White Blood Count 8.3 x10^3/uL (4.0-11.0) Red Blood Count 3.58 x10^6/uL (4.30-5.70) Hemoglobin 10.0 g/dL (13.0-17.5) Hematocrit 31.7 % (39.0-53.0) Mean Corpuscular Volume 89 fL (79-100) Mean Corpuscular Hemoglobin 28 pg (25-35) Mean Corpuscular Hemoglobin Concent 32 g/dL (31-37) Red Cell Distribution Width 15.0 % (11.5-14.5) Platelet Count 179 x10^3/uL (140-400) Neutrophils (%) (Auto) 85 % (31-73) Lymphocytes (%) (Auto) 6 % (24-48) Monocytes (%) (Auto) 8 % (0-9) Eosinophils (%) (Auto) 1 % (0-3) Basophils (%) (Auto) 0 % (0-3) Neutrophils # (Auto) 7.0 x10^3/uL (1.8-7.7) Lymphocytes # (Auto) 0.5 x10^3/uL (1.0-4.8) Monocytes # (Auto) 0.7 x10^3/uL (0.0-1.1) Eosinophils # (Auto) 0.1 x10^3/uL (0.0-0.7) Basophils # (Auto) 0.0 x10^3/uL (0.0-0.2) Sodium Level 141 mmol/L (136-145) Potassium Level 3.2 mmol/L (3.5-5.1) Chloride Level 104 mmol/L (98-107) Carbon Dioxide Level 27 mmol/L (21-32) Anion Gap 10 (6-14) Blood Urea Nitrogen 29 mg/dL (8-26) Creatinine 0.9 mg/dL (0.7-1.3) Estimated GFR (Cockcroft-Gault) 81.2 Glucose Level 102 mg/dL (70-99) Calcium Level 8.5 mg/dL (8.5-10.1) Assessment and Plan Assessmemt and Plan Problems Medical Problems: (1) Atrial fibrillation with RVR Status: Acute (2) CHF exacerbation Status: Acute (3) Person under investigation for COVID-19 Status: Acute Comment Review of Relevant I have reviewed the following items yolis (where applicable) has been applied. Medications: Current Medications Medications (Trade) Dose Ordered Sig/Sowmya Route PRN Reason Start Time Stop Time Status Last Admin Dose Admin Ceftriaxone Sodium (Rocephin) 1 gm Q24H IVP 11/23/21 13:00 11/23/21 13:39 DC 11/23/21 12:41 Lactobacillus Rhamnosus (Culturelle) 1 cap BID PO 11/23/21 21:00 11/24/21 08:14 Cefepime HCl (Maxipime) 1 gm Q12HR IVP 11/23/21 21:00 11/24/21 08:14 Justifications for Admission Other Justification TJ MAYS MD Nov 24, 2021 10:03
[2021-11-24] MEDS: TAMSULOSIN 0.4 MG CAP.ER.24H. PO SCH (10:11)
[2021-11-24] MEDS ORDERED: METOPROLOL SUCC 24HR ER 50 MG TAB.ER.24H. PO ONE (10:15)
[2021-11-24 11:18] VITALS: BP 169/83
--- NOTE | 2021-11-24 14:04 | PDOC ---
PROGRESS NOTES Date of Service DATE: 11/24/21 TIME: 14:02 Subjective Subjective Patient seen and examined Objective Objective Vital Signs Date Time Temp Pulse Resp B/P (MAP) Pulse Ox O2 Delivery O2 Flow Rate FiO2 11/24/21 11:18 97.5 82 18 169/83 (111) 96 Room Air 97.5 11/24/21 08:00 4.0 Intake and Output 11/24/21 07:00 Intake Total 200 ml Output Total 1000 ml Balance -800 ml Intake Oral 200 ml Output Urine Total 1000 ml # Bowel Movements 2 Physical Exam Abdomen: Normal bowel sounds Heart: Other (Irregular rhythm) General: mild distress Lungs: Other (Mildly decreased breath sounds) Assessment Assessment Problems Medical Problems: (1) Atrial fibrillation with RVR Status: Acute (2) CHF exacerbation Status: Acute (3) Person under investigation for COVID-19 Status: Acute 1. AFIB RVR: Improved rate. On metoprolol and Eliquis. 2. Acute on chronic diastolic CHF: possibly precipitated by RVR. Improving. 3. HTN: controlled 4. HLP 5. S/P: I & D to RLE due to injury from mechanical fall with compartment issue 10/23/2021 6. Possible COPD with past hx of tobaccoism 7. Lactic acidosis: possibly from work of breathing. 8. PUI 9. CAD: 2019 stent to LAD/LCx, clinically stable. 10.Hypokalemia. Being replaced. Comment Review of Relevant I have reviewed the following items yolis (where applicable) has been applied. Labs Laboratory Tests Test 11/23/21 04:00 11/24/21 05:20 White Blood Count 12.5 x10^3/uL (4.0-11.0) 8.3 x10^3/uL (4.0-11.0) Red Blood Count 3.38 x10^6/uL (4.30-5.70) 3.58 x10^6/uL (4.30-5.70) Hemoglobin 9.5 g/dL (13.0-17.5) 10.0 g/dL (13.0-17.5) Hematocrit 29.5 % (39.0-53.0) 31.7 % (39.0-53.0) Mean Corpuscular Volume 87 fL (79-100) 89 fL (79-100) Mean Corpuscular Hemoglobin 28 pg (25-35) 28 pg (25-35) Mean Corpuscular Hemoglobin Concent 32 g/dL (31-37) 32 g/dL (31-37) Red Cell Distribution Width 15.0 % (11.5-14.5) 15.0 % (11.5-14.5) Platelet Count 164 x10^3/uL (140-400) 179 x10^3/uL (140-400) Neutrophils (%) (Auto) 88 % (31-73) 85 % (31-73) Lymphocytes (%) (Auto) 4 % (24-48) 6 % (24-48) Monocytes (%) (Auto) 7 % (0-9) 8 % (0-9) Eosinophils (%) (Auto) 1 % (0-3) 1 % (0-3) Basophils (%) (Auto) 0 % (0-3) 0 % (0-3) Neutrophils # (Auto) 11.0 x10^3/uL (1.8-7.7) 7.0 x10^3/uL (1.8-7.7) Lymphocytes # (Auto) 0.5 x10^3/uL (1.0-4.8) 0.5 x10^3/uL (1.0-4.8) Monocytes # (Auto) 0.9 x10^3/uL (0.0-1.1) 0.7 x10^3/uL (0.0-1.1) Eosinophils # (Auto) 0.1 x10^3/uL (0.0-0.7) 0.1 x10^3/uL (0.0-0.7) Basophils # (Auto) 0.0 x10^3/uL (0.0-0.2) 0.0 x10^3/uL (0.0-0.2) Sodium Level 140 mmol/L (136-145) 141 mmol/L (136-145) Potassium Level 3.7 mmol/L (3.5-5.1) 3.2 mmol/L (3.5-5.1) Chloride Level 104 mmol/L (98-107) 104 mmol/L (98-107) Carbon Dioxide Level 29 mmol/L (21-32) 27 mmol/L (21-32) Anion Gap 7 (6-14) 10 (6-14) Blood Urea Nitrogen 37 mg/dL (8-26) 29 mg/dL (8-26) Creatinine 1.2 mg/dL (0.7-1.3) 0.9 mg/dL (0.7-1.3) Estimated GFR (Cockcroft-Gault) 58.3 81.2 Glucose Level 88 mg/dL (70-99) 102 mg/dL (70-99) Calcium Level 8.6 mg/dL (8.5-10.1) 8.5 mg/dL (8.5-10.1) Laboratory Tests Test 11/24/21 05:20 White Blood Count 8.3 x10^3/uL (4.0-11.0) Red Blood Count 3.58 x10^6/uL (4.30-5.70) Hemoglobin 10.0 g/dL (13.0-17.5) Hematocrit 31.7 % (39.0-53.0) Mean Corpuscular Volume 89 fL (79-100) Mean Corpuscular Hemoglobin 28 pg (25-35) Mean Corpuscular Hemoglobin Concent 32 g/dL (31-37) Red Cell Distribution Width 15.0 % (11.5-14.5) Platelet Count 179 x10^3/uL (140-400) Neutrophils (%) (Auto) 85 % (31-73) Lymphocytes (%) (Auto) 6 % (24-48) Monocytes (%) (Auto) 8 % (0-9) Eosinophils (%) (Auto) 1 % (0-3) Basophils (%) (Auto) 0 % (0-3) Neutrophils # (Auto) 7.0 x10^3/uL (1.8-7.7) Lymphocytes # (Auto) 0.5 x10^3/uL (1.0-4.8) Monocytes # (Auto) 0.7 x10^3/uL (0.0-1.1) Eosinophils # (Auto) 0.1 x10^3/uL (0.0-0.7) Basophils # (Auto) 0.0 x10^3/uL (0.0-0.2) Sodium Level 141 mmol/L (136-145) Potassium Level 3.2 mmol/L (3.5-5.1) Chloride Level 104 mmol/L (98-107) Carbon Dioxide Level 27 mmol/L (21-32) Anion Gap 10 (6-14) Blood Urea Nitrogen 29 mg/dL (8-26) Creatinine 0.9 mg/dL (0.7-1.3) Estimated GFR (Cockcroft-Gault) 81.2 Glucose Level 102 mg/dL (70-99) Calcium Level 8.5 mg/dL (8.5-10.1) Microbiology 11/22/21 Urine Culture - Final, Complete Enterobacter Cloacae Complex Medications Current Medications Diltiazem HCl (Cardizem Iv Push) 20 mg 1X ONCE IVP Last administered on 11/21/21at 08:00; Start 11/21/21 at 08:00; Stop 11/21/21 at 08:01; Status DC Diltiazem HCl 125 mg/Sodium Chloride 125 ml @ 5 mls/hr 1X ONCE IV ; Start 11/21/21 at 08:00; Stop 11/21/21 at 13:26; Status DC Acetaminophen (Tylenol) 1,000 mg 1X ONCE PO Last administered on 11/21/21at 08:00; Start 11/21/21 at 08:00; Stop 11/21/21 at 08:01; Status DC Magnesium Sulfate 50 ml @ 25 mls/hr 1X ONCE IV Last administered on 11/21/21at 08:30; Start 11/21/21 at 08:30; Stop 11/21/21 at 10:29; Status DC Acetaminophen (Tylenol) 650 mg PRN Q6HRS PRN PO MILD PAIN / TEMP > 100.3'F Last administered on 11/23/21at 19:58; Start 11/21/21 at 13:30 Apixaban (Eliquis) 5 mg BID PO Last administered on 11/24/21at 09:00; Start 11/21/21 at 21:00 Atorvastatin Calcium (Lipitor) 20 mg QHS PO Last administered on 11/23/21at 19:58; Start 11/22/21 at 09:00 Furosemide (Lasix) 40 mg DAILY PO Last administered on 11/24/21at 08:15; Start 11/22/21 at 09:00 Metoprolol Succinate (Toprol Xl) 50 mg DAILY PO Last administered on 11/24/21at 08:15; Start 11/22/21 at 09:00; Stop 11/24/21 at 10:01; Status DC Info (Anti-Coagulation Monitoring By Pharmacy) 1 each PRN DAILY PRN MC PER PROTOCOL Last administered on 11/22/21at 11:32; Start 11/21/21 at 15:00 Aspirin (Ecotrin) 81 mg DAILYWBKFT PO Last administered on 11/24/21at 08:15; Start 11/22/21 at 08:00 Trazodone HCl (Desyrel) 50 mg PRN QHS PRN PO INSOMNIA Last administered on 11/22/21 23:20; Start 11/22/21 at 18:30 Ceftriaxone Sodium (Rocephin) 1 gm Q24H IVP Last administered on 11/23/21at 12:41; Start 11/23/21 at 13:00; Stop 11/23/21 at 13:39; Status DC Lactobacillus Rhamnosus (Culturelle) 1 cap BID PO Last administered on 11/24/21at 08:14; Start 11/23/21 at 21:00 Cefepime HCl (Maxipime) 1 gm Q12HR IVP Last administered on 11/24/21 08:14; Start 11/23/21 at 21:00 Alprazolam (Xanax) 0.5 mg PRN Q8HRS PRN PO ANXIETY / AGITATION Last administered on 11/24/21at 10:02; Start 11/24/21 at 10:00 Potassium Chloride (Klor-Con) 40 meq 1X ONCE PO Last administered on 11/24/21at 10:10; Start 11/24/21 at 10:00; Stop 11/24/21 at 10:01; Status DC Metoprolol Succinate (Toprol Xl) 100 mg DAILY PO ; Start 11/25/21 at 09:00 Metoprolol Succinate (Toprol Xl) 50 mg 1X ONCE PO Last administered on 11/24/21at 10:11; Start 11/24/21 at 10:15; Stop 11/24/21 at 10:16; Status DC Tamsulosin HCl (Flomax) 0.4 mg DAILY PO Last administered on 11/24/21at 10:11; Start 11/24/21 at 10:00 Active Scripts Active Alprazolam 0.5 Mg Tablet 0.25 Mg PO PRN BID PRN 14 Days Hydrocodone-Apap 7.5-325 (Hydrocodone Bit/Acetaminophen) 1 Tab Tablet 1 Tab PO PRN Q6HRS PRN 14 Days Metamucil Fiber Singles Packet (Psyllium Husk/Aspartame) 3.4 Gm Powd.pack 1 Pkt PO DAILY 30 Days Vitamin D3 (Vitamin D) 125 Mcg Capsule 5,000 Unit PO DAILY 30 Days Nyamyc (Nystatin) 15 Gm Powder 1 Taylor TP BID 14 Days Aspirin Ec (Aspirin) 81 Mg Tablet.dr 81 Mg PO DAILYWBKFT 30 Days Reported Acetaminophen 325 Mg Tablet 650 Mg PO PRN Q4-6HRS PRN Flomax (Tamsulosin Hcl) 0.4 Mg Cap.er.24h 1 Cap PO DAILY Eliquis (Apixaban) 5 Mg Tablet 5 Mg PO BID Furosemide 40 Mg Tablet 1 Tab PO DAILY Klor-Con 10 (Potassium Chloride) 10 Meq Tablet.er 1 Tab PO TID 30 Days Lisinopril 40 Mg Tablet 1 Tab PO DAILY Toprol Xl (Metoprolol Succinate) 50 Mg Tab.er.24h 50 Mg PO DAILY Atorvastatin Calcium 20 Mg Tablet 20 Mg PO DAILY Vitals/I & O Vital Sign - Last 24 Hours 11/23/21 11/23/21 11/23/21 11/23/21 14:39 19:39 19:44 23:14 Temp 97.5 97.7 97.9 97.5 97.7 97.9 Pulse 87 89 98 Resp 21 18 18 B/P (MAP) 155/70 (98) 160/116 (131) 169/90 (116) Pulse Ox 98 95 97 O2 Delivery Room Air Room Air Room Air Room Air 11/24/21 11/24/21 11/24/21 11/24/21 03:44 06:38 08:00 08:15 Temp 97.9 97.6 97.9 97.6 Pulse 102 86 98 Resp 18 18 B/P (MAP) 199/98 (131) 179/91 (120) 179/91 Pulse Ox 97 98 O2 Delivery Room Air Room Air Room Air O2 Flow Rate 4.0 11/24/21 11/24/21 10:11 11:18 Temp 97.5 97.5 Pulse 98 82 Resp 18 B/P (MAP) 179/91 169/83 (111) Pulse Ox 96 O2 Delivery Room Air Intake and Output 11/23/21 11/23/21 11/24/21 15:00 23:00 07:00 Intake Total 100 ml 100 ml 0 ml Output Total 1000 ml Balance 100 ml 100 ml -1000 ml Justifications for Admission Other Justification Nutrition Consultation Dietary Evaluation: Recommendations by RD: Dietary education by RD, Increase Calorie Intake, Protein supplementation Comments: cardiac magic cup bid maulik bid mvi Expected Outcomes/Goals: to meet >75%est nutr needs improved wound status Interpretation of weight loss: >5% in 1 month Malnutrition Findings: Food and Nutrition Intake (Sev: <50% est energy req 5days Weight Status: Appropriate RASHAD RICARDO MD Nov 24, 2021 14:04
[2021-11-24 15:58] VITALS: BP 160/83
[2021-11-24 19:20] VITALS: BP 180/94
[2021-11-24] MEDS: ACETAMINOPHEN 325 MG TABLET. PO PRN (19:47)
[2021-11-24] MEDS: ATORVASTATIN CALCIUM 20 MG TABLET PO SCH (20:37)
[2021-11-24 22:59] VITALS: BP 172/95
[2021-11-25 02:46] VITALS: BP 183/101
[2021-11-25 05:47] LABS: BASO % 1 % (0-3); EOS # 0.1 x10^3/uL (0.0-0.7); EOS % 2 % (0-3); HEMATOCRIT 33.7 % (39.0-53.0); HEMOGLOBIN 10.7 g/dL (13.0-17.5); LYMPH # 0.6 x10^3/uL (1.0-4.8); LYMPH % 10 % (24-48); MEAN CORPUSCULAR HEMOGLOBIN 28 pg (25-35); MEAN CORPUSCULAR HGB CONC 32 g/dL (31-37); MEAN CORPUSCULAR VOLUME 88 fL (79-100); MONO # 0.5 x10^3/uL (0.0-1.1); MONO % 9 % (0-9); NEUT # 4.8 x10^3/uL (1.8-7.7); NEUT % 79 % (31-73); PLATELET COUNT 194 x10^3/uL (140-400); RED BLOOD COUNT 3.81 x10^6/uL (4.30-5.70); RED CELL DISTRIBUTION WIDTH 14.5 % (11.5-14.5); WHITE BLOOD COUNT 6.1 x10^3/uL (4.0-11.0)
[2021-11-25 06:07] LABS: CALCIUM 8.8 mg/dL (8.5-10.1); CREATININE 0.9 mg/dL (0.7-1.3); GFR 81.2; POTASSIUM 3.5 mmol/L (3.5-5.1)
[2021-11-25 06:38] VITALS: BP 168/89
[2021-11-25] MEDS ORDERED: METOPROLOL SUCC 24HR ER 100 MG TAB.ER.24H. PO SCH (09:00)
[2021-11-25] MEDS: LACTOBACILLUS RHAMNOSUS GG 1 CAPSULE. PO SCH (09:36)
[2021-11-25] MEDS: TAMSULOSIN 0.4 MG CAP.ER.24H. PO SCH (09:37)
[2021-11-25] MEDS: APIXABAN 5 MG TABLET. PO SCH (09:37)
[2021-11-25] MEDS: FUROSEMIDE 40 MG TABLET. PO SCH (09:37)
[2021-11-25] MEDS: CEFEPIME HCL IV Push 1 GM VIAL. IVP SCH (09:39)
--- NOTE | 2021-11-25 09:52 | PDOC ---
PROGRESS NOTES Date of Service: DATE: 11/25/21 TIME: 09:52 Subjective Subjective Feeling better. Wanting to go home. Objective Objective Vital Signs Date Time Temp Pulse Resp B/P (MAP) Pulse Ox O2 Delivery O2 Flow Rate FiO2 11/25/21 09:38 93 168/89 11/25/21 06:38 97.4 20 95 Room Air 97.4 11/24/21 08:00 4.0 Intake and Output 11/25/21 07:00 Intake Total 200 ml Output Total 2400 ml Balance -2200 ml Intake Oral 200 ml Output Urine Total 2400 ml Physical Exam Abdomen: Normal bowel sounds Heart: Other (Irregular rhythm) Extremities: No cyanosis, Other (1+ RLE pitting edema and 2+ LLE pitting edema) General: mild distress HEENT: Atraumatic, Mucous membr. moist/pink Lungs: Other (Mildly decreased breath sounds) MUSCULOSKELETAL: Osteoarthritic changes both hands Neuro: Normal speech, Sensation intact Psych/Mental Status: Mental status NL, Mood NL Skin: Other (righ calf surgical wound) Assessment Assessment 1. AFIB RVR: Chronic, rate controlled. Patient stated that he had cardioversions in the past. Continue Eliquis for stroke prophylaxis. Follow-up with primary test engineering technician upon discharge. 2. Acute on chronic diastolic CHF: possibly precipitated by RVR. Better compensated. Continue oral diuretics. 3. HTN: controlled 4. HLP: Continue statins 5. S/P: I & D to RLE due to injury from mechanical fall with compartment issue 10/23/2021 6. Possible COPD with past hx of tobaccoism 7. CAD: 2019 stent to LAD/LCx, clinically stable. Continue current secondary prevention measures. Plan Plan of Care Problems Medical Problems: (1) Atrial fibrillation with RVR Status: Acute (2) CHF exacerbation Status: Acute (3) Person under investigation for COVID-19 Status: Acute Comment Review of Relevant I have reviewed the following items yolis (where applicable) has been applied. Labs Laboratory Tests Test 11/25/21 05:15 White Blood Count 6.1 x10^3/uL (4.0-11.0) Red Blood Count 3.81 x10^6/uL (4.30-5.70) Hemoglobin 10.7 g/dL (13.0-17.5) Hematocrit 33.7 % (39.0-53.0) Mean Corpuscular Volume 88 fL (79-100) Mean Corpuscular Hemoglobin 28 pg (25-35) Mean Corpuscular Hemoglobin Concent 32 g/dL (31-37) Red Cell Distribution Width 14.5 % (11.5-14.5) Platelet Count 194 x10^3/uL (140-400) Neutrophils (%) (Auto) 79 % (31-73) Lymphocytes (%) (Auto) 10 % (24-48) Monocytes (%) (Auto) 9 % (0-9) Eosinophils (%) (Auto) 2 % (0-3) Basophils (%) (Auto) 1 % (0-3) Neutrophils # (Auto) 4.8 x10^3/uL (1.8-7.7) Lymphocytes # (Auto) 0.6 x10^3/uL (1.0-4.8) Monocytes # (Auto) 0.5 x10^3/uL (0.0-1.1) Eosinophils # (Auto) 0.1 x10^3/uL (0.0-0.7) Basophils # (Auto) 0.0 x10^3/uL (0.0-0.2) Sodium Level 141 mmol/L (136-145) Potassium Level 3.5 mmol/L (3.5-5.1) Chloride Level 105 mmol/L (98-107) Carbon Dioxide Level 28 mmol/L (21-32) Anion Gap 8 (6-14) Blood Urea Nitrogen 20 mg/dL (8-26) Creatinine 0.9 mg/dL (0.7-1.3) Estimated GFR (Cockcroft-Gault) 81.2 Glucose Level 104 mg/dL (70-99) Calcium Level 8.8 mg/dL (8.5-10.1) Microbiology 11/22/21 Urine Culture - Final, Complete Enterobacter Cloacae Complex Medications Current Medications Alprazolam (Xanax) 0.5 mg PRN Q8HRS PRN PO ANXIETY / AGITATION Last administered on 11/24/21at 10:02; Start 11/24/21 at 10:00 Metoprolol Succinate (Toprol Xl) 50 mg 1X ONCE PO Last administered on 11/24/21at 10:11; Start 11/24/21 at 10:15; Stop 11/24/21 at 10:16; Status DC Metoprolol Succinate (Toprol Xl) 100 mg DAILY PO Last administered on 11/25/21at 09:38; Start 11/25/21 at 09:00 Potassium Chloride (Klor-Con) 40 meq 1X ONCE PO Last administered on 11/24/21at 10:10; Start 11/24/21 at 10:00; Stop 11/24/21 at 10:01; Status DC Tamsulosin HCl (Flomax) 0.4 mg DAILY PO Last administered on 11/25/21at 09:37; Start 11/24/21 at 10:00 Vitals/I & O Vital Sign - Last 24 Hours 11/24/21 11/24/21 11/24/21 11/24/21 10:11 11:18 15:58 19:20 Temp 97.5 97.6 97.7 97.5 97.6 97.7 Pulse 98 82 82 87 Resp 18 16 20 B/P (MAP) 179/91 169/83 (111) 160/83 (108) 180/94 (122) Pulse Ox 96 96 97 O2 Delivery Room Air Room Air Room Air 11/24/21 11/24/21 11/25/21 11/25/21 19:35 22:59 02:46 06:38 Temp 97.6 97.9 97.4 97.6 97.9 97.4 Pulse 85 95 93 Resp 18 18 20 B/P (MAP) 172/95 (120) 183/101 (128) 168/89 (115) Pulse Ox 97 100 95 O2 Delivery Room Air Room Air Room Air Room Air 11/25/21 09:38 Pulse 93 B/P (MAP) 168/89 Intake and Output 11/24/21 11/24/21 11/25/21 15:00 23:00 07:00 Intake Total 100 ml 100 ml 0 ml Output Total 150 ml 1350 ml 900 ml Balance -50 ml -1250 ml -900 ml DELIA MCDONALD MD Nov 25, 2021 09:52
[2021-11-25] MEDS ORDERED: METO-247 PO (10:36)
[2021-11-25] MEDS ORDERED: TRAZ-118 PO (10:36)
--- NOTE | 2021-11-25 10:37 | SNU/HH DC ---
DISCHARGE WITH HOME HEALTH DISCHARGE INFORMATION: Final Diagnosis: Problems Medical Problems: (1) Atrial fibrillation with RVR Status: Acute (2) CHF exacerbation Status: Acute (3) Person under investigation for COVID-19 Status: Acute Condition on Discharge: Stable CODE STATUS: Code Status: Full HOME HEALTH: Face to Face: I certify this patient is under my care and that I, or a nurse practitioner or physician's operations administrative assistant working with me, had a face to face encounter that meets the physician face to face encounter requirements with this patient on []. Medical Complications: CHF, Other (A. fib) Fci For: Assess Cardiopulm Status RN For Eval/Treatment: Yes Physical Therapy For: Evalulation/Treatment Occupational Therapy For: Evaluation/Treatment Home Health Aide For: Self-care IRON INSTALLER For: Community Resources Pt Meets Homebound Status: Poor coordination w/ amb. POST DISCHARGE ORDERS: Activity Instructions for Disc: Activity as tolerated, Avoid exertion Weight Bearing Status after Di: No restrictions Bathing Instructions: Shower-keep dressing dry, No Tub Bath until see Dr. KU AFTER DISCHARGE: Cardiac CHECKS AFTER DISCHARGE: Checks after discharge: Check blood press - daily TREATMENT/EQUIPMENT ORDERS: Adaptive Equipment Issued: None CERTIFICATION STATEMENT: Certification Statement: Certification Statement: Based on the above finding, I certify that this patient is confined to the home and needs intermittent nursing home care, physical therapy and/or speech therapy, or continues to need occupational therapy.~ This patient is under my care, and I have initiated the establishment of the plan of care.~ This patient will be followed by myself or a community physician who will periodically review the plan of care. Home Meds Active Scripts Trazodone Hcl (TRAZODONE HCL) 50 Mg Tablet, 50 MG PO PRN QHS PRN for INSOMNIA for 30 Days, #30 TAB Prov:CASTLE,NIAL K III DO 11/25/21 Metoprolol Succinate (METOPROLOL SUCCINATE ( XL )) 100 Mg Tab.er.24h, 100 MG PO DAILY for . for 30 Days, #30 TAB.SR Prov:CASTLE,NIAL K III DO 11/25/21 Alprazolam (ALPRAZOLAM) 0.5 Mg Tablet, 0.25 MG PO PRN BID PRN for ANXIETY / AGITATION for 14 Days, #28 TAB Prov:ROOPA BOLTON MD 10/17/21 Hydrocodone Bit/Acetaminophen (HYDROCODONE-APAP 7.5-325 ) 1 Tab Tablet, 1 TAB PO PRN Q6HRS PRN for MODERATE PAIN for 14 Days, #32 TAB Prov:ROOPA BOLTON MD 10/17/21 Psyllium Husk/Aspartame (METAMUCIL FIBER SINGLES PACKET) 3.4 Gm Powd.pack, 1 PKT PO DAILY for Constipation for 30 Days, #30 PKT Prov:ROOPA BOLTON MD 10/17/21 Cholecalciferol (Vitamin D3) (Vitamin D3 ) 125 Mcg Capsule, 5000 UNIT PO DAILY for vitamin d insufficiency for 30 Days, #30 CAP Prov:ROOPA BOLTON MD 10/17/21 Nystatin (NYAMYC) 15 Gm Powder, 1 ASHLI TP BID for RASH for 14 Days, #60 MISC Prov:IVANNA FOSTER MD 05/02/21 Aspirin (ASPIRIN EC) 81 Mg Tablet.dr, 81 MG PO DAILYWBKFT for mi for 30 Days, #30 TAB.SR Prov:SOLIS SOTOMAYOR MD 09/29/18 Reported Medications Acetaminophen (ACETAMINOPHEN) 325 Mg Tablet, 650 MG PO PRN Q4-6HRS PRN for PAIN, TAB 10/22/21 Tamsulosin Hcl (FLOMAX) 0.4 Mg Cap.er.24h, 1 CAP PO DAILY for , #30 CAP 11 Refills 10/07/21 Apixaban (ELIQUIS) 5 Mg Tablet, 5 MG PO BID for afib, TAB 10/07/21 Furosemide (FUROSEMIDE) 40 Mg Tablet, 1 TAB PO DAILY for , #30 TAB 5 Refills 10/07/21 Potassium Chloride (KLOR-CON 10) 10 Meq Tablet.er, 1 TAB PO TID for for 30 Da ys, #90 TAB 0 Refills 10/07/21 Lisinopril (LISINOPRIL) 40 Mg Tablet, 1 TAB PO DAILY for , #30 TAB 5 Refills 10/07/21 Atorvastatin Calcium (ATORVASTATIN CALCIUM) 20 Mg Tablet, 20 MG PO DAILY for FOR CHOLESTEROL, #30 TAB 0 Refills 03/25/14 Discontinued Reported Medications Metoprolol Succinate (TOPROL XL) 50 Mg Tab.er.24h, 50 MG PO DAILY for FOR HYPERTENSION, #30 TAB 0 Refills 03/25/14 AMANDA WALKER III DO Nov 25, 2021 10:37
[2021-11-25 10:58] VITALS: BP 163/93
[2021-11-25] MEDS: ACETAMINOPHEN 325 MG TABLET. PO PRN (12:18)
--- NOTE | 2021-11-26 12:46 | DS ---
DATE OF DISCHARGE: 11/25/2021 ADMITTING DIAGNOSIS: Atrial fibrillation with rapid ventricular response. DISCHARGE DIAGNOSES: Resolving atrial fibrillation with rapid ventricular response, resolving acute on chronic systolic and diastolic heart failure, resolving lactic acidosis, resolving azotemia, history of hypertension, hyperlipidemia, rectal prolapse, colonic mass that was resected, previous tobacco abuse. CONSULTS: Cardiology. PROCEDURES: None. HOSPITAL COURSE: The patient is a pleasant middle-aged male who presented with AFib with RVR. We admitted the patient, gave him appropriate negative chronotropic agents including metoprolol and he also was diuresed with Lasix. Over the next few days, he returned to his baseline. Yesterday, I saw and examined him. He is doing well. We discharged him to home with close outpatient followup. DISPOSITION: Home. ACTIVITY: As tolerated. DIET: Low sodium. DISCHARGE MEDICATIONS: Please see MRAD. TOTAL TIME: [address]: Cyn TID: [id number]
== END 2021-11-25 13:20 | disposition home health service (06) | DRG 291 ==
LOC: ER 07:28 → 6 SOUTH 09:12
PROVIDERS: ADMIT Internal Medicine; ATTEND Internal Medicine
DX: I11.0 Hypertensive heart disease with heart failure (principal); I50.43 Acute on chronic combined systolic (congestive) and diastolic (congestive) heart failure; E87.2 Acidosis; N39.0 Urinary tract infection, site not specified; I48.91 Unspecified atrial fibrillation; D64.9 Anemia, unspecified; E78.00 Pure hypercholesterolemia, unspecified; E78.5 Hyperlipidemia, unspecified; E87.6 Hypokalemia; F41.9 Anxiety disorder, unspecified; I25.10 Atherosclerotic heart disease of native coronary artery without angina pectoris; N40.0 Benign prostatic hyperplasia without lower urinary tract symptoms; Z20.822 Contact with and (suspected) exposure to COVID-19; Z79.01 Long term (current) use of anticoagulants; Z82.49 Family history of ischemic heart disease and other diseases of the circulatory system; Z87.891 Personal history of nicotine dependence; F32.A Depression, unspecified; M19.90 Unspecified osteoarthritis, unspecified site
CPT/HCPCS: 36415; 36600; 71045; 80048; 80053; 81001; 82805; 83605; 83735; 83880; 84484; 85025; 87077; 87086; 87186; 87428; 93005; 96365; 96375; J0692; J0696; J3475; J3490; U0003; 97116-GP; 97530-GO; 97530-GP; 97535-GO; 99285-25; G0378